=== PATIENT | female | born 1990 | race Caucasian/White ===

== ENCOUNTER → 2017-12-23 10:43 | Outpatient (CLI) | payer MEDICAID, SELFPAY ==
--- NOTE | 2017-12-23 10:46 | ECHOD_ITS ---
Reason For Study: ARRHYTHMIA Procedure This was a 2D Doppler, Color Flow transthoracic echocardiogram. Exam performed in department. Left Ventricle Normal size and thickness. The estimated ejection fraction is 65 %. Normal diastology for age. No regional wall motion abnormalities noted. Right Ventricle Normal size and thickness. Normal systolic function. Atria Normal left atrium. Normal right atrium. Normal atrial septum. Mitral Valve The mitral valve is structurally normal. No prolapse or stenosis seen. Tricuspid Valve Normal tricuspid valve. Trivial tricuspid valve insufficiency. Right ventricular systolic pressure estimated to be 21 mmHg. Aortic Valve Trisinus/trileaflet aortic valve. Pulmonic Valve Normal pulmonic valve. Great Vessels Normal aortic root. Normal arch. Normal inferior vena cava. Inferior vena cava collapse with sniff. Pericardium/Pleural No pericardial effusion. MMode/2D Measurements & Calculations LVIDd: 4.4 cm IVSd: 1.1 cm LA dimension: 3.3 cm LVIDs: 3.0 cm LVPWd: 1.1 cm RVDd: 2.7 cm FS: 32.7 % LAV(MOD-bp): 35.9 ml LA A4 area: 13.0 cm2 RA A4 area: 12.1 cm2 LAV(MOD-bp) Indexed: 17.4 ml/m2 LAV(MOD-sp2): 32.2 ml LAV(MOD-sp4): 33.8 ml Doppler Measurements & Calculations MV E max dominick: 74.0 cm/sec Lat Peak E' Dominick: 8.3 cm/sec Med Peak E' Dominick: 8.5 cm/sec MV A max dominick: 61.2 cm/sec E/E' lat: 8.9 E/E' med: 8.7 MV E/A: 1.2 Ao V2 max: 107.8 cm/sec LV V1 max: 89.9 cm/sec PA V2 max: 95.9 cm/sec Ao max P.6 mmHg LV V1 max P.2 mmHg TR max dominick: 202.5 cm/sec TR max P.4 mmHg Interpretation Summary The estimated ejection fraction is 65 %. Trivial tricuspid valve insufficiency. Right ventricular systolic pressure estimated to be 21 mmHg. There is no comparison study available. Ordering Physician: Humberto Barnes Referring Physician: Rohith Harman Performed By: Christnie Pineda, AMY, RVT
== END ==
PROVIDERS: PCP Internal Medicine; Referring Provider Internal Medicine Cardiovascular Disease; Visit Provider Internal Medicine Cardiovascular Disease
DX: R00.0 Tachycardia, unspecified (principal); Z98.890 Other specified postprocedural states
CPT/HCPCS: 93306

== ENCOUNTER → 2019-07-15 | Outpatient (CLI) | payer MEDICAID, SELFPAY ==
[2019-07-15 14:37] VITALS: BMI 37.9
[2019-07-17 18:11] LABS: HPV Reflexed? NOT INDICATED
== END | disposition home or self-care (01) ==
LOC: LABSPEC 16:22
PROVIDERS: PCP Internal Medicine; Referring Provider Nurse Practitioner Women's Health; Visit Provider Nurse Practitioner Women's Health
DX: Z12.4 Encounter for screening for malignant neoplasm of cervix (principal)
CPT/HCPCS: 88175; G0145

== ENCOUNTER → 2022-11-12 | Outpatient (CLI) | payer MEDICAID, SELFPAY ==
[2022-11-16 16:09] LABS: HPV APTIMA, High Risk Negative (Negative)
== END | disposition home or self-care (01) ==
PROVIDERS: PCP Internal Medicine; Referring Provider Obstetrics & Gynecology; Visit Provider Obstetrics & Gynecology
DX: Z12.4 Encounter for screening for malignant neoplasm of cervix (principal)
CPT/HCPCS: 87624; 88175; G0145

== ENCOUNTER → 2022-12-17 | Outpatient (CLI) | payer MEDICAID, SELFPAY ==
[2022-12-17 15:15] LABS: Absolute Lymphocyte Count 2.19 X10^3/uL (0.83-4.51); Absolute Neutrophil Count 8.9 X10^3/uL (2.0-7.7); Basophil# 0.05 X10^3/uL; Basophil% 0.4 % (0-1); Eosinophil# 0.12 X10^3/uL; Hematocrit 41.8 % (37-47); Hemoglobin 13.7 g/dL (12.0-15.0); Lymphocyte # 2.19 X10^3/ul (0.83-4.51); Lymphocyte % 18.3 % (19-41); Mean Corp Hgb Conc 32.8 g/dL (32-36); Mean Corpuscular Hgb 28.7 pg (27.0-32.0); Mean Corpuscular Volume 87.4 fL (81-99); Mean Platelet Vol. 10.3 fl (6.2-12.0); Monocyte# 0.62 X10^3/uL; Monocyte% 5.2 % (0-10); NRBC Flagged by Analyzer 0 % (0-5); Neutrophil # 8.94 X10^3/uL (2.7-7.7); Neutrophil % 74.8 % (47-70); Platelet Count 432 K/mm3 (150-450); RBC Distribution Width CV 12.6 % (11.6-14.6); RBC Distribution Width SD 40.3 fl (35.1-43.9); Red Blood Count 4.78 M/mm3 (4.2-5.4)
[2022-12-17 15:35] LABS: Hemoglobin A1c 5.4 % (3.8-5.6)
[2022-12-17 15:40] LABS: ALB/GLOB Ratio 1.1 RATIO (0.9-2.4); AST(SGOT) 31 U/L (15-37); Alanine Aminotransfer ALT/SGPT 70 U/L (13-56); Alkaline Phosphatase 76 U/L (45-117); Anion Gap 6 (5-15); BUN 6 mg/dL (7-18); BUN/Creat Ratio 8.3 RATIO (10-20); Chloride 106 mmol/L (98-107); Cholesterol 188 mg/dL (200); Creatinine, Serum 0.72 mg/dL (0.55-1.02); EST Glomerular Filtration Rate 101 mL/min (>60); Est Glom Filt Rate - Afr Amer 122 mL/min (>60); Estradiol 52.6 pg/mL; Follicle Stimulating Hormone 3.5 mIU/mL; Globulin 3.8 g/dL (2.2-4.2); Glucose 93 mg/dL (74-106); High Density Lipoprotein 33 mg/dL; Potassium 3.3 mmol/L (3.5-5.1); Prolactin 11.3 ng/mL; Protein, Total 7.8 g/dL (6.4-8.2); Sodium Level 139 mmol/L (136-145); Thyroid Stim Hormone (TSH) 1.07 uIU/mL (0.358-3.74); Triglycerides 296 mg/dL; Very Low Density Lipoprotein 59 mg/dL (5-40)
[2022-12-21 10:08] LABS: 17-Hydroxyprogesterone 29 ng/dL (.); Vitamin D 1,25-Dihydroxy 51.4 pg/mL (24.8-81.5)
[2022-12-23 19:07] LABS: Testosterone Free 1.4 pg/mL (0.0-4.2)
== END | disposition home or self-care (01) ==
PROVIDERS: PCP Internal Medicine; Referring Provider Obstetrics & Gynecology; Visit Provider Obstetrics & Gynecology
DX: N93.9 Abnormal uterine and vaginal bleeding, unspecified (principal)
CPT/HCPCS: 36415; 80053; 80061; 82627; 82652; 82670; 83001; 83036; 83498; 84146; 84402; 84443; 85025; 82626

== ENCOUNTER → 2023-03-26 | Outpatient (CLI) | payer MEDICAID, SELFPAY ==
[2023-03-26 12:25] LABS: ALB/GLOB Ratio 1.1 RATIO (0.9-2.4); AST(SGOT) 22 U/L (15-37); Alanine Aminotransfer ALT/SGPT 42 U/L (13-56); Albumin, Serum 3.8 g/dL (3.2-5.0); Alkaline Phosphatase 66 U/L (45-117); Anion Gap 6 (5-15); BUN 6 mg/dL (7-18); BUN/Creat Ratio 7.9 RATIO (10-20); Calcium,Total 9.1 mg/dL (8.5-10.1); Chloride 106 mmol/L (98-107); Cholesterol 210 mg/dL (200); Creatinine, Serum 0.76 mg/dL (0.55-1.02); EST Glomerular Filtration Rate 95 mL/min (>60); Est Glom Filt Rate - Afr Amer 115 mL/min (>60); Globulin 3.5 g/dL (2.2-4.2); Glucose 95 mg/dL (74-106); High Density Lipoprotein 34 mg/dL; Potassium 3.9 mmol/L (3.5-5.1); Protein, Total 7.3 g/dL (6.4-8.2); Sodium Level 138 mmol/L (136-145); Triglycerides 321 mg/dL; Very Low Density Lipoprotein 64 mg/dL (5-40)
== END | disposition home or self-care (01) ==
LOC: BIMLAB 09:34
PROVIDERS: PCP Internal Medicine; Visit Provider Internal Medicine
DX: E78.5 Hyperlipidemia, unspecified (principal)
CPT/HCPCS: 36415; 80053; 80061

== ENCOUNTER → 2023-12-30 | Outpatient (CLI) | payer MEDICAID, SELFPAY ==
--- OUTSIDE RECORDS SUMMARY | 2023-12-30 12:06 | XMS RPT_ITS | CCD ---
Author Organization [facility] Care Team Providers Care Supervisor Frame Assembly Name Role Phone GIAN MEDEIROS, LAITH Thacker Primary Care Physician [phone] Allergies Allergy Classification Reported Allergen(s) Allergy Type Date of Onset Reaction(s) Facility (2 sources) Codeine; Translations: [codeine] Drug Allergy [facility] (2 sources) Mold Extract Drug Allergy Weal (disorder) [facility] (1 source) MILDEW; Translations: [MILDEW] Propensity to adverse reactions (disorder) 6 [facility] Repository (1 source) OTHER; Translations: [OTHER] Propensity to adverse reactions (disorder) 6 [facility] Repository Medications Current Medications Medication Drug Class(es) Dates Sig (Normalized) Sig (Original) acetaminophen 500 mg oral tablet (1 source) Start: 01-23-2021 take 1 dose by mouth every six hours as needed for pain acetaminophen Dose : 500 mg =, Oral, q6hr, PRN as needed for pain, 0 Refill(s) Start Date: 01/23/21 Status: Ordered acetaminophen 325 mg / oxyCODONE hydrochloride 5 mg oral tablet (2 sources) Opioid Agonist Start: 01-09-2021 take 1 tablet by mouth every six hours as needed for pain acetaminophen-oxyCO DONE 325 mg-5 mg oral tablet Dose = 1 tab(s), Oral, q6h, PRN for pain, # 12 tab(s), 0 Refill(s), 102.3 Start Date: 01/09/21 Status: Ordered Nexplanon 68 mg subcutaneous implant (2 sources) Start: 01-09-2021 inject 1 mg by subcutaneous injection once Nexplanon 68 mg subcutaneous implant mg = EA, Subcutaneous, Once, 0 Refill(s) Start Date: 01/09/21 Status: Ordered Results Test Name Value Interpretation Reference Range Facility Final Surgical Pathology Rep thomas 01-27-2021 Final Surgical Pathology Report . Pathology Reports Accession: Collected Date/Time: Received Date/Time: Pathologist: [id number] 01/23/2021 16:20 EST 01/24/2021 07:58 EST DO RASHAWN RUVALCABA Final Surgical Pathology Report DIAGNOSIS: GALLBLADDER - CHOLELITHIASIS AND CHRONIC CHOLECYSTITIS CLINICAL INFORMATION: Procedure: ROBOTIC CHOLECYSTECTOMY Preoperative diagnosis: CHOLELITHIASIS Postoperative diagnosis: SAME SPECIMEN: A GALLBLADDER GROSS DESCRIPTION: A. Received in formalin, labeled with the patients name, Case #[id number], and gallbladder Dimensions-9.5 x 3.2 x 1.8 cm Cystic duct/pericystic duct lymph node-patent, no lymph node Serosal surface-yellow -purple with pinpoint areas of hemorrhage Luminal contents-clear liquid bile and 1 oval-shaped yellow hard calculi measuring 1.7 x 1.4 cm. Mucosal surface-maharaj -pink with small white specks Wall thickness-0.2 cm RS- 1 Dictated by ROBERTO LEWIS Electronically Signed by Pathology Report verified by [facility] Electronically signed by RASHAWN RUVALCABA DO Sign out Date: 01/27/2021 12:58 Performing Lab: [address] [facility] ([place] LABORATORYOrdered By: Rebecca Loo on 01-23-2021 Beta HCG ( test) Ql (U) Negative (01/23/21 12:50 PM) [facility] Glucose [Mass/Vol] 85 mg/dL Invalid Interpretation Code 70 - 110 mg/dL [facility] .Auto Diffon 01-09-2021 Basophil, Absolute 0.10 10 3/mcL Normal 0.00-0.27 [facility] ([place]) Comment on above: Performed By: #### C BC, ADIFF, ANEU, CMP #### [address] [address] #### GFR #### [address] [address] Basophils/100 WBC (Bld) 0.9 % Normal 0.0-2.5 [facility] ([place] Comment on above: Performed By: #### C BC, ADIFF, ANEU, CMP #### [address] [address] #### GFR #### [address] [address] Eosinophil, Absolute 0.10 10 3/mcL Normal 0.00-0.65 A [facility] ([place]) Comment on above: Performed By: #### C BC, ADIFF, ANEU, CMP #### [place] [address] #### GFR #### [address] [address] Eosinophils/100 WBC (Bld) 1.2 % Normal 0.0-6.0 [facility] ([place] Comment on above: Performed By: #### C BC, ADIFF, ANEU, CMP #### [place] [address] #### GFR #### [address] [address] Lymphocyte, Absolute 2.30 10 3/mcL Normal 0.90-4.32 A [facility] ([place]) Comment on above: Performed By: #### C BC, ADIFF, ANEU, CMP #### [place] [address] #### GFR #### [address] [address] Lymphocytes/100 WBC (Bld) 23.8 % Normal 20.0-40.0 [facility] [place] Comment on above: Performed By: #### C BC, ADIFF, ANEU, CMP #### [place] [address] #### GFR #### [address] [address] Monocyte, Absolute 0.40 10 3/mcL Normal 0.09-1.40 [facility] ([place] Comment on above: Performed By: #### C BC, ADIFF, ANEU, CMP #### [address] [address] #### GFR #### [address] [address] Monocytes/100 WBC (Bld) 4.4 % Normal 2.0-13.0 [facility] [place] Comment on above: Performed By: #### C BC, ADIFF, ANEU, CMP #### [address] [address] #### GFR #### [address] [address] Neutrophils/100 WBC (Bld) 69.7 % Normal 50.0-75.0 [facility] [place] Comment on above: Performed By: #### C BC, ADIFF, ANEU, CMP #### [address] [address] #### GFR #### [address] [address] .GFRon 01-09-2021 GFR Non- >60 Normal [facility] ([place] Comment on above: Result Comment: GFR Population mean for , Non- Americans Ages 20-29 = 116 mL/min/1.73 sq.m. Ages 30-39 = 107 mL/min/1.73 sq.m. Ages 40-49 = 99 mL/min/1.73 sq.m. Ages 50-59 = 93 mL/min/1.73 sq.m. Ages 60-69 = 85 mL/min/1.73 sq.m. Ages 70+ = 75 mL/min/1.73 sq.m. Chronic Kidney Disease: Less than 60 mL/min/1.73 square meters End Stage Renal Disease: Less than 15 mL/min/1.73 square meters Performed By: #### C BC, ADIFF, ANEU, CMP #### [address] [address] #### GFR #### [address] [address] GFR >60 Normal [facility] ([place]) Comment on above: Result Comment: GFR Population mean for , Non- Americans Ages 20-29 = 116 mL/min/1.73 sq.m. Ages 30-39 = 107 mL/min/1.73 sq.m. Ages 40-49 = 99 mL/min/1.73 sq.m. Ages 50-59 = 93 mL/min/1.73 sq.m. Ages 60-69 = 85 mL/min/1.73 sq.m. Ages 70+ = 75 mL/min/1.73 sq.m. Chronic Kidney Disease: Less than 60 mL/min/1.73 square meters End Stage Renal Disease: Less than 15 mL/min/1.73 square meters Performed By: #### C AMAYA CORONEL ANEU, CMP #### [place] [address] #### GFR #### [address] [address] .NEUABSon 01-09-2021 Neutrophil, Absolute 6.90 10 3/mcL Normal 2.25-8.10 A [facility] ([place]) Comment on above: Performed By: #### C AMAYA CORONEL ANEU, CMP #### [place] [address] #### GFR #### [address] [address] CBCon 01-09-2021 Erythrocyte distribution width (RBC) [Ratio] 14.4 % Normal 11.5-15.5 [facility] [place] Comment on above: Performed By: #### C BCAMAYA ANEU, CMP #### [address] [address] #### GFR #### [address] [address] Hematocrit (Bld) [Volume fraction] 40.0 % Normal 34.0-46.0 [facility] ([place] Comment on above: Performed By: #### C BCAMAYA ANEU, CMP #### [place] [address] #### GFR #### [place] [address] Hgb 12.7 G/dL Normal 12.0-16.0 [facility] ([place] Comment on above: Performed By: #### C AMAYA CORONEL ANEU, CMP #### [place] [address] #### GFR #### [place] [address] MCH (RBC) [Entitic mass] 26.9 pg Low 27.0-33.0 [facility] ([place] Comment on above: Performed By: #### C AMAYA CORONEL ANEU, CMP #### [place] [address] #### GFR #### [place] [address] MCHC 31.9 G/dL Low 32.0-36.0 [facility] [place] Comment on above: Performed By: #### C AMAYA CORONEL ANEU, CMP #### [place] [address] #### GFR #### [place] [address] MCV (RBC) [Entitic vol] 84.4 fL Normal 80.0-99.0 [facility] ([place] Comment on above: Performed By: #### C AMAYA CORONEL ANEU, CMP #### [place] [address] #### GFR #### [place] [address] Platelet 371 10 3/mcL Normal 150-450 [facility] ([place]) Comment on above: Performed By: #### C BCAMAYA ANEU, CMP #### [place] [address] #### GFR #### [place] [address] Platelet mean volume (Bld) [Entitic vol] 9.2 fL Normal 6.6-10.5 [facility] ([place]) Comment on above: Performed By: #### C BC, ADIFF, ANEU, CMP #### [place] [address] #### GFR #### [place] [address] RBC 4.74 10 6/mcL Normal 4.10-5.30 [facility] ([place]) Comment on above: Performed By: #### C BC, ADIFF, ANEU, CMP #### [place] [address] #### GFR #### [place] [address] WBC 9.90 10 3/mcL Normal 4.50-10.80 [facility] ([place] Comment on above: Performed By: #### C BC, ADIFF, ANEU, CMP #### [place] [address] #### GFR #### [place] [address] CMPon 01-09-2021 Albumin Level 4.0 G/dL Normal 3.2-4.8 [facility] ([place] Comment on above: Performed By: #### C BC, ADRIOS, ANEU, CMP #### [place] [address] #### GFR #### [place] [address] Albumin/Globulin [Mass ratio] 1.4 {ratio} Normal 0.9-1.6 [facility] ([place] Comment on above: Performed By: #### C BC, ADIFF, ANEU, CMP #### [place] [address] #### GFR #### [place] [address] ALP [Catalytic activity/Vol] 70 U/L Normal 38-126 [facility] ([place] Comment on above: Performed By: #### C BC, ADIFF, ANEU, CMP #### [place] [address] #### GFR #### [address] [address] ALT [Catalytic activity/Vol] 44 U/L Normal 10-49 [facility] ([place] Comment on above: Performed By: #### C BC, ADIFF, ANEU, CMP #### [address] [address] #### GFR #### [address] [address] AST [Catalytic activity/Vol] 22 U/L Normal 8-34 [facility] ([place] Comment on above: Performed By: #### C BC, ADIFF, ANEU, CMP #### [place] [address] #### GFR #### [address] [address] Bili Total 0.30 mg/dL Normal 0.20-1.20 [facility] ([place] Comment on above: Result Comment: Use of this assay is not recommended for patients undergoing treatment with eltrombopag due to the potential for falsely elevated results. Performed By: #### C BC, ADIFF, ANEU, CMP #### [place] [address] #### GFR #### [address] [address] BUN/Creatinine Ratio 10.4 ratio Normal 10.0-22.0 [facility] ([place] Comment on above: Performed By: #### C BC, ADIFF, ANEU, CMP #### [place] [address] #### GFR #### [address] [address] Calcium [Mass/Vol] 9.7 mg/dL Normal 8.7-10.4 [facility] ([place]) Comment on above: Result Comment: No te - New Reference Range in effect 19 Performed By: #### C BC, ADIFF, ANEU, CMP #### [place] [address] #### GFR #### [address] [address] Chloride [Moles/Vol] 107 mmol/L Normal 98-110 [facility] ([place] Comment on above: Performed By: #### C BC, ADIFF, ANEU, CMP #### [address] [address] #### GFR #### [address] [address] CO2 [Moles/Vol] 29 mmol/L Normal 22-32 [facility] [place] Comment on above: Performed By: #### C BC, ADIFF, ANEU, CMP #### [address] [address] #### GFR #### [address] [address] Creatinine [Mass/Vol] 0.67 mg/dL Normal 0.50-1.20 [facility] ([place]) Comment on above: Performed By: #### C BC, ADIFF, ANEU, CMP #### [address] [address] #### GFR #### [address] [address] Electrolyte Balance 6.0 mEq/L Normal 4.0-15.0 [facility] ([place]) Comment on above: Performed By: #### C BC, ADIFF, ANEU, CMP #### [address] [address] #### GFR #### [address] [address] Globulin 2.9 G/dL Normal 1.5-3.8 [facility] ([place] Comment on above: Performed By: #### C BC, ADIFF, ANEU, CMP #### [address] [address] #### GFR #### [address] [address] Glucose [Mass/Vol] 94 mg/dL Normal 70-110 [facility] ([place] Comment on above: Performed By: #### C BC, AMAYA ANEU, CMP #### [address] [address] #### GFR #### [address] [address] Potassium [Moles/Vol] 4.5 mmol/L Normal 3.5-5.0 [facility] ([place]) Comment on above: Performed By: #### C BC, AMAYA ANEU, CMP #### [place] [address] #### GFR #### [address] [address] Sodium [Moles/Vol] 142 mmol/L Normal 136-145 [facility] ([place]) Comment on above: Performed By: #### C BCAMAYA ANEU, CMP #### [place] [address] #### GFR #### [place] [address] Total Protein 6.9 G/dL Normal 5.7-8.2 [facility] ([place]) Comment on above: Result Comment: No te - New Reference Range in effect 19 Performed By: #### C BC, AMAYA ANEU, CMP #### [place] [address] #### GFR #### [address] [address] Urea nitrogen [Mass/Vol] 7.0 mg/dL Low 8.0-22.0 [facility] ([place] Comment on above: Performed By: #### C BC, AMAYA, ANEU, CMP #### [place] [address] #### GFR #### [address] [address] LABORATORYOrdered By: SYSTEM SYSTEM on 01-09-2021 Albumin BCP dye [Mass/Vol] 4.0 G/dL Invalid Interpretation Code 3.2 - 4.8 G/dL AH ADM SS Albumin/Globulin [Mass ratio] 1.4 {ratio} Invalid Interpretation Code 0.9 - 1.6 ratio AH ADM SS ALP [Catalytic activity/Vol] 70 U/L Invalid Interpretation Code 38 - 126 U/L AH ADM SS ALT No additional P-5'-P [Catalytic activity/Vol] 44 U/L Invalid Interpretation Code 10 - 49 U/L AH ADM SS AST [Catalytic activity/Vol] 22 U/L Invalid Interpretation Code 8 - 34 U/L AH ADM SS Basophils (Bld) [#/Vol] 0.10 103/mcL Invalid Interpretation Code 0.00 - 0.27 10^3/mcL AH Remisol SS Basophils/100 WBC (Bld) 0.9 % Invalid Interpretation Code 0.0 - 2.5 % AH Remisol SS Bilirubin [Mass/Vol] 0.30 mg/dL Invalid Interpretation Code 0.20 - 1.20 mg/dL AH ADM SS Calcium [Mass/Vol] 9.7 mg/dL Invalid Interpretation Code 8.7 - 10.4 mg/dL AH ADM SS Chloride [Moles/Vol] 107 mmol/L Invalid Interpretation Code 98 - 110 mEq/L ADM SS CO2 [Moles/Vol] 29 mmol/L Invalid Interpretation Code 22 - 32 mEq/L AH ADM SS Creatinine [Mass/Vol] 0.67 mg/dL Invalid Interpretation Code 0.50 - 1.20 mg/dL AH ADM SS Electrolyte Balance 6.0 mEq/L Invalid Interpretation Code 4.0 - 15.0 mEq/L AH ADM SS Eosinophils (Bld) [#/Vol] 0.10 103/mcL Invalid Interpretation Code 0.00 - 0.65 10^3/mcL AH Remisol SS Eosinophils/100 WBC (Bld) 1.2 % Invalid Interpretation Code 0.0 - 6.0 % AH Remisol SS Erythrocyte distribution width (RBC) [Ratio] 14.4 % Invalid Interpretation Code 11.5 - 15.5 % AH Remisol SS GFR/1.73 sq M.predicted among blacks MDRD (S/P/Bld) [Vol rate/Area] ml/min/1.73sqm Invalid Interpretation Code AH Chemistry S GFR/1.73 sq M.predicted among non-blacks MDRD (S/P/Bld) [Vol rate/Area] ml/min/1.73sqm Invalid Interpretation Code Chemistry S Globulin 2.9 G/dL Invalid Interpretation Code 1.5 - 3.8 G/dL AH ADM SS Glucose [Mass/Vol] 94 mg/dL Invalid Interpretation Code 70 - 110 mg/dL AH ADM SS Hematocrit (Bld) [Volume fraction] 40.0 % Invalid Interpretation Code 34.0 - 46.0 % AH Remisol SS Hemoglobin (Bld) [Mass/Vol] 12.7 G/dL Invalid Interpretation Code 12.0 - 16.0 G/dL AH Remisol SS Lymphocytes (Bld) [#/Vol] 2.30 103/mcL Invalid Interpretation Code 0.90 - 4.32 10^3/mcL AH Remisol SS Lymphocytes/100 WBC (Bld) 23.8 % Invalid Interpretation Code 20.0 - 40.0 % AH Remisol SS MCH (RBC) [Entitic mass] 26.9 pg Invalid Interpretation Code 27.0 - 33.0 pg AH Remisol SS MCHC (RBC) [Mass/Vol] 31.9 G/dL Invalid Interpretation Code 32.0 - 36.0 G/dL AH Remisol SS MCV (RBC) [Entitic vol] 84.4 fL Invalid Interpretation Code 80.0 - 99.0 fL AH Remisol SS Monocytes (Bld) [#/Vol] 0.40 103/mcL Invalid Interpretation Code 0.09 - 1.40 10^3/mcL AH Remisol SS Monocytes/100 WBC (Bld) 4.4 % Invalid Interpretation Code 2.0 - 13.0 % AH Remisol SS Neutrophils (Bld) [#/Vol] 6.90 103/mcL Invalid Interpretation Code 2.25 - 8.10 10^3/mcL AH Remisol SS Neutrophils/100 WBC (Bld) 69.7 % Invalid Interpretation Code 50.0 - 75.0 % AH Remisol SS Platelet mean volume (Bld) [Entitic vol] 9.2 fL Invalid Interpretation Code 6.6 - 10.5 fL AH Remisol SS Platelets (Bld) [#/Vol] 371 103/mcL Invalid Interpretation Code 150 - 450 10^3/mcL AH Remisol SS Potassium [Moles/Vol] 4.5 mmol/L Invalid Interpretation Code 3.5 - 5.0 mEq/L AH ADM SS Protein [Mass/Vol] 6.9 G/dL Invalid Interpretation Code 5.7 - 8.2 G/dL AH ADM SS RBC (Bld) [#/Vol] 4.74 106/mcL Invalid Interpretation Code 4.10 - 5.30 10^6/mcL AH Remisol SS Sodium [Moles/Vol] 142 mmol/L Invalid Interpretation Code 136 - 145 mEq/L AH ADM SS Urea nitrogen [Mass/Vol] 7.0 mg/dL Invalid Interpretation Code 8.0 - 22.0 mg/dL AH ADM SS Urea nitrogen/Creatinine [Mass ratio] 10.4 ratio Invalid Interpretation Code 10.0 - 22.0 ratio AH ADM SS WBC (Bld) [#/Vol] 9.90 103/mcL Invalid Interpretation Code 4.50 - 10.80 10^3/mcL AH Remisol SS .Auto Diffon 12-04-2020 Basophil, Absolute 0.00 10 3/mcL Normal 0.00-0.19 [facility] ([place]) Comment on above: Performed By: #### C BC, ADIFF ANEU, CMP #### [place] [address] #### GFR #### [address] [address] Basophils/100 WBC (Bld) 0.3 % Normal 0.0-2.5 [facility] ([place] Comment on above: Performed By: #### C BC, ADIFF, ANEU, CMP #### [address] [address] #### GFR #### [address] [address] Eosinophil, Absolute 0.10 10 3/mcL Normal 0.00-0.40 A [facility] ([place]) Comment on above: Performed By: #### C BC, ADIFF, ANEU, CMP #### [place] [address] #### GFR #### [address] [address] Eosinophils/100 WBC (Bld) 0.9 % Normal 0.0-7.0 [facility] ([place] Comment on above: Performed By: #### C BC, ADIFF, ANEU, CMP #### [address] [address] #### GFR #### [address] [address] Lymphocyte, Absolute 1.70 10 3/mcL Normal 0.77-3.85 A [facility] ([place]) Comment on above: Performed By: #### C BC, ADIFF, ANEU, CMP #### [address] [address] #### GFR #### [address] [address] Lymphocytes/100 WBC (Bld) 10.5 % Normal 10.0-50.0 [facility] ([place]) Comment on above: Performed By: #### C BC, ADIFF, ANEU, CMP #### [address] [address] #### GFR #### [address] [address] Monocyte, Absolute 0.70 10 3/mcL Normal 0.15-1.00 [facility] ([place]) Comment on above: Performed By: #### C BC, ADIFF, ANEU, CMP #### [address] [address] #### GFR #### [address] [address] Monocytes/100 WBC (Bld) 4.3 % Normal 1.7-13.0 [facility] ([place]) Comment on above: Performed By: #### C BC, ADIFF, ANEU, CMP #### [address] [address] #### GFR #### [address] [address] Neutrophils/100 WBC (Bld) 84.0 % High 37.0-80.0 [facility] ([place]) Comment on above: Performed By: #### C BC, ADIFF, ANEU, CMP #### [address] [address] #### GFR #### [address] [address] .GFRon 12-04-2020 GFR Non- 84 ml/min/1.73sqm Normal [facility] ([place]) Comment on above: Result Comment: GFR Population mean for , Non- Americans Ages 20-29 = 116 mL/min/1.73 sq.m. Ages 30-39 = 107 mL/min/1.73 sq.m. Ages 40-49 = 99 mL/min/1.73 sq.m. Ages 50-59 = 93 mL/min/1.73 sq.m. Ages 60-69 = 85 mL/min/1.73 sq.m. Ages 70+ = 75 mL/min/1.73 sq.m. Chronic Kidney Disease: Less than 60 mL/min/1.73 square meters End Stage Renal Disease: Less than 15 mL/min/1.73 square meters Performed By: #### C BCAMAYA, ANEU, CMP #### [address] [address] #### GFR #### [address] [address] GFR 102 ml/min/1.73sqm Normal [facility] ([place] Comment on above: Result Comment: GFR Population mean for , Non- Americans Ages 20-29 = 116 mL/min/1.73 sq.m. Ages 30-39 = 107 mL/min/1.73 sq.m. Ages 40-49 = 99 mL/min/1.73 sq.m. Ages 50-59 = 93 mL/min/1.73 sq.m. Ages 60-69 = 85 mL/min/1.73 sq.m. Ages 70+ = 75 mL/min/1.73 sq.m. Chronic Kidney Disease: Less than 60 mL/min/1.73 square meters End Stage Renal Disease: Less than 15 mL/min/1.73 square meters Performed By: #### C BC, ADIFF, ANEU, CMP #### [address] [address] #### GFR #### [address] [address] .NEUABSon 12-04-2020 Neutrophil, Absolute 13.20 10 3/mcL High 2.85-6.16 [facility] ([place] Comment on above: Performed By: #### C BC, ADIFF, ANEU, CMP #### [place] [address] #### GFR #### [place] [address] .Urinalysis Microscopic (AO) on 12-04-2020 UA Amorphus 2+ /hpf Normal [facility] ([place]) Comment on above: Performed By: #### P REGU, UA, UAMICAO #### [place] [address] UA Bacteria 1+ /hpf Abnormal [facility] ([place]) Comment on above: Performed By: #### P REGU, UA, UAMICAO #### [place] [address] UA Mucous 2+ /hpf Normal [facility] ([place] Comment on above: Performed By: #### P REGU, UA, UAMICAO #### [address] [address] UA RBC None Seen Normal None Seen [facility] [place] Comment on above: Performed By: #### P REGU, UA, UAMICAO #### [address] [address] UA Squam Epithelial 10-15 Abnormal None Seen [facility] ([place]) Comment on above: Performed By: #### P REGU, UA, UAMICAO #### [place] [address] UA WBC 0-5 Abnormal None Seen [facility] [place] Comment on above: Performed By: #### P REGU, UA, UAMICAO #### [place] [address] AMYon 12-04-2020 Amylase [Catalytic activity/Vol] 52 U/L Normal 25-115 [facility] ([place] Comment on above: Performed By: #### A MY #### [address] [address] CBCon 12-04-2020 Erythrocyte distribution width (RBC) [Ratio] 13.7 % Normal 11.5-14.5 [facility] ([place] Comment on above: Performed By: #### C AMAYA CORONEL ANEU, CMP #### [address] [address] #### GFR #### [place] [address] Hematocrit (Bld) [Volume fraction] 37.7 % Normal 37.0-47.0 [facility] ([place] Comment on above: Performed By: #### C AMAYA CORONEL ANEU, CMP #### [place] [address] #### GFR #### [place] [address] Hgb 12.3 G/dL Normal 12.0-16.0 [facility] ([place] Comment on above: Performed By: #### C AMAYA CORONEL ANEU, CMP #### [place] [address] #### GFR #### [place] [address] MCH (RBC) [Entitic mass] 27.8 pg Normal 27.0-31.2 [facility] ([place] Comment on above: Performed By: #### C AMAYA CORONEL ANEU, CMP #### [place] [address] #### GFR #### [place] [address] MCHC 32.6 G/dL Low 33.0-37.0 [facility] ([place] Comment on above: Performed By: #### C AMAYA CORONEL ANEU, CMP #### [place] [address] #### GFR #### [place] [address] MCV (RBC) [Entitic vol] 85.2 fL Normal 80.0-94.0 [facility] ([place] Comment on above: Performed By: #### C BC, ADIFF, ANEU, CMP #### [address] [address] #### GFR #### [address] [address] Platelet 332 10 3/mcL Normal 130-400 [facility] ([place]) Comment on above: Performed By: #### C BC, ADIFF, ANEU, CMP #### [place] [address] #### GFR #### [place] [address] Platelet mean volume (Bld) [Entitic vol] 8.6 fL Normal 7.4-10.4 [facility] ([place] Comment on above: Performed By: #### C BC, ADIFF, ANEU, CMP #### [place] [address] #### GFR #### [place] [address] RBC 4.43 10 6/mcL Normal 4.20-5.40 [facility] ([place]) Comment on above: Performed By: #### C BC, ADIFF, ANEU, CMP #### [place] [address] #### GFR #### [place] [address] WBC 15.80 10 3/mcL High 4.60-10.80 [facility] ([place]) Comment on above: Performed By: #### C BC, ADIFF, ANEU, CMP #### [place] [address] #### GFR #### [place] [address] CMPon 12-04-2020 Albumin Level 3.9 G/dL Normal 3.5-5.0 [facility] ([place] Comment on above: Performed By: #### C BC, ADIFF, ANEU, CMP #### [place] [address] #### GFR #### [address] [address] Albumin/Globulin [Mass ratio] 1.2 {ratio} Normal 1.1-2.5 [facility] ([place] Comment on above: Performed By: #### C BC, ADIFF, ANEU, CMP #### [place] [address] #### GFR #### [address] [address] ALP [Catalytic activity/Vol] 83 U/L Normal 40-135 [facility] ([place] Comment on above: Performed By: #### C BC, ADIFF, ANEU, CMP #### [place] [address] #### GFR #### [place] [address] ALT [Catalytic activity/Vol] 73 U/L High 14-59 [facility] ([place] Comment on above: Performed By: #### C BC, ADIFF, ANEU, CMP #### [place] [address] #### GFR #### [place] [address] AST [Catalytic activity/Vol] 57 U/L High 10-40 [facility] ([place] Comment on above: Performed By: #### C BC, ADIFF, ANEU, CMP #### [place] [address] #### GFR #### [address] [address] Bili Total 0.3 mg/dL Normal 0.2-1.0 [facility] ([place] Comment on above: Result Comment: Use of this assay is not recommended for patients undergoing treatment with eltrombopag due to the potential for falsely elevated results. Performed By: #### C BC, ADIFF, ANEU, CMP #### [place] [address] #### GFR #### [address] [address] BUN/Creatinine Ratio 10 ratio Normal 7-27 [facility] ([place]) Comment on above: Performed By: #### C BCAMAYA ANEU, CMP #### [address] [address] #### GFR #### [address] [address] Calcium [Mass/Vol] 8.7 mg/dL Normal 8.4-10.2 [facility] ([place] Comment on above: Performed By: #### C BCAMAYA ANEU, CMP #### [address] [address] #### GFR #### [address] [address] Chloride [Moles/Vol] 104 mmol/L Normal 98-107 [facility] ([place]) Comment on above: Performed By: #### C BCAMAYA ANEU, CMP #### [address] [address] #### GFR #### [address] [address] CO2 [Moles/Vol] 28 mmol/L Normal 22-29 [facility] [place] Comment on above: Performed By: #### C BCAMAYA ANEU, CMP #### [address] [address] #### GFR #### [address] [address] Creatinine [Mass/Vol] 0.81 mg/dL Normal 0.55-1.02 [facility] ([place]) Comment on above: Performed By: #### C BC, ADRIOS, ANEU, CMP #### [address] [address] #### GFR #### [address] [address] Electrolyte Balance 11.0 mEq/L Normal [facility] ([place]) Comment on above: Performed By: #### C BC, ADRIOS, ANEU, CMP #### [address] [address] #### GFR #### [address] [address] Globulin 3.2 G/dL Normal [facility] ([place]) Comment on above: Performed By: #### C BC, ADIFF, ANEU, CMP #### [address] [address] #### GFR #### [address] [address] Glucose [Mass/Vol] 106 mg/dL High 70-105 [facility] ([place]) Comment on above: Performed By: #### C AMAYA CORONEL, ANEU, CMP #### [address] [address] #### GFR #### [address] [address] Potassium [Moles/Vol] 3.6 mmol/L Normal 3.5-5.1 [facility] ([place]) Comment on above: Performed By: #### C HOMER, AMAYA, ANEU, CMP #### [address] [address] #### GFR #### [address] [address] Sodium [Moles/Vol] 143 mmol/L Normal 136-145 [facility] ([place]) Comment on above: Performed By: #### C HOMER, AMAYA, ANEU, CMP #### [address] [address] #### GFR #### [address] [address] Total Protein 7.1 G/dL Normal 6.4-8.2 [facility] ([place]) Comment on above: Performed By: #### C BC, ADIFF, ANEU, CMP #### [address] [address] #### GFR #### [address] [address] Urea nitrogen [Mass/Vol] 8 mg/dL Normal 7-18 [facility] ([place] Comment on above: Performed By: #### C BC, ADIFF, ANEU, CMP #### [address] [address] #### GFR #### [address] [address] [address] ABD/PELVIS W/ IV CONTRAST ONLYon 12-04-2020 CT ABD/PELVIS W/ IV CONTRAST ONLY ORIGINAL EXAMINATION: CT OF THE ABDOMEN AND PELVIS WITH CONTRAST 12/04/2020 6:30 pm TECHNIQUE: CT of the abdomen and pelvis was performed with the administration of intravenous contrast. Multiplanar reformatted images are provided for review. Dose modulation, iterative reconstruction, and/or weight based adjustment of the mA/kV was utilized to reduce the radiation dose to as low as reasonably achievable. COMPARISON: None. HISTORY: ORDERING SYSTEM PROVIDED HISTORY: Reason for Exam: Upper abdominal pain FINDINGS: Normal liver, spleen, pancreas and adrenal glands. Cholelithiasis with very mild gallbladder wall thickening. Normal kidneys, bladder, uterus and adnexa. Nonobstructive bowel. Normal appendix. No free fluid or air. Normal aorta. No adenopathy. Heart is normal in size. Lung bases are clear. Osseous structures are intact. IMPRESSION: Cholelithiasis with very mild gallbladder wall thickening. If there is concern for acute cholecystitis, consider right upper quadrant ultrasound. I have personally reviewed the images of this examination and agree with the resident's findings and interpretation. Interpreted by: Dalton Horton DO Preliminary Report By: Alexander Haji Electronically signed By Dalton Horton DO Dictated Date: 12/04/2020 6:36:23 PM Prelim Date: 12/04/2020 6:39:49 PM Sign Date: 12/04/2020 6:49:26 PM Ordering Provider: EZEQUIEL THRASHER [facility] [place] PREGUon 12-04-2020 HCG ( test) Ql (U) Negative Normal [facility] ([place] Comment on above: Performed By: #### P REGU, UA, UAMICAO #### [place] [address] [place], [place] [address] test (u) int Not detected Invalid Interpretation Code [facility] [place] Comment on above: Performed By: #### P REGU, UA, UAMICAO #### [place] [address] UAon 12-04-2020 Color (U) Yellow Normal [facility] [place] Comment on above: Performed By: #### P REGU, UA, UAMICAO #### [place] [address] Glucose (U) [Mass/Vol] Negative Normal Negative [facility] ([place] Comment on above: Performed By: #### P REGU, UA, UAMICAO #### [place] [address] Ketones Ql (U) Negative Normal Negative [facility] ([place]) Comment on above: Performed By: #### P REGU, UA, UAMICAO #### [place] [address] UA Appear Slightly Cloudy Abnormal Clear [facility] [place] Comment on above: Performed By: #### P REGU, UA, UAMICAO #### [place] [address] UA Blood Negative Normal Negative [facility] [place] Comment on above: Performed By: #### P REGU, UA, UAMICAO #### [place] [address] UA Leuk Est Negative Normal Negative [facility] ([place]) Comment on above: Performed By: #### P REGU, UA, UAMICAO #### [place] [address] UA Nitrite Negative Normal Negative [facility] [place] Comment on above: Performed By: #### P REGU, UA, UAMICAO #### [place] [address] UA pH 6.0 Normal 5.0 - 8.0 [facility] ([place] Comment on above: Performed By: #### P REGU, UA, UAMICAO #### [address] [address] UA Protein Negative Normal Negative [facility]) Comment on above: Performed By: #### P REGU, UA, UAMICAO #### [address] [address] UA Spec Grav >=1.030 Abnormal 1.015-1.025 [facility]) Comment on above: Performed By: #### P REGU, UA, UAMICAO #### [address] [address] UA Specimen Type Clean Catch Normal [facility] [place] Comment on above: Performed By: #### P REGU, UA, UAMICAO #### [address] [address] UA Urobilinogen 0.2 E.U./dL Normal 0.2-1.0 [facility]) Comment on above: Performed By: #### P REGU, UA, UAMICAO #### [address] [address] Urobilinogen (U) [Mass/Vol] Negative Normal Negative [facility] ([place] Comment on above: Performed By: #### P REGU, UA, UAMICAO #### [address] [address] Vital Signs Date Time Vital Sign Value Performing Clinician Sage shirley 01-23-2021 19:48-0500 Body temperature 97.88 [degF] DR TYSHAWN GONZALEZ MD [facility] 01-23-2021 19:48-0500 Diastolic blood pressure 65 mm[Hg] DR TYSHAWN GONZALEZ MD [facility] 01-23-2021 19:48-0500 Heart rate 90 /min DR TYSHAWN GONZALEZ MD [facility] 01-23-2021 19:48-0500 Respiratory rate 16 /min DR TYSHAWN GONZALEZ MD [facility] 01-23-2021 19:48-0500 Systolic blood pressure 110 mm[Hg] DR TYSHAWN GONZALEZ MD [facility] 01-23-2021 17:30-0500 Body temperature 97.16 [degF] DR TYSHAWN GONZALEZ MD [facility] 01-23-2021 17:30-0500 Diastolic blood pressure 74 mm[Hg] DR TYSHAWN GONZALEZ MD [facility] 01-23-2021 17:30-0500 Heart rate 94 /min DR TYSHAWN GONZALEZ MD [facility] 01-23-2021 17:30-0500 Respiratory rate 16 /min DR TYSHAWN GONZALEZ MD [facility] 01-23-2021 17:30-0500 Systolic blood pressure 113 mm[Hg] DR TYSHAWN GONZALEZ MD [facility] 01-23-2021 17:19-0500 Body temperature 96.8 [degF] DR TYSHAWN GONZALEZ MD [facility] 01-23-2021 17:19-0500 Diastolic Blood Pressure NBP [address] TYSHAWN GONZALEZ MD [facility] 01-23-2021 17:19-0500 Heart rate 97 /min DR TYSHAWN GONZALEZ MD [facility] 01-23-2021 17:19-0500 Mean blood pressure 89 mm[Hg] DR TYSHAWN GONZALEZ MD [facility] 01-23-2021 17:19-0500 Respiratory rate 16 /min DR TYSHAWN GONZALEZ MD [facility] 01-23-2021 17:19-0500 Systolic Blood Pressure NBP [address] TYSHAWN GONZALEZ MD [facility] 01-23-2021 17:11-0500 Diastolic Blood Pressure NBP [address] TYSHAWN GONZALEZ MD [facility] 01-23-2021 17:11-0500 Heart rate 93 /min DR TYSHAWN GONZALEZ MD [facility] 01-23-2021 17:11-0500 Mean blood pressure 93 mm[Hg] DR TYSHAWN GONZALEZ MD [facility] 01-23-2021 17:11-0500 Systolic Blood Pressure NBP [address] TYSHAWN GONZALEZ MD [facility] 01-23-2021 16:56-0500 Diastolic Blood Pressure NBP [address] TYSHAWN GONZALEZ MD [facility] 01-23-2021 16:56-0500 Heart rate 92 /min DR TYSHAWN GONZALEZ MD [facility] 01-23-2021 16:56-0500 Mean blood pressure 86 mm[Hg] DR TYSHAWN GONZALEZ MD [facility] 01-23-2021 16:56-0500 Systolic Blood Pressure NBP [address] TYSHAWN GONZALEZ MD [facility] 01-23-2021 16:26-0500 Body temperature 97.34 [degF] DR TYSHAWN GONZALEZ MD [facility] 01-23-2021 12:50-0500 Body height [address] TYSHAWN GONZALEZ MD [facility] 01-23-2021 12:50-0500 Body weight 99.[address] TYSHAWN GONZALEZ MD [facility] 01-23-2021 12:50-0500 Diastolic blood pressure 85 mm[Hg] DR TYSHAWN GONZALEZ MD [facility] 01-23-2021 12:50-0500 Heart rate 73 /min DR TYSHAWN GONZALEZ MD [facility] 01-23-2021 12:50-0500 Mean blood pressure 104 mm[Hg] DR TYSHAWN GONZALEZ MD [facility] 01-23-2021 12:50-0500 Systolic blood pressure 142 mm[Hg] DR TYSHAWN GONZALEZ MD [facility] 01-09-2021 15:27-0500 Body height [address] TYSHAWN GONZALEZ MD [facility] 01-09-2021 15:27-0500 Body temperature 98.24 [degF] DR TYSHAWN GONZALEZ MD [facility] 01-09-2021 15:27-0500 Body weight 101.[address] TYSHAWN GONZALEZ MD [facility] 01-09-2021 15:27-0500 Body weight 37.43 kg/m2 DR TYSHAWN GONZALEZ MD [facility] 01-09-2021 15:27-0500 diastolic 83 mm[Hg] DR TYSHAWN GONZALEZ MD [facility] 01-09-2021 15:27-0500 Heart rate 103 /min DR TYSHAWN GONZALEZ MD [facility] 01-09-2021 15:27-0500 systolic 138 mm[Hg] DR TYSHAWN GONZALEZ MD [facility] Encounters Encounter Date Encounter Type Care Provider Facility Start: 01-23-2021 End: 01-23-[address] TYSHAWN GONZALEZ MD [facility] Start: 01-09-2021 End: 01-09-[address] TYSHAWN GONZALEZ MD [facility] Start: 05-26-2017 End: 05-26-2017 ambulatory [facility] Procedures Date Procedure Procedure Detail Performing Clinician Start: 03-04-2013 Entire heart (body structure) DR TYSHAWN GONZALEZ MD Comment on above: ablations x2 Start: 03-04-[address] TYSHAWN GONZALEZ MD Extraction of single tooth D Jim GONZALEZ MD Extraction of wisdom tooth D Jim GONZALEZ MD Tympanotomy DR TYSHAWN GONZALEZ MD Immunizations Immunization Date Immunization Notes Care Provider Fa [facility] 02-29-2016 influenza virus vacc ine, unspecified formulation DR TYSHAWN GONZALEZ MD [facility] 02-29-2016 tetanus toxoid, redu dali diphtheria toxoid, and acellular pertussis vaccine, adsorbed DR TYSHAWN GONZALEZ MD [facility] 09-24-[address] TYSHAWN GONZALEZ MD [facility] 09-24-[address] TYSHAWN GONZALEZ MD [facility] 09-24-2006 measles/mumps/rubell a virus vaccine DR TYSHAWN GONZALEZ MD [facility] 09-24-[address], [address] TYSHAWN GONZALEZ MD [facility] Social History Date Type Detail Facility Tobacco Nicotine Use: Va ping Product in Last 90 Days. Type: Electronic Cigarettes (Vaping). Smoking Cessation Information Refused smoking cessation information. [facility] Occasional tobac co smoker (finding) [facility] Sex Assigned At [facility] Hospital Discharge instructions 01-23-2021 Note Date & Type Note Facility 01-23-2021 Hospital Discharg e instructions Patient Education 01/23/2021 14:38:15 Laparoscopic Cholecystectomy, Care After Laparoscopic Cholecystectomy, Care After This sheet gives you information about how to care for yourself after your procedure. Your health care provider may also give you more specific instructions. If you have problems or questions, contact your health care provider. What can I expect after the procedure? After the procedure, it is common to have: Pain at your incision sites. You will be given medicines to control this pain. Mild nausea or vomiting. Bloating and possible shoulder pain from the air-like gas that was used during the procedure. Follow these instructions at home: Incision care Follow instructions from your health care provider about how to take care of your incisions. Make sure you: ?Wash your hands with soap and water before you change your bandage (dressing). If soap and water are not available, use hand senior sql server database developer. ?Change your dressing as told by your health care provider. ?Leave stitches (sutures), skin glue, or adhesive strips in place. These skin closures may need to be in place for 2 weeks or longer. If adhesive strip edges start to loosen and curl up, you may trim the loose edges. Do not remove adhesive strips completely unless your health care provider tells you to do that. Do not take baths, swim, or use a hot tub until your health care provider approves. Ask your health care provider if you can take showers. You may only be allowed to take sponge baths for bathing. Check your incision area every day for signs of infection. Check for: ?More redness, swelling, or pain. ?More fluid or blood. ?Warmth. ?Pus or a bad smell. Activity Do not drive or use heavy machinery while taking prescription pain medicine. Do not lift anything that is heavier than 10 lb (4.5 kg) until your health care provider approves. Do not play contact sports until your health care provider approves. Do not drive for 24 hours if you were given a medicine to help you relax (sedative). Rest as needed. Do not return to work or school until your health care provider approves. General instructions Take hxhj-fah-dzbissy and prescription medicines only as told by your health care provider. To prevent or treat constipation while you are taking prescription pain medicine, your health care provider may recommend that you: ?Drink enough fluid to keep your urine clear or pale yellow. ?Take spkd-ydv-dpvsfzi or prescription medicines. ?Eat foods that are high in fiber, such as fresh fruits and vegetables, whole grains, and beans. ?Limit foods that are high in fat and processed sugars, such as fried and sweet foods. Contact a health care provider if: You develop a rash. You have more redness, swelling, or pain around your incisions. You have more fluid or blood coming from your incisions. Your incisions feel warm to the touch. You have pus or a bad smell coming from your incisions. You have a fever. One or more of your incisions breaks open. Get help right away if: You have trouble breathing. You have chest pain. You have increasing pain in your shoulders. You faint or feel dizzy when you stand. You have severe pain in your abdomen. You have nausea or vomiting that lasts for more than one day. You have leg pain. This information is not intended to replace advice given to you by your health care provider. Make sure you discuss any questions you have with your health care provider. Document Released: 02/18/2006 Document Revised: 01/31/2018 Document Reviewed: 08/06/2016 [employer] Patient Education 2020 [employer]. Follow Up Care 12/05/2020 14:39:33 With:TYSHAWN GONZALEZ Address: [address] [address]- Business (1) When: Unknown Comments:Follow-up with Dr. Gonzalez in 10-14 daysPlease call the office with any questions or concernsIbuprofen/Advil/Motrin 400 mg by mouth 4 times a day with meals; may alternate with 650 mg of Tylenol 4 times a day With:LAITH SPRINGER Address: [address] [place] [phone] Business (1) When: Unknown [facility] Evaluation + Plan note Note Date & Type Note Facility Evaluation + Plan note Future Appointments [facility] Hospital course Narrative Note Date & Type Note Facility Hospital course Narrative No data available for this section [facility] Hospital Discharge instructions Note Date & Type Note Facility Hospital Discharge instructions No data available for this section [facility] Summary Purpose Family History No Family History Records FoundNo Family History Records Found Advance Directives No Advanced Directives Records FoundNo Advanced Directives Records Found Additional Source Comments INFORMATION SOURCE (unrecogn ized section and content) DATE CREATED AUTHOR 01/31/2021 [facility] Elma hernandezation ([place]) DATE CREATED AUTHOR AUTHOR'S DANI NASSAR 08/04/2023 [facility] FOR RECORDS PERTAINING TO PATIENTS WHO ARE OR HAVE BEEN ENROLLED IN A CHEMICAL DEPENDENCY/SUBSTANCEABUSE PROGRAM, SOME INFORMATION MAY BE OMITTED. This clinical summary was aggregated from multiple sources. Caution should be exercised in using it in the provision of clinical care. This summary normalizes information from multiple sources, and as a consequence, information in this document may materially change the coding, format and clinical context of patient data. In addition, data may be omitted in some cases. CLINICAL DECISIONS SHOULD BE BASED ON THE PRIMARY CLINICAL RECORDS. [facility] [employer] [facility]. provides no warranty or guarantee of the accuracy or completeness of information in this document.
[2023-12-30 12:22] LABS: Absolute Lymphocyte Count 1.76 X10^3/uL (0.83-4.51); Basophil# 0.05 X10^3/uL; Basophil% 0.5 % (0-1); Eosinophil# 0.12 X10^3/uL; Eosinophils% 1.3 % (0-5); Hematocrit 40.5 % (37-47); Hemoglobin 12.7 g/dL (12.0-15.0); Lymphocyte # 1.76 X10^3/ul (0.83-4.51); Lymphocyte % 18.5 % (19-41); Mean Corp Hgb Conc 31.4 g/dL (32-36); Mean Corpuscular Hgb 27.4 pg (27.0-32.0); Mean Corpuscular Volume 87.3 fL (81-99); Mean Platelet Vol. 10.8 fl (6.2-12.0); Monocyte# 0.52 X10^3/uL; Monocyte% 5.5 % (0-10); NRBC Flagged by Analyzer 0 % (0-5); Neutrophil # 7.01 X10^3/uL (2.7-7.7); Neutrophil % 73.8 % (47-70); Platelet Count 398 K/mm3 (150-450); RBC Distribution Width CV 13.1 % (11.6-14.6); RBC Distribution Width SD 41.6 fl (35.1-43.9); Red Blood Count 4.64 M/mm3 (4.2-5.4); White Blood Count 9.5 K/mm3 (4.4-11.0)
[2023-12-30 12:51] LABS: ALB/GLOB Ratio 1.2 RATIO (0.9-2.4); AST(SGOT) 16 U/L (15-37); Alanine Aminotransfer ALT/SGPT 34 U/L (13-56); Alkaline Phosphatase 64 U/L (45-117); Anion Gap 8 (5-15); BUN 11 mg/dL (7-18); BUN/Creat Ratio 14.9 RATIO (10-20); Calcium,Total 9.2 mg/dL (8.5-10.1); Chloride 106 mmol/L (98-107); Cholesterol 190 mg/dL (200); Creatinine, Serum 0.74 mg/dL (0.55-1.02); EST Glomerular Filtration Rate 97 mL/min (>60); Est Glom Filt Rate - Afr Amer 117 mL/min (>60); Globulin 3.3 g/dL (2.2-4.2); Glucose 99 mg/dL (74-106); High Density Lipoprotein 32 mg/dL; Potassium 4.2 mmol/L (3.5-5.1); Protein, Total 7.3 g/dL (6.4-8.2); Sodium Level 139 mmol/L (136-145); Triglycerides 288 mg/dL; Very Low Density Lipoprotein 58 mg/dL (5-40)
[2023-12-31 05:07] LABS: HEPATITIS B SURFACE AG Negative (Negative); Hep C Antibodies Non Reactive (Non Reactive); Hepatitis A IgM Antibody Negative (Negative); Hepatitis B Core AB IgM Negative (Negative)
== END | disposition home or self-care (01) ==
LOC: BIMLAB 10:42
PROVIDERS: Obstetrics & Gynecology; PCP Internal Medicine; Referring Provider Internal Medicine; Visit Provider Internal Medicine
DX: E78.5 Hyperlipidemia, unspecified (principal); R74.8 Abnormal levels of other serum enzymes
CPT/HCPCS: 36415; 80053; 80061; 80074; 85025

== ENCOUNTER → 2024-06-12 | Outpatient (CLI) | payer MEDICAID, SELFPAY ==
[2024-06-12 12:12] LABS: Absolute Lymphocyte Count 1.36 X10^3/uL (0.83-4.51); Absolute Neutrophil Count 7.2 X10^3/uL (2.0-7.7); Basophil# 0.04 X10^3/uL; Basophil% 0.4 % (0-1); Eosinophil# 0.07 X10^3/uL; Eosinophils% 0.8 % (0-5); Hematocrit 36.6 % (37-47); Hemoglobin 11.7 g/dL (12.0-15.0); Lymphocyte # 1.36 X10^3/ul (0.83-4.51); Lymphocyte % 14.8 % (19-41); Mean Corpuscular Hgb 27.9 pg (27.0-32.0); Mean Corpuscular Volume 87.4 fL (81-99); Mean Platelet Vol. 11.3 fl (6.2-12.0); Monocyte% 5.4 % (0-10); NRBC Flagged by Analyzer 0 % (0-5); Neutrophil # 7.21 X10^3/uL (2.7-7.7); Neutrophil % 78.4 % (47-70); Platelet Count 380 K/mm3 (150-450); RBC Distribution Width CV 13.4 % (11.6-14.6); RBC Distribution Width SD 42.6 fl (35.1-43.9); Red Blood Count 4.19 M/mm3 (4.2-5.4); White Blood Count 9.2 K/mm3 (4.4-11.0)
[2024-06-12 12:39] LABS: Protein, Urine (Random) 17.5 mg/dL (0.0-12.0); Protein:Creat Ratio 105 mg/g CRE (0-200)
[2024-06-12 12:40] LABS: Amphetamine Urine NEGATIVE (<1000 ng/mL); Barbiturate Urine NEGATIVE (< 200 ng/mL); Benzodiazepine Urine NEGATIVE (< 200 ng/mL); Buprenorphine Urine NEGATIVE (< 200 ng/mL); Cocaine Urine NEGATIVE (< 300 ng/mL); Fentanyl, Urine NEGATIVE; Methadone Urine NEGATIVE (< 300 ng/mL); Opiates Urine NEGATIVE (< 300 ng/mL); Oxycodone, Urine NEGATIVE (< 100 ng/mL); PCP Urine NEGATIVE (< 25 ng/mL); THC Urine NEGATIVE (< 50 ng/mL)
[2024-06-12 12:41] LABS: Hemoglobin A1c 5.4 % (<=5.6)
[2024-06-12 13:13] LABS: ALB/GLOB Ratio 1.5 RATIO (0.9-2.4); AST(SGOT) 21 U/L (<=31); Alanine Aminotransfer ALT/SGPT 24 U/L (<=34); Albumin, Serum 4.2 g/dL (3.5-5.0); Alkaline Phosphatase 65 U/L (35-104); Anion Gap 14 (5-15); BUN 4 mg/dL (4-19); BUN/Creat Ratio 7.2 RATIO (10-20); Calcium,Total 9.4 mg/dL (7.6-11.0); Carbon Dioxide 20.2 mmol/L (21.0-32.0); Chloride 103 mmol/L (98-108); Creatinine, Serum 0.57 mg/dL (0.70-1.20); EST Glomerular Filtration Rate 124 (>60); Globulin 2.8 g/dL (2.2-4.2); Glucose 85 mg/dL (70-99); HIV Nonreactive (Nonreactive); Hepatitis B Surface Antigen Nonreactive (Nonreactive); Hepatitis C Antibody Nonreactive (Nonreactive); Potassium 3.9 mmol/L (3.3-5.1); Rubella IgG REAC (Nonreactive); Sodium Level 137 mmol/L (133-145); Syphilis Antibodies Nonreactive (Nonreactive); Total Bilirubin 0.29 mg/dL (0.00-1.30)
[2024-06-15 22:07] LABS: Chlamydia By Nucleic Acid AMP Negative (Negative); Gonococcus By Nucleic Acid AMP Negative (Negative)
== END | disposition home or self-care (01) ==
PROVIDERS: PCP Internal Medicine; Referring Provider Registered Nurse; Visit Provider Registered Nurse
DX: O09.90 Supervision of high risk pregnancy, unspecified, unspecified trimester (principal); Z3A.00 Weeks of gestation of pregnancy not specified
CPT/HCPCS: 36415; 80053; 80307; 82570; 83036; 84156; 85025; 86703; 86762; 86780; 86803; 86850; 86900; 86901; 87086; 87088; 87340; 87491; 87591

== ENCOUNTER → 2024-10-26 | Outpatient (CLI) | payer MEDICAID, SELFPAY ==
[2024-10-26 16:46] LABS: Hematocrit 34.7 % (37-47); Hemoglobin 11.4 g/dL (12.0-15.0); Immature Granulocytes Count 0.050 X10^3/uL (0.0-0.0); Mean Corp Hgb Conc 32.9 g/dL (32-36); Mean Corpuscular Volume 86.1 fL (81-99); Mean Platelet Vol. 11.5 fl (6.2-12.0); NRBC Flagged by Analyzer 0 % (0-5); Platelet Count 315 K/mm3 (150-450); RBC Distribution Width CV 14.3 % (11.6-14.6); RBC Distribution Width SD 44.3 fl (35.1-43.9); Red Blood Count 4.03 M/mm3 (4.2-5.4); White Blood Count 11.3 K/mm3 (4.4-11.0)
[2024-10-26 17:51] LABS: Glucose Challenge Gest 1H 50g 105 mg/dL (70-140); HIV Nonreactive (Nonreactive); Syphilis Antibodies Nonreactive (Nonreactive)
== END | disposition home or self-care (01) ==
LOC: BWCLAB 12:58
PROVIDERS: PCP Internal Medicine; Referring Provider Nurse Practitioner Women's Health; Visit Provider Nurse Practitioner Women's Health
DX: O09.92 Supervision of high risk pregnancy, unspecified, second trimester (principal); Z13.1 Encounter for screening for diabetes mellitus; Z3A.00 Weeks of gestation of pregnancy not specified
CPT/HCPCS: 36415; 82950; 85025; 86703; 86780

== ENCOUNTER → 2024-12-15 | Outpatient (CLI) | payer MEDICAID, SELFPAY ==
--- NOTE | 2024-12-15 08:55 | US_ITS ---
PROCEDURE: OB LIMITED WITH BIOMETRICS N/A REASON FOR EXAM: MEASURING LARGE FOR DATES TECHNIQUE: Procedure Code: USOBGROWTH Modality: US Procedure: OB LIMITED WITH BIOMETRICS COMPARISON: None FINDINGS Number: 1 Position: Vertex Placental Position: Fundal. Placental Abnormalities: No evidence of previa. DIMENSIONS: Biparietal Diameter: 9.3 cm: 38 weeks and 0 days: 96 percentile/ Head Circumference: 32.6 cm: 36 weeks and 6 days: 45th percentile/ Abdominal Circumference: 34.7 cm: 30 weeks and 4 days: 99 percentile / Femur Length: 6.8 cm: 34 weeks and 5 days: 19.1 percentile/ ESTIMATED WEIGHT: 3275 g plus/-491 g ESTIMATED WEIGHT PERCENTILE (24+ weeks): 91 ESTIMATED GESTATIONAL AGE: Baseline: 35 weeks and 6 days By Ultrasound: 36 weeks and 6 days ESTIMATED DATE OF DELIVERY: Baseline: January 13, 2025 By Ultrasound: January 06, 2025 BIOPHYSICAL ASSESSMENT: Amniotic Fluid Volume: 5 cm Amniotic Fluid Index: 13.9 (8-24 cm normal range) Cardiac Motion: 150 beats per minute (average) Trunk and Limb Motion: Present. MATERNAL ANATOMY: Adnexa: Neither maternal ovary is successfully identified. US/OB Limited With Biometrics IMPRESSION: Single live intrauterine gestation with a mean gestational age of 36 weeks and 6 days. Reading Location: [place] [address]
--- NOTE | 2024-12-15 08:55 | US_ITS ---
PROCEDURE: OB LIMITED WITH BIOMETRICS N/A REASON FOR EXAM: MEASURING LARGE FOR DATES TECHNIQUE: Procedure Code: USOBGROWTH Modality: US Procedure: OB LIMITED WITH BIOMETRICS COMPARISON: None FINDINGS Number: 1 Position: Vertex Placental Position: Fundal. Placental Abnormalities: No evidence of previa. DIMENSIONS: Biparietal Diameter: 9.3 cm: 38 weeks and 0 days: 96 percentile/ Head Circumference: 32.6 cm: 36 weeks and 6 days: 45th percentile/ Abdominal Circumference: 34.7 cm: 30 weeks and 4 days: 99 percentile / Femur Length: 6.8 cm: 34 weeks and 5 days: 19.1 percentile/ ESTIMATED WEIGHT: 3275 g plus/-491 g ESTIMATED WEIGHT PERCENTILE (24+ weeks): 91 ESTIMATED GESTATIONAL AGE: Baseline: 35 weeks and 6 days By Ultrasound: 36 weeks and 6 days ESTIMATED DATE OF DELIVERY: Baseline: January 13, 2025 By Ultrasound: January 06, 2025 BIOPHYSICAL ASSESSMENT: Amniotic Fluid Volume: 5 cm Amniotic Fluid Index: 13.9 (8-24 cm normal range) Cardiac Motion: 150 beats per minute (average) Trunk and Limb Motion: Present. MATERNAL ANATOMY: Adnexa: Neither maternal ovary is successfully identified. US/OB Limited With Biometrics IMPRESSION: Single live intrauterine gestation with a mean gestational age of 36 weeks and 6 days. Reading Location: [place] [address]
== END | disposition home or self-care (01) ==
LOC: OPUS 08:54
PROVIDERS: PCP Internal Medicine; Referring Provider Obstetrics & Gynecology; Visit Provider Obstetrics & Gynecology
DX: O36.60X0 Maternal care for excessive fetal growth, unspecified trimester, not applicable or unspecified (principal); Z3A.00 Weeks of gestation of pregnancy not specified
CPT/HCPCS: 76816

== ENCOUNTER → 2024-12-21 | Outpatient (CLI) | payer MEDICAID, SELFPAY ==
[2024-12-21 12:33] LABS: Glucose Challenge Gest 1H 50g 144 mg/dL (70-140)
== END | disposition home or self-care (01) ==
PROVIDERS: Obstetrics & Gynecology; PCP Internal Medicine; Referring Provider Advanced Practice Midwife; Visit Provider Advanced Practice Midwife
DX: O09.93 Supervision of high risk pregnancy, unspecified, third trimester (principal); Z3A.36 36 weeks gestation of pregnancy
CPT/HCPCS: 36415; 82950; 87077; 87081; 87186

== ENCOUNTER → 2024-12-28 | Outpatient (CLI) | payer MEDICAID, SELFPAY ==
--- OUTSIDE RECORDS SUMMARY | 2024-12-28 06:54 | XMS RPT_ITS | CCD ---
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 Laith Harman Primary Care Provider [phone] Dr. Laith Harman Referring Provider [phone] Dr. Promise Castañeda Attending Provider [phone] Dr. Laith Harman Primary Care Provider [phone] Dr. Laith Harman Referring Provider [phone] Dr. Promise Castañeda Attending Provider [phone] Dr. Laith Harman Attending Provider [phone] LAIHT HARMAN MD Primary Care Unavailab GENA Narayanan MD Attending Unavail Dr. Laith De MD Primary Care Provider Dr. Laith Harman MD Referring Provider [phone] Anna Kim CNM Attending Provider Anna Kim CNM Referring Provider Dr. Christel Sheets DO Attending Provider Rebecca Johnson Attending Provider Dr. Laith Harman MD Attending Provider [phone]) Erlinda Suggs CNM Attending Provider [phone] CAROL PRYOR Attending Unavailable CHRISTEL DAVIS Referring Unavailab le OLEGHE, EFEWONGBE B Primary Care Unavailable OLEGHE, EFEWONGBE B Primary Care Unavailable LIV BENAVIDEZ Attending Unavailable CHRISTEL DAVIS Referring Unavailab le Kimani MEDEIROS, Dr. Newberry Primary Care Provider Kimani MEDEIROS, Dr. Newberry Referring Provider [phone] Garry MEDEIROS, Dr. Virgen Attending Provider [phone] [place] PROFESSOR OF ENGINEERING-C, Rebecca Referring Provider [phone] Kimani MEDEIROS, Dr. Newberry Primary Care Provider Kimani MEDEIROS, Dr. Newberry Referring Provider [phone] Kimani MEDEIROS, Dr. Newberry Primary Care Physician Beckie PROFESSOR OF ENGINEERING-C, Rebecca Attending Physician [phone] Kimani MEDEIROS, Dr. Newberry Attending Physician [phone] Erlinda Suggs CNM Attending Physician [phone] Garry MEDEIROS, Dr. Virgen Attending Physician Dr. Christel Sheets DO Attending Physician Oleghe, Efewongbe Primary Care Unavailable [place] PROFESSOR OF ENGINEERING, Rebecca Referring Unavailable Beckie PROFESSOR OF ENGINEERING, Rebecca Attending Unavailable Oleghe, Efewongbe Referring Unavailable Co[place] PROFESSOR OF ENGINEERINGBrendany Attending Unavailable Oleghe, Efewongbe Primary Care Unavailable Oleghe, Efewongbe Attending Unavailable Oleghe, Efewongbe Primary Care Unavailable Oleghe, Efewongbe Referring Unavailable Oleghe, Efewongbe Referring Unavailable Christel Sheets Attending Unavailabl e Oleghe, Efewongbe Primary Care Unavailable Anna Kim Attending Unavailable Oleghe, Efewongbe Primary Care Unavailable Oleghe, Efewongbe Referring Unavailable Oleghe, Efewongbe Primary Care Unavailable Oleghe, Efewongbe Referring Unavailable Erlinda Suggs Attending Unavailable Christel Sheets Attending Unavailabl e Oleghe, Efewongbe Primary Care Unavailable Oleghe, Efewongbe Referring Unavailable Oleghe, Efewongbe Primary Care Unavailable Oleghe, Efewongbe Referring Unavailable Beckie PROFESSOR OF ENGINEERINGRebecca Attending Unavailable Oleghe, Efewongbe Primary Care Unavailable Oleghe, Efewongbe Referring Unavailable Oleghe, Efewongbe Attending Unavailable Oleghe, Efewongbe Primary Care Unavailable Oleghe, Efewongbe Referring Unavailable Promise Castañeda Attending Unavailable Oleghe, Efewongbe Primary Care Unavailable Beckie PROFESSOR OF ENGINEERING, Rebecca Referring Unavailable [place] PROFESSOR OF ENGINEERING, Rebecca Attending Unavailable Oleghe, Efewongbe Attending Unavailable Oleghe, Efewongbe Primary Care Unavailable Oleghe, Efewongbe Referring Unavailable Vande Velde Christel Referring Unavailabl e Vande Velde, Christel Attending Unavailabl e Oleghe, Efewongbe Primary Care Unavailable Anna Kim Referring Unavailable Anna Kim Attending Unavailable Oleghe, Efewongbe Primary Care Unavailable Oleghe, Efewongbe Primary Care Unavailable Erlinda Suggs Referring Unavailable Erlinda Suggs Attending Unavailable Oleghe, Efewongbe Primary Care Unavailable Oleghe, Efewongbe Referring Unavailable Promise Castañeda Attending Unavailable Oleghe, Efewongbe Primary Care Unavailable Oleghe, Efewongbe Referring Unavailable Co[place] PROFESSOR OF ENGINEERINGRebecca Attending Unavailable Oleghe, Efewongbe Primary Care Unavailable Oleghe, Efewongbe Referring Unavailable Erlinda Suggs Attending Unavailable Oleghe, Efewongbe Referring Unavailable Oleghe, Efewongbe Attending Unavailable Oleghe, Efewongbe Primary Care Unavailable Oleghe, Efewongbe Primary Care Unavailable Oleghe, Efewongbe Referring Unavailable Erlinda Suggs Attending Unavailable Allergies Allergy Classification Reported Allergen(s) Allergy Type Date of Onset Reaction(s) Facility (14 sources) Codeine; Translations: [codeine] Drug Allergy 5 [facility] Comment on above: prefers to avoid, Mo m has allergy (18 sources) Mold Extract; Translations: [mold] Drug Allergy 3 [facility] ([facility] Comment on above: congestion, itching (15 sources) Environmental Allergies: Uncoded; Translations: [Environmental Allergies: Uncoded] Allergy to substance 3 PT UNABLE TO RESPOND-NEEDS F/U Comment on above: Mildew (1 source) MILDEW; Translations: [MILDEW] Propensity to adverse reactions (disorder) 6 [facility] Repository (1 source) OTHER; Translations: [OTHER] Propensity to adverse reactions (disorder) 6 [facility] Repository (1 source) Codeine Drug Allergy 5 Repository Medications Current Medications Medication Drug Class(es) Dates Sig (Normalized) Sig (Original) acetaminophen 500 mg oral tablet (2 sources) Start: 01-23-2021 take 1 dose by mouth every six hours as needed for pain acetaminophen Dose : 500 mg =, Oral, q6hr, PRN as needed for pain, 0 Refill(s) Start Date: 01/23/21 Status: Ordered acetaminophen 325 mg / oxyCODONE hydrochloride 5 mg oral tablet (3 sources) Opioid Agonist Start: 01-09-2021 take 1 tablet by mouth every six hours as needed for pain acetaminophen-oxyC ODONE 325 mg-5 mg oral tablet Dose = 1 tab(s), Oral, q6h, PRN for pain, # 12 tab(s), 0 Refill(s), 102.3 Start Date: 01/09/21 Status: Ordered amoxicillin 500 mg oral capsule (1 source) Penicillin-class Antibacterial Start: 01-17-2024 End: 01-27-2024 amoxicillin 500 mg oral capsule Dose : 500 mg = 1 cap(s), Oral, BID, X 10 day(s), # 20 cap(s), 0 Refill(s), 01/27/24 9:56:00 AM EST Start Date: 01/17/24 Stop Date: 01/27/24 Status: Ordered Nexplanon 68 mg subcutaneous implant (2 sources) Start: 01-09-2021 inject 1 mg by subcutaneous injection once Nexplanon 68 mg subcutaneous implant mg = EA, Subcutaneous, Once, 0 Refill(s) Start Date: 01/09/21 Status: Ordered [place] (Nk) (3 sources) Start: 08-10-2024 [place] (Nk) Active August 10, 2024 12:00am Start: 05-14-2022 [place] (Nk) A ctive May 14, 2022 12:00am nystatin 100 unt/mg topical powder (5 sources) Polyene Antifungal Start: 09-07-2024 End: 11-16-2024 Nystatin 100,000 unit/gram powder Active 1 NMA TOPICAL daily as needed November 16, 2024 10:36am Yeast dermatitis Candidiasis of skin and nail Complies with drug therapy sertraline 50 mg oral tablet (10 sources) Serotonin Reuptake Inhibitor Start: 11-16-2024 take 1 tablet by mouth once daily Sertraline 50 mg tablet Active 50 mg PO daily 90 November 16, 2024 10:54am Complies with drug therapy Start: 09-28-2024 End: 11-16-2024 take 1 tablet by mouth once daily Sertraline 25 mg tablet Discontinued 25 mg PO daily 30 September 28, 2024 12:00am November 16, 2024 10:55am Completed/Discontinued Medications Medication Drug Class(es) Dates Sig (Normalized) Sig (Original) amitriptyline hydrochloride 25 mg oral tablet (20 sources) Tricyclic Antidepressant Start: 09-16-2017 End: 03-26-2022 take 1 tablet by mouth once daily at bedtime Amitriptyline 25 mg tablet Discontinued 0 .ROUTE .COMPLEX 30 5 July 15, 2019 9:02am March 26, 2022 2:39pm TAKE 1 TABLET BY MOUTH EVERY DAY AT BEDTIME Start: 08-15-2017 End: 09-16-2017 take 1 tablet by mouth at bedtime Amitriptyline 10 mg tablet Discontinued 10 mg PO AT BEDTIME 60 2 August 15, 2017 12:00am September 16, 2017 2:49pm 24 hr buPROPion hydrochloride 150 mg extended release oral tablet (20 sources) Aminoketone Start: 03-25-2023 End: 08-10-2024 take 1 tablet by mouth once daily in the morning Bupropion Hcl 150 mg tablet extended release 24 hr Discontinued 150 mg PO EVERY MORNING 30 0 December 10, 2023 9:46am December 30, 2023 10:28am busPIRone hydrochloride 7.5 mg oral tablet (20 sources) Start: 03-25-2023 End: 06-09-2025 take 1 tablet by mouth twice daily Buspirone 7.5 mg tablet Discontinued 7.5 mg PO TWICE A DAY 40 0 November 26, 2023 11:01am December 30, 2023 10:28am etonogestrel 68 mg drug implant (15 sources) Progestin Start: 09-16-2017 End: 05-14-2022 Etonogestrel (Nexplanon) 68 mg implant Discontinued 1 NMA Subdermal ONCE September 16, 2017 12:00am May 14, 2022 12:58pm fenofibrate 48 mg oral tablet (20 sources) Peroxisome Proliferator Receptor alpha Agonist Start: 12-30-2023 End: 08-10-2024 take 1 tablet by mouth once daily Fenofibrate Nanocrystallized 48 mg tablet Discontinued 48 mg PO daily 90 2 December 30, 2023 12:00am August 10, 2024 1:24pm Start: 03-26-2023 End: 12-30-2023 take 1 tablet by mouth once daily Fenofibrate 54 mg tablet Discontinued 54 mg PO DAILY 90 3 December 30, 2023 2:10pm December 30, 2023 2:34pm ibuprofen 600 mg oral tablet (20 sources) Nonsteroidal Anti-inflammatory Drug Start: 06-05-2016 End: 08-14-2021 take 1 tablet by mouth every six hours as needed for pain Ibuprofen 600 mg tablet Discontinued 600 mg PO EVERY 6 HOURS as needed for Pain 60 6 March 16, 2019 5:40pm August 14, 2021 2:44pm norethindrone 0.35 mg oral tablet (20 sources) Start: 01-04-2023 End: 06-04-2024 take 1 tablet by mouth once daily Norethindrone (Contraceptive) 0.35 mg tablet Discontinued 0.35 mg PO daily 84 4 February 17, 2024 6:18pm June 04, 2024 8:25am Nystatin 100,000 unit/gram powder (6 sources) Start: 09-07-2024 End: 11-16-2024 Nystatin 100,000 unit/gram powder Discontinued 1 NMA TOPICAL daily 15 0 September 07, 2024 12:00am November 16, 2024 10:36am Yeast dermatitis Candidiasis of skin and nail Start: 09-07-2024 Nystatin 100,0 00 unit/gram powder Active 1 NMA TOPICAL daily 15 0 September 07, 2024 12:00am Yeast dermatitis Candidiasis of skin and nail Wbs15-Kd-Kp1-Ytn-Vhk-Daue Oi l 400 mcg-35 mg -25 mg-5 mg tablet,chewable (11 sources) Start: 06-04-2024 End: 08-10-2024 Jpx82-Rp-Qy6-Acb-Ryd-Znbq Oi l 400 mcg-35 mg -25 mg-5 mg tablet,chewable Discontinued {tbl} PO June 04, 2024 12:00am August 10, 2024 1:25pm Start: 06-04-2024 Hza09-Mk-Zs1-O logan-Epa-Fish Oil 400 mcg-35 mg -25 mg-5 mg tablet,chewable Active {tbl} PO June 04, 2024 12:00am Vit No.002-Roqm-Zgo ic (3 sources) Start: 06-05-2016 End: 07-31-2017 Vit No.018-Tmsi-Aqc ic Discontinued 1 EACH PO DAILY June 04, 2016 11:00pm July 31, 2017 7:30am Start: 06-05-2016 End: 07-31-2017 Vit No.331-Snnn-Tpl ic Discontinued 1 EACH PO DAILY June 05, 2016 12:00am July 31, 2017 8:30am Vit No.330-Rnoy-Nqrml 1 EACH tablet (11 sources) Start: 06-05-2016 End: 07-31-2017 take 1 tablet by mouth once daily Vit No.621-Naus-Ihwua 1 EACH tablet Discontinued 1 NMA PO DAILY June 05, 2016 12:00am July 31, 2017 8:30am Start: 06-05-2016 End: 07-31-2017 take 1 tablet by mouth once daily Vit No.391-Rsit-Wsokt 1 EACH tablet Discontinued 1 NMA PO DAILY June 05, 2016 12:00am July 31, 2017 8:30am SUMAtriptan 25 mg oral tablet (20 sources) Serotonin-1b and Serotonin-1d Receptor Agonist Start: 08-15-2017 End: 03-26-2022 take 1 tablet by mouth every two hours as needed Sumatriptan Succinate 25 mg tablet Discontinued 0 .ROUTE .COMPLEX 10 3 July 15, 2019 9:02am March 26, 2022 2:40pm TAKE 1 TABLET BY MOUTH NEEDED MAY REPEAT ONCE IN 2 HOURS Problems Active Problems Problem Classification Problem Date Documented Date Episodic/Chronic Anxiety disorders (20 sources) Mixed anxiety and depressive disorder; Translations: [Anxiety disorder, unspecified] Onset: 12-21-2024 09-16-2017 Chronic Comment on above: took self off wellbu love prior to . feeling ok sertraline Cancer of cervix (20 sources) Atypical squamous cells of undetermined significance on cervical Papanicolaou smear; Translations: [Atypical squamous cells of undetermined significance on cytologic smear of cervix (ASC-US)] Onset: 12-21-2024 11-19-2022 Episodic Comment on above: Rpt pap in 3 yrs Cardiac dysrhythmias (20 sources) Ectopic atrial tachycardia; Translations: [Supraventricular tachycardia] Onset: 12-21-2024 03-23-2022 Chronic Cardiac dysrhythmias (14 sources) Tachycardia; Translations: [Tachycardia, unspecified] 08-15-2017 Episodic Contraceptive and procreative management (14 sources) Patient encounter status; Translations: [Encounter for surveillance of implantable subdermal contraceptive] 11-12-2022 Episodic Disorders of lipid metabolism (20 sources) Hyperlipidemia; Translations: [Hyperlipidemia, unspecified] Onset: 12-21-2024 03-25-2023 Chronic Comment on above: pcp follow up, recom mend weight loss and heart healthy diet Headache; including migraine (14 sources) Migraine; Translations: [Migraine, unspecified, not intractable, without status migrainosus] 09-16-2017 Chronic Headache; including migraine (14 sources) Chronic headache disorder; Translations: [Chronic headache] 08-15-2017 Episodic Comment on above: with aura intermitte nt Immunizations and screening for infectious disease (1 source) Encounter for immunization; Translations: [Encounter for immunization] Onset: 11-23-2024 Episodic Mood disorders (12 sources) Depressive disorder; Translations: [Depression] Onset: 12-21-2024 06-04-2024 Chronic Mood disorders (7 sources) Mood disorders Mycoses (20 sources) Candidiasis of skin; Translations: [Candidiasis of skin and nail] Onset: 12-21-2024 09-07-2024 Episodic Other complications of (20 sources) Maternal obesity complicating , childbirth and the puerperium, antepartum; Translations: [Obesity complicating , unspecified trimester] 06-04-2024 Chronic Other complications of (1 source) Obesity complicating , second trimester; Translations: [Obesity complicating , second trimester] Onset: 12-21-2024 Chronic Other complications of (20 sources) High risk ; Translations: [Supervision of high risk , unspecified, unspecified trimester] 06-04-2024 Episodic Comment on above: , MYLES 01/13 PC: Gulshan, : Ham PRR , MYLES 01/13 PC: Gulshan, : Ham PRR , MYLES 01/13 boy Rajeev PC: Gulshan, : Ham Other complications of (1 source) Excessive growth affecting management of mother; Translations: [Maternal care for excessive growth, unspecified trimester, not applicable or unspecified] 12-08-2024 Episodic Other complications of (2 sources) Maternal care for excessive growth, unspecified trimester, not applicable or unspecified; Translations: [Maternal care for excessive growth, unspecified trimester, not applicable or unspecified] Onset: 12-22-2024 Episodic Other complications of (2 sources) Supervision of high risk , unspecified, second trimester; Translations: [Supervision of high risk , unspecified, second trimester] Onset: 12-21-2024 Episodic Other female genital disorders (20 sources) Abnormal uterine bleeding; Translations: [Abnormal uterine and vaginal bleeding, unspecified] 11-16-2022 Chronic Comment on above: ordered labs- all WN L Other female genital disorders (3 sources) Abnormal uterine and vaginal bleeding, unspecified; Translations: [Unspecified disorders of menstruation and other abnormal bleeding from female genital tract] 11-12-2022 Chronic Other liver diseases (20 sources) Elevated liver enzymes level; Translations: [Abnormal levels of other serum enzymes] 03-25-2023 Episodic Other liver diseases (3 sources) Abnormal levels of other serum enzymes; Translations: [Other nonspecific abnormal serum enzyme levels] Onset: 12-21-2024 01-04-2023 Episodic Other nutritional; endocrine; and metabolic disorders (14 sources) Obesity; Translations: [Other obesity] 11-12-2022 Chronic Other nutritional; endocrine; and metabolic disorders (3 sources) Other obesity; Translations: [Obesity, unspecified] 11-12-2022 Chronic Other nutritional; endocrine; and metabolic disorders (20 sources) Body mass index 30+ - obesity; Translations: [Body mass index (BMI) 39.0-39.9, adult] 01-04-2023 Chronic Comment on above: reviewed weight zachary corbett, considering weight watchers. discussed possible use of contrave in future if desired. Other nutritional; endocrine; and metabolic disorders (2 sources) Body mass index (BMI) 39.0-39.9, adult; Translations: [Body Mass Index 39.0-39.9, adult] Onset: 12-21-2024 01-04-2023 Chronic Other screening for suspected conditions (not mental disorders or infectious disease) (1 source) Encounter for screening for diabetes mellitus; Translations: [Encounter for screening for diabetes mellitus] Onset: 12-22-2024 Episodic Other skin disorders (20 sources) Hirsutism; Translations: [Hirsutism] 11-16-2022 Episodic Comment on above: plan OCP, labs WNL Other skin disorders (3 sources) Hirsutism; Translations: [Hirsutism] 11-12-2022 Episodic Other skin disorders (8 sources) Multiple skin tags; Translations: [Other hypertrophic disorders of the skin] 11-16-2024 Episodic Other skin disorders (1 source) Other hypertrophic disorders of the skin; Translations: [Other hypertrophic disorders of the skin] Onset: 12-21-2024 Episodic Other upper respiratory disease (14 sources) Seasonal allergy; Translations: [Other seasonal allergic rhinitis] 08-15-2017 Chronic Other upper respiratory infections (14 sources) Upper respiratory infection; Translations: [Acute upper respiratory infection, unspecified] 04-09-2019 Episodic Otitis media and related conditions (1 source) Otitis media; Translations: [Otitis media, unspecified, right ear] Onset: 01-17-2024 Episodic Residual codes; unclassified (20 sources) Electronic cigarette user; Translations: [Other problems related to lifestyle] 06-04-2024 Episodic Comment on above: quit 2 weeks ago Residual codes; unclassified (2 sources) 36 weeks gestation of ; Translations: [36 weeks gestation of ] Onset: 12-21-2024 Episodic Residual codes; unclassified (1 source) Other problems related to lifestyle; Translations: [Other problems related to lifestyle] Onset: 12-21-2024 Episodic Residual codes; unclassified (1 source) Personal history of other specified conditions; Translations: [Personal history of other specified conditions] Onset: 12-21-2024 Episodic Residual codes; unclassified (1 source) Other specified postprocedural states; Translations: [Other specified postprocedural states] Onset: 12-21-2024 Episodic Residual codes; unclassified (1 source) 34 weeks gestation of ; Translations: [34 weeks gestation of ] Onset: 12-08-2024 Episodic Residual codes; unclassified (1 source) 28 weeks gestation of ; Translations: [28 weeks gestation of ] Onset: 10-26-2024 Episodic Substance-related disorders (20 sources) History of drug abuse; Translations: [Other psychoactive substance abuse, in remission] 12-05-2017 Chronic Unclassified (7 sources) F41.9 - Anxiety disorder, unspecified,F32.9 - Major depressive disorder, single episode, unspecified Unclassified (1 source) Multiple skin tags Unclassified (4 sources) L91.8 - Other hypertrophic disorders of the skin Past or Other Problems Problem Classification Problem Date Documented Date Episodic/Chronic Genitourinary symptoms and ill-defined conditions (1 source) Dysuria; Translations: [Dysuria] Onset: 09-07-2024 Episodic Other complications of (1 source) Supervision of high risk , unspecified, unspecified trimester; Translations: [Supervision of high risk , unspecified, unspecified trimester] Onset: 06-16-2024 Episodic Other and delivery including normal (20 sources) ; Translations: [Encounter for supervision of normal , unspecified, unspecified trimester] Onset: 06-12-2024 06-12-2024 Episodic Comment on above: NIPT w gender & mo ier - undecided NIPT w gender & mo ier - undecided, anatomy incomplete rpt in 2 wks, rpt growth Residual codes; unclassified (20 sources) History of radiofrequency ablation operation for arrhythmia; Translations: [Other specified postprocedural states] Onset: 11-13-2013 12-05-2017 Episodic Comment on above: Atrial tachycardia a blation per Dr. Shaji Garza, [facility]: unsuccessful, second procedure 11/13/[address] Shaji Garza, CCElma: sucessful. Residual codes; unclassified (1 source) 17 weeks gestation of ; Translations: [17 weeks gestation of ] Onset: 08-10-2024 Episodic Results Test Name Value Interpretation Reference Range Facility Rule out Beta Strep (Grp. B) on 12-25-2024 SHAQUILLE Streptococcus agalactiae (B) Amount Growth Growth Streptococcus agalactiae (B): REACTION Ampicillin Islt DEBORAH <=0.25 cefTRIAXone Islt DEBORAH <=0.12 S Clindamycin Islt DEBORAH >=1 R Clindamycin.induced Susc Islt NEG Linezolid Islt DEBORAH <=2 S Vancomycin Islt DEBORAH 0.5 S Normal Comment on above: Performed By: #### M [id number] #### [id number] Min [facility] [id number] Glucose Challenge Gest 1H 50 saurabh 12-21-2024 GLU GEST 50g 1H 144 mg/dL High 70-140 Comment on above: Performed By: #### L [id number] #### [id number] iMn [facility] [id number] [facility] Office Visit Reporton 12-21-2024 Head [facility] Office Visit Report [facility]'[address], [address] [place] [address] OFFICE VISIT Date of Service: 12/21/24 MR#: [id number] Acct: [id number] Name: PIETER GUILLERMO Rep #: [id number] 38 : 1990 Provider: JERONIMO Black ams Age/Sex: 34/F [place] [facility] [place]: Signed Intake Vital Signs 11/09/24 10:14 12/08/24 14:45 12/21/24 10:04 Height 5 ft 4 in 5 ft 4 in 5 ft 4 in Weight: 247 lb 7 oz BMI 42.5 BP 125/72 H Intake Visit Reasons: 36wk 5d ob Chief Complaint: 36wk 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 Is patient in pain?: No Allergies Environmental Allergies: Uncoded Allergy (Verified 12/21/24 10:03) PT UNABLE TO RESPOND-NEEDS F/U mold Allergy (Verified 12/21/24 10:03) Hives codeine Adverse Reaction (Verified 12/21/24 10:03) Other Medications ???Medication ???Instructions ???Recorded ???Confirmed ???Type nystatin 100,000 unit/gram topical 1 applic topical QDAY PRN 12/21/24 History powder sertraline 50 mg tablet 50 mg PO QDAY #90 tabs 11/16/24 Rx Last Menstrual Period: 04/08/24 : No Have you fallen in the past year?: No PFSH PFSH Medical History Multiple skin tags Hirsutism Abnormal uterine bleeding Depression Anxiety Other obesity Hyperlipidemia Ectopic atrial tachycardia History of drug abuse in remission Chronic headaches Seasonal allergies Tachycardia Surgical History Hx of cholecystectomy History of tonsillectomy and adenoidectomy Hx of tympanostomy tubes H/O cardiac radiofrequency ablation (11/13/13) Family History Grandfather Myocardial infarction Mother Anxiety Depression Grandmother COPD (chronic obstructive pulmonary disease) Myocardial infarction Social History adopted: No household members: spouse, children and other details: Patient's cousin housing: house number of children: 1 current occupational status: employed current occupation: [employer] pets and animals: Yes pets and animals: dog(s) history of recent travel: No sexually active: Yes Smoking Status: Former smoker quit date: 05/14/24 Smokeless tobacco user: other Electronic Cigarette Use: with nicotine second hand exposure: Yes alcohol intake: former details: not while substance use type: former substance user Date of last use: 07/22/2015 caffeine: Yes Type: coffee what type of physical activity do you participate in: walking frequency: 3-4 times per week nabil/episcopal: [employer] seatbelt use: always do you feel safe at home: Yes 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 Date Name GA/Weeks Outcome Route Bth Weight Infant Gen Labor Lgth Anesthesia Del Locatn Provider FOB 06/05/16 Gulshan 40 live - full term Male [facility] Dr. Jim neves HPI 36wk 5d ob Details: PIETER GUILLERMO is a 34 year old who presents for routine OB visit. OB Visit MYLES Calculator Estimated Delivery Date Method Current WG Current Estimate 01/13/25 LMP (Certain) 36w 5d Other Estimates 01/08/25 Ultrasound #1 37w 3d 01/07/25 Ultrasound #2 37w 4d Expected Delivery Route/Plan Labor Preferences- CB/BF classes: no labor support person: Ham labor intervention preferences: [] pain management options preferred: [] cut cord/dad catch: yes : yes PP control planned: discussed discussed possible routes of delivery and associated risks: [] special requests: [] Specific Issue/Plans Covid status: [] Flu vaccine: [] Tdap vaccine: [] Rhogam: na LARC form signed: yes movement and labor precautions reviewed. Problem list reviewed and updated with the most current plan of care details and appropriate orders placed. Relevant counseling for the gestational age provided. Continue routine care and follow up unless otherwise noted in visit notes/problem list details Initial Weight: 230 lb Date -???-???-???-???-?? ?-???-???-???-???-? ??-???-???- EGA Weight BP Urine Prot -???-???-???-???-?? ?-???-???-???-???-? ??-???-???- Glucose FHR FuHt Pres Dilation -???-???-???-???-?? ?-???-???-???-???-? ??-???-???- Effaced St Visit Note 06/12/24 -???-???-???-???-?? ?-???-???-???-???-? ??-???-???- 9w 2d 230 lb 4 oz (+4 oz) 135/82 -???-???-???-???-?? ?-???-???-???-???-? ??-???-???- 180 -???-???-???-???-?? ?-???-???-???-???-? ??-???-???- (more content not included)... Normal OB Limited With Biometricson 12-15-2024 OB Limited With Biometrics [facility] Services [address] [place], [place] [id number] OB Limited With Biometrics MR#: [id number] Acct: [id number] Name: PIETER GUILLERMO Rep #: [id number] : 1990 F 34 From: Jacob melendez MD PCP: Dr. Laith Harman MD Status: REG CLI Study: OB Limited With Biometrics Date of Exam: 12/15 Exam# [id number] Ordering Dr: Christel Sheets DO PROCEDURE: OB LIMITED WITH BIOMETRICS N/A REASON FOR EXAM: MEASURING LARGE FOR DATES TECHNIQUE: Procedure Code: [id number] Modality: US Procedure: OB LIMITED WITH BIOMETRICS COMPARISON: None FINDINGS Number: 1 Position: Vertex Placental Position: Fundal. Placental Abnormalities: No evidence of previa. DIMENSIONS: Biparietal Diameter: 9.3 cm: 38 weeks and 0 days: 96 percentile/ Head Circumference: 32.6 cm: 36 weeks and 6 days: 45th percentile/ Abdominal Circumference: 34.7 cm: 30 weeks and 4 days: 99 percentile / Femur Length: 6.8 cm: 34 weeks and 5 days: 19.1 percentile/ ESTIMATED WEIGHT: 3275 g plus/-491 g ESTIMATED WEIGHT PERCENTILE (24+ weeks): 91 ESTIMATED GESTATIONAL AGE: Baseline: 35 weeks and 6 days By Ultrasound: 36 weeks and 6 days ESTIMATED DATE OF DELIVERY: Baseline: January 13, 2025 By Ultrasound: January 06, 2025 BIOPHYSICAL ASSESSMENT: Amniotic Fluid Volume: 5 cm Amniotic Fluid Index: 13.9 (8-24 cm normal range) Cardiac Motion: 150 beats per minute (average) Trunk and Limb Motion: Present. MATERNAL ANATOMY: Adnexa: Neither maternal ovary is successfully identified. US/OB Limited With Biometrics IMPRESSION: Single live intrauterine gestation with a mean gestational age of 36 weeks and 6 days. Reading Location: [place] [address] CC: Dr. Laith Harman MD; Dr. Christel Sheets DO Food Service Manager: Signed Normal [facility] Office Visit Reporton 12-08-2024 [facility] Office Visit Report [facility] [address], [address] [place] [address] OFFICE VISIT Date of Service: 12/08/24 MR#: [id number] Acct: [id number] Name: PIETER GUILLERMO Rep #: [id number] : 1990 Provider: Dr. Christel Reno DO Age/Sex: 34/F [place] [facility] Status: Signed Intake Vital Signs 10/26/24 13:10 11/23/24 12:57 12/08/24 14:44 12/08/24 14:45 Height 5 ft 4 in 5 ft 4 in 5 ft 4 in 5 ft 4 in Weight: 240 lb 8 oz 245 lb 5 oz BMI 41.3 42.0 BP 123/81 H 127/82 H Intake Visit Reasons: 34w 6d 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 Is patient in pain?: No Allergies Environmental Allergies: Uncoded Allergy (Verified 12/08/24 14:44) PT UNABLE TO RESPOND-NEEDS F/U mold Allergy (Verified 12/08/24 14:44) Hives codeine Adverse Reaction (Verified 12/08/24 14:44) Other Medications ???Medication ???Instructions ???Recorded ???Confirmed ???Type nystatin 100,000 unit/gram topical 1 applic topical QDAY PRN 12/08/24 History powder sertraline 50 mg tablet 50 mg PO QDAY #90 tabs 11/16/24 Rx Last Menstrual Period: 04/08/24 Zika: Zika virus screening: Negative : No PFSH PFSH Medical History Multiple skin tags Hirsutism Abnormal uterine bleeding Depression Anxiety Other obesity Hyperlipidemia Ectopic atrial tachycardia History of drug abuse in remission Chronic headaches Seasonal allergies Tachycardia Surgical History Hx of cholecystectomy History of tonsillectomy and adenoidectomy Hx of tympanostomy tubes H/O cardiac radiofrequency ablation (11/13/13) Family History Grandfather Myocardial infarction Mother Anxiety Depression Grandmother COPD (chronic obstructive pulmonary disease) Myocardial infarction Social History adopted: No household members: spouse, children and other details: Patient's cousin housing: house number of children: 1 current occupational status: employed current occupation: [employer] pets and animals: Yes pets and animals: dog(s) history of recent travel: No sexually active: Yes Smoking Status: Former smoker quit date: 05/14/24 Smokeless tobacco user: other Electronic Cigarette Use: with nicotine second hand exposure: Yes alcohol intake: former details: not while substance use type: former substance user Date of last use: 07/22/2015 caffeine: Yes Type: coffee what type of physical activity do you participate in: walking frequency: 3-4 times per week nabil/episcopal: Congregation seatbelt use: always do you feel safe at home: Yes 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 Date Name GA/Weeks Outcome Route Bth Weight Infant Gen Labor Lgth Anesthesia Del Locatn Provider FOB 06/05/16 Gulshan 40 live - full term Male [facility] Dr. Jim neves HPI 34w 6d OB Details: PIETER GUILLERMO is a 34 year old who presents for routine OB visit. OB Visit MYLES Calculator Estimated Delivery Date Method Current WG Current Estimate 01/13/25 LMP (Certain) 34w 6d Other Estimates 01/08/25 Ultrasound #1 35w 4d 01/07/25 Ultrasound #2 35w 5d Expected Delivery Route/Plan Labor Preferences- CB/BF classes: no labor support person: Ham labor intervention preferences: [] pain management options preferred: [] cut cord/dad catch: yes : yes PP control planned: discussed discussed possible routes of delivery and associated risks: [] special requests: [] Specific Issue/Plans Covid status: [] Flu vaccine: [] Tdap vaccine: [] Rhogam: na LARC form signed: yes movement and labor precautions reviewed. Problem list reviewed and updated with the most current plan of care details and appropriate orders placed. Relevant counseling for the gestational age provided. Continue routine care and follow up unless otherwise noted in visit notes/problem list details Initial Weight: 230 lb Date -???-???-???-???-?? ?-???-???-???-???-? ??-???-???- EGA Weight BP Urine Prot -???-???-???-???-?? ?-???-???-???-???-? ??-???-???- Glucose FHR FuHt Pres Dilation -???-???-???-???-?? ?-???-???-???-???-? ??-???-???- Effaced St Visit Note 06/12/24 -???-???-???-???-?? ?-???-???-???-???-? ??-???-???- 9w 2d 230 lb 4 oz (+4 oz) 135/82 -???-???-???-???-?? ?-???-???-???-???-? ??-???-???- 180 (more content not included)... Normal Laboratory - Chemistry and C hemistry - challengeOrdered By: Rebecca Butts on 11-23-2024 Glucose Ql (U) Negative Laboratory - UrinalysisOrder ed By: Rebecca Butts on 11-23-2024 Protein Ql (U) Negative [facility] Office Visit Reporton 11-23-2024 [facility] Office Visit Report [facility], [address] [place] [address] OFFICE VISIT Date of Service: 11/23/24 MR#: [id number] Acct: [id number] Name: PIETER GUILLERMO Rep #: [id number] : 1990 Provider: KORINA smith Age/Sex: 34/F [place] [facility] Status: Signed Intake Vital Signs 10/26/24 13:10 11/16/24 10:38 11/23/24 12:57 Height 5 ft 4 in 5 ft 4 in 5 ft 4 in Weight: 240 lb 8 oz BMI 41.3 BP 123/81 H Intake Visit Reasons: 32 WK 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 Is patient in pain?: No Allergies Environmental Allergies: Uncoded Allergy (Verified 11/23/24 12:59) PT UNABLE TO RESPOND-NEEDS F/U mold Allergy (Verified 11/23/24 12:59) Hives codeine Adverse Reaction (Verified 11/23/24 12:59) Other Medications ???Medication ???Instructions ???Recorded ???Confirmed ???Type nystatin 100,000 unit/gram topical 1 applic topical QDAY PRN 11/23/24 History powder sertraline 50 mg tablet 50 mg PO QDAY #90 tabs 11/16/24 Rx Last Menstrual Period: 04/08/24 Zika: Zika virus screening: Negative : No Have you fallen in the past year?: No PFSH PFSH Medical History Multiple skin tags Hirsutism Abnormal uterine bleeding Depression Anxiety Other obesity Hyperlipidemia Ectopic atrial tachycardia History of drug abuse in remission Chronic headaches Seasonal allergies Tachycardia Surgical History Hx of cholecystectomy History of tonsillectomy and adenoidectomy Hx of tympanostomy tubes H/O cardiac radiofrequency ablation (11/13/13) Family History Grandfather Myocardial infarction Mother Anxiety Depression Grandmother COPD (chronic obstructive pulmonary disease) Myocardial infarction Social History adopted: No household members: spouse, children and other details: Patient's cousin housing: house number of children: 1 current occupational status: employed current occupation: [employer] pets and animals: Yes pets and animals: dog(s) history of recent travel: No sexually active: Yes Smoking Status: Former smoker quit date: 05/14/24 Smokeless tobacco user: other Electronic Cigarette Use: with nicotine second hand exposure: Yes alcohol intake: former details: not while substance use type: former substance user Date of last use: 07/22/2015 caffeine: Yes Type: coffee what type of physical activity do you participate in: walking frequency: 3-4 times per week nabil/episcopal: Congregation seatbelt use: always do you feel safe at home: Yes 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 Date Name GA/Weeks Outcome Route Bth Weight Gen Labor Lgth Anesthesia Del Locatn Provider FOB 06/05/16 Gulshan 40 live - full term Male [facility] Dr. Jim neves HPI 32 WK OB Details: PIETER GUILLERMO is a 34 year old who presents for routine OB visit. OB Visit MYLES Calculator Estimated Delivery Date Method Current WG Current Estimate 01/13/25 LMP (Certain) 32w 5d Other Estimates 01/08/25 Ultrasound #1 33w 3d 01/07/25 Ultrasound #2 33w 4d Expected Delivery Route/Plan Labor Preferences- CB/BF classes: no labor support person: Ham labor intervention preferences: [] pain management options preferred: [] cut cord/dad catch: yes : yes PP control planned: discussed discussed possible routes of delivery and associated risks: [] special requests: [] Specific Issue/Plans Covid status: [] Flu vaccine: [] Tdap vaccine: [] Rhogam: na LARC form signed: yes movement and labor precautions reviewed. Problem list reviewed and updated with the most current plan of care details and appropriate orders placed. Relevant counseling for the gestational age provided. Continue routine care and follow up unless otherwise noted in visit notes/problem list details Initial Weight: 230 lb Date -???-???-???-???-?? ?-???-???-???-???-? ??-???-???- EGA Weight BP Urine Prot -???-???-???-???-?? ?-???-???-???-???-? ??-???-???- Glucose FHR FuHt Pres Dilation -???-???-???-???-?? ?-???-???-???-???-? ??-???-???- Effaced St Visit Note 06/12/24 -???-???-???-???-?? ?-???-???-???-???-? ??-???-???- 9w 2d 230 lb 4 oz (+4 oz) 135/82 -???-???-???-???-?? ?-???-???-???-???-? ??-???-???- 180 -???-???-???-???-?? ?-???-???-???-???-? (more content not included)... Normal Internal Medicine Office Vis ito 11-16-2024 Internal Medicine Office Visit [facility] [address] [place], [place] [address] OFFICE VISIT Date of Service: 11/16/24 MR#: [id number] Acct: [id number] Name: PIETER GUILLERMO Rep #: [id number] : 1990 Provider: Dr. Laith reynaga MD Age/Sex: 34/F Location: [facility] Status: Signed Intake Vital Signs 08/10/24 13:26 11/09/24 10:14 11/16/24 10:38 Height 5 ft 4 in 5 ft 4 in 5 ft 4 in Weight: 240 lb BMI 41.1 BP 120/72 Blood Pressure Location Lt brachial Position Sitting Respiration 16 Pulse 96 Pulse Source Monitor Temp 97.9 F Temp Source Temporal Pulse Oximetry (%) 98 Oxygen Delivery Method room air Intake Visit Reasons: 3 M FU Chief Complaint: 3 M FU Is patient in pain?: No Allergies Environmental Allergies: Uncoded Allergy (Verified 11/16/24 10:35) PT UNABLE TO RESPOND-NEEDS F/U mold Allergy (Verified 11/16/24 10:35) Hives codeine Adverse Reaction (Verified 11/16/24 10:35) Other Medications ???Medication ???Instructions ???Recorded ???Confirmed ???Type nystatin 100,000 unit/gram topical 1 applic topical QDAY PRN History powder sertraline 50 mg tablet 50 mg PO QDAY #90 tabs 11/16/24 Rx PFSH Medical History (Updated 11/16/24 @ 11:[address] Laith Harman MD) Multiple skin tags Hirsutism Abnormal uterine bleeding Depression Anxiety Other obesity Hyperlipidemia Ectopic atrial tachycardia History of drug abuse in remission Chronic headaches Seasonal allergies Tachycardia Surgical History Hx of cholecystectomy History of tonsillectomy and adenoidectomy Hx of tympanostomy tubes H/O cardiac radiofrequency ablation (11/13/13) Family History (Updated 11/16/24 @ 10:37 by Neeta Jeffers) Grandfather Myocardial infarction Mother Anxiety Depression Grandmother COPD (chronic obstructive pulmonary disease) Myocardial infarction Social History adopted: No household members: spouse, children and other details: Patient's cousin housing: house number of children: 1 current occupational status: employed current occupation: [employer] pets and animals: Yes pets and animals: dog(s) history of recent travel: No sexually active: Yes Smoking Status: Former smoker quit date: 05/14/24 Smokeless tobacco user: other Electronic Cigarette Use: with nicotine second hand exposure: Yes alcohol intake: former details: not while substance use type: former substance user Date of last use: 07/22/2015 caffeine: Yes Type: coffee what type of physical activity do you participate in: walking frequency: 3-4 times per week nabil/episcopal: Congregation seatbelt use: always do you feel safe at home: Yes 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 The patient reports being on a 25 mg dose of Zoloft, noting improved mood and decreased anxiety symptoms, albeit with occasional episodes of increased anxiety. These episodes are sometimes attributed to her current . She mentions that although there is improvement, she is not completely symptom-free. Tolerating medication well otherwise. She is managing care for her 8-year-old son, which adds stress to her daily life. Additionally, the patient mentions multiple skin tags, which are not painful but cause discomfort, particularly a prominent one on the back of her neck. She notes that it has become bothersome due to discomfort from catching on clothing. The patient also reports feeling hot and clammy, attributing this to environmental factors. The patient is 32 weeks and notes occasional discomfort which she describes as a tugging sensation when she moves or turns, especially during the night. She has not had imaging since 20 weeks of . Plans to speak with her OB about this as well. Otherwise, has been uneventful. Attestation: Documentation on this patient encounter was supported using ambient scribe technology/ voice AI technology. The patient consented to recording for the purpose of documenting the encounter. Provider reviewed content of the generated note prior to signature. ROS Const Constitutional: No body ache, chills, excessive sweating, fatigue, fever(s), frequent falls, headache(s), snoring, weakness, sleep problems or change in appetite Eyes Eyes: No blurry vision, change in vision, vision loss, dry eyes or Light sensitivity ENT ENT: No abnormal hearing, ear or mastoid pain, tinnitus, nasal congestion, nasal discharge, headache(s), neck pain or sore throat Resp Respiratory: No cough, e (more content not included)... Normal Laboratory - Chemistry and C hemistry - challengeOrdered By: Promise Castañeda on 11-09-2024 Glucose Ql (U) Negative Laboratory - UrinalysisOrder ed By: Promise Castañeda on 11-09-2024 Protein Ql (U) Negative [facility] Visit Reporton 11-09-2024 [facility] Office Visit Report [facility] [address], [address] [place] [address] OFFICE VISIT Date of Service: 11/09/24 MR#: [id number] Acct: [id number] Name: PIETER GUILLERMO Rep #: [id number] : 1990 Provider: Dr. Promise sullivan MD Age/Sex: 34/F [place] [facility] Status: Signed Intake Vital Signs 08/10/24 09:49 10/26/24 13:10 11/09/24 10:14 Height 5 ft 4 in 5 ft 4 in 5 ft 4 in Weight: 238 lb 7 oz BMI 40.9 BP 121/77 H Intake Visit Reasons: 30 wk ob 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: No Is patient in pain?: No Feel stressed/tense/nerv ous/anxious/difficu lty sleeping: not at all Allergies Environmental Allergies: Uncoded Allergy (Verified 11/09/24 10:15) PT UNABLE TO RESPOND-NEEDS F/U mold Allergy (Verified 11/09/24 10:15) Hives codeine Adverse Reaction (Verified 11/09/24 10:15) Other Medications ???Medication ???Instructions ???Recorded ???Confirmed ???Type nystatin 100,000 unit/gram topical 1 applic topical QDAY #15 grams 09/07/24 11/09/24 Rx powder sertraline 25 mg tablet 25 mg PO QDAY #30 tabs 09/28/24 Rx Last Menstrual Period: 04/08/24 Zika: Zika virus screening: Negative : No PFSH PFSH Medical History Hirsutism Abnormal uterine bleeding Depression Anxiety Other obesity Hyperlipidemia Ectopic atrial tachycardia History of drug abuse in remission Chronic headaches Seasonal allergies Tachycardia Surgical History Hx of cholecystectomy History of tonsillectomy and adenoidectomy Hx of tympanostomy tubes H/O cardiac radiofrequency ablation (11/13/13) Family History Grandfather Myocardial infarction Mother Anxiety Depression Grandmother COPD (chronic obstructive pulmonary disease) Social History adopted: No household members: spouse, children and other details: Patient's cousin housing: house number of children: 1 current occupational status: employed current occupation: [employer] pets and animals: Yes pets and animals: dog(s) history of recent travel: No sexually active: Yes Smoking Status: Former smoker quit date: 05/14/24 Smokeless tobacco user: other Electronic Cigarette Use: with nicotine second hand exposure: Yes alcohol intake: former details: not while substance use type: former substance user Date of last use: 07/22/2015 caffeine: Yes Type: coffee what type of physical activity do you participate in: walking frequency: 3-4 times per week nabil/episcopal: Congregation seatbelt use: always do you feel safe at home: Yes 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 Date Name GA/Weeks Outcome Route Bth Weight Gen Labor Lgth Anesthesia Del Locatn Provider FOB 06/05/16 Gulshan 40 live - full term Male [facility] Dr. Jim neves HPI 30 wk ob Details: PIETER GUILLERMO is a 34 year old who presents for routine OB visit. OB Visit MYLES Calculator Estimated Delivery Date Method Current WG Current Estimate 01/13/25 LMP (Certain) 30w 5d Other Estimates 01/08/25 Ultrasound #1 31w 3d 01/07/25 Ultrasound #2 31w 4d Expected Delivery Route/Plan Labor Preferences- CB/BF classes: no labor support person: Ham labor intervention preferences: [] pain management options preferred: [] cut cord/dad catch: yes : yes PP control planned: discussed discussed possible routes of delivery and associated risks: [] special requests: [] Specific Issue/Plans Covid status: [] Flu vaccine: [] Tdap vaccine: [] Rhogam: na LARC form signed: yes movement and labor precautions reviewed. Problem list reviewed and updated with the most current plan of care details and appropriate orders placed. Relevant counseling for the gestational age provided. Continue routine care and follow up unless otherwise noted in visit notes/problem list details Initial Weight: 230 lb Date -???-???-???-???-?? ?-???-???-???-???-? ??-???-???- EGA Weight BP Urine Prot -???-???-???-???-?? ?-???-???-???-???-? ??-???-???- Glucose FHR FuHt Pres Dilation -???-???-???-???-?? ?-???-???-???-???-? ??-???-???- Effaced St Visit Note 06/12/24 -???-???-???-???-?? ?-???-???-???-???-? ??-???-???- 9w 2d 230 lb 4 oz (+4 oz) 135/82 -???-???-???-???-?? ?-???-???-???-???-? ??-???-???- 180 -???-???-???-???-?? ?-???-???-???-???-? (more content not included)... Normal Absolute lymphocyte countOrd ered By: Rebecca Butts on 10-26-2024 Lymphocytes Auto (Unsp spec) [#/Vol] 1.68 10*3/uL 0.83-4.51 Absolute neutrophil countOrd ered By: Rebecca Butts on 10-26-2024 Neutrophils (Bld) [#/Vol] 8.7 10*3/uL High 2.0-7.7 Automated lymphocyte count a s percentage of total leukocytesOrdered By: Rebecca Butts on 10-26-2024 Lymphocytes/100 WBC Auto (Unsp spec) 14.8 % Low 19-41 Basophil percentageOrdered B y: Rebecca Butts on 10-26-2024 Basophils/100 WBC (Bld) 0.3 % 0-1 [facility] CBC W/Diff, Automatedon 10-03 Absolute Lymph 1.68 X10 3/uL Normal 0.83-4.51 Comment on above: Performed By: #### L 509.8002, L3890.6006, L501.0250, L100.0100 #### [id number] [place], [address] Absolute Neut 8.7 X10 3/uL High 2.0-7.7 Comment on above: Performed By: #### L 509.8002, L3890.6006, L501.0250, L100.0100 #### [id number] [place], [address] Basophils/100 WBC (Bld) 0.3 % Normal 0-1 [facility] Comment on above: Performed By: #### L 509.8002, L3890.6006, L501.0250, L100.0100 #### [id number] [place], [address] Eosinophils/100 WBC (Bld) 1.0 % Normal 0-5 Comment on above: Performed By: #### L 509.8002, L3890.6006, L501.0250, L100.0100 #### [id number] [place], [address] Erythrocyte distribution width (RBC) [Ratio] 14.3 % Normal 11.6-14.6 Comment on above: Performed By: #### L 509.8002, L3890.6006, L501.0250, L100.0100 #### [id number] [place], [address] Hematocrit (Bld) [Volume fraction] 34.7 % Low 37-47 Comment on above: Performed By: #### L 509.8002, L3890.6006, L501.0250, L100.0100 #### [id number] [place], [address] Hemoglobin (Bld) [Mass/Vol] 11.4 g/dL Low 12.0-15.0 Comment on above: Performed By: #### L 509.8002, L3890.6006, L501.0250, L100.0100 #### [id number] [place], [address] IG% 0.400 Normal 0.0-0.9 Comment on above: Result Comment: IG% - Immature Granulocytes (promyelocytes, myelocytes and metamyelocytes) > 1% indicates that a LEFT SHIFT is Present. Performed By: #### L 509.8002, L3890.6006, L501.0250, L100.0100 #### [id number] [place], [address] Lymphocytes/100 WBC (Bld) 14.8 % Low 19-41 Comment on above: Performed By: #### L 509.8002, L3890.6006, L501.0250, L100.0100 #### [id number] [place], [address] MCH (RBC) [Entitic mass] 28.3 pg Normal 27.0-32.0 Comment on above: Performed By: #### L 509.8002, L3890.6006, L501.0250, L100.0100 #### [id number] [place], [address] MCHC (RBC) [Mass/Vol] 32.9 g/dL Normal 32-36 [facility] Comment on above: Performed By: #### L 509.8002, L3890.6006, L501.0250, L100.0100 #### [id number] [place], [address] MCV (RBC) [Entitic vol] 86.1 fL Normal 81-99 [facility] Comment on above: Performed By: #### L 509.8002, L3890.6006, L501.0250, L100.0100 #### [id number] [place], [address] Monocytes/100 WBC (Bld) 6.8 % Normal 0-10 [facility] Comment on above: Performed By: #### L 509.8002, L3890.6006, L501.0250, L100.0100 #### [id number] [place], [address] Neutrophils/100 WBC (Bld) 76.7 % High 47-70 Comment on above: Performed By: #### L 509.8002, L3890.6006, L501.0250, L100.0100 #### [id number] [place], [address] Nucleated RBC (Bld) [#/Vol] 0 10*3/uL Normal 0-5 Comment on above: Performed By: #### L 509.8002, L3890.6006, L501.0250, L100.0100 #### [id number] [place], [address] Platelet mean volume (Bld) [Entitic vol] 11.5 fL Normal 6.2-12.0 Comment on above: Performed By: #### L 509.8002, L3890.6006, L501.0250, L100.0100 #### [id number] [place], [address] Platelets (Bld) [#/Vol] 315 10*3/uL Normal 150-450 Comment on above: Performed By: #### L 509.8002, L3890.6006, L501.0250, L100.0100 #### [id number] [place], [address] RBC (Bld) [#/Vol] 4.03 10*6/uL Low 4.2-5.4 [facility] Comment on above: Performed By: #### L 509.8002, L3890.6006, L501.0250, L100.0100 #### [id number] [place], [address] RDW SD 44.3 fl High 35.1-43.9 Comment on above: Performed By: #### L 509.8002, L3890.6006, L501.0250, L100.0100 #### [id number] [place], [address] WBC (Bld) [#/Vol] 11.3 10*3/uL High 4.4-11.0 [facility] Comment on above: Performed By: #### L 509.8002, L3890.6006, L501.0250, L100.0100 #### [id number] [place], [address] Eosinophil percentageOrdered By: Rebecca Butts on 10-26-2024 Eosinophils/100 WBC (Bld) 1.0 % 0-5 Erythrocyte distribution wid th ratioOrdered By: Rebecca Butts on 10-26-2024 Erythrocyte distribution width (RBC) [Ratio] 14.3 % 11.6-14.6 Erythrocyte distribution wid th standard deviationOrdered By: Rebecca Butts on 10-26-2024 Erythrocyte distribution width (RBC) [Ratio] 44.3 fl High 35.1-43.9 Glucose Challenge Gest 1H 50 saurabh 10-26-2024 GLU GEST 50g 1H 105 mg/dL Normal 70-140 Comment on above: Performed By: #### L 509.8002, L3890.6006, L501.0250, L100.0100 #### [id number] [place], [place], [id number] Glucose measurement at 2 genet rs post-dose gestational glucose tolerance testOrdered By: Rebecca Butts on 10-26-2024 Glucose [Mass/Vol] 105 mg/dL 70-140 [facility] HIVon 10-26-2024 HIV Non-Reactive Normal Nonreactive Comment on above: Result Comment: Non- Reactive Reactive Repeatedly reactive samples must be confirmed according to CDC recommended confirmatory algorithms. The subresults for either HIVAG or AHIV can be used as an aid in the selection of the confirmation algorithm for reactive samples. Send out specimens with Reactive results to [facility] for confirmation. Order the HIV antibody detection and differentiation: #[id number] Performed By: #### L 509.8002, L3890.6006, L501.0250, L100.0100 #### [id number] [place], [place], [id number] Hematocrit Auto (Bld) [Volum e fraction]Ordered By: Rebecca Butts on 10-26-2024 Hematocrit (Bld) [Volume fraction] 34.7 % Low 37-47 Hemoglobin measurementOrdere d By: Rebecca Butts on 10-26-2024 Hemoglobin (Bld) [Mass/Vol] 11.4 g/dL Low 12.0-15.0 Immature granulocytes/100 WB C Auto (Bld)Ordered By: Rebecca Butts on 10-26-2024 Immature granulocytes/100 WBC (Bld) 0.400 % 0.0-0.9 Comment on above: IG% - Immature Granu locytes (promyelocytes, myelocytes and metamyelocytes) > 1% indicates that a LEFT SHIFT is Present. Laboratory - Chemistry and C hemistry - challengeOrdered By: Promise Castañeda on 10-26-2024 Glucose Ql (U) Negative Laboratory - UrinalysisOrder ed By: Promise Castañeda on 10-26-2024 Protein Ql (U) Negative MCV (mean corpuscular volume ) determinationOrdered By: Rebecca Butts on 10-26-2024 MCV (RBC) [Entitic vol] 86.1 fL 81-99 [facility] Mean corpuscular hemoglobin (MCH) determinationOrdered By: Rebecca Butts on 10-26-2024 MCH (RBC) [Entitic mass] 28.3 pg 27.0-32.0 Mean corpuscular hemoglobin concentration (MCHC) determinationOrdered By: Rebecca Butts on 10-26-2024 MCHC (RBC) [Mass/Vol] 32.9 g/dL 32-36 [facility] Mean platelet volume determi nationOrdered By: Rebecca Butts on 10-26-2024 Platelet mean volume (Bld) [Entitic vol] 11.5 fL 6.2-12.0 Monocyte percentageOrdered B y: Rebecca Butts on 10-26-2024 Monocytes/100 WBC (Bld) 6.8 % 0-10 [facility] Neutrophil percentageOrdered By: Rebecca Butts on 10-26-2024 Neutrophils/100 WBC (Bld) 76.7 % High 47-70 No Panel InformationOrdered By: Rebecca Butts on 10-26-2024 HIV (1&2) Antibody Non-Reactive Nonreactive [facility] Comment on above: Non-ReactiveReactive Repeatedly reactive samples must be confirmed according to CDC recommended confirmatory algorithms. The subresults for either HIVAG or AHIV can be used as an aid in the selection of the confirmation algorithm for reactive samples.Send out specimens with Reactive results to [facility] for confirmation.Order the HIV antibody detection and differentiation: #[id number] Nucleated red blood cell per centageOrdered By: Rebecca Butts on 10-26-2024 Nucleated RBC/100 WBC (Bld) [Ratio] 0 % 0-5 [facility] Reporton 10-26-2024 [facility] Visit Report [facility] [address], [address] [place] [address] OFFICE VISIT Date of Service: 10/26/24 MR#: [id number] Acct: [id number] Name: PIETER GUILLERMO Rep #: [id number] : 1990 Provider: Dr. Promise sullivan MD Age/Sex: 34/F [place] [facility] Status: Signed Intake Vital Signs 08/10/24 09:49 10/05/24 10:11 10/26/24 13:01 10/26/24 13:10 Height 5 ft 4 in 5 ft 4 in 5 ft 4 in 5 ft 4 in Weight: 235 lb 2 oz 237 lb 1 oz BMI 40.4 40.6 BP 126/82 H 130/85 H Intake Visit Reasons: 28 wk ob/glucose 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: No Is patient in pain?: No Feel stressed/tense/nerv ous/anxious/difficu lty sleeping: not at all Allergies Environmental Allergies: Uncoded Allergy (Verified 10/26/24 13:01) PT UNABLE TO RESPOND-NEEDS F/U mold Allergy (Verified 10/26/24 13:01) Hives codeine Adverse Reaction (Verified 10/26/24 13:01) Other Medications ???Medication ???Instructions ???Recorded ???Confirmed ???Type nystatin 100,000 unit/gram topical 1 applic topical QDAY #15 grams 09/07/24 10/26/24 Rx powder sertraline 25 mg tablet 25 mg PO QDAY #30 tabs 09/28/24 Rx Last Menstrual Period: 04/08/24 Zika: Zika virus screening: Negative : No Have you fallen in the past year?: No PFSH PFSH Medical History Hirsutism Abnormal uterine bleeding Depression Anxiety Other obesity Hyperlipidemia Ectopic atrial tachycardia History of drug abuse in remission Chronic headaches Seasonal allergies Tachycardia Surgical History Hx of cholecystectomy History of tonsillectomy and adenoidectomy Hx of tympanostomy tubes H/O cardiac radiofrequency ablation (11/13/13) Family History Grandfather Myocardial infarction Mother Anxiety Depression Grandmother COPD (chronic obstructive pulmonary disease) Social History adopted: No household members: spouse, children and other details: Patient's cousin housing: house number of children: 1 current occupational status: employed current occupation: [employer] pets and animals: Yes pets and animals: dog(s) history of recent travel: No sexually active: Yes Smoking Status: Former smoker quit date: 05/14/24 Smokeless tobacco user: other Electronic Cigarette Use: with nicotine second hand exposure: Yes alcohol intake: former details: not while substance use type: former substance user Date of last use: 07/22/2015 caffeine: Yes Type: coffee what type of physical activity do you participate in: walking frequency: 3-4 times per week nabil/episcopal: [employer] seatbelt use: always do you feel safe at home: Yes 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 Date Name GA/Weeks Outcome Route Bth Weight Infant Gen Labor Lgth Anesthesia Del Locatn Provider FOB 06/05/16 Gulshan 40 live - full term Male [facility] Dr. Jim neves HPI 28 wk ob/glucose Details: PIETER GUILLERMO is a 34 year old who presents for routine OB visit. OB Visit MYLES Calculator Estimated Delivery Date Method Current WG Current Estimate 01/13/25 LMP (Certain) 28w 5d Other Estimates 01/08/25 Ultrasound #1 29w 3d 01/07/25 Ultrasound #2 29w 4d Expected Delivery Route/Plan Labor Preferences- CB/BF classes: no labor support person: Ham labor intervention preferences: [] pain management options preferred: [] cut cord/dad catch: yes : yes PP control planned: discussed discussed possible routes of delivery and associated risks: [] special requests: [] Specific Issue/Plans Covid status: [] Flu vaccine: [] Tdap vaccine: [] Rhogam: na LARC form signed: yes Problem list reviewed and updated with the most current plan of care details and appropriate orders placed. Relevant counseling for the gestational age provided. Continue routine care and follow up unless otherwise noted in visit notes/problem list details Initial Weight: 230 lb Date -???-???-???-???-?? ?-???-???-???-???-? ??-???-???- EGA Weight BP Urine Prot -???-???-???-???-?? ?-???-???-???-???-? ??-???-???- Glucose FHR FuHt Pres Dilation -???-???-???-???-?? ?-???-???-???-???-? ??-???-???- Effaced St Visit Note 06/12/24 -???-???-???-???-?? ?-???-???-???-???-? ??-???-???- 9w 2d 230 lb 4 oz (+4 oz) 135/82 -???-???-???-???-?? ?-???-???-???-??? (more content not included)... Normal Platelet countOrdered By: Pierre Butts on 10-26-2024 Platelets (Bld) [#/Vol] 315 10*3/uL 150-450 RBC Auto (Bld) [#/Vol]Ordere d By: Rebecca Butts on 10-26-2024 RBC (Bld) [#/Vol] 4.03 10*6/uL Low 4.2-5.4 [facility] Syphilis Antibodieson 2024 Syphilis Abs Non-Reactive Normal Nonreactive Comment on above: Performed By: #### L 509.8002, L3890.6006, L501.0250, L100.0100 #### [id number] [place], [address] White blood cell (WBC) count Ordered By: Rebecca Beckie on 10-26-2024 WBC (Bld) [#/Vol] 11.3 10*3/uL High 4.4-11.0 [facility] Laboratory - Chemistry and C hemistry - challengeOrdered By: Rebecca Butts on 10-05-2024 Glucose Ql (U) Negative Laboratory - UrinalysisOrder ed By: Rebecca Butts on 10-05-2024 Protein Ql (U) Negative [facility] Visit Reporton 10-05-2024 [facility] Visit Report [facility] [address], [address] [place] [address] OFFICE VISIT Date of Service: 10/05/24 MR#: [id number] Acct: [id number] Name: PIETER GUILLERMO Rep #: [id number] : 1990 Provider: KORINA smith Age/Sex: 34/F [place] [facility] Status: Signed Intake Vital Signs 08/10/24 09:49 09/07/24 09:20 10/05/24 10:11 Height 5 ft 4 in 5 ft 4 in 5 ft 4 in Weight: 235 lb 2 oz BMI 40.4 BP 126/82 H Intake Visit Reasons: 25 wk ob Chief Complaint: 25 Week 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 Is patient in pain?: No Allergies Environmental Allergies: Uncoded Allergy (Verified 10/05/24 10:11) PT UNABLE TO RESPOND-NEEDS F/U mold Allergy (Verified 10/05/24 10:11) Hives codeine Adverse Reaction (Verified 10/05/24 10:11) Other Medications ???Medication ???Instructions ???Recorded ???Confirmed ???Type nystatin 100,000 unit/gram topical 1 applic topical QDAY #15 grams 09/07/24 10/05/24 Rx powder sertraline 25 mg tablet 25 mg PO QDAY #30 tabs 09/28/24 Rx Last Menstrual Period: 04/08/24 Zika: Zika virus screening: Negative : Yes PFSH PFSH Medical History Hirsutism Abnormal uterine bleeding Depression Anxiety Other obesity Hyperlipidemia Ectopic atrial tachycardia History of drug abuse in remission Chronic headaches Seasonal allergies Tachycardia Surgical History Hx of cholecystectomy History of tonsillectomy and adenoidectomy Hx of tympanostomy tubes H/O cardiac radiofrequency ablation (11/13/13) Family History Grandfather Myocardial infarction Mother Anxiety Depression Grandmother COPD (chronic obstructive pulmonary disease) Social History adopted: No household members: spouse, children and other details: Patient's cousin housing: house number of children: 1 current occupational status: employed current occupation: [employer] pets and animals: Yes pets and animals: dog(s) history of recent travel: No sexually active: Yes Smoking Status: Former smoker quit date: 05/14/24 Smokeless tobacco user: other Electronic Cigarette Use: with nicotine second hand exposure: Yes alcohol intake: former details: not while substance use type: former substance user Date of last use: 07/22/2015 caffeine: Yes Type: coffee what type of physical activity do you participate in: walking frequency: 3-4 times per week nabil/episcopal: [employer] seatbelt use: always do you feel safe at home: Yes 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 Date Name GA/Weeks Outcome Route Bth Weight Gen Labor Lgth Anesthesia Del Locatn Provider FOB 06/05/16 Gulshan 40 live - full term Male [facility] Dr. Jim neves HPI 25 wk ob Details: PIETER GUILLERMO is a 34 year old who presents for routine OB visit. OB Visit MYLES Calculator Estimated Delivery Date Method Current WG Current Estimate 01/13/25 LMP (Certain) 25w 5d Other Estimates 01/08/25 Ultrasound #1 26w 3d 01/07/25 Ultrasound #2 26w 4d Expected Delivery Route/Plan Labor Preferences- CB/BF classes: no labor support person: Ham labor intervention preferences: [] pain management options preferred: [] cut cord/dad catch: yes : yes PP control planned: discussed discussed possible routes of delivery and associated risks: [] special requests: [] Specific Issue/Plans Covid status: [] Flu vaccine: [] Tdap vaccine: [] Rhogam: na LARC form signed: yes Problem list reviewed and updated with the most current plan of care details and appropriate orders placed. Relevant counseling for the gestational age provided. Continue routine care and follow up unless otherwise noted in visit notes/problem list details Initial Weight: 230 lb Date -???-???-???-???-?? ?-???-???-???-???-? ??-???-???- EGA Weight BP Urine Prot -???-???-???-???-?? ?-???-???-???-???-? ??-???-???- Glucose FHR FuHt Pres Dilation -???-???-???-???-?? ?-???-???-???-???-? ??-???-???- Effaced St Visit Note 06/12/24 -???-???-???-???-?? ?-???-???-???-???-? ??-???-???- 9w 2d 230 lb 4 oz (+4 oz) 135/82 -???-???-???-???-?? ?-???-???-???-???-? ??-???-???- 180 -???-???-???-???-?? ?-???-???-???-???-? ??-???-???- LC- CRL con with lmp (36mm).declines nipt. 07/13/24 -???-???- (more content not included)... Normal Laboratory - Chemistry and C hemistry - challengeOrdered By: Erlinda Suggs on 09-07-2024 Bilirubin Ql (U) Negative Glucose Ql (U) Negative Ketones Ql (U) Negative pH (U) 6 [pH] Specific gravity (U) [Rel density] 1.010 Urobilinogen (U) [Mass/Vol] Negative Laboratory - Hematology and Cell countsOrdered By: Erlinda Suggs on 09-07-2024 Hemoglobin Ql (U) Negative Laboratory - Specimen inform ationOrdered By: Erlinda Suggs on 09-07-2024 Clarity (U) Clear Color (U) YELLOW Laboratory - UrinalysisOrder ed By: Erlinda Suggs on 09-07-2024 Nitrite Ql (U) Negative Protein Ql (U) Negative No Panel InformationOrdered By: Erlinda Suggs on 09-07-2024 Urine Leukocytes Negatve Urine Non-Hemolyzed Blood [facility] Visit Reporton 09-07-2024 [facility] Office Visit Report [facility], [facility] [address] [place] [address] OFFICE VISIT Date of Service: 09/07/24 MR#: [id number] Acct: [id number] Name: PIETER GUILLERMO Rep #: [id number] : 1990 Provider: JERONIMO Black ams Age/Sex: 34/F [place] [facility] Status: Signed Intake Vital Signs 06/12/24 09:37 08/10/24 13:26 09/07/24 09:20 Height 5 ft 4 in 5 ft 4 in 5 ft 4 in Weight: 233 lb 8 oz BMI 40.1 BP 122/81 H Intake Visit Reasons: 21 WK OB Chief Complaint: 21wk 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 Is patient in pain?: No Allergies Environmental Allergies: Uncoded Allergy (Verified 09/07/24 09:20) PT UNABLE TO RESPOND-NEEDS F/U mold Allergy (Verified 09/07/24 09:20) Hives codeine Adverse Reaction (Verified 09/07/24 09:20) Other Medications ???Medication ???Instructions ???Recorded ???Confirmed ???Type nystatin 100,000 unit/gram topical 1 applic topical QDAY #15 grams 09/07/24 09/07/24 Rx powder Last Menstrual Period: 04/08/24 : No Have you fallen in the past year?: No PFSH PFSH Medical History Depression Anxiety Other obesity Hyperlipidemia Ectopic atrial tachycardia History of drug abuse in remission Chronic headaches Seasonal allergies Tachycardia Surgical History Hx of cholecystectomy History of tonsillectomy and adenoidectomy Hx of tympanostomy tubes H/O cardiac radiofrequency ablation (11/13/13) Family History Grandfather Myocardial infarction Mother Anxiety Depression Grandmother COPD (chronic obstructive pulmonary disease) Social History adopted: No household members: spouse, children and other details: Patient's cousin housing: house number of children: 1 current occupational status: employed current occupation: [employer] pets and animals: Yes pets and animals: dog(s) history of recent travel: No sexually active: Yes Smoking Status: Former smoker quit date: 05/14/24 Smokeless tobacco user: other Electronic Cigarette Use: with nicotine second hand exposure: Yes alcohol intake: former details: not while substance use type: former substance user Date of last use: 07/22/2015 caffeine: Yes Type: coffee what type of physical activity do you participate in: walking frequency: 3-4 times per week nabil/episcopal: [employer]regation seatbelt use: always do you feel safe at home: Yes 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 Date Name GA/Weeks Outcome Route Bth Weight Infant Gen Labor Lgth Anesthesia Del Locatn Provider FOB 06/05/16 Gulshan 40 live - full term Male [facility] Dr. Jim neves HPI 21 WK OB Details: PIETER GUILLERMO is a 34 year old who presents for routine OB visit. OB Visit MYLES Calculator Estimated Delivery Date Method Current WG Current Estimate 01/13/25 LMP (Certain) 21w 5d Other Estimates 01/08/25 Ultrasound #1 22w 3d 01/07/25 Ultrasound #2 22w 4d Expected Delivery Route/Plan Labor Preferences- CB/BF classes: [] labor support person: [] labor intervention preferences: [] pain management options preferred: [] cut cord/dad catch: [] : [] PP control planned: [] discussed possible routes of delivery and associated risks: [] special requests: [] Specific Issue/Plans Covid status: [] Flu vaccine: [] Tdap vaccine: [] Rhogam: [] LARC form signed: [] Problem list reviewed and updated with the most current plan of care details and appropriate orders placed. Relevant counseling for the gestational age provided. Continue routine care and follow up unless otherwise noted in visit notes/problem list details Initial Weight: 230 lb Date -???-???-???-???-?? ?-???-???-???-???-? ??-???-???- EGA Weight BP Urine Prot -???-???-???-???-?? ?-???-???-???-???-? ??-???-???- Glucose FHR FuHt Pres Dilation -???-???-???-???-?? ?-???-???-???-???-? ??-???-???- Effaced St Visit Note 06/12/24 -???-???-???-???-?? ?-???-???-???-???-? ??-???-???- 9w 2d 230 lb 4 oz (+4 oz) 135/82 -???-???-???-???-?? ?-???-???-???-???-? ??-???-???- 180 -???-???-???-???-?? ?-???-???-???-???-? ??-???-???- LC- CRL con with lmp (36mm).declines nipt. 07/13/24 -???-???-???-???-?? ?-???-???-???-???-? ??-???-???- 13w 5d 231 lb 4 oz (+1 lb 4 oz) 120/63 Negative -???-???-???-???-?? ?-???-???-???-???-? ??-???-???- Negative (more content not included)... Normal Internal Medicine Office Vis iton 08-10-2024 Internal Medicine Office Visit [facility] [place] [address] [place] [address] OFFICE VISIT Date of Service: 08/10/24 MR#: [id number] Acct: [id number] Name: PIETER GUILLERMO Rep #: [id number] : 1990 Provider: Dr. Laith reynaga MD Age/Sex: 34/F Location: [facility] Status: Signed Intake Vital Signs 12/30/23 10:13 06/12/24 09:37 08/10/24 09:49 08/10/24 13:26 Height 5 ft 4 in 5 ft 4 in 5 ft 4 in 5 ft 4 in Weight: 232 lb BMI 39.8 BP 132/88 H Blood Pressure Location Lt brachial Position Sitting Respiration 18 Pulse 84 Pulse Source Monitor Temp 98.0 F Temp Source Temporal Pulse Oximetry (%) 98 Oxygen Delivery Method room air Intake Visit Reasons: 6 M FU Chief Complaint: 6 M FU Is patient in pain?: No Allergies Environmental Allergies: Uncoded Allergy (Verified 08/10/24 13:24) PT UNABLE TO RESPOND-NEEDS F/U mold Allergy (Verified 08/10/24 13:24) Hives codeine Adverse Reaction (Verified 08/10/24 13:24) Other Medications ???Medication ???Instructions ???Recorded ???Confirmed ???Type NK 08/10/24 08/10/24 History PFSH Medical History Depression Anxiety Other obesity Hyperlipidemia Ectopic atrial tachycardia History of drug abuse in remission Chronic headaches Seasonal allergies Tachycardia Surgical History Hx of cholecystectomy History of tonsillectomy and adenoidectomy Hx of tympanostomy tubes H/O cardiac radiofrequency ablation (11/13/13) Family History Grandfather Myocardial infarction Mother Anxiety Depression Grandmother COPD (chronic obstructive pulmonary disease) Social History adopted: No household members: spouse, children and other details: Patient's cousin housing: house number of children: 1 current occupational status: employed current occupation: [employer] pets and animals: Yes pets and animals: dog(s) history of recent travel: No sexually active: Yes Smoking Status: Former smoker quit date: 05/14/24 Smokeless tobacco user: other Electronic Cigarette Use: with nicotine second hand exposure: Yes alcohol intake: former details: not while substance use type: former substance user Date of last use: 07/22/2015 caffeine: Yes Type: coffee what type of physical activity do you participate in: walking frequency: 3-4 times per week nabil/episcopal: Congregation seatbelt use: always do you feel safe at home: Yes 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 1. Little interest or pleasure in doing things: several days 2. Feeling down, depressed, or hopeless: several days 3. Trouble falling or staying asleep, or sleeping too much: several days 4. Feeling tired or having little energy: nearly every day 5. Poor appetite or overeating: not at all 6. Feeling bad about yourself - or that you are a failure or have let yourself and your family down: more than half the days 7. Trouble concentrating on things, such as reading the newspaper or watching television: not at all 8. Moving or speaking so slowly that other people could have noticed? - Or the opposite - being so fidgety or restless that you have been moving around a lot more than usual: not at all 9. Thoughts that you would be better off or of hurting yourself in some way: not at all Total score: 8 Source: Developed by Drs. Roberto Almendarez, Dario Palm and colleagues, with an educational una from [employer]. TANGELA-7 BMS TANGELA-7 Feeling nervous, anxious, or on edge: 1 = Several days Not being able to stop or control worryin = Several days Worrying too much about different things: 2 = More than half the days Trouble relaxin = More than half the days Being so restless that it is hard to sit still: 1 = Several days Becoming easily annoyed or irritable: 2 = More than half the days Feeling afraid as if something awful might happen: 1 = Several days Total TANGELA-7 score (0-4 normal; 5-9 mild; 10-14 moderate; 15-21 severe): 10 Source: Developed by Drs. Roberto Almendarez, Kalyani Suggs, Dario Santos and colleagues, with an educational una from [employer]. HPI HPI Chief Complaint: 6 M FU Details: PIETER GUILLERMO, is a 34 F who presents to the office today for follow-up. Since her last visit, discovered that she was and she is currently about 17/18 weeks . so far has been uneventful, following up closely with OB. Chronic history of anxiety and depression. Has had some anxiety with thi (more content not included)... Normal Laboratory - Chemistry and C hemistry - challengeOrdered By: Rebecca Butts on 08-10-2024 Glucose Ql (U) Negative Laboratory - UrinalysisOrder ed By: Rebecca Butts on 08-10-2024 Protein Ql (U) Negative [facility] Office Visit Reporton 08-10-2024 [facility] Office Visit Report [facility] [address], [address] [place] [address] OFFICE VISIT Date of Service: 08/10/24 MR#: [id number] Acct: [id number] Name: PIETER GUILLERMO Rep #: [id number] : 1990 Provider: KORINA smith Age/Sex: 34/F [place] [facility]: Signed Intake Vital Signs 06/12/24 09:37 07/13/24 09:09 08/10/24 09:49 Height 5 ft 4 in 5 ft 4 in 5 ft 4 in Weight: 230 lb 4 oz BMI 39.5 BP 124/80 H Intake Visit Reasons: 17 WK OB Chief Complaint: 17 Week 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 Is patient in pain?: No Allergies Environmental Allergies: Uncoded Allergy (Verified 08/10/24 09:48) PT UNABLE TO RESPOND-NEEDS F/U mold Allergy (Verified 08/10/24 09:48) Hives codeine Adverse Reaction (Verified 08/10/24 09:48) Other Medications ???Medication ???Instructions ???Recorded ???Confirmed ???Type bupropion HCl 150 mg 24 hr tablet, 150 mg PO QAM #90 tabs 12/30/23 08/10/24 Rx extended release buspirone 7.5 mg tablet 7.5 mg PO BID #180 tabs 12/30/23 0 08/10/24 Rx fenofibrate nanocrystallized 48 mg 48 mg PO QDAY #90 tabs 12/30/23 08/10/24 Rx tablet [id number] 400 mcg-om3 35 mg-dha 25 tab PO 06/04/24 08/10/24 History mg-epa 5 mg-fish oil chewable tablet Last Menstrual Period: 04/08/24 Zika: Zika virus screening: Negative : No PFSH PFSH Medical History Depression Anxiety Other obesity Hyperlipidemia Ectopic atrial tachycardia History of drug abuse in remission Chronic headaches Seasonal allergies Tachycardia Surgical History Hx of cholecystectomy History of tonsillectomy and adenoidectomy Hx of tympanostomy tubes H/O cardiac radiofrequency ablation (11/13/13) Family History Grandfather Myocardial infarction Mother Anxiety Depression Grandmother COPD (chronic obstructive pulmonary disease) Social History adopted: No household members: spouse, children and other details: Patient's cousin housing: house number of children: 1 current occupational status: employed current occupation: [employer] pets and animals: Yes pets and animals: dog(s) history of recent travel: No sexually active: Yes Smoking Status: Former smoker quit date: 05/14/24 Smokeless tobacco user: other Electronic Cigarette Use: with nicotine second hand exposure: Yes alcohol intake: former details: not while substance use type: former substance user Date of last use: 07/22/2015 caffeine: Yes Type: coffee what type of physical activity do you participate in: walking frequency: 3-4 times per week nabil/episcopal: Congregation seatbelt use: always do you feel safe at home: Yes 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 Date Name GA/Weeks Outcome Route Bth Weight Infant Gen Labor Lgth Anesthesia Del Locatn Provider FOB 06/05/16 Gulshan 40 live - full term Male [facility] Dr. Jim neves HPI 17 WK OB Details: PIETER GUILLERMO is a 34 year old who presents for routine OB visit. OB Visit MYLES Calculator Estimated Delivery Date Method Current WG Current Estimate 01/13/25 LMP (Certain) 17w 5d Other Estimates 01/08/25 Ultrasound #1 18w 3d 01/07/25 Ultrasound #2 18w 4d Expected Delivery Route/Plan Labor Preferences- CB/BF classes: [] labor support person: [] labor intervention preferences: [] pain management options preferred: [] cut cord/dad catch: [] : [] PP control planned: [] discussed possible routes of delivery and associated risks: [] special requests: [] Specific Issue/Plans Covid status: [] Flu vaccine: [] Tdap vaccine: [] Rhogam: [] LARC form signed: [] Problem list reviewed and updated with the most current plan of care details and appropriate orders placed. Relevant counseling for the gestational age provided. Continue routine care and follow up unless otherwise noted in visit notes/problem list details Initial Weight: 230 lb Date -???-???-???-???-?? ?-???-???-???-???-? ??-???-???- EGA Weight BP Urine Prot -???-???-???-???-?? ?-???-???-???-???-? ??-???-???- Glucose FHR FuHt Pres Dilation -???-???-???-???-?? ?-???-???-???-???-? ??-???-???- Effaced St Visit Note 06/12/24 -???-???-???-???-?? ?-???-???-???-???-? ??-???-???- 9w 2d 230 lb 4 oz (+4 oz) 135/82 -???-???-???-???-? (more content not included)... Normal Laboratory - Chemistry and C hemistry - challengeOrdered By: Christel Montague on 07-13-2024 Glucose Ql (U) Negative Laboratory - UrinalysisOrder ed By: Christel Montague on 07-13-2024 Protein Ql (U) Negative [facility] Office Visit Reporton 07-13-2024 Head [facility] Office Visit Report [facility] [address], [address] [place] [address] OFFICE VISIT Date of Service: 07/13/24 MR#: [id number] Acct: [id number] Name: PIETER GUILLERMO Rep #: [id number] : 1990 Provider: Dr. 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 Is patient in pain?: No Allergies Environmental Allergies: Uncoded Allergy (Verified 07/13/24 09:08) PT UNABLE TO RESPOND-NEEDS F/U mold Allergy (Verified 07/13/24 09:08) Hives codeine Adverse Reaction (Verified 07/13/24 09:08) Other Medications ???Medication ???Instructions ???Recorded ???Confirmed ???Type bupropion HCl 150 mg 24 hr tablet, 150 mg PO QAM #90 tabs 12/30/23 07/13/24 Rx extended release buspirone 7.5 mg tablet 7.5 mg PO BID #180 tabs 12/30/23 0 07/13/24 Rx fenofibrate nanocrystallized 48 mg 48 mg PO QDAY #90 tabs 12/30/23 07/13/24 Rx tablet [id number] 400 mcg-om3 35 mg-dha 25 tab PO 06/04/24 07/13/24 History mg-epa 5 mg-fish oil chewable tablet Last Menstrual Period: 04/08/24 Zika: Zika virus screening: Negative : No PFSH PFSH Medical History Depression Anxiety Other obesity Hyperlipidemia Ectopic atrial tachycardia History of drug abuse in remission Chronic headaches Seasonal allergies Tachycardia Surgical History Hx of cholecystectomy History of tonsillectomy and adenoidectomy Hx of tympanostomy tubes H/O cardiac radiofrequency ablation (11/13/13) Family History Grandfather Myocardial infarction Mother Anxiety Depression Grandmother COPD (chronic obstructive pulmonary disease) Social History adopted: No household members: spouse, children and other details: Patient's cousin housing: house number of children: 1 current occupational status: employed current occupation: [employer] pets and animals: Yes pets and animals: dog(s) history of recent travel: No sexually active: Yes Smoking Status: Former smoker quit date: 05/14/24 Smokeless tobacco user: other Electronic Cigarette Use: with nicotine second hand exposure: Yes alcohol intake: former details: not while substance use type: former substance user Date of last use: 07/22/2015 caffeine: Yes Type: coffee what type of physical activity do you participate in: walking frequency: 3-4 times per week nabil/episcopal: Congregation seatbelt use: always do you feel safe at home: Yes 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 Date Name GA/Weeks Outcome Route Bth Weight Infant Gen Labor Lgth Anesthesia Del Locatn Provider FOB 06/05/16 Gulshan 40 live - full term Male [facility] Dr. Jim neves HPI 13WK OB Details: PIETER GUILLERMO is a 34 year old who presents for routine OB visit. OB Visit MYLES Calculator Estimated Delivery Date Method Current WG Current Estimate 01/13/25 LMP (Certain) 13w 5d Other Estimates 01/08/25 Ultrasound #1 14w 3d 01/07/25 Ultrasound #2 14w 4d Expected Delivery Route/Plan Labor Preferences- CB/BF classes: [] labor support person: [] labor intervention preferences: [] pain management options preferred: [] cut cord/dad catch: [] : [] PP control planned: [] discussed possible routes of delivery and associated risks: [] special requests: [] Specific Issue/Plans Covid status: [] Flu vaccine: [] Tdap vaccine: [] Rhogam: [] LARC form signed: [] Problem list reviewed and updated with the most current plan of care details and appropriate orders placed. Relevant counseling for the gestational age provided. Continue routine care and follow up unless otherwise noted in visit notes/problem list details Initial Weight: 230 lb Date -???-???-???-???-?? ?-???-???-???-???-? ??-???-???- EGA Weight BP Urine Prot -???-???-???-???-?? ?-???-???-???-???-? ??-???-???- Glucose FHR FuHt Pres Dilation -???-???-???-???-?? ?-???-???-???-???-? ??-???-???- Effaced St Visit Note 06/12/24 -???-???-???-???-?? ?-???-???-???-???-? ??-???-???- 9w 2d 230 lb 4 oz (+4 oz) 135/82 -???-???-???-???-?? ? (more content not included)... Normal Chlamydia/GC CARTER aptimaon CHLAMY,NUC ACID Negative Normal Negative Comment on above: Performed By: #### L 7000.1800, L505.5000, M100.2200, L501.0900 #### [id number] [place], [place], [id number] GC BY NUC ACID Negative Normal Negative Comment on above: Result Comment: Perf ormed at: =G - [facility] [address], [place] [id number] Software Maintenance Engineer: Pebbles Ferrer MD, Phone: [phone] Performed By: #### L 7000.1800, L505.5000, M100.2200, L501.0900 #### [id number] [place], [address] Urine Cultureon 06-14-2024 URC Below infection level. Mixed Gram Positive Organisms Heath Count <1000 MIXC Mixed contaminants. Submit a new specimen if indicated. Normal Comment on above: Performed By: #### L 7000.1800, L505.5000, M100.2200, L501.0900 #### [id number] [place], [address] Absolute lymphocyte countOrd ered By: Anna Kim on 06-12-2024 Lymphocytes Auto (Unsp spec) [#/Vol] 1.36 10*3/uL 0.83-4.51 Absolute neutrophil countOrd ered By: Anna Kim on 06-12-2024 Neutrophils (Bld) [#/Vol] 7.2 10*3/uL 2.0-7.7 Amphetamine detection with 1 000 ng/mL as cutoffOrdered By: Anna Kim on 06-12-2024 Amphetamines Screen method >1000 ng/mL Ql (U) Negative < 200 ng/mL [facility] Amphetamines Screen method > 1000 ng/mL Ql (U)Ordered By: Anna Kim on 06-12-2024 Amphetamines Ql (U) Negative <1000 ng/mL [facility] Urine Barbiturates Screen Negative < 200 ng/m L Anion gap in Serum or Plasma Ordered By: Anna Kim on 06-12-2024 Anion gap [Moles/Vol] 14 mmol/L 5-15 [facility] Automated lymphocyte count a s percentage of total leukocytesOrdered By: Anna Kim on 06-12-2024 Lymphocytes/100 WBC Auto (Unsp spec) 14.8 % Low 19-41 BUN/creatinine ratioOrdered By: Anna Kim on 06-12-2024 Urea nitrogen/Creatinine [Mass ratio] 7.2 mg/mg Low 10-20 Basophil percentageOrdered B y: Anna Kim on 06-12-2024 Basophils/100 WBC (Bld) 0.4 % 0-1 [facility] Bilirubin, totalOrdered By: Anna Kim on 06-12-2024 Bilirubin [Mass/Vol] 0.29 mg/dL 0.00-1.30 [facility] C. trachomatis rRNA CARTER+prob e Ql (Unsp spec)Ordered By: Anna Kim on 06-12-2024 Chlamydia DNA (CARTER) Negative Negative [facility] CBC W/Diff, Automatedon 06-02 Absolute Lymph 1.36 X10 3/uL Normal 0.83-4.51 Comment on above: Performed By: #### B TS, L3890.6301, L3890.6006, L509.4006, L509.8002, L501.9985, L100.0100, L500.4050, L3890.6102 #### [facility] [address] [place], [address] Absolute Neut 7.2 X10 3/uL Normal 2.0-7.7 Comment on above: Performed By: #### B TS, L3890.6301, L3890.6006, L509.4006, L509.8002, L501.9985, L100.0100, L500.4050, L3890.6102 #### Laboratory [address] [place], [address] Basophils/100 WBC (Bld) 0.4 % Normal 0-1 [facility] Comment on above: Performed By: #### B TS, L3890.6301, L3890.6006, L509.4006, L509.8002, L501.9985, L100.0100, L500.4050, L3890.6102 #### Laboratory [address] [place], [address] Eosinophils/100 WBC (Bld) 0.8 % Normal 0-5 Comment on above: Performed By: #### B TS, L3890.6301, L3890.6006, L509.4006, L509.8002, L501.9985, L100.0100, L500.4050, L3890.6102 #### Laboratory [address] [place], [address] Erythrocyte distribution width (RBC) [Ratio] 13.4 % Normal 11.6-14.6 Comment on above: Performed By: #### B TS, L3890.6301, L3890.6006, L509.4006, L509.8002, L501.9985, L100.0100, L500.4050, L3890.6102 #### Laboratory [address] [facility] [place], [address] Hematocrit (Bld) [Volume fraction] 36.6 % Low 37-47 Comment on above: Performed By: #### B TS, L3890.6301, L3890.6006, L509.4006, L509.8002, L501.9985, L100.0100, L500.4050, L3890.6102 #### Laboratory [address] [facility] [place], [address] Hemoglobin (Bld) [Mass/Vol] 11.7 g/dL Low 12.0-15.0 Comment on above: Performed By: #### B TS, L3890.6301, L3890.6006, L509.4006, L509.8002, L501.9985, L100.0100, L500.4050, L3890.6102 #### Laboratory [address] [facility] [place], [address] IG% 0.200 Normal 0.0-0.9 Comment on above: Result Comment: IG% - Immature Granulocytes (promyelocytes, myelocytes and metamyelocytes) > 1% indicates that a LEFT SHIFT is Present. Performed By: #### B TS, L3890.6301, L3890.6006, L509.4006, L509.8002, L501.9985, L100.0100, L500.4050, L3890.6102 #### Laboratory [address] [facility] [place], [address] Lymphocytes/100 WBC (Bld) 14.8 % Low 19-41 Comment on above: Performed By: #### B TS, L3890.6301, L3890.6006, L509.4006, L509.8002, L501.9985, L100.0100, L500.4050, L3890.6102 #### [facility] [address] [facility] [place], [address] MCH (RBC) [Entitic mass] 27.9 pg Normal 27.0-32.0 Comment on above: Performed By: #### B TS, L3890.6301, L3890.6006, L509.4006, L509.8002, L501.9985, L100.0100, L500.4050, L3890.6102 #### Laboratory [address] [facility] [place], [address] MCHC (RBC) [Mass/Vol] 32.0 g/dL Normal 32-36 [facility] Comment on above: Performed By: #### B TS, L3890.6301, L3890.6006, L509.4006, L509.8002, L501.9985, L100.0100, L500.4050, L3890.6102 #### Laboratory [address] [facility] [place], [address] MCV (RBC) [Entitic vol] 87.4 fL Normal 81-99 [facility] Comment on above: Performed By: #### B TS, L3890.6301, L3890.6006, L509.4006, L509.8002, L501.9985, L100.0100, L500.4050, L3890.6102 #### Laboratory [address] [facility] [place], [address] Monocytes/100 WBC (Bld) 5.4 % Normal 0-10 [facility] Comment on above: Performed By: #### B TS, L3890.6301, L3890.6006, L509.4006, L509.8002, L501.9985, L100.0100, L500.4050, L3890.6102 #### Laboratory [address] [place], [address] Neutrophils/100 WBC (Bld) 78.4 % High 47-70 Comment on above: Performed By: #### B TS, L3890.6301, L3890.6006, L509.4006, L509.8002, L501.9985, L100.0100, L500.4050, L3890.6102 #### Laboratory [address] [place], [address] Nucleated RBC (Bld) [#/Vol] 0 10*3/uL Normal 0-5 Comment on above: Performed By: #### B TS, L3890.6301, L3890.6006, L509.4006, L509.8002, L501.9985, L100.0100, L500.4050, L3890.6102 #### Laboratory [address] [place], [address] Platelet mean volume (Bld) [Entitic vol] 11.3 fL Normal 6.2-12.0 Comment on above: Performed By: #### B TS, L3890.6301, L3890.6006, L509.4006, L509.8002, L501.9985, L100.0100, L500.4050, L3890.6102 #### Laboratory [address] [place], [address] Platelets (Bld) [#/Vol] 380 10*3/uL Normal 150-450 Comment on above: Performed By: #### B TS, L3890.6301, L3890.6006, L509.4006, L509.8002, L501.9985, L100.0100, L500.4050, L3890.6102 #### Laboratory [address] [place], [address] RBC (Bld) [#/Vol] 4.19 10*6/uL Low 4.2-5.4 [facility] Comment on above: Performed By: #### B TS, L3890.6301, L3890.6006, L509.4006, L509.8002, L501.9985, L100.0100, L500.4050, L3890.6102 #### Laboratory [address] [place], [place], [phone] (297) RDW SD 42.6 fl Normal 35.1-43.9 Comment on above: Performed By: #### B TS, L3890.6301, L3890.6006, L509.4006, L509.8002, L501.9985, L100.0100, L500.4050, L3890.6102 #### Laboratory [address] [place], [address] WBC (Bld) [#/Vol] 9.2 10*3/uL Normal 4.4-11.0 [facility] Comment on above: Performed By: #### B TS, L3890.6301, L3890.6006, L509.4006, L509.8002, L501.9985, L100.0100, L500.4050, L3890.6102 #### Laboratory [address] [place], [address] Carbon dioxide, total [Moles /volume] in Central venous bloodOrdered By: Anna Kim on 06-12-2024 CO2 [Moles/Vol] 20.2 mmol/L Low 21.0-32.0 Chlamydia trachomatis rRNA d etection by probe and target amplification methodOrdered By: Anna Kim on 06-12-2024 C. trachomatis rRNA CARTER+probe Ql (Unsp spec) Negative Negative Chloride assayOrdered By: Yuki Kim on 06-12-2024 Chloride [Moles/Vol] 103 mmol/L 98-108 [facility] Comprehensive Metabolic Prof ilon 06-12-2024 Albumin [Mass/Vol] 4.2 g/dL Normal 3.5-5.0 [facility] Comment on above: Performed By: #### B TS, L3890.6301, L3890.6006, L509.4006, L509.8002, L501.9985, L100.0100, L500.4050, L3890.6102 #### Laboratory [address] [place], [address] Albumin/Globulin [Mass ratio] 1.5 {ratio} Normal 0.9-2.4 Comment on above: Performed By: #### B TS, L3890.6301, L3890.6006, L509.4006, L509.8002, L501.9985, L100.0100, L500.4050, L3890.6102 #### Laboratory [address] [place], [address] ALK PHOS 65 U/L Normal 35-104 Comment on above: Performed By: #### B TS, L3890.6301, L3890.6006, L509.4006, L509.8002, L501.9985, L100.0100, L500.4050, L3890.6102 #### Laboratory [address] [place], [address] ALT [Catalytic activity/Vol] 24 U/L Normal <=34 Comment on above: Performed By: #### B TS, L3890.6301, L3890.6006, L509.4006, L509.8002, L501.9985, L100.0100, L500.4050, L3890.6102 #### Laboratory [address] [place], [address] AST [Catalytic activity/Vol] 21 U/L Normal <=31 Comment on above: Performed By: #### B TS, L3890.6301, L3890.6006, L509.4006, L509.8002, L501.9985, L100.0100, L500.4050, L3890.6102 #### Laboratory [address] [place], [address] Bilirubin [Mass/Vol] 0.29 mg/dL Normal 0.00-1.30 [facility] Comment on above: Performed By: #### B TS, L3890.6301, L3890.6006, L509.4006, L509.8002, L501.9985, L100.0100, L500.4050, L3890.6102 #### Laboratory [address] [place], [address] BUN/CRE 7.2 RATIO Low 10-20 Comment on above: Performed By: #### B TS, L3890.6301, L3890.6006, L509.4006, L509.8002, L501.9985, L100.0100, L500.4050, L3890.6102 #### Laboratory [address] [place], [address] Calcium [Mass/Vol] 9.4 mg/dL Normal 7.6-11.0 [facility] Comment on above: Performed By: #### B TS, L3890.6301, L3890.6006, L509.4006, L509.8002, L501.9985, L100.0100, L500.4050, L3890.6102 #### Laboratory [address] [place], [address] Chloride [Moles/Vol] 103 mmol/L Normal 98-108 [facility] Comment on above: Performed By: #### B TS, L3890.6301, L3890.6006, L509.4006, L509.8002, L501.9985, L100.0100, L500.4050, L3890.6102 #### Laboratory [address] [place], [place], [phone] (737) CO2 [Moles/Vol] 20.2 mmol/L Low 21.0-32.0 Comment on above: Performed By: #### B TS, L3890.6301, L3890.6006, L509.4006, L509.8002, L501.9985, L100.0100, L500.4050, L3890.6102 #### Laboratory [address] [place], [place], [phone] (586) Creatinine [Mass/Vol] 0.57 mg/dL Low 0.70-1.20 [facility] Comment on above: Performed By: #### B TS, L3890.6301, L3890.6006, L509.4006, L509.8002, L501.9985, L100.0100, L500.4050, L3890.6102 #### Laboratory [address] [place], [place], [phone] (662) GAP 14 Normal 5-15 Comment on above: Performed By: #### B TS, L3890.6301, L3890.6006, L509.4006, L509.8002, L501.9985, L100.0100, L500.4050, L3890.6102 #### Laboratory [address] [place], [place], [phone] (703) GFR/1.73 sq M.predicted among non-blacks MDRD (S/P/Bld) [Vol rate/Area] 124 mL/min/{1.73_m2} Normal >60 Comment on above: Result Comment: mL/m in/1.73m2 CKD-EPI Creatinine Equation (2020) Performed By: #### B TS, L3890.6301, L3890.6006, L509.4006, L509.8002, L501.9985, L100.0100, L500.4050, L3890.6102 #### Laboratory [address] [place], [address] Globulin (S) [Mass/Vol] 2.8 g/dL Normal 2.2-4.2 [facility] Comment on above: Performed By: #### B TS, L3890.6301, L3890.6006, L509.4006, L509.8002, L501.9985, L100.0100, L500.4050, L3890.6102 #### Laboratory [address] [place], [address] Glucose [Mass/Vol] 85 mg/dL Normal 70-99 [facility] Comment on above: Performed By: #### B TS, L3890.6301, L3890.6006, L509.4006, L509.8002, L501.9985, L100.0100, L500.4050, L3890.6102 #### Laboratory [address] [place], [address] Potassium [Moles/Vol] 3.9 mmol/L Normal 3.3-5.1 [facility] Comment on above: Performed By: #### B TS, L3890.6301, L3890.6006, L509.4006, L509.8002, L501.9985, L100.0100, L500.4050, L3890.6102 #### Laboratory [address] [place], [address] Sodium [Moles/Vol] 137 mmol/L Normal 133-145 [facility] Comment on above: Performed By: #### B TS, L3890.6301, L3890.6006, L509.4006, L509.8002, L501.9985, L100.0100, L500.4050, L3890.6102 #### Laboratory [address] [place], [address] T PROT 7.0 g/dL Normal 5.9-8.4 Comment on above: Performed By: #### B TS, L3890.6301, L3890.6006, L509.4006, L509.8002, L501.9985, L100.0100, L500.4050, L3890.6102 #### Laboratory [address] [place], [place], [id number] Urea nitrogen [Mass/Vol] 4 mg/dL Normal 4-19 Comment on above: Performed By: #### B TS, L3890.6301, L3890.6006, L509.4006, L509.8002, L501.9985, L100.0100, L500.4050, L3890.6102 #### Laboratory [address] [place], [place], [id number] Creatinine Unsp time (U) [Ma ss/Vol]Ordered By: Anna Kim on 06-12-2024 Creatinine (U) [Mass/Vol] 166.00 mg/dL 28.00-21 7.00 Eosinophil percentageOrdered By: Anna Kim on 06-12-2024 Eosinophils/100 WBC (Bld) 0.8 % 0-5 Erythrocyte distribution wid th (RBC) [Ratio]Ordered By: Anna Kim on 06-12-2024 Erythrocyte distribution width (RBC) [Entitic vol] 42.6 fL 35.1-43.9 [facility] Erythrocyte distribution wid th ratioOrdered By: Anna Kim on 06-12-2024 Erythrocyte distribution width (RBC) [Ratio] 13.4 % 11.6-14.6 Erythrocyte distribution wid th standard deviationOrdered By: Anna Kim on 06-12-2024 Erythrocyte distribution width (RBC) [Ratio] 42.6 fl 35.1-43.9 GFR/1.73 sq M.predicted riya g non-blacks MDRD (S/P/Bld) [Vol rate/Area]Ordered By: Anna Kim on 06-12-2024 Estimated GFR (MDRD) Non-Af Amer 124 >60 Comment on above: mL/min/1.73m2 CKD-EP I Creatinine Equation (2020) Glomerular filtration rate ( GFR) estimation/1.73 sq m using serum, plasma, or whole bOrdered By: Anna Kim on 06-12-2024 GFR/1.73 sq M.predicted among non-blacks MDRD (S/P/Bld) [Vol rate/Area] 124 mL/min/{1.73_m2} >60 Comment on above: mL/min/1.73m2 CKD-EP I Creatinine Equation (2020) HBV surface Ag Ql (S)Ordered By: Anna Kim on 06-12-2024 Hepatitis B Surface Antigen Non-Reactive Nonreactive Comment on above: Reactive: Presumptiv e evidence of HBV. Repeatedly reactive samples must be confirmed using a neutralization test (Ele[employer]ys HBsAg Confirmatory Test)Non-Reactive: HBsAg not detected; does not exclude the possibility of exposure to HBV HIVon 06-12-2024 HIV Non-Reactive Normal Nonreactive Comment on above: Result Comment: Non- Reactive Reactive Repeatedly reactive samples must be confirmed according to CDC recommended confirmatory algorithms. The subresults for either HIVAG or AHIV can be used as an aid in the selection of the confirmation algorithm for reactive samples. Send out specimens with Reactive results to [facility] for confirmation. Order the HIV antibody detection and differentiation: lc#[id number] Performed By: #### B TS, L3890.6301, L3890.6006, L509.4006, L509.8002, L501.9985, L100.0100, L500.4050, L3890.6102 #### [id number] [place], [address] Hematocrit Auto (Bld) [Volum e fraction]Ordered By: Anna Kim on 06-12-2024 Hematocrit (Bld) [Volume fraction] 36.6 % Low 37-47 Hemoglobin A1con 06-12-2024 HbA1c (Bld) [Mass fraction] 5.4 % Normal <=5.6 Comment on above: Result Comment: Norm al < 5.7 % Prediabetic 5.7 - 6.4 % Diabetic >or= 6.5 % Please note range changes. Performed By: #### B TS, L3890.6301, L3890.6006, L509.4006, L509.8002, L501.9985, L100.0100, L500.4050, L3890.6102 #### Laboratory [address] [place], [address] Hemoglobin A1c percentageOrd ered By: Anna Kim on 06-12-2024 HbA1c (Bld) [Mass fraction] 5.4 % <5.7 Comment on above: Normal < 5.7 % Predi abetic 5.7 - 6.4 % Diabetic >or= 6.5 % Please note range changes. Hemoglobin measurementOrdere d By: Anna Kim on 06-12-2024 Hemoglobin (Bld) [Mass/Vol] 11.7 g/dL Low 12.0-15.0 Hepatitis C Antibodyon 06-12 Hepatitis C Ab Non-Reactive Normal Nonreactive Comment on above: Result Comment: Reac tive: Presumptive evidence of antibodies to HCV. Follow CDC recommendations for supplemental testing. Non-Reactive: Antibodies to HCV were not detected; does not exclude the possibility of exposure to HCV Reactive Results are presumptive evidence of antibodies to HCV. Follow CDC recommendations for supplemental testing. Order confirmation testing: HCV Quant by PCR testing - HCVPCR #[id number] Non Reactive: < 0.8 Equivocal: >/= 0.8 to < 1.0 Reactive: >/= 1.0 The CDC requires that a reactive/equivocal HCV antibody result be sent out for confirmation. HCV Quant by PCR testing. Performed By: #### B TS, L3890.6301, L3890.6006, L509.4006, L509.8002, L501.9985, L100.0100, L500.4050, L3890.6102 #### [id number] [place], [address] Hepatitis C antibodyOrdered By: Anna Kim on 06-12-2024 Hepatitis C Antibody Non-Reactive Nonreactive [facility] Comment on above: Reactive: Presumptiv e evidence of antibodies to HCV. Follow CDC recommendations for supplemental testing.Non-Reactive: Antibodies to HCV were not detected; does not exclude the possibility of exposure to HCVReactive Results are presumptive evidence of antibodies to HCV. Follow CDC recommendations for supplemental testing.Order confirmation testing: HCV Quant by PCR testing - HCVPCR #[id number] Non Reactive: < 0.8 Equivocal: >/= 0.8 to < 1.0 Reactive: >/= 1.0The [facility] requires that a reactive/equivocal HCV antibody result be sent out for confirmation. HCV Quant by PCR testing. Immature granulocytes/100 WB C Auto (Bld)Ordered By: Anna Kim on 06-12-2024 Immature granulocytes/100 WBC (Bld) 0.200 % 0.0-0.9 Comment on above: IG% - Immature Granu locytes (promyelocytes, myelocytes and metamyelocytes) > 1% indicates that a LEFT SHIFT is Present. L3890.6102on 06-12-2024 HEP B Surf Ag Non-Reactive Normal Nonreactive Comment on above: Result Comment: Reac tive: Presumptive evidence of HBV. Repeatedly reactive samples must be confirmed using a neutralization test ([employer] HBsAg Confirmatory Test) Non-Reactive: HBsAg not detected; does not exclude the possibility of exposure to HBV Performed By: #### B TS, L3890.6301, L3890.6006, L509.4006, L509.8002, L501.9985, L100.0100, L500.4050, L3890.6102 #### [id number] [place], [address] L509.4006on 06-12-2024 Rubella IgG REAC Normal Nonreactive Comment on above: Result Comment: Anti body Result: Interpretation Non-Reactive: Non-Immune Reactive: Immune The following results were obtained with the [employer]ys Rubella IgG assay. Results from assays of other manufacturers cannot be used interchangeably. Performed By: #### B TS, L3890.6301, L3890.6006, L509.4006, L509.8002, L501.9985, L100.0100, L500.4050, L3890.6102 #### Laboratory [address] [place], [address] Laboratory - Chemistry and C hemistry - challengeOrdered By: Anna Kim on 06-12-2024 AST [Catalytic activity/Vol] 21 U/L <32 Laboratory - Microbiology an d Antimicrobial susceptibilityOrdered By: Anna Kim on 06-12-2024 HBV surface Ag Ql (S) Non-Reactive Nonreactive Comment on above: Reactive: Presumptiv e evidence of HBV. Repeatedly reactive samples must be confirmed using a neutralization test ([employer] HBsAg Confirmatory Test)Non-Reactive: HBsAg not detected; does not exclude the possibility of exposure to HBV Lymphocytes Auto (Unsp spec) [#/Vol]Ordered By: Anna Kim on 06-12-2024 Lymphocytes (Bld) [#/Vol] 1.36 10*3/uL 0.83-4.5 1 Lymphocytes/100 WBC Auto (Un sp spec)Ordered By: Anna Kim on 06-12-2024 Lymphocytes/100 WBC (Bld) 14.8 % Low 19-41 MCV (mean corpuscular volume ) determinationOrdered By: Anna Kim on 06-12-2024 MCV (RBC) [Entitic vol] 87.4 fL 81-99 [facility] Mean corpuscular hemoglobin (MCH) determinationOrdered By: Anna Kim on 06-12-2024 MCH (RBC) [Entitic mass] 27.9 pg 27.0-32.0 Mean corpuscular hemoglobin concentration (MCHC) determinationOrdered By: Anna Kim on 06-12-2024 MCHC (RBC) [Mass/Vol] 32.0 g/dL 32-36 [facility] Mean platelet volume determi nationOrdered By: Anna Kim on 06-12-2024 Platelet mean volume (Bld) [Entitic vol] 11.3 fL 6.2-12.0 Methadone, urineOrdered By: Anna Kim on 06-12-2024 Urine Methadone Screen Negative < 300 ng/mL [facility] Monocyte percentageOrdered B y: Anna Kim on 06-12-2024 Monocytes/100 WBC (Bld) 5.4 % 0-10 [facility] Neisseria gonorrhoeae nuclei c acid detection by amplified probe techniqueOrdered By: Anna Kim on 06-12-2024 N. gonorrhoeae DNA CARTER+probe Ql (Unsp spec) Negative Negative Comment on above: Performed at: =[address] [id number] Director: Pebbles Ferrer MD, Phone: [phone] Neutrophil percentageOrdered By: Anna Kim on 06-12-2024 Neutrophils/100 WBC (Bld) 78.4 % High 47-70 No Panel InformationOrdered By: Anna Kim on 06-12-2024 Urine Buprenorphine Qualitative Negative < 200 ng/mL Urine Oxycodone Screen Negative < 100 ng/mL [facility] HIV (1&2) Antibody Non-Reactive Nonreactive [facility] Comment on above: Non-ReactiveReactive Repeatedly reactive samples must be confirmed according to CDC recommended confirmatory algorithms. The subresults for either HIVAG or AHIV can be used as an aid in the selection of the confirmation algorithm for reactive samples.Send out specimens with Reactive results to [facility] for confirmation.Order the HIV antibody detection and differentiation: #[id number] Nucleated red blood cell per centageOrdered By: Anna Kim on 06-12-2024 Nucleated RBC/100 WBC (Bld) [Ratio] 0 % 0-5 [facility] Visit Reporton 06-12-2024 [facility] Office Visit Report 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 Is patient in pain?: No Allergies Environmental Allergies: Uncoded Allergy (Verified 06/12/24 09:36) PT UNABLE TO RESPOND-NEEDS F/U mold Allergy (Verified 06/12/24 09:36) Hives codeine Adverse Reaction (Verified 06/12/24 09:36) Other Medications ???Medication ???Instructions ???Recorded ???Confirmed ???Type bupropion HCl 150 mg 24 hr tablet, 150 mg PO QAM #90 tabs 12/30/23 06/12/24 Rx extended release buspirone 7.5 mg tablet 7.5 mg PO BID #180 tabs 12/30/23 0 06/12/24 Rx fenofibrate nanocrystallized 48 mg 48 mg PO QDAY #90 tabs 12/30/23 06/12/24 Rx tablet [id number] 400 mcg-om3 35 mg-dha 25 tab PO 06/04/24 06/04/24 History mg-epa 5 mg-fish oil chewable tablet Last Menstrual Period: 04/08/24 Zika: Zika virus screening: Negative : No Have you fallen in the past year?: No PFSH PFSH Medical History Depression Anxiety Other obesity Hyperlipidemia Ectopic atrial tachycardia History of drug abuse in remission Chronic headaches Seasonal allergies Tachycardia Surgical History Hx of cholecystectomy History of tonsillectomy and adenoidectomy Hx of tympanostomy tubes H/O cardiac radiofrequency ablation (11/13/13) Family History Grandfather Myocardial infarction Mother Anxiety Depression Grandmother COPD (chronic obstructive pulmonary disease) Social History adopted: No household members: spouse, children and other details: Patient's cousin housing: house number of children: 1 current occupational status: employed current occupation: [employer] pets and animals: Yes pets and animals: dog(s) history of recent travel: No sexually active: Yes Smoking Status: Former smoker quit date: 05/14/24 Smokeless tobacco user: other Electronic Cigarette Use: with nicotine second hand exposure: Yes alcohol intake: former details: not while substance use type: former substance user Date of last use: 07/22/2015 caffeine: Yes Type: coffee what type of physical activity do you participate in: walking frequency: 3-4 times per week nabil/episcopal: [employer] seatbelt use: always do you feel safe at home: Yes 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 Date Name GA/Weeks Outcome Route Bth Weight Gen Labor Lgth Anesthesia Del Locatn Provider FOB 06/05/16 Gulshan 40 live - full term Male [facility] Dr[facility] Jim neves HPI NOB: LMP 2/5, MYLES 01/13 Details: PIETER GUILLERMO is a 34 year old who presents for New OB visit. OB Visit MYLES Calculator Estimated Delivery Date Method Current WG Current Estimate 01/13/25 LMP (Certain) 9w 2d Comments: HIV: Urine Culture: Sequential Screen: NIPT Screen: Estimated Due Date: 01/13/25 Expected Delivery Route/Plan Labor Preferences- CB/BF classes: [] labor support person: [] labor intervention preferences: [] pain management options preferred: [] cut cord/dad catch: [] : [] PP control planned: [] discussed possible routes of delivery and associated risks: [] special requests: [] Specific Issue/Plans Covid status: [] Flu vaccine: [] Tdap vaccine: [] Rhogam: [] LARC form signed: [] Problem list reviewed and updated with the most current plan of care details and appropriate orders placed. Relevant counseling for the gestational age provided. Continue routine care and follow up unless otherwise noted in visit notes/problem list details Initial Weight: 230 lb Date -???-???-???-???-?? ?-???-???-???-???-? ??-???-???- EGA Weight BP Urine Prot -???-???-???-???-?? ?-???-???-???-???-? ??-???-???- Glucose FHR FuHt Pres Dilation -???-???-???-???-?? ?-???-???-???-???-? ??-???-???- Effaced St Visit Note 06/12/24 -???-???-???-???-?? ?-???-???-???-???-? ??-???-???- 9w 2d 230 lb 4 oz (more content not included)... Normal Platelet countOrdered By: Yuki Kim on 06-12-2024 Platelets (Bld) [#/Vol] 380 10*3/uL 150-450 Potassium (Unsp spec) [Mass/ Vol]Ordered By: Anna Kim on 06-12-2024 Potassium [Moles/Vol] 3.9 mmol/L 3.3-5.1 [facility] Potassium measurement (mass/ volume)Ordered By: Anna Kim on 06-12-2024 Potassium (Unsp spec) [Mass/Vol] 3.9 mmol/L 3.3-5.1 Protein+Creatinine Ratio,Uri neon 06-12-2024 PROT:CRE RATIO 105 mg/g CRE Normal 0-200 Comment on above: Performed By: #### L 7000.1800, L505.5000, M100.2200, L501.0900 #### [id number] [place], [address] Protein (U) [Mass/Vol] 17.5 mg/dL High 0.0-12.0 [facility] Comment on above: Performed By: #### L 7000.1800, L505.5000, M100.2200, L501.0900 #### [id number] [place], [address] UR CREAT 166.00 mg/dL Normal 28.00-217.00 Comment on above: Performed By: #### L 7000.1800, L505.5000, M100.2200, L501.0900 #### [id number] [place], [address] Protein/Creatinine (U) [Mass ratio]Ordered By: Anna Kim on 06-12-2024 Urine Protein/Creatinine Ratio 105 mg/g CRE 0-200 Quantitative urine opiates m easurementOrdered By: Anna Kim on 06-12-2024 Opiates Ql (U) Negative < 300 ng/mL RBC Auto (Bld) [#/Vol]Ordere d By: Anna Kim on 06-12-2024 RBC (Bld) [#/Vol] 4.19 10*6/uL Low 4.2-5.4 [facility] Random urine creatinine patti urement (mass/volume)Ordered By: Anna Kim on 06-12-2024 Creatinine Unsp time (U) [Mass/Vol] 166.00 mg/dL 28.00-217.00 Rubella immune status determ ination by IgG antibody assayOrdered By: Anna Kim on 06-12-2024 Rubella IgG Antibody REAC Nonreactive [facility] Comment on above: Antibody Result: Int erpretationNon-Reactive: Non-ImmuneReactive: ImmuneThe following results were obtained with the [employer] Rubella IgG assay. Results from assays of other manufacturers cannot be used interchangeably. Screening urine fentanyl ezra surementOrdered By: Anna Kim on 06-12-2024 fentaNYL Screen Ql (U) Negative [facility] Serum creatinine measurement (mass/volume)Ordered By: Anna Kim on 06-12-2024 Creatinine [Mass/Vol] 0.57 mg/dL Low 0.70-1.20 [facility] Serum globulin measurementOr dered By: Anna Kim on 06-12-2024 Globulin (S) [Mass/Vol] 2.8 g/dL 2.2-4.2 [facility] Serum glucose measurement (m ass/volume)Ordered By: Anna Kim on 06-12-2024 Glucose [Mass/Vol] 85 mg/dL 70-99 [facility] Serum or plasma alanine zapata otransferase (ALT) measurementOrdered By: Anna Kim on 06-12-2024 ALT [Catalytic activity/Vol] 24 U/L <35 Serum or plasma albumin patti urement (mass/volume)Ordered By: Anna Kim on 06-12-2024 Albumin [Mass/Vol] 4.2 g/dL 3.5-5.0 [facility] Serum or plasma albumin/glob ulin mass ratioOrdered By: Anna Kim on 06-12-2024 Albumin/Globulin [Mass ratio] 1.5 {ratio} 0.9-2.4 Serum or plasma alkaline dion sphatase measurementOrdered By: Anna Kim on 06-12-2024 ALP [Catalytic activity/Vol] 65 U/L 35-104 Serum or plasma calcium patti urement (mass/volume)Ordered By: Anna Kim on 06-12-2024 Calcium [Mass/Vol] 9.4 mg/dL 7.6-11.0 [facility] Serum or plasma urea nitroge n measurement (mass/volume)Ordered By: Anna Kim on 06-12-2024 Urea nitrogen [Mass/Vol] 4 mg/dL 4-19 Sodium levelOrdered By: Ann-Marie Kim on 06-12-2024 Sodium [Moles/Vol] 137 mmol/L 133-145 [facility] Syphilis Antibodieson 2024 Syphilis Abs Non-Reactive Normal Nonreactive Comment on above: Performed By: #### B , L3890.6301, L3890.6006, L509.4006, L509.8002, L501.9985, L100.0100, L500.4050, L3890.6102 #### Laboratory [address] [place], [address] T. pallidum abOrdered By: Yuki Kim on 06-12-2024 Syphilis Total Antibody Non-Reactive Nonreactiv e Total proteinOrdered By: Summer Kim on 06-12-2024 Protein [Mass/Vol] 7.0 g/dL 5.9-8.4 [facility] Type AND Screenon 06-12-2024 Ab SCREEN GEL Negative Normal Comment on above: Order Comment: PN Performed By: #### B TS, L3890.6301, L3890.6006, L509.4006, L509.8002, L501.9985, L100.0100, L500.4050, L3890.6102 #### [id number] [place], [address] ABO and Rh group Nom (Bld) Blood group O Rh(D) positive Normal Comment on above: Order Comment: PN Performed By: #### B TS, L3890.6301, L3890.6006, L509.4006, L509.8002, L501.9985, L100.0100, L500.4050, L3890.6102 #### [id number] [place], [address] Urine Drug Screen (VISTA)on 06-12-2024 AMPHETAMINES Negative Normal <1000 ng/mL Comment on above: Order Comment: UNK Performed By: #### L 7000.1800, L505.5000, M100.2200, L501.0900 #### [id number] [place], [address] BARBITIURATES Negative Normal < 200 ng/mL Comment on above: Order Comment: UNK Performed By: #### L 7000.1800, L505.5000, M100.2200, L501.0900 #### [id number] [place], [address] BENZODIAZIPINE Negative Normal < 200 ng/mL Comment on above: Order Comment: UNK Performed By: #### L 7000.1800, L505.5000, M100.2200, L501.0900 #### [id number] [place], [address] BUP Ur Drug Scr Negative Normal < 200 ng/mL Comment on above: Order Comment: UNK Performed By: #### L 7000.1800, L505.5000, M100.2200, L501.0900 #### [id number] [place], [address] COCAINE Negative Normal < 300 ng/mL Comment on above: Order Comment: UNK Performed By: #### L 7000.1800, L505.5000, M100.2200, L501.0900 #### [id number] [place], [address] Fentanyl Negative Normal Comment on above: Order Comment: UNK Performed By: #### L 7000.1800, L505.5000, M100.2200, L501.0900 #### [id number] [place], [address] METHADONE Negative Normal < 300 ng/mL Comment on above: Order Comment: UNK Performed By: #### L 7000.1800, L505.5000, M100.2200, L501.0900 #### [address] [place], [address] OPIATES Negative Normal < 300 ng/mL Comment on above: Order Comment: UNK Performed By: #### L 7000.1800, L505.5000, M100.2200, L501.0900 #### [address] [place], [address] OXYCODONE Negative Normal < 100 ng/mL Comment on above: Order Comment: UNK Performed By: #### L 7000.1800, L505.5000, M100.2200, L501.0900 #### [id number] [place], [address] PCP Negative Normal < 25 ng/mL Comment on above: Order Comment: UNK Performed By: #### L 7000.1800, L505.5000, M100.2200, L501.0900 #### [id number] [place], [address] THC Negative Normal < 50 ng/mL Comment on above: Order Comment: UNK Performed By: #### L 7000.1800, L505.5000, M100.2200, L501.0900 #### [id number] [place], [address] Urine benzodiazepine levelOr dered By: Anna Kim on 06-12-2024 Benzodiazepines Ql (U) Negative < 200 ng/mL [facility] Urine cocaine levelOrdered B y: Anna Kim on 06-12-2024 Cocaine Ql (U) Negative < 300 ng/mL Urine cultureOrdered By: Summer Kim on 06-12-2024 Bacteria identified Cx Nom (U) Positive Abnormal Urine zjciq-8-pffnqijdxdcmov abinol (THC) measurementOrdered By: Anna Kim on 06-12-2024 Cannabinoids Screen Ql (U) Negative < 50 ng/mL Urine phencyclidine (PCP) de tectionOrdered By: Anna Kim on 06-12-2024 Phencyclidine Ql (U) Negative < 25 ng/mL [facility] Urine protein measurement (m ass/volume)Ordered By: Anna Kim on 06-12-2024 Protein (U) [Mass/Vol] 17.5 mg/dL High 0.0-12.0 [facility] Urine protein/creatinine mas s ratioOrdered By: Anna Kim on 06-12-2024 Protein/Creatinine (U) [Mass ratio] 105 mg/g CRE 0-200 White blood cell (WBC) count Ordered By: Anna Kim on 06-12-2024 WBC (Bld) [#/Vol] 9.2 10*3/uL 4.4-11.0 [facility] fentaNYL Screen Ql (U)Ordere d By: Anna Kim on 06-12-2024 Urine Fentanyl Screen Negative [facility] Hepatitis Panel Acuteon 10-2 COMMENT Comment Normal . Comment on above: Result Comment: Not infected with HCV unless early or acute infection is suspected (which may be delayed in an immunocompromised individual), or other evidence exists to indicate HCV infection. Performed at: [facility] [id number] Software Maintenance Engineer: Tomy Sal PhD, Phone: [phone] Performed By: #### L 3000.0375 #### [id number] [place], [address] HEP B CORE,IgM Negative Normal Negative Comment on above: Performed By: #### L 3000.0375 #### [id number] [place], [address] HEP B SURF AG Negative Normal Negative Comment on above: Performed By: #### L 3000.0375 #### [id number] [place], [address] HEP C VIRUS AB Non-Reactive Normal Non Reactive [facility] Comment on above: Performed By: #### L 3000.0375 #### [id number] [place], [place], [address] HEPATITIS A-IgM Negative Normal Negative Comment on above: Result Comment: A ne gative anti-HAV IgM result suggests no recent or current HAV infection. Performed By: #### L 3000.0375 #### [id number] [place], [address] CBC W/Diff, Automatedon 10-2 Absolute Lymph 1.76 X10 3/uL Normal 0.83-4.51 Comment on above: Performed By: #### L 500.4100, L100.0100, L500.4050 #### [address] [place], [address] Absolute Neut 7.0 X10 3/uL Normal 2.0-7.7 Comment on above: Performed By: #### L 500.4100, L100.0100, L500.4050 #### [address] [place], [address] Basophils/100 WBC (Bld) 0.5 % Normal 0-1 [facility] Comment on above: Performed By: #### L 500.4100, L100.0100, L500.4050 #### [id number] [place], [address] Eosinophils/100 WBC (Bld) 1.3 % Normal 0-5 Comment on above: Performed By: #### L 500.4100, L100.0100, L500.4050 #### [id number] [place], [address] Erythrocyte distribution width (RBC) [Ratio] 13.1 % Normal 11.6-14.6 Comment on above: Performed By: #### L 500.4100, L100.0100, L500.4050 #### [id number] [place], [address] Hematocrit (Bld) [Volume fraction] 40.5 % Normal 37-47 Comment on above: Performed By: #### L 500.4100, L100.0100, L500.4050 #### [id number] [place], [address] Hemoglobin (Bld) [Mass/Vol] 12.7 g/dL Normal 12.0-15.0 Comment on above: Performed By: #### L 500.4100, L100.0100, L500.4050 #### [address] [place], [address] IG% 0.400 Normal 0.0-0.9 Comment on above: Result Comment: IG% - Immature Granulocytes (promyelocytes, myelocytes and metamyelocytes) > 1% indicates that a LEFT SHIFT is Present. Performed By: #### L 500.4100, L100.0100, L500.4050 #### [address] [place], [address] Lymphocytes/100 WBC (Bld) 18.5 % Low 19-41 Comment on above: Performed By: #### L 500.4100, L100.0100, L500.4050 #### [address] [place], [address] MCH (RBC) [Entitic mass] 27.4 pg Normal 27.0-32.0 Comment on above: Performed By: #### L 500.4100, L100.0100, L500.4050 #### [id number] [place], [address] MCHC (RBC) [Mass/Vol] 31.4 g/dL Low 32-36 [facility] Comment on above: Performed By: #### L 500.4100, L100.0100, L500.4050 #### [id number] [place], [address] MCV (RBC) [Entitic vol] 87.3 fL Normal 81-99 [facility] Comment on above: Performed By: #### L 500.4100, L100.0100, L500.4050 #### [id number] [place], [address] Monocytes/100 WBC (Bld) 5.5 % Normal 0-10 [facility] Comment on above: Performed By: #### L 500.4100, L100.0100, L500.4050 #### [address] [place], [address] Neutrophils/100 WBC (Bld) 73.8 % High 47-70 Comment on above: Performed By: #### L 500.4100, L100.0100, L500.4050 #### [id number] [place], [address] Nucleated RBC (Bld) [#/Vol] 0 10*3/uL Normal 0-5 Comment on above: Performed By: #### L 500.4100, L100.0100, L500.4050 #### [id number] [place], [address] Platelet mean volume (Bld) [Entitic vol] 10.8 fL Normal 6.2-12.0 Comment on above: Performed By: #### L 500.4100, L100.0100, L500.4050 #### [id number] [place], [address] Platelets (Bld) [#/Vol] 398 10*3/uL Normal 150-450 Comment on above: Performed By: #### L 500.4100, L100.0100, L500.4050 #### [id number] [place], [address] RBC (Bld) [#/Vol] 4.64 10*6/uL Normal 4.2-5.4 [facility] Comment on above: Performed By: #### L 500.4100, L100.0100, L500.4050 #### [id number] [place], [address] RDW SD 41.6 fl Normal 35.1-43.9 Comment on above: Performed By: #### L 500.4100, L100.0100, L500.4050 #### [id number] [place], [address] WBC (Bld) [#/Vol] 9.5 10*3/uL Normal 4.4-11.0 [facility] Comment on above: Performed By: #### L 500.4100, L100.0100, L500.4050 #### [id number] [place], [address] Comprehensive Metabolic [facility] 12-30-2023 Albumin [Mass/Vol] 4.0 g/dL Normal 3.2-5.0 [facility] Comment on above: Performed By: #### L 500.4100, L100.0100, L500.4050 #### [id number] [place], [address] Albumin/Globulin [Mass ratio] 1.2 {ratio} Normal 0.9-2.4 Comment on above: Performed By: #### L 500.4100, L100.0100, L500.4050 #### [id number] [place], [address] ALK P 64 U/L Normal 45-117 Comment on above: Performed By: #### L 500.4100, L100.0100, L500.4050 #### [id number] [place], [address] ALT [Catalytic activity/Vol] 34 U/L Normal 13-56 Comment on above: Performed By: #### L 500.4100, L100.0100, L500.4050 #### [id number] [place], [address] AST [Catalytic activity/Vol] 16 U/L Normal 15-37 Comment on above: Performed By: #### L 500.4100, L100.0100, L500.4050 #### [id number] [place], [address] Bilirubin [Mass/Vol] 0.30 mg/dL Normal 0.20-1.00 [facility] Comment on above: Result Comment: For patients on eltrombopag therapy, use of Dimension [place] TBIL is not recommended. Performed By: #### L 500.4100, L100.0100, L500.4050 #### [id number] [place], [address] BUN/CRE 14.9 RATIO Normal 10-20 Comment on above: Performed By: #### L 500.4100, L100.0100, L500.4050 #### [id number] [place], [address] CA,Total 9.2 mg/dL Normal 8.5-10.1 Comment on above: Performed By: #### L 500.4100, L100.0100, L500.4050 #### [id number] [place], [address] Chloride [Moles/Vol] 106 mmol/L Normal 98-107 [facility] Comment on above: Performed By: #### L 500.4100, L100.0100, L500.4050 #### [id number] [place], [address] CO2 [Moles/Vol] 25.0 mmol/L Normal 21.0-32.0 Comment on above: Performed By: #### L 500.4100, L100.0100, L500.4050 #### [id number] [place], [address] Creatinine [Mass/Vol] 0.74 mg/dL Normal 0.55-1.02 [facility] Comment on above: Result Comment: The validity of the calculated GFR GFRAA in patients over 70 years has not been determined. Clinical correlation is essential. Performed By: #### L 500.4100, L100.0100, L500.4050 #### [id number] [place], [address] EST GFR - AA 117 mL/min Normal >60 Comment on above: Result Comment: Afri can [place] GFR Calc Performed By: #### L 500.4100, L100.0100, L500.4050 #### [id number] [place], [address] GAP 8 Normal 5-15 Comment on above: Performed By: #### L 500.4100, L100.0100, L500.4050 #### [id number] [place], [address] GFR/1.73 sq M.predicted among non-blacks MDRD (S/P/Bld) [Vol rate/Area] 97 mL/min/{1.73_m2} Normal >60 [facility] Comment on above: Result Comment: Non- GFR Calc Performed By: #### L 500.4100, L100.0100, L500.4050 #### [id number] [place], [address] Globulin (S) [Mass/Vol] 3.3 g/dL Normal 2.2-4.2 [facility] Comment on above: Performed By: #### L 500.4100, L100.0100, L500.4050 #### [id number] [place], [address] Glucose [Mass/Vol] 99 mg/dL Normal 74-106 [facility] Comment on above: Performed By: #### L 500.4100, L100.0100, L500.4050 #### [id number] [place], [address] Potassium [Moles/Vol] 4.2 mmol/L Normal 3.5-5.1 [facility] Comment on above: Performed By: #### L 500.4100, L100.0100, L500.4050 #### [id number] [place], [address] Sodium [Moles/Vol] 139 mmol/L Normal 136-145 [facility] Comment on above: Performed By: #### L 500.4100, L100.0100, L500.4050 #### [id number] [place], [address] T PROT 7.3 g/dL Normal 6.4-8.2 Comment on above: Performed By: #### L 500.4100, L100.0100, L500.4050 #### [id number] [place], [address] Urea nitrogen [Mass/Vol] 11 mg/dL Normal 7-18 Comment on above: Performed By: #### L 500.4100, L100.0100, L500.4050 #### [id number] [place], [address] Internal Medicine Office Vis foreign 12-30-2023 Internal Medicine Office Visit [facility] [place] [address] OFFICE VISIT Date of Service: 12/30/23 MR#: [id number] Acct: [id number] Name: PIETER GUILLERMO Rep #: [id number] : 1990 Provider: Dr. Laith reynaga MD Age/Sex: 33/F Location: [facility] Status: Signed Intake Vital Signs 05/06/23 14:45 12/30/23 10:13 Height 5 ft 4 in 5 ft 4 in Weight: 230 lb 2 oz 230 lb BMI 39.4 39.4 BP 118/72 124/80 H Blood Pressure Location Lt brachial Lt brachial Position Sitting Sitting Respiration 16 17 Pulse 106 H 77 Pulse Source Monitor Monitor Temp 97.9 F 97.6 F L Temp Source Temporal Temporal Pulse Oximetry (%) 97 99 Oxygen Delivery Method room air room air Intake Visit Reasons: 6 M FU Chief Complaint: 6 M FU Is patient in pain?: No Allergies Environmental Allergies: Uncoded Allergy (Verified 12/30/23 10:11) PT UNABLE TO RESPOND-NEEDS F/U mold Allergy (Verified 12/30/23 10:11) Hives Medications ???Medication ???Instructions ???Recorded ???Confirmed ???Type norethindrone (contraceptive) 0.35 0.35 mg PO DAILY #28 tabs 01/04/23 12/30/23 Rx mg tablet fenofibrate 54 mg tablet 54 mg PO DAILY #60 tabs 11/25/23 Rx bupropion HCl 150 mg 24 hr tablet, 150 mg PO QAM #90 tabs 12/30/23 12/30/23 Rx extended release buspirone 7.5 mg tablet 7.5 mg PO BID #180 tabs 12/30/23 12/30/23 Rx Have you fallen in the past year?: No Nurse's Note: pt states that she will be coming off of Medicaid and will need to find a new insurance. asking for extended scripts until she finds new insurance plan. pt reports that her pharmacy did not have a script for her fenofibrate. pt declined influenza immunization [facility] Medical History Hyperlipidemia Ectopic atrial tachycardia History of drug abuse in remission Chronic headaches Seasonal allergies Tachycardia Surgical History Hx of cholecystectomy History of tonsillectomy and adenoidectomy Hx of tympanostomy tubes H/O cardiac radiofrequency ablation (11/13/13) Family History Grandfather Myocardial infarction Mother Anxiety Depression Social History Smoking Status: Former smoker Electronic Cigarette Use: with nicotine alcohol intake: current alcohol intake frequency: a few times a week substance use type: does not use caffeine: Yes what type of physical activity do you participate in: none seatbelt use: always do you feel safe at home: Yes additional social history: 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 No concerns at this time. History of anxiety and depression currently on Wellbutrin and buspirone which she states that she is taking as prescribed. No concerning side effects or new concerns reported. Also history of hyperlipidemia/trig lyceridemia. Should be on fenofibrate however, she states that she was not aware and has not been taking it. Currently at a BMI of 39.4. Blood pressure today is at 124/80 mmHg. No chest pain, palpitation or shortness of breath. ROS Const Constitutional: No body ache, chills, excessive sweating, fatigue, fever(s), frequent falls, headache(s), snoring, weight change, sleep problems, abnormal sleep pattern or change in appetite Eyes Eyes: No blurry vision, change in vision, bulging eyes, visual disturbances, eye pain or Light sensitivity ENT ENT: No abnormal hearing, ear or mastoid pain, tinnitus, balance problems, nosebleed/epistaxis , nasal congestion, headache(s), neck pain or sore throat Resp Respiratory: No cough, excessive phlegm production, pain on inspiration, shortness of breath, snoring or wheezing Cardio Cardiology: No chest pain at rest, chest pain with exertion, excessive sweating, shortness of breath, dyspnea on exertion, lightheadedness, orthopnea or palpitations Gastro GI: No abdominal pain, change in bowel habits, constipation, cramping, diarrhea, nausea/dyspepsia or vomiting Genitourinary-Femal e: No burning urination, painful urination, urinary incontinence, urinary frequency, suprapubic fullness, side pain, abnormal vaginal bleeding or pelvic pain Musc Musculoskeletal: No abnormal gait, joint pain, back pain, limited range of motion, neck pain, numbness or tingling Skin Skin: No dry skin, redness, excessive hair growth, yellowing of the eye, lesions, itchy eyes, rash or wounds Neuro Neurology: No abnormal gait, abnormal hearing, behavioral changes, unsteady gait/balance, frequent falls, headache(s), memory loss, nu (more content not included)... Normal Lipid Profileon 12-30-2023 Cholesterol [Mass/Vol] 190 mg/dL Normal 200 [facility] Comment on above: Result Comment: <200 mg/dL Desirable 200-240 mg/dL Borderline >240 mg/dL High Risk Performed By: #### L 500.4100, L100.0100, L500.4050 #### [id number] [place], [address] Cholesterol in HDL [Mass/Vol] 32 mg/dL Low Comment on above: Result Comment: The drugs N-Acetylcysteine and Metamizole may falsely depress this assay. Reference Range HDL <40 mg/dL Low HDL Cholesterol HDL >or= 60 mg/dL High HDL Cholesterol Performed By: #### L 500.4100, L100.0100, L500.4050 #### [id number] [place], [address] Cholesterol in LDL [Mass/Vol] 100 mg/dL Normal 0-130 Comment on above: Performed By: #### L 500.4100, L100.0100, L500.4050 #### [id number] [place], [address] Cholesterol in VLDL [Mass/Vol] 58 mg/dL High 5-40 Comment on above: Performed By: #### L 500.4100, L100.0100, L500.4050 #### [id number] [place], [address] Triglyceride [Mass/Vol] 288 mg/dL High [facility] Comment on above: Result Comment: The drugs N-Acetylcysteine and Metamizole may falsely depress this assay. Serum Triglycerides Reference Interval Normal <150 mg/dL Borderline high 150 - 199 mg/dL High 200 - 499 mg/dL Very High > or = 500 mg/dL Performed By: #### L 500.4100, L100.0100, L500.4050 #### [id number] [facility] [place], [address] Basophil percentageOrdered B y: Laith Harman on 03-26-2023 Bilirubin [Mass/Vol] 0.40 mg/dL 0.20-1.00 [facility] Comment on above: For patients on eltr ombopag therapy, use of Dimension [place] TBIL is not recommended. Chloride [Moles/Vol] 106 mmol/L 98-107 [facility] Cholesterol [Mass/Vol] 210 mg/dL <200 [facility] Comment on above: <200 mg/dL Desirable 200-240 mg/dL Borderline >240 mg/dL High Risk Glucose [Mass/Vol] 95 mg/dL 74-106 [facility] Potassium [Moles/Vol] 3.9 mmol/L 3.5-5.1 [facility] Protein [Mass/Vol] 7.3 g/dL 6.4-8.2 [facility] Sodium [Moles/Vol] 138 mmol/L 136-145 [facility] Triglyceride [Mass/Vol] 321 mg/dL <199 [facility] Comment on above: The drugs N-Acetylcy steine and Metamizole may falsely depress this assay.Serum Triglycerides Reference Interval Normal <150 mg/dL Borderline high 150 - 199 mg/dL High 200 - 499 mg/dL Very High > or = 500 mg/dL High density lipoprotein (HD L) measurementOrdered By: Laith Harman on 03-26-2023 Cholesterol in HDL (Body fld) [Mass/Vol] 34 mg/dL >40 Comment on above: The drugs N-Acetylcy steine and Metamizole may falsely depress this assay. Reference Range HDL <40 mg/dL Low HDL Cholesterol HDL >or= 60 mg/dL High HDL Cholesterol Laboratory - Chemistry and C hemistry - challengeOrdered By: Laith Harman on 03-26-2023 Albumin/Globulin [Mass ratio] 1.1 {ratio} 0.9-2.4 ALP [Catalytic activity/Vol] 66 U/L 45-117 ALT [Catalytic activity/Vol] 42 U/L 13-56 CO2 [Moles/Vol] 26.0 mmol/L 21.0-32.0 Globulin (S) [Mass/Vol] 3.5 g/dL 2.2-4.2 [facility] Urea nitrogen/Creatinine [Mass ratio] 7.9 mg/mg 10-20 Low density lipoprotein (LDL ) cholesterol measurementOrdered By: Laith Harman on 03-26-2023 Cholesterol in LDL (Body fld) [Moles/Vol] 112 mg/dL 0-130 No Panel InformationOrdered By: Laith Harman on 03-26-2023 Estimated GFR (MDRD) Amer 115 mL/min >60 Comment on above: GFR Calc Estimated GFR (MDRD) Non-Af Amer 95 mL/min >60 Comment on above: Non- GFR Calc Serum or plasma calcium patti urement (mass/volume)Ordered By: Laith Harman on 03-26-2023 Calcium [Mass/Vol] 9.1 mg/dL 8.5-10.1 [facility] Serum or plasma creatinine m easurement (mass/volume)Ordered By: Laith Harman on 03-26-2023 Creatinine [Mass/Vol] 0.76 mg/dL 0.55-1.02 [facility] Comment on above: The validity of the calculated GFR & GFRAA in patients over 70 years has not been determined. Clinical correlation is essential. Serum or plasma urea nitroge n measurement (mass/volume)Ordered By: Laith Harman on 03-26-2023 Urea nitrogen [Mass/Vol] 6 mg/dL 7-18 Thin prep Papanicolaou smear with manual screeningOrdered By: Laith Harman on 03-26-2023 Thin prep Papanicolaou smear with manual screening 3.8 g/dL 3.2-5.0 Thin prep Papanicolaou smear with manual screening 22 U/L 15-37 Thin prep Papanicolaou smear with manual screening 6 5-15 Very low density lipoprotein (VLDL) cholesterol measurementOrdered By: Laith Harman on 03-26-2023 Cholesterol in VLDL Calc [Moles/Vol] 64 mg/dL 5-40 Absolute lymphocyte countOrd ered By: Promise Castañeda on 12-17-2022 Lymphocytes Auto (Unsp spec) [#/Vol] 2.19 10*3/uL 0.83-4.51 Basophil percentageOrdered B y: Promise Castañeda on 12-17-2022 Basophils/100 WBC (Bld) 0.4 % 0-1 [facility] Bilirubin [Mass/Vol] 0.30 mg/dL 0.20-1.00 [facility] Comment on above: For patients on eltr ombopag therapy, use of Dimension [place] TBIL is not recommended. Chloride [Moles/Vol] 106 mmol/L 98-107 [facility] Cholesterol [Mass/Vol] 188 mg/dL <200 [facility] Comment on above: <200 mg/dL Desirable 200-240 mg/dL Borderline >240 mg/dL High Risk Eosinophils/100 WBC (Bld) 1.0 % 0-5 Glucose [Mass/Vol] 93 mg/dL 74-106 [facility] Neutrophils (Bld) [#/Vol] 8.9 10*3/uL 2.0-7.7 Neutrophils/100 WBC (Bld) 74.8 % 47-70 Potassium [Moles/Vol] 3.3 mmol/L 3.5-5.1 [facility] Protein [Mass/Vol] 7.8 g/dL 6.4-8.2 [facility] Sodium [Moles/Vol] 139 mmol/L 136-145 [facility] Triglyceride [Mass/Vol] 296 mg/dL <199 [facility] Comment on above: The drugs N-Acetylcy steine and Metamizole may falsely depress this assay.Serum Triglycerides Reference Interval Normal <150 mg/dL Borderline high 150 - 199 mg/dL High 200 - 499 mg/dL Very High > or = 500 mg/dL WBC (Bld) [#/Vol] 12.0 10*3/uL 4.4-11.0 [facility] Blood erythrocytes count (nu mber/volume)Ordered By: Promise Castañeda on 12-17-2022 RBC (Bld) [#/Vol] 4.78 10*6/uL 4.2-5.4 [facility] Blood hemoglobin measurement (mass/volume)Ordered By: Promise Castañeda on 12-17-2022 Hemoglobin (Bld) [Mass/Vol] 13.7 g/dL 12.0-15.0 Blood lymphocytes/100 leukoc ytesOrdered By: Promise Castañeda on 12-17-2022 Lymphocytes/100 WBC (Bld) 18.3 % 19-41 Blood monocytes/100 leukocyt esOrdered By: Promise Castañeda on 12-17-2022 Monocytes/100 WBC (Bld) 5.2 % 0-10 [facility] Blood platelet mean volumeOr dered By: Promise Castañeda on 12-17-2022 Platelet mean volume (Bld) [Entitic vol] 10.3 fL 6.2-12.0 Determination of erythrocyte mean corpuscular volume (MCV)Ordered By: Promise Castañeda on 12-17-2022 MCV (RBC) [Entitic vol] 87.4 fL 81-99 [facility] Hematocrit Auto (Bld) [Volum e fraction]Ordered By: Promise Castañeda on 12-17-2022 Hematocrit (Bld) [Volume fraction] 41.8 % 37-47 Laboratory - Chemistry and C hemistry - challengeOrdered By: Promise Castañeda on 12-17-2022 ALP [Catalytic activity/Vol] 76 U/L 45-117 ALT [Catalytic activity/Vol] 70 U/L 13-56 CO2 [Moles/Vol] 27.0 mmol/L 21.0-32.0 Globulin (S) [Mass/Vol] 3.8 g/dL 2.2-4.2 [facility] Urea nitrogen/Creatinine [Mass ratio] 8.3 mg/mg 10-20 Laboratory - Hematology and Cell countsOrdered By: Promise Castañeda on 12-17-2022 Erythrocyte distribution width (RBC) [Entitic vol] 40.3 fL 35.1-43.9 [facility] Erythrocyte distribution width (RBC) [Ratio] 12.6 % 11.6-14.6 Immature granulocytes/100 WBC (Bld) 0.300 % 0.0-0.9 Comment on above: IG% - Immature Granu locytes (promyelocytes, myelocytes and metamyelocytes) > 1% indicates that a LEFT SHIFT is Present. MCH (RBC) [Entitic mass] 28.7 pg 27.0-32.0 Nucleated RBC/100 WBC (Bld) [Ratio] 0 % 0-5 MCHC Auto (RBC) [Mass/Vol]Or dered By: Promise Castañeda on 12-17-2022 MCHC (RBC) [Mass/Vol] 32.8 g/dL 32-36 [facility] No Panel InformationOrdered By: Promise Castañeda on 12-17-2022 Dehydroepiandrosterone Sulfate 294.0 ug/dL 84.8-378.0 Estimated GFR (MDRD) Amer 122 mL/min >60 Comment on above: GFR Calc Estimated GFR (MDRD) Non-Af Amer 101 mL/min >60 Comment on above: Non- GFR Calc Follicle Stimulating Hormone 3.5 mIU/mL Comment on above: NORMAL REFERENCE RAN GES FEMALE FOLLICULAR 2.3 - 12.6 mIU/mL MID-CYCLE PEAK 5.2 - 17.5 mIU/mL LUTEAL 1.7 - 12.9 mIU/mL POST-MENOPAUSAL ON MHT 5.9 - 72.8 mIU/mL NOT ON MHT 12.7 - 132.2 mlU/mL MALE 0.7 - 10.8 mIU/mL Thyroid Stimulating Hormone (TSH) 1.07 uIU/mL 0.358-3.74 Platelets bldOrdered By: Quinton Castañeda on 12-17-2022 Platelets (Bld) [#/Vol] 432 10*3/uL 150-450 Serum or plasma 17-hydroxypr ogesterone measurement (mass/volume)Ordered By: Promise Castañeda on 12-17-2022 17-Hydroxyprogesterone [Mass/Vol] 29 ng/dL . Comment on above: Adult Female Follicu lar 15 - 70 Luteal 35 - 290 Serum or plasma albumin patti urement (mass/volume)Ordered By: Promise Castañeda on 12-17-2022 Albumin [Mass/Vol] 4.0 g/dL 3.2-5.0 [facility] Serum or plasma albumin/glob ulin mass ratioOrdered By: Promise Castañeda on 12-17-2022 Albumin/Globulin [Mass ratio] 1.1 {ratio} 0.9-2.4 Serum or plasma calcitriol m easurement (mass/volume)Ordered By: Promise Castañeda on 12-17-2022 1,25-dihydroxyvitamin D3 [Mass/Vol] 51.4 pg/mL 24.8-81.5 Comment on above: Performed at: - [address] [id number] Director: Brandon Hernandez MD, Phone: [phone] Serum or plasma calcium patti urement (mass/volume)Ordered By: Promise Castañeda on 12-17-2022 Calcium [Mass/Vol] 9.0 mg/dL 8.5-10.1 [facility] Serum or plasma cholesterol in HDL measurement (mass/volume)Ordered By: Promise Castañeda on 12-17-2022 Cholesterol in HDL [Mass/Vol] 33 mg/dL >40 Comment on above: The drugs N-Acetylcy steine and Metamizole may falsely depress this assay. Reference Range HDL <40 mg/dL Low HDL Cholesterol HDL >or= 60 mg/dL High HDL Cholesterol Serum or plasma cholesterol in VLDL measurement (mass/volume)Ordered By: Promise Castañeda on 12-17-2022 Cholesterol in VLDL [Mass/Vol] 59 mg/dL 5-40 Serum or plasma creatinine m easurement (mass/volume)Ordered By: Promise Castañeda on 12-17-2022 Creatinine [Mass/Vol] 0.72 mg/dL 0.55-1.02 [facility] Comment on above: The validity of the calculated GFR & GFRAA in patients over 70 years has not been determined. Clinical correlation is essential. Serum or plasma estradiol (E 2) measurement (mass/volume)Ordered By: Promise Castañeda on 12-17-2022 E2 [Mass/Vol] 52.6 pg/mL Comment on above: NORMAL REFERENCE RAN GES FEMALE FOLLICULAR 21.4 - 164.8 pg/mL MID-CYCLE PEAK 49.9 - 367.2 pg/mL LUTEAL 40.2 - 259.0 pg/mL POST-MENOPAUSAL ON MHT <11.0 - 462.1 pg/mL NOT ON MHT <11.0 - 58.3 pg/mL MALE <11.0 - 52.5 pg/mL NOTE:[employer] HAS CONFIRMED THE DRUG FULVETRANT (FASLODEX) MAY CAUSE FALSELY ELEVATED ESTRADIOL RESULTS WHEN USING THIS TEST METHOD. IF PATIENT IS TAKING FULVESTRANT AN ALTERNATIVE METHOD SHOULD BE USED TO DETERMINE ESTRADIOL CONCENTRATION. Serum or plasma low density lipoprotein (LDL) cholesterol measurement (mass/volume)Ordered By: Promise Castañeda on 12-17-2022 Cholesterol in LDL [Mass/Vol] 96 mg/dL 0-130 Serum or plasma prolactin me asurement (mass/volume)Ordered By: Promise Castañeda on 12-17-2022 Prolactin [Mass/Vol] 11.3 ng/mL [facility] Comment on above: NORMAL REFERENCE RAN GES FEMALE NON- 2.2 - 30.3 ng/mL 8.1 - 347.6 ng/mL POST-MENOPAUSAL 0.7 - 31.5 ng/mL MALE 2.5 - 17.4 ng/mL Serum or plasma testosterone free measurement (mass/volume)Ordered By: Promise Castañeda on 12-17-2022 Testosterone Free [Mass/Vol] 1.4 pg/mL 0.0-4.2 Comment on above: Performed at: - [facility] [id number] [place], [place] [id number] Director: Tomy Sal PhD, Phone: [phone] at: [facility] [address] [id number] Director: Brandon Hernandez MD, Phone: [phone] Serum or plasma urea nitroge n measurement (mass/volume)Ordered By: Promise Castañeda on 12-17-2022 Urea nitrogen [Mass/Vol] 6 mg/dL - Thin prep Papanicolaou smear with manual screeningOrdered By: Promise Castañeda on 12-17-2022 Thin prep Papanicolaou smear with manual screening 31 U/L Thin prep Papanicolaou smear with manual screening 6 5- Whole blood hemoglobin A1c/t otal hemoglobin ratio (mass fraction)Ordered By: Promise Castañeda on 12-17-2022 HbA1c (Bld) [Mass fraction] 5.4 % 3.8-5.6 Comment on above: Normal < 5.7 % Predi abetic 5.7 - 6.4 % Diabetic >or= 6.5 % Please note range changes. Cervical or vagninal specime n microscopic examination by cytology stain (reported asOrdered By: Promise Castañeda on 11-12-2022 Cytology report Cyto stain Doc (Cvx/Vag) Comment . Comment on above: The Pap smear is a s creening test designed to aid in thedetection of premalignant and malignant conditions of theuterine cervix. It is not a diagnostic procedure andshould not be used as the sole means of detecting cervicalcancer. Both false-positive and false-negative reports dooccur. Detection in cervical specim en of any of human papilloma virus (HPV) 16, 18, 31, 33,Ordered By: Promise Castañeda on 11-12-2022 HPV 16+18+31+33+35+39+45+51+5 2+56+58+59+66+68 DNA Probe+sig amp Ql (Cvx) Negative Negative Comment on above: This nucleic acid am plification test detects fourteen high-risk HPV types (16,18,31,33,35,39,45,51,52,56,58,59,66,68)without differentiation. Laboratory - CytologyOrdered By: Promise Castañeda on 11-12-2022 Java Core Developer Cyto stain Nom (Cvx/Vag) [ID] Comment . Comment on above: Bety Pantoja, Cytote chnologist (ASCP) Pathologist Cyto stain Nom (Cvx/Vag) [ID] Comment . Comment on above: Clay Paul MD, Pa thologist Recommended follow-up Cyto stain Nom (Cvx/Vag) Comment . Comment on above: Suggest follow up as clinically appropriate. Laboratory - Miscellaneous t estsOrdered By: Promise Castañeda on 11-12-2022 Service comment (Unsp spec) [Interp] Comment . Comment on above: This liquid based Th inPrep(R) pap test was screened withthe use of an image guided system. Service comment (Unsp spec) [Interp] . . Liquid-based cerv Pap + CT/G C by CARTER w reflex to high-risk HPV for ASCUSOrdered By: Promise Castañeda on 11-12-2022 Cytology report Cyto stain.thin prep Doc (Cvx/Vag) Comment . Comment on above: Criteria not met, HP V Genotype not performed.Performed at: - [address] [id number] Director: Pebbles Ferrer MD, Phone: [phone] at: = - [facility] [id number] Director: Pebbles Ferrer MD, Phone: [phone] No Panel InformationOrdered By: Promise Castañeda on 11-12-2022 Pathology report final diagnosis Narrative Comment . Comment on above: EPITHELIAL CELL ABNO RMALITY.ATYPICAL SQUAMOUS CELLS OF UNDETERMINED SIGNIFICANCE (ASC-US). R87.610 Final Surgical Pathology Rep [facility] 01-27-2021 Final Surgical Pathology Report . Pathology Reports Accession: Collected Date/Time: Received Date/Time: Pathologist: [id number] 01/23/2021 16:20 EST 01/24/2021 07:58 EST DO [...] Electronically Signed by Pathology Report verified by [facility] Electronically signed by RASHAWN RUVALCABA DO Sign out Date: 01/27/2021 12:58 Performing Lab: [id number] [place] [address] Normal Counts Include [address] [facility] ([place]) LABORATORYOrdered By: Rebecca Loo on 01-23-2021 Beta HCG ( test) Ql (U) Negative (01/23/21 12:50 PM) [facility] Work Phone: Glucose [Mass/Vol] 85 mg/dL Invalid Interpretation Code 70 - 110 mg/dL [facility] Work Phone: .Auto Diffon 01-09-2021 Basophil, Absolute 0.10 10 3/mcL Normal 0.00-0.27 [facility] ([place]) Comment on above: Performed By: #### C AMAYA CORONEL ANEU, CMP #### [address] [address] #### GFR #### [address] [address] Basophils/100 WBC (Bld) 0.9 % Normal 0.0-2.5 [facility] ([place]) Comment on above: Performed By: #### C BCAMAYA ANEU, CMP #### [address] [address] #### GFR #### [address] [address] Eosinophil, Absolute 0.10 10 3/mcL Normal 0.00-0.65 [facility] ([place]) Comment on above: Performed By: #### C BC, ADIFF, ANEU, CMP #### [place] [address] #### GFR #### [address] [address] Eosinophils/100 WBC (Bld) 1.2 % Normal 0.0-6.0 Counts Include [address] [facility] ([place]) Comment on above: Performed By: #### C BC, ADIFF, ANEU, CMP #### [place] [address] #### GFR #### [address] [address] Lymphocyte, Absolute 2.30 10 3/mcL Normal 0.90-4.32 [facility] ([place]) Comment on above: Performed By: #### C BC, ADIFF, ANEU, CMP #### [place] [address] #### GFR #### [address] [address] Lymphocytes/100 WBC (Bld) 23.8 % Normal 20.0-40.0 Counts Include [address] [facility] ([place]) Comment on above: Performed By: #### C BC, ADIFF, ANEU, CMP #### [place] [address] #### GFR #### [address] [address] Monocyte, Absolute 0.40 10 3/mcL Normal 0.09-1.40 [facility] ([place]) Comment on above: Performed By: #### C BC, ADIFF, ANEU, CMP #### [place] [address] #### GFR #### [address] [address] Monocytes/100 WBC (Bld) 4.4 % Normal 2.0-13.0 [facility] ([place]) Comment on above: Performed By: #### C BC, AMAYA ANEU, CMP #### [address] [address] #### GFR #### [address] [address] Neutrophils/100 WBC (Bld) 69.7 % Normal 50.0-75.0 Counts Include [address] [facility] ([place]) Comment on above: Performed By: #### C BC, AMAYA ANEU, CMP #### [address] [address] #### GFR #### [address] [address] .GFRon 01-09-2021 GFR Non- >60 Normal Counts Include [address] [facility] ([place]) Comment on above: Result Comment: GFR Population [...] mL/min/1.73 square meters Performed By: #### C BCAMAYA ANEU, CMP #### [address] [address] #### GFR #### [address] [address] GFR >60 Normal [facility] ([place]) Comment on above: Result Comment: GFR Population [...] #### C BC, ADIFF, ANEU, CMP #### [place] [address] #### GFR #### [place] [address] .NEUABSon 01-09-2021 Neutrophil, Absolute 6.90 10 3/mcL Normal 2.25-8.10 [facility] ([place]) Comment on above: Performed By: #### C BC, ADIFF, ANEU, CMP #### [place] [address] #### GFR #### [place] [address] CBCon 01-09-2021 Erythrocyte distribution width (RBC) [Ratio] 14.4 % Normal 11.5-15.5 Counts Include [address] [facility] ([place]) Comment on above: Performed By: #### C BCAMAYA ANEU, CMP #### [place] [address] #### GFR #### [place] [address] Hematocrit (Bld) [Volume fraction] 40.0 % Normal 34.0-46.0 Counts Include [address] [facility] ([place]) Comment on above: Performed By: #### C BC, ADIFF, ANEU, CMP #### [place] [address] #### GFR #### [place] [address] Hgb 12.7 G/dL Normal 12.0-16.0 Counts Include [address] [facility] ([place]) Comment on above: Performed By: #### C BC, ADIFF, ANEU, CMP #### [place] [address] #### GFR #### [address] [address] MCH (RBC) [Entitic mass] 26.9 pg Low 27.0-33.0 Counts Include [address] [facility] ([place]) Comment on above: Performed By: #### C BC, AMAYA ANEU, CMP #### [address] [address] #### GFR #### [place] [address] MCHC 31.9 G/dL Low 32.0-36.0 Counts Include [address] [facility] ([place]) Comment on above: Performed By: #### C AMAYA CORONEL ANEU, CMP #### [place] [address] #### GFR #### [address] [address] MCV (RBC) [Entitic vol] 84.4 fL Normal 80.0-99.0 [facility] ([place]) Comment on above: Performed By: #### C AMAYA CORONEL ANEU, CMP #### [place] [address] #### GFR #### [place] [address] Platelet 371 10 3/mcL Normal 150-450 Counts Include [address] [facility] ([place]) Comment on above: Performed By: #### C AMAYA CORONEL ANEU, CMP #### [place] [address] #### GFR #### [place] [address] Platelet mean volume (Bld) [Entitic vol] 9.2 fL Normal 6.6-10.5 Counts Include [address] [facility] ([place] Comment on above: Performed By: #### C BCAMAYA ANEU, CMP #### [place] [address] #### GFR #### [place] [address] RBC 4.74 10 6/mcL Normal 4.10-5.30 Counts Include [address] [facility] ([place]) Comment on above: Performed By: #### C BC, ADIFF, ANEU, CMP #### [address] [address] #### GFR #### [address] [address] WBC 9.90 10 3/mcL Normal 4.50-10.80 Counts Include [address] [facility] ([place]) Comment on above: Performed By: #### C BC, ADIFF, ANEU, CMP #### [address] [address] #### GFR #### [place] [address] CMPon 01-09-2021 Albumin Level 4.0 G/dL Normal 3.2-4.8 Counts Include [address] [facility] ([place]) Comment on above: Performed By: #### C BC, ADIFF, ANEU, CMP #### [place] [address] #### GFR #### [place] [address] Albumin/Globulin [Mass ratio] 1.4 {ratio} Normal 0.9-1.6 Counts Include [address] [facility] ([place]) Comment on above: Performed By: #### C BC, ADIFF, ANEU, CMP #### [address] [address] #### GFR #### [address] [address] ALP [Catalytic activity/Vol] 70 U/L Normal 38-126 Counts Include [address] [facility] ([place]) Comment on above: Performed By: #### C BC, ADIFF, ANEU, CMP #### [address] [address] #### GFR #### [address] [address] ALT [Catalytic activity/Vol] 44 U/L Normal 10-49 Counts Include [address] [facility] ([place]) Comment on above: Performed By: #### C BC, ADIFF, ANEU, CMP #### [address] [address] #### GFR #### [address] [address] AST [Catalytic activity/Vol] 22 U/L Normal 8-34 Counts Include [address] [facility] ([place]) Comment on above: Performed By: #### C BC, ADIFF ANEU, CMP #### [place] [address] #### GFR #### [place] [address] Bili Total 0.30 mg/dL Normal 0.20-1.20 Counts Include [address] [facility] ([place]) Comment on above: Result Comment: Use of this assay is not recommended for patients undergoing treatment with eltrombopag due to the potential for falsely elevated results. Performed By: #### C BC, ADIFF ANEU, CMP #### [place] [address] #### GFR #### [place] [address] BUN/Creatinine Ratio 10.4 ratio Normal 10.0-22.0 [facility] ([place]) Comment on above: Performed By: #### C BCAMAYA ANEU, CMP #### [place] [address] #### GFR #### [place] [address] Calcium [Mass/Vol] 9.7 mg/dL Normal 8.7-10.4 [facility] ([place]) Comment on above: Result Comment: No te - New Reference Range in effect 19 Performed By: #### C BC, ADIFF, ANEU, CMP #### [place] [address] #### GFR #### [place] [address] Chloride [Moles/Vol] 107 mmol/L Normal 98-110 [facility] ([place]) Comment on above: Performed By: #### C BC, ADIFF, ANEU, CMP #### [place] [address] #### GFR #### [address] [address] CO2 [Moles/Vol] 29 mmol/L Normal 22-32 Counts Include [address] [facility] ([place]) Comment on above: Performed By: #### C BC, ADIFF, ANEU, CMP #### [address] [address] #### GFR #### [address] [address] Creatinine [Mass/Vol] 0.67 mg/dL Normal 0.50-1.20 [facility] ([place]) Comment on above: Performed By: #### C BC, AMAYA ANEU, CMP #### [address] [address] #### GFR #### [address] [address] Electrolyte Balance 6.0 mEq/L Normal 4.0-15.0 [facility] ([place]) Comment on above: Performed By: #### C BC, ADIFF, ANEU, CMP #### [address] [address] #### GFR #### [address] [address] Globulin 2.9 G/dL Normal 1.5-3.8 Counts Include [address] [facility] ([place]) Comment on above: Performed By: #### C BC, ADRIOS ANEU, CMP #### [address] [address] #### GFR #### [address] [address] Glucose [Mass/Vol] 94 mg/dL Normal 70-110 [facility] ([place]) Comment on above: Performed By: #### C BC, ADIFF, ANEU, CMP #### [address] [address] #### GFR #### [address] [address] Potassium [Moles/Vol] 4.5 mmol/L Normal 3.5-5.0 [facility] ([place]) Comment on above: Performed By: #### C BC, AMAYA ANEU, CMP #### [address] [address] #### GFR #### [address] [address] Sodium [Moles/Vol] 142 mmol/L Normal 136-145 [facility] ([place]) Comment on above: Performed By: #### C BC, AMAYA ANEU, CMP #### [place] [address] #### GFR #### [address] [address] Total Protein 6.9 G/dL Normal 5.7-8.2 Counts Include [address] [facility] ([place]) Comment on above: Result Comment: No te - New Reference Range in effect 19 Performed By: #### C BC, AMAYA ANEU, CMP #### [place] [address] #### GFR #### [address] [address] Urea nitrogen [Mass/Vol] 7.0 mg/dL Low 8.0-22.0 Counts Include [address] [facility] ([place]) Comment on above: Performed By: #### C BC, AMAYA ANEU, CMP #### [address] [address] #### GFR #### [address] [address] LABORATORYOrdered By: SYSTEM SYSTEM on 01-09-2021 Albumin [...] Invalid Interpretation Code 98 - 110 mEq/L AH ADM SS CO2 [Moles/Vol] 29 mmol/L Invalid Interpretation Code 22 - 32 mEq/L AH ADM SS Creatinine [Mass/Vol] 0.67 mg/dL Invalid Interpretation Code 0.50 - 1.20 mg/dL AH ADM SS Electrolyte Balance 6.0 mEq/L Invalid Interpretation Code 4.0 - 15.0 mEq/L AH ADM SS Eosinophils (Bld) [#/Vol] 0.10 103/mcL Invali d Interpretation Code 0.00 - 0.65 10^3/mcL AH Remisol SS Eosinophils/100 WBC (Bld) 1.2 % Invali d Interpretation Code 0.0 - 6.0 % AH [...] Invalid Interpretation Code 1.5 - 3.8 G/dL ADM SS Glucose [Mass/Vol] 94 mg/dL Invalid Interpretation Code 70 - 110 mg/dL AH ADM SS Hematocrit (Bld) [Volume fraction] 40.0 % Invalid Interpretation Code 34.0 - 46.0 % AH Remisol SS Hemoglobin (Bld) [Mass/Vol] 12.7 G/dL Invalid Interpretation Code 12.0 - 16.0 G/dL AH Remisol SS Lymphocytes (Bld) [#/Vol] 2.30 103/mcL Invali d Interpretation Code 0.90 - 4.32 10^3/mcL AH Remisol SS Lymphocytes/100 WBC (Bld) 23.8 % Invali d Interpretation Code 20.0 - 40.0 % AH [...] Remisol SS Neutrophils (Bld) [#/Vol] 6.90 103/mcL Invali d Interpretation Code 2.25 - 8.10 10^3/mcL AH Remisol SS Neutrophils/100 WBC (Bld) 69.7 % Invali d Interpretation Code 50.0 - 75.0 % AH [...] Invalid Interpretation Code 8.0 - 22.0 mg/dL ADM SS Urea nitrogen/Creatinine [Mass ratio] 10.4 ratio Invalid Interpretation Code 10.0 - 22.0 ratio ADM SS WBC (Bld) [#/Vol] 9.90 103/mcL Invalid Interpretation Code 4.50 - 10.80 10^3/mcL Remisol SS .Auto Diffon 12-04-2020 Basophil, Absolute 0.00 10 3/mcL Normal 0.00-0.19 [facility] ([place]) Comment on above: Performed By: #### C BC, AMAYA ANEU, CMP #### [address] [address] #### GFR #### [address] [address] Basophils/100 WBC (Bld) 0.3 % Normal 0.0-2.5 [facility] ([place]) Comment on above: Performed By: #### C BCAMAAY ANEU, CMP #### [address] [address] #### GFR #### [address] [address] Eosinophil, Absolute 0.10 10 3/mcL Normal 0.00-0.40 [facility] ([place]) Comment on above: Performed By: #### C BCAMAYA ANEU, CMP #### [address] [address] #### GFR #### [address] [address] Eosinophils/100 WBC (Bld) 0.9 % Normal 0.0-7.0 Counts Include [address] [facility] ([place]) Comment on above: Performed By: #### C BC, ADIFF ANEU, CMP #### [place] [address] #### GFR #### [address] [address] Lymphocyte, Absolute 1.70 10 3/mcL Normal 0.77-3.85 [facility] ([place]) Comment on above: Performed By: #### C BC, ADIFF, ANEU, CMP #### [address] [address] #### GFR #### [address] [address] Lymphocytes/100 WBC (Bld) 10.5 % Normal 10.0-50.0 Counts Include [address] [facility] ([place]) Comment on above: Performed By: #### C BC, ADIFF, ANEU, CMP #### [address] [address] #### GFR #### [address] [address] Monocyte, Absolute 0.70 10 3/mcL Normal 0.15-1.00 [facility] ([place]) Comment on above: Performed By: #### C BC, ADIFF, ANEU, CMP #### [address] [address] #### GFR #### [address] [address] Monocytes/100 WBC (Bld) 4.3 % Normal 1.7-13.0 [facility] ([place]) Comment on above: Performed By: #### C BC, ADIFF, ANEU, CMP #### [address] [address] #### GFR #### [address] [address] Neutrophils/100 WBC (Bld) 84.0 % High 37.0-80.0 Counts Include [address] [facility] ([place]) Comment on above: Performed By: #### C BC, ADIFF, ANEU, CMP #### [address] [address] #### GFR #### [address] [address] .GFRon 12-04-2020 GFR Non- 84 ml/min/1.73sqm Normal Counts Include [address] [facility] ([place]) Comment on above: Result Comment: GFR Population [...] #### C BC, ADIFF, ANEU, CMP #### [address] [address] #### GFR #### [address] [address] GFR 102 ml/min/1.73sqm Normal Counts Include [address] [facility] ([place]) Comment on above: Result Comment: GFR Population [...] square meters Performed By: #### C BC, ADRIOS ANEU, CMP #### [address] [address] #### GFR #### [address] [address] .NEUABSon 12-04-2020 Neutrophil, Absolute 13.20 10 3/mcL High 2.85-6.16 Counts Include [address] [facility] ([place]) Comment on above: Performed By: #### C BC, ADIFF, ANEU, CMP #### [address] [address] #### GFR #### [address] [place], [place] [address] .Urinalysis Microscopic (AO) on 12-04-2020 UA Amorphus 2+ /hpf Normal Counts Include [address] [facility] ([place]) Comment on above: Performed By: #### P REGU, UA, UAMICAO #### [address] [address] UA Bacteria 1+ /hpf Abnormal Counts Include [address] [facility] ([place]) Comment on above: Performed By: #### P REGU, UA, UAMICAO #### [address] [address] UA Mucous 2+ /hpf Normal Counts Include [address] [facility] ([place]) Comment on above: Performed By: #### P REGU, UA, UAMICAO #### [address] [address] UA RBC None Seen Normal None Seen Counts Include [address] [facility] ([place]) Comment on above: Performed By: #### P REGU, UA, UAMICAO #### [address] [address] UA Squam Epithelial 10-15 Abnormal None Seen [facility] ([place]) Comment on above: Performed By: #### P REGU, UA, UAMICAO #### [address] [address] UA WBC 0-5 Abnormal None Seen Counts Include [address] [facility] ([place]) Comment on above: Performed By: #### P REGU, UA, UAMICAO #### [place] [address] AMYon 12-04-2020 Amylase [Catalytic activity/Vol] 52 U/L Normal 25-115 Counts Include [address] [facility] ([place]) Comment on above: Performed By: #### A MY #### [place] [address] CBCon 12-04-2020 Erythrocyte distribution width (RBC) [Ratio] 13.7 % Normal 11.5-14.5 Counts Include [address] [facility] ([place]) Comment on above: Performed By: #### C BC, ADIFF, ANEU, CMP #### [place] [address] #### GFR #### [place] [address] Hematocrit (Bld) [Volume fraction] 37.7 % Normal 37.0-47.0 Counts Include [address] [facility] ([place]) Comment on above: Performed By: #### C BC, ADIFF, ANEU, CMP #### [place] [address] #### GFR #### [place] [address] Hgb 12.3 G/dL Normal 12.0-16.0 Counts Include [address] [facility] ([place]) Comment on above: Performed By: #### C BC, AMAYA ANEU, CMP #### [place] [address] #### GFR #### [place] [address] MCH (RBC) [Entitic mass] 27.8 pg Normal 27.0-31.2 Counts Include [address] [facility] ([place] Comment on above: Performed By: #### C BC, ADIFF, ANEU, CMP #### [place] [address] #### GFR #### [place] [address] MCHC 32.6 G/dL Low 33.0-37.0 Counts Include [address] [facility] ([place]) Comment on above: Performed By: #### C BC, ADRIOS, ANEU, CMP #### [place] [address] #### GFR #### [place] [address] MCV (RBC) [Entitic vol] 85.2 fL Normal 80.0-94.0 [facility] ([place]) Comment on above: Performed By: #### C BC, ADIFF, ANEU, CMP #### [place] [address] #### GFR #### [place] [address] Platelet 332 10 3/mcL Normal 130-400 Counts Include [address] [facility] ([place]) Comment on above: Performed By: #### C BC, ADRIOS, ANEU, CMP #### [address] [address] #### GFR #### [address] [address] Platelet mean volume (Bld) [Entitic vol] 8.6 fL Normal 7.4-10.4 Counts Include [address] [facility] ([place]) Comment on above: Performed By: #### C BC, ADIFF, ANEU, CMP #### [place] [address] #### GFR #### [place] [address] RBC 4.43 10 6/mcL Normal 4.20-5.40 Counts Include [address] [facility] ([place]) Comment on above: Performed By: #### C BCAMAYA ANEU, CMP #### [place] [address] #### GFR #### [place] [address] WBC 15.80 10 3/mcL High 4.60-10.80 Counts Include [address] [facility] ([place]) Comment on above: Performed By: #### C BC ADRIOS ANEU, CMP #### [place] [address] #### GFR #### [place] [address] CMPon 12-04-2020 Albumin Level 3.9 G/dL Normal 3.5-5.0 Counts Include [address] [facility] ([place]) Comment on above: Performed By: #### C BC, ADIFF, ANEU, CMP #### [place] [address] #### GFR #### [place] [address] Albumin/Globulin [Mass ratio] 1.2 {ratio} Normal 1.1-2.5 Counts Include [address] [facility] ([place]) Comment on above: Performed By: #### C BC, ADIFF ANEU, CMP #### [address] [address] #### GFR #### [address] [address] ALP [Catalytic activity/Vol] 83 U/L Normal 40-135 Counts Include [address] [facility] ([place] Comment on above: Performed By: #### C BC, ADIFF, ANEU, CMP #### [address] [address] #### GFR #### [address] [address] ALT [Catalytic activity/Vol] 73 U/L High 14-59 Counts Include [address] [facility] ([place]) Comment on above: Performed By: #### C BC, AMAYA, ANEU, CMP #### [address] [address] #### GFR #### [address] [address] AST [Catalytic activity/Vol] 57 U/L High 10-40 Counts Include [address] [facility] ([place]) Comment on above: Performed By: #### C BC, MICHAELIFF, ANEU, CMP #### [address] [address] #### GFR #### [address] [address] Bili Total 0.3 mg/dL Normal 0.2-1.0 Counts Include [address] [facility] ([place]) Comment on above: Result Comment: Use of this assay is not recommended for patients undergoing treatment with eltrombopag due to the potential for falsely elevated results. Performed By: #### C BC, ADIFF, ANEU, CMP #### [address] [address] #### GFR #### [address] [address] BUN/Creatinine Ratio 10 ratio Normal 7-27 [facility] ([place]) Comment on above: Performed By: #### C BC, ADIFF, ANEU, CMP #### [address] [address] #### GFR #### [address] [address] Calcium [Mass/Vol] 8.7 mg/dL Normal 8.4-10.2 [facility] ([place]) Comment on above: Performed By: #### C BCAMAYA ANEU, CMP #### [address] [address] #### GFR #### [address] [address] Chloride [Moles/Vol] 104 mmol/L Normal 98-107 [facility] ([place]) Comment on above: Performed By: #### C BC, ADRIOS, ANEU, CMP #### [address] [address] #### GFR #### [place] [address] CO2 [Moles/Vol] 28 mmol/L Normal 22-29 Counts Include [address] [facility] ([place] Comment on above: Performed By: #### C BC, AMAYA ANEU, CMP #### [address] [address] #### GFR #### [place] [address] Creatinine [Mass/Vol] 0.81 mg/dL Normal 0.55-1.02 [facility] ([place]) Comment on above: Performed By: #### C BC, AMAYA ANEU, CMP #### [address] [address] #### GFR #### [place] [address] Electrolyte Balance 11.0 mEq/L Normal [facility] ([place]) Comment on above: Performed By: #### C BC, ADRIOS, ANEU, CMP #### [address] [address] #### GFR #### [place] [address] Globulin 3.2 G/dL Normal Counts Include [address] [facility] ([place]) Comment on above: Performed By: #### C BC, ADIFF, ANEU, CMP #### [address] [address] #### GFR #### [address] [address] Glucose [Mass/Vol] 106 mg/dL High 70-105 [facility] ([place]) Comment on above: Performed By: #### C BC, ADIFF, ANEU, CMP #### [address] [address] #### GFR #### [address] [address] Potassium [Moles/Vol] 3.6 mmol/L Normal 3.5-5.1 [facility] ([place]) Comment on above: Performed By: #### C BCAMAYA ANEU, CMP #### [address] [address] #### GFR #### [address] [address] Sodium [Moles/Vol] 143 mmol/L Normal 136-145 [facility] ([place]) Comment on above: Performed By: #### C BC, AMAYA ANEU, CMP #### [address] [address] #### GFR #### [address] [address] Total Protein 7.1 G/dL Normal 6.4-8.2 Counts Include [address] [facility] ([place] Comment on above: Performed By: #### C BC, ADRIOS, ANEU, CMP #### [address] [address] #### GFR #### [address] [address] Urea nitrogen [Mass/Vol] 8 mg/dL Normal 7-18 Counts Include [address] [facility] ([place]) Comment on above: Performed By: #### C BC, ADIFF, ANEU, CMP #### [address] [address] #### GFR #### [address] [address] [address] ABD/PELVIS W/ IV CONTRAST ONLYon 12-04-2020 [...] 6:49:26 PM Ordering Provider: EZEQUIEL THRASHER Normal Counts Include [address] [facility] ([place]) PREGUon 12-04-2020 HCG ( test) Ql (U) Negative Normal Counts Include [address] [facility] ([place]) Comment on above: Performed By: #### P REGU, UA, UAMICAO #### Brijesh [address] [address] test (u) int Not detected Invalid Interpretation Code Counts Include [address] [facility] ([place]) Comment on above: Performed By: #### P REGU, UA, UAMICAO #### Brijesh [address] [address] UAon 12-04-2020 Color (U) Yellow Normal Counts Include [address] [facility] ([place]) Comment on above: Performed By: #### P REGU, UA, UAMICAO #### [place] [address] Glucose (U) [Mass/Vol] Negative Normal Negative [facility] ([place]) Comment on above: Performed By: #### P REGU, UA, UAMICAO #### [place] [address] Ketones Ql (U) Negative Normal Negative Counts Include [address] ([place]) Comment on above: Performed By: #### P REGU, UA, UAMICAO #### [place] [address] UA Appear Slightly Cloudy Abnormal Clear Counts Include [address] [facility] ([place] Comment on above: Performed By: #### P REGU, UA, UAMICAO #### [place] [address] UA Blood Negative Normal Negative Counts Include [facility] ([place]) Comment on above: Performed By: #### P REGU, UA, UAMICAO #### [place] [address] UA Leuk Est Negative Normal Negative Counts Include [facility] ([place]) Comment on above: Performed By: #### P REGU, UA, UAMICAO #### [place] [address] UA Nitrite Negative Normal Negative Counts Include [facility] ([place] Comment on above: Performed By: #### P REGU, UA, UAMICAO #### [place] [address] UA pH 6.0 Normal 5.0 - 8.0 Counts Include [facility] ([place]) Comment on above: Performed By: #### P REGU, UA, UAMICAO #### [place] [address] UA Protein Negative Normal Negative Counts Include [facility] ([place] Comment on above: Performed By: #### P REGU, UA, UAMICAO #### [place] [address] UA Spec Grav >=1.030 Abnormal 1.015-1.025 Counts Include [facility] ([place] Comment on above: Performed By: #### P REGU, UA, UAMICAO #### [place] [id number] [place], [place] [address] UA Specimen Type Clean Catch Normal Counts Include [facility] ([place]) Comment on above: Performed By: #### P REGU, UA, UAMICAO #### [place] [id number] [place], [place] [address] UA Urobilinogen 0.2 E.U./dL Normal 0.2-1.0 Counts Include [address] [facility] ([place] Comment on above: Performed By: #### P REGU, UA, UAMICAO #### [place] [id number] [place], [place] [address] Urobilinogen (U) [Mass/Vol] Negative Normal Negative Counts Include [facility] ([place]) Comment on above: Performed By: #### P REGU, UA, UAMICAO #### [address] [address] Vital Signs Date Time Vital Sign Value Performing Clinician Facility 12-08-2024 14:45-0400 Body height 162.[address] Laith Harman MD Work Phone: 12-08-2024 14:44-0400 Body mass index (BMI) [Ratio] 42 kg/m2 Dr. Laith Harman MD Work Phone: 12-08-2024 14:44-0400 Body weight 111.[address] Laith Harman MD Work Phone: 12-08-2024 14:44-0400 Diastolic blood pressure 82 mm[Hg] Dr. Laith Harman MD Work Phone: 12-08-2024 14:44-0400 Systolic blood pressure 127 mm[Hg] Dr. Laith Harman MD Work Phone: 11-23-2024 12:57-0400 Body height 162.[address] Laith Harman MD Work Phone: 11-23-2024 12:57-0400 Body mass index (BMI) [Ratio] 41.3 kg/m2 Dr. Laith Harman MD Work Phone: 11-23-2024 12:57-0400 Body weight 109.[address] Laith Harman MD Work Phone: 11-23-2024 12:57-0400 Diastolic blood pressure 81 mm[Hg] Dr. Laith Harman MD Work Phone: 11-23-2024 12:57-0400 Systolic blood pressure 123 mm[Hg] Dr. Laith Harman MD Work Phone: 11-16-2024 10:38-0400 Body height 162.[address] Laith Harman MD Work Phone: 11-16-2024 10:38-0400 Body mass index (BMI) [Ratio] 41.1 kg/m2 Dr. Laith Harman MD Work Phone: 11-16-2024 10:38-0400 Body temperature 97.9 [degF] Dr. Laith Harman MD Work Phone: 11-16-2024 10:38-0400 Body weight 108.[address] Laith Harman MD Work Phone: 11-16-2024 10:38-0400 Diastolic blood pressure 72 mm[Hg] Dr. Laith Harman MD Work Phone: 11-16-2024 10:38-0400 Heart rate 96 /min Dr. Laith Harman MD Work Phone: 11-16-2024 10:38-0400 Respiratory rate 16 /min Dr. Laith Harman MD Work Phone: 11-16-2024 10:38-0400 SaO2% (BldA) [Mass fraction] 98 % Dr. Laith Harman MD Work Phone: 11-16-2024 10:38-0400 Systolic blood pressure 120 mm[Hg] Dr. Laith Harman MD Work Phone: 11-09-2024 10:14-0400 Body height 162.[address] Laith Harman MD Work Phone: 11-09-2024 10:14-0400 Body mass index (BMI) [Ratio] 40.9 kg/m2 Dr. Laith Harman MD Work Phone: 11-09-2024 10:14-0400 Body weight 108.[address] Laith Harman MD Work Phone: 11-09-2024 10:14-0400 Diastolic blood pressure 77 mm[Hg] Dr. Laith Harman MD Work Phone: 11-09-2024 10:14-0400 Systolic blood pressure 121 mm[Hg] Dr. Laith Harman MD Work Phone: 10-26-2024 13:10-0400 Body height 162.[address] Laith Harman MD Work Phone: 10-26-2024 13:01-0400 Body mass index (BMI) [Ratio] 40.6 kg/m2 Dr. Laith Harman MD Work Phone: 10-26-2024 13:01-0400 Body weight 107.[address] Laith Harman MD Work Phone: 10-26-2024 13:01-0400 Diastolic blood pressure 85 mm[Hg] Dr. Laith Harman MD Work Phone: 10-26-2024 13:01-0400 Systolic blood pressure 130 mm[Hg] Dr. Laith Harman MD Work Phone: 10-05-2024 10:11-0400 Body height 162.[address] Laith Harman MD Work Phone: 10-05-2024 10:11-0400 Body mass index (BMI) [Ratio] 40.4 kg/m2 Dr. Laith Harman MD Work Phone: 10-05-2024 10:11-0400 Body weight 106.[address] Laith Harman MD Work Phone: 10-05-2024 10:11-0400 Diastolic blood pressure 82 mm[Hg] Dr. Laith Harman MD Work Phone: 10-05-2024 10:11-0400 Systolic blood pressure 126 mm[Hg] Dr. Laith Harman MD Work Phone: 09-07-2024 09:20-0400 Body height 162.[address] Laith Harman MD Work Phone: 09-07-2024 09:20-0400 Body mass index (BMI) [Ratio] 40.1 kg/m2 Dr. Laith Harman MD Work Phone: 09-07-2024 09:20-0400 Body weight 105.[address] Laith Harman MD Work Phone: 09-07-2024 09:20-0400 Diastolic blood pressure 81 mm[Hg] Dr. Laith Harman MD Work Phone: 09-07-2024 09:20-0400 Systolic blood pressure 122 mm[Hg] Dr. Laith Harman MD Work Phone: 08-10-2024 13:26-0400 Body height 162.[address] Laith Harman MD Work Phone: 08-10-2024 13:26-0400 Body mass index (BMI) [Ratio] 39.8 kg/m2 Dr. Laith Harman MD Work Phone: 08-10-2024 13:26-0400 Body temperature 98 [degF] Dr. Laith Harman MD Work Phone: 08-10-2024 13:26-0400 Body weight 105.[address] Laith Harman MD Work Phone: 08-10-2024 13:26-0400 Diastolic blood pressure 88 mm[Hg] Dr. Laith Harman MD Work Phone: 08-10-2024 13:26-0400 Heart rate 84 /min Dr. Laith Harman MD Work Phone: 08-10-2024 13:26-0400 Respiratory rate 18 /min Dr. Laith Hraman MD Work Phone: 08-10-2024 13:26-0400 SaO2% (BldA) [Mass fraction] 98 % Dr. Laith Harman MD Work Phone: 08-10-2024 13:26-0400 Systolic blood pressure 132 mm[Hg] Dr. Laith Harman MD Work Phone: 08-10-2024 09:49-0400 Body height 162.[address] Laith Harman MD Work Phone: 08-10-2024 09:49-0400 Body mass index (BMI) [Ratio] 39.5 kg/m2 Dr. Laith Harman MD Work Phone: 08-10-2024 09:49-0400 Body weight 104.[address] Laith Harman MD Work Phone: 08-10-2024 09:49-0400 Diastolic blood pressure 80 mm[Hg] Dr. Laith Harman MD Work Phone: 08-10-2024 09:49-0400 Systolic blood pressure 124 mm[Hg] Dr. Laith Harman MD Work Phone: 07-13-2024 09:08-0400 Body mass index (BMI) [Ratio] 39.6 kg/m2 Dr. Laith Harman MD Work Phone: 07-13-2024 09:08-0400 Body weight 104.[address] Laith Harman MD Work Phone: 07-13-2024 09:08-0400 Diastolic blood pressure 63 mm[Hg] Dr. Laith Harman MD Work Phone: 07-13-2024 09:08-0400 Systolic blood pressure 120 mm[Hg] Dr. Laith Harman MD Work Phone: 06-12-2024 09:37-0400 Body height 162.[address] Laith Harman MD Work Phone: 06-12-2024 09:37-0400 Body mass index (BMI) [Ratio] 39.5 kg/m2 Dr. Laith Harman MD Work Phone: 06-12-2024 09:37-0400 Body weight 104.[address] Laith Harman MD Work Phone: 06-12-2024 09:37-0400 Diastolic blood pressure 82 mm[Hg] Dr. Laith Harman MD Work Phone: 06-12-2024 09:37-0400 Systolic blood pressure 135 mm[Hg] Dr. Laith Harman MD Work Phone: 01-17-2024 09:50-0500 Body height 162.6 cm GENA PENG MD [facility] 01-17-2024 09:50-0500 Body temperature 98.96 [degF] GENA PENG MD [facility] 01-17-2024 09:50-0500 Body weight 104.5 kg GENA PENG MD [facility] 01-17-2024 09:50-0500 Diastolic Blood Pressure Non-Invasive 85 mm[Hg] GENA PENG MD [facility] 01-17-2024 09:50-0500 Heart rate 104 /min GENA PENG MD [facility] 01-17-2024 09:50-0500 Respiratory rate 18 /min GENA PENG MD [facility] 01-17-2024 09:50-0500 Systolic Blood Pressure Non-Invasive 125 mm[Hg] GENA PENG MD [facility] 03-25-2023 09:36-0500 Body height 162.[address] Laith Harman Work Phone: 03-25-2023 09:36-0500 Body mass index (BMI) [Ratio] 39.1 kg/m2 Dr. Laith Harman Work Phone: 03-25-2023 09:36-0500 Body temperature 97 [degF] Dr. Laith Harman Work Phone: 03-25-2023 09:36-0500 Body weight 103.[address] Laith Harman Work Phone: 03-25-2023 09:36-0500 Diastolic blood pressure 82 mm[Hg] Dr. Laith Harman Work Phone: 03-25-2023 09:36-0500 Heart rate 107 /min Dr. Laith Harman Work Phone: 03-25-2023 09:36-0500 Respiratory rate 16 /min Dr. Laith Harman Work Phone: 03-25-2023 09:36-0500 SaO2% (BldA) [Mass fraction] 107 % Dr. Laith Harman Work Phone: 03-25-2023 09:36-0500 Systolic blood pressure 128 mm[Hg] Dr. Laith Harman Work Phone: 01-04-2023 08:34-0400 Body mass index (BMI) [Ratio] 39.6 kg/m2 Dr. Laith Harman Work Phone: 01-04-2023 08:34-0400 Body weight 104.[address] Laith Harman Work Phone: 01-04-2023 08:34-0400 Diastolic blood pressure 87 mm[Hg] Dr. Laith Harman Work Phone: 01-04-2023 08:34-0400 Systolic blood pressure 131 mm[Hg] Dr. Laith Harman Work Phone: 11-12-2022 15:19-0400 Body height 162.[address] Laith Harman Work Phone: 11-12-2022 15:16-0400 Body mass index (BMI) [Ratio] 41.1 kg/m2 Dr. Laith Harman Work Phone: 11-12-2022 15:16-0400 Body weight 108.[address] Laith Harman Work Phone: 11-12-2022 15:16-0400 Diastolic blood pressure 84 mm[Hg] Dr. Laith Harman Work Phone: 11-12-2022 15:16-0400 Systolic blood pressure 128 mm[Hg] Dr. Laith Harman Work Phone: 01-23-2021 19:48-0500 Body temperature 97.88 [degF] DR TYSHAWN COFFEY MD [facility] 01-23-2021 19:48-0500 Diastolic blood pressure 65 mm[Hg] DR TYSHAWN COFFEY MD [facility] 01-23-2021 19:48-0500 Heart rate 90 /min DR TYSHAWN COFFEY MD [facility] 01-23-2021 19:48-0500 Respiratory rate 16 /min DR TYSHAWN COFFEY MD [facility] 01-23-2021 19:48-0500 Systolic blood pressure 110 mm[Hg] DR TYSHAWN COFFEY MD [facility] 01-23-2021 17:30-0500 Body temperature 97.16 [degF] DR TYSHAWN COFFEY MD [facility] 11-22-2021 17:30-0500 Diastolic blood pressure 74 mm[Hg] DR TYSHAWN COFFEY MD [facility] 01-23-2021 17:30-0500 Heart rate 94 /min DR TYSHAWN COFFEY MD [facility] 01-23-2021 17:30-0500 Respiratory rate 16 /min DR TYSHAWN COFFEY MD [facility] 01-23-2021 17:30-0500 Systolic blood pressure 113 mm[Hg] DR TYSHAWN COFFEY MD [facility] 01-23-2021 17:19-0500 Body temperature 96.8 [degF] DR TYSHAWN COFFEY MD [facility] 01-23-2021 17:19-0500 Diastolic Blood Pressure NBP [address] TYSHAWN COFFEY MD [facility] 01-23-2021 17:19-0500 Heart rate 97 /min DR TYSHAWN COFFEY MD [facility] 01-23-2021 17:19-0500 Mean blood pressure 89 mm[Hg] DR TYSHAWN COFFEY MD [facility] 01-23-2021 17:19-0500 Respiratory rate 16 /min DR TYSHAWN COFFEY MD [facility] 01-23-2021 17:19-0500 Systolic Blood Pressure NBP [address] TYSHAWN COFFEY MD [facility] 01-23-2021 17:11-0500 Diastolic Blood Pressure NBP [address] TYSHAWN COFFEY MD [facility] 01-23-2021 17:11-0500 Heart rate 93 /min DR TYSHAWN COFFEY MD [facility] 01-23-2021 17:11-0500 Mean blood pressure 93 mm[Hg] DR TYSHWAN COFFEY MD [facility] 01-23-2021 17:11-0500 Systolic Blood Pressure NBP [address] TYSHAWN COFFEY MD [facility] 01-23-2021 16:56-0500 Diastolic Blood Pressure NBP [address] TYSHAWN COFFEY MD [facility] 01-23-2021 16:56-0500 Heart rate 92 /min DR TYSHAWN COFFEY MD [facility] 01-23-2021 16:56-0500 Mean blood pressure 86 mm[Hg] DR TYSHAWN COFFEY MD [facility] 01-23-2021 16:56-0500 Systolic Blood Pressure NBP [address] TYSHAWN COFFEY MD [facility] 01-23-2021 16:26-0500 Body temperature 97.34 [degF] DR TYSHAWN COFFEY MD [facility] 01-23-2021 12:50-0500 Body height [address] TYSHAWN COFFEY MD [facility] 01-23-2021 12:50-0500 Body weight 99.[address] TYSHAWN COFFEY MD [facility] 01-23-2021 12:50-0500 Diastolic blood pressure 85 mm[Hg] DR TYSHAWN COFFEY MD [facility] 01-23-2021 12:50-0500 Heart rate 73 /min DR TYSHAWN COFFEY MD [facility] 01-23-2021 12:50-0500 Mean blood pressure 104 mm[Hg] DR TYSHAWN COFFEY MD [facility] 01-23-2021 12:50-0500 Systolic blood pressure 142 mm[Hg] DR TYSHAWN COFFEY MD [facility] 01-09-2021 15:27-0500 Body height [address] TYSHAWN COFFEY MD [facility] 01-09-2021 15:27-0500 Body temperature 98.24 [degF] DR TYSHAWN COFFEY MD [facility] 01-09-2021 15:27-0500 Body weight 101.[address] TYSHAWN COFFEY MD [facility] 01-09-2021 15:27-0500 Body weight 37.43 kg/m2 DR TYSHAWN COFFEY MD [facility] 01-09-2021 15:27-0500 diastolic 83 mm[Hg] DR TYSHAWN COFFEY MD [facility] 01-09-2021 15:27-0500 Heart rate 103 /min DR TYSHAWN COFFEY MD [facility] 01-09-2021 15:27-0500 systolic 138 mm[Hg] DR TYSHAWN COFFEY MD [facility] Encounters Encounter Date Encounter Type Care Provider Facility Start: 12-28-2024 ambulatory Margaretsharathbev Harman Facili ty:[facility] Start: 12-21-2024 End: 12-21-2024 ambulatory Laith Harman Facility:[facility] Start: 12-15-2024 End: 12-15-2024 ambulatory Christel Sheets Facility: Start: 12-08-2024 End: 12-08-[address] Christel Sheets DO -[facility] Work Phone: Start: 12-08-2024 End: 12-08-[address] Laith Harman MD Work Phone: -[facility] Start: 11-23-2024 End: 11-23-2024 Patient encounter procedure Rebecca HUI -[facility] Work Phone: Start: 11-23-2024 End: 11-23-[address] Laith Harman MD Work Phone: [facility] Start: 11-16-2024 End: 11-16-[address] Laith Harman MD -[facility] Work Phone: Start: 11-16-2024 End: 11-16-[address] Laith Harman MD Work Phone: -[facility] Start: 11-09-2024 End: 11-09-[address] Promise Castañeda MD -[facility] Work Phone: Start: 11-09-2024 End: 11-09-[address] Laith Harman MD Work Phone: [facility] Start: 10-26-2024 End: 10-26-[address] Promise Castañeda MD -[facility] Work Phone: Start: 10-26-2024 End: 10-26-[address] Laith Harman MD Work Phone: [facility] Start: 10-26-2024 End: 10-26-2024 ambulatory Laith Harman Facility: Start: 10-05-2024 End: 10-05-2024 Patient encounter procedure Rebecca Butts PROFESSOR OF ENGINEERING-C -[facility] Work Phone: Start: 10-05-2024 End: 10-05-[address] Laith Harman MD Work Phone: [facility] Start: 09-14-2024 End: 09-14-2024 ambulatory LAITH HARMAN [facility] Start: 09-07-2024 End: 09-07-2024 Patient encounter procedure Erlinda Suggs CNM -[facility] Work Phone: Start: 09-07-2024 End: 09-07-[address] Laith Harman MD Work Phone: [facility] Start: 08-24-2024 End: 08-24-2024 ambulatory CAROL PRYOR [facility] Start: 08-10-2024 End: 08-10-[address] Laith Harman MD -[facility] Work Phone: Start: 08-10-2024 End: 08-10-[address] Laith Harman MD Work Phone: [facility] Work Phone: Start: 08-10-2024 End: 08-10-2024 Patient encounter procedure Rebecca Butts PROFESSOR OF ENGINEERING-C -[facility] Work Phone: Start: 08-10-2024 End: 08-10-[address] Laith Harman MD Work Phone: [facility] Work Phone: Start: 07-13-2024 End: 07-13-[address] Christel Sheets DO -[facility] Work Phone: Start: 07-13-2024 End: 07-13-2024 ambulatory [facility] Facility:[facility] Start: 06-12-2024 End: 06-12-2024 Patient encounter procedure Anna Kim [facility] -[facility] Work Phone: Start: 06-12-2024 End: 06-12-[address] Laith Harman MD Work Phone: Work Phone: Start: 06-12-2024 End: 06-12-2024 ambulatory Anna Kim Facility: Start: 01-17-2024 End: 01-17-2024 Emergency department patient visit GENA PENG MD [facility] Start: 12-30-2023 End: 12-30-2023 ambulatory [facility] Facility:[facility] Start: 12-30-2023 End: 12-30-2023 ambulatory [facility] Facility: Start: 03-26-2023 End: 03-26-[address] Laith Harman Work Phone: Work Phone: Start: 03-26-2023 End: 03-26-[address] Laith Harman Work Phone: -Labor[facility], [facility] Start: 03-25-2023 End: 03-25-[address] [facility]ith Har[facility] Work [facility]: Start: 01-04-2023 End: 01-04-[address] Laith Harman Work Phone: [facility] Work Phone: Start: 12-17-2022 End: 12-17-[address] Laith Harman Work Phone: Work Phone: Start: 12-17-2022 End: 12-17-[address] Laith Harman Work Phone: -[facility] Start: 11-12-2022 End: 11-12-[address] Laith Harman Work Phone: Work Phone: Start: 11-12-2022 End: 11-12-[address] Laith Harman Work Phone: -Laboratory, Specimen Work Phone: Start: 11-12-2022 End: 11-12-[address] Laith Harman Work Phone: [facility] Work Phone: Start: 01-23-2021 End: 01-23-[address] TYSHAWN COFFEY MD [facility] Start: 01-09-2021 End: 01-09-[address] TYSHAWN COFFEY MD [facility] Start: 05-26-2017 End: 05-26-2017 ambulatory [facility] Procedures Date Procedure Procedure Detail Performing Clinician Start: 10-26-2024 Serologic test for syphilis Dr. Laith Harman MD Work Phone: Start: 06-12-2024 Methadone measuremen t, urine Dr. Laith Harman MD Work Phone: Start: 06-12-[address] Maria Elena Harman MD Work Phone: Start: 06-12-2024 Hepatitis C antibody measurement Dr. Laith Harman MD Work Phone: Comment on above: Reactive: Presumptiv e evidence of antibodies to HCV. Follow CDC recommendations for supplemental testing.Non-Reactive: Antibodies to HCV were not detected; does not exclude the possibility of exposure to HCVReactive Results are presumptive evidence of antibodies to HCV. Follow CDC recommendations for supplemental testing.Order confirmation testing: HCV Quant by PCR testing - HCVPCR #[id number] Non Reactive: < 0.8 Equivocal: >/= 0.8 to < 1.0 Reactive: >/= 1.0The CDC requires that a reactive/equivocal HCV antibody result be sent out for confirmation. HCV Quant by PCR testing. Start: 06-12-[address] Laith Harman MD Work Phone: Comment on above: Antibody Result: Int erpretationNon-Reactive: Non- ImmuneReactive: ImmuneThe following results were obtained with the [employer] Rubella IgG assay. Results from assays of other manufacturers cannot be used interchangeably. Start: 06-12-2024 Serologic test for syphilis Dr. Laith Harman MD Work Phone: Start: 03-04-2013 Entire heart (body structure) DR TYSHAWN COFFEY MD Comment on above: ablations x2 Start: 03-04-[address] TYSHAWN COFFEY MD Extraction of single tooth DR TYSHAWN COFFEY MD Extraction of wisdom tooth DR TYSHAWN COFFEY MD History of cholecystectomy Hx of cholecystectomy Dr. Laith Harman Work Phone: Comment on above: 01/[address] TYSHAWN COFFEY MD Plan of Treatment Date Care Activity Detail Author Start: 12-08-2024 [facility] Start: 10-26-2024 CBC W Auto Different ial panel - Blood Start: 10-26-2024 Measurement of gluco se 2 hours after glucose challenge for glucose tolerance test Start: 10-26-2024 Serologic test for syphilis Start: 10-26-2024 [facility] Start: 08-10-2024 Patient referral [facility] Work Phone: Start: 12-17-2022 17-Hydroxyprogestero ne [Mass/volume] in Serum or Plasma Start: 12-17-2022 Dehydroepiandrostero ne sulfate (DHEA-S) [Mass/volume] in Serum or Plasma Start: 12-17-2022 Testosterone Free [M ass/volume] in Serum or Plasma Start: 12-17-2022 Vitamin D, 1,25-dihy droxy measurement 17-Hydroxyprogestero ne [Mass/volume] in Serum or Plasma Acute hepatitis 2000 panel - Serum CBC W Auto Different ial panel - Blood Dehydroepiandrostero ne sulfate (DHEA-S) [Mass/volume] in Serum or Plasma Erythrocyte mean cor puscular volume determination Estradiol (E2) [Mass /volume] in Serum or Plasma Follicle stimulating hormone measurement Hematocrit [Volume F raction] of Blood Hemoglobin [Mass/volume] in Blood Hemoglobin A1c/Hemog lobin.total in Blood Leukocytes [#/volume] in Blood Lipid 1996 panel - Serum or Plasma Mean corpuscular hem oglobin concentration determination Mean corpuscular hem oglobin determination Neutrophil count [facility] Neutrophil percent d ifferential count Patient referral [facility] Work Phone: Platelets [#/volume] in Blood Prolactin [Mass/volu me] in Serum or Plasma Red blood cell count Red cell distributio n width determination Testosterone Free [M ass/volume] in Serum or Plasma Thyroid stimulating hormone measurement Ultrasound scan for growth Vitamin D, 1,25-dihy droxy measurement [facility] Immunizations Immunization Date Immunization Notes Care Provider Fa cility 11-23-2024 tetanus toxoid, redu dali diphtheria toxoid, and acellular pertussis vaccine, adsorbed Dr. Laith Harman MD Work Phone: 03-05-[address] Laith Harman Work Phone: 02-29-2016 influenza virus vacc ine, unspecified formulation DR TYSHAWN COFFEY MD [facility] 02-29-2016 tetanus toxoid, redu dali diphtheria toxoid, and acellular pertussis vaccine, adsorbed DR TYSHAWN COFFEY MD [facility] 09-24-[address] TYSHAWN COFFEY MD [facility] 09-24-[address] TYSHAWN COFFEY MD [facility] 09-24-2006 measles/mumps/rubell a virus vaccine DR TYSHAWN COFFEY MD [facility] 09-24-2006 poliovirus vaccine, inactivated DR TYSHAWN COFFEY MD [facility] Payers Date Payer Category Payer Self-pay [id number] 2016 [facility] [id number] 2016 Unknown [id number] 1992 Unknown [id number] 2.16.8 [id number] 1992 Unknown [id number] 2.16. [id number] 1992 Unknown [id number] 2.16. [id number] Unknown [id number] 2.16.8 40.1.957842.3.579.2.462 Unknown [id number] 2.16.8 40.1.091415.3.579.2.462 Unknown [id number] 2.16.8 40.1.049074.3.579.2.462 Unknown [id number] 2.16.8 40.1.170638.3.579.2.462 Unknown [id number] 2.16.8 40.1.825776.3.579.2.462 Unknown [id number] 2.16.8 40.1.865364.3.579.2.462 Unknown [id number] 2.16.8 40.1.155477.3.579.2.462 Unknown [id number] 2.16.8 40.1.342805.3.579.2.462 Unknown [id number] 2.16.8 40.1.312553.3.579.2.462 Unknown [id number] 2.16.8 40.1.916234.3.579.2.462 Unknown [id number] 2.16.8 40.1.582881.3.579.2.462 Unknown [id number] 2.16.8 40.1.797016.3.579.2.462 Unknown [id number] 2.16.8 40.1.072557.3.579.2.462 Unknown [id number] 2.16.8 40.1.548015.3.579.2.462 Unknown [id number] 2.16.8 40.1.623347.3.579.2.462 Unknown [id number] 2.16.8 40.1.636808.3.579.2.462 Unknown [id number] 2.16.8 40.1.802495.3.579.2.462 Unknown [id number] 2.16.8 40.1.915054.3.579.2.462 Unknown [id number] 2.16.8 40.1.111557.3.579.2.462 Unknown [id number] 2.16.8 [id number] Social History Date Type Detail Facility Tobacco Nicotine Use: Va ping Product in Last 90 Days. Type: Electronic Cigarettes (Vaping). Smoking Cessation Information Refused smoking cessation information. [facility] Occasional tobac co smoker (finding) [facility] Sex Assigned At [facility] Start: 11-12-2022 End: 03-25-2023 Tobacco smoking status KYIS Unknown if ever smoked Start: 1990 Sex Assigned At Female [facility] Start: 06-04-2024 Tobacco smoking status NHIS Ex-smoker (finding) Start: 06-16-2024 Sex Female (finding) [facility] Sex Female [facility] Functional Status Date Assessment Result Facility 01-17-2024 Functional Status Independent Brijesh lucas [facility] Mental Status Date Assessment Result Facility 01-17-2024 Mental Status Oriented x 4 [facility] Clinical Notes 01-23-2021 to 12-08-2024 Note Date & Type Note Facility 12-08-2024 Progress note [facility] Services 12-08-2024 Progress note Note Date/Time December 08, 2024 3:07pm [facility]'s [address], [address] [place] [address] OFFICE VISIT Date of Service: 12/08/24 MR#: [id number] Acct: [id number] Name: PIETER GUILLERMO Rep #: [id number] : 1990 Provider: Dr. 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 Is patient in pain?: No Allergies Environmental Allergies: Uncoded Allergy (Verified 12/08/24 14:44) PT UNABLE TO RESPOND-NEEDS F/U mold Allergy (Verified 12/08/24 14:44) Hives codeine Adverse Reaction (Verified 12/08/24 14:44) Other Medications ?Medication ?Instructions ?Recorded ?Confirmed ?Type nystatin 100,000 unit/gram topical 1 applic topical QD AY PRN 11/16/24 12/08/24 History powder sertraline 50 mg tablet 50 mg PO QDAY #90 tabs 11/1612/08/24 Rx Last Menstrual Period: 04/08/24 Zika: Zika virus screening: Negative : No PFSH PFSH Medical History Multiple skin tags Hirsutism Abnormal uterine bleeding Depression Anxiety Other obesity Hyperlipidemia Ectopic atrial tachycardia History of drug abuse in remission Chronic headaches Seasonal allergies Tachycardia Surgical History Hx of cholecystectomy History of tonsillectomy and adenoidectomy Hx of tympanostomy tubes H/O cardiac radiofrequency ablation (11/13/13) Family History Grandfather Myocardial infarction Mother Anxiety Depression Grandmother COPD (chronic obstructive pulmonary disease) Myocardial infarction Social History adopted: No household members: spouse, children and other details: Patient's cousin housing: house number of children: 1 current occupational status: employed current occupation: [employer] pets and animals: Yes pets and animals: dog(s) history of recent travel: No sexually active: Yes Smoking Status: Former smoker quit date: 05/14/24 Smokeless tobacco user: other Electronic Cigarette Use: with nicotine second hand exposure: Yes alcohol intake: former details: not while substance use type: former substance user Date of last use: 07/22/2015 caffeine: Yes Type: coffee what type of physical activity do you participate in: walking frequency: 3-4 times per week nabil/episcopal: Congregation seatbelt use: always do you feel safe at home: Yes 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 Date Name GA/Weeks Outcome Route Bth Weight Gen Labor Lgth Anesthesia Del Locatn Provider FOB 06/05/16 Gulshan 40 live - full term Male [facility] Dr. Suárez HPI 34w 6d OB Details: PIETER GUILLERMO is a 34 year old who presents for routine OB visit. OB Visit MYLES Calculator Estimated Delivery Date Method Current Current Estimate 01/13/25 LMP (Certain) 34w 6d Other Estimates 01/08/25 Ultrasound #1 35w 4d 01/07/25 Ultrasound #2 35w 5d Expected Delivery Route/Plan Labor Preferences- CB/BF classes: no labor support person: Ham labor intervention preferences: [] pain management options preferred: [] cut cord/dad catch: yes : yes PP control planned: discussed discussed possible routes of delivery and associated risks: [] special requests: [] Specific Issue/Plans Covid status: [] Flu vaccine: [] Tdap vaccine: [] Rhogam: na LARC form signed: yes movement and labor precautions reviewed. Problem list reviewed and updated with the most current plan of care details and appropriate orders placed. Relevant counseling for the gestational age provided. Continue routine care and follow up unless otherwise noted in visit notes/problem list details Initial Weight: 230 lb Date -?-?-?-?-?-?-?-?-?-?-?-?- EGA Weight BP Urine Prot -?-?-?-?-?-?-?-?-?-?-?-?- Glucose FHR FuHt Pres Dilation -?-?-?-?-?-?-?-?-?-?-?-?- Effaced St Visit Note 06/12/24 -?-?-?-?-?-?-?-?-?-?-?-?- 9w 2d 230 lb 4 oz (+4 oz) 135/82 -?-?-?-?-?-?-?-?-?-?-?-?- 180 -?-?-?-?-?-?-?-?-?-?-?-?- LC- CRL con with lmp (36mm).declines nipt. 07/13/24 -?-?-?-?-?-?-?-?-?-?-?-?- 13w 5d 231 lb 4 oz (+1 lb 4 oz) 120/63 Negative -?-?-?-?-?-?-?-?-?-?-?-?- Negative 158 -?-?-?-?-?-?-?-?-?-?-?-?- JV- no complaint s today. but does report that on had some bright red blood when she used the restroom. nothing since and did not require a pad. CRL measures 14 weeks 4 days today. 08/10/24 -?-?-?-?-?-?-?-?-?-?-?-?- 17w 5d 230 lb 4 oz (+4 oz) 124/80 Negative -?-?-?-?-?-?-?-?-?-?-?-?- Negative 148 -?-?-?-?-?-?-?-?-?-?-?-?- MH-No VB. Thomas dillard. Some off & on back pain. Varies at sight. Reviewed back exercises. Consider chiro. 09/07/24 -?-?-?-?-?-?-?-?-?-?-?-?- 21w 5d 233 lb 8 oz (+3 lb 8 oz) 122/81 Negative -?-?-?-?-?-?-?-?-?-?-?-?- Negative 145 -?-?-?-?-?-?-?-?-?-?-?-?- KW- no vb/crampi ng. good fm. discussed glucose test. KW- no vb/cramping. good fm. discussed glucose test. rash under breasts-rx sent 10/05/24 -?-?-?-?-?-?-?-?-?-?-?-?- 25w 5d 235 lb 2 oz (+5 lb 2 oz) 126/82 Negative -?-?-?-?-?-?-?-?-?-?-?-?- Negative 159 27 -?-?-?-?-?-?-?-?-?-?-?-?- MH-NO VB, L[facility]. [facility] -?-?-?-?-?-?-?-?-?-?-?-?- 28w 5d 237 lb 1 oz (+7 lb 1 oz) 130/85 Negative -?-?-?-?-?-?-?-?-?-?-?-?- Negative 140 30 -?-?-?-?-?-?-?-?-?-?-?-?- SM- no vb lof go od fm no reuglar ctx some rash itchy on left side reviewed conservative mangameent if pupps 11/09/24 -?-?-?-?-?-?-?-?-?-?-?-?- 30w 5d 238 lb 7 oz (+8 lb 7 oz) 121/77 Negative -?-?-?-?-?-?-?-?-?-?-?-?- Negative 145 31 -?-?-?-?-?-?-?-?-?-?-?-?- SM- itchiness im proved with supportive care 11/23/24 -?-?-?-?-?-?-?-?-?-?-?-?- 32w 5d 240 lb 8 oz (+10 lb 8 oz) 123/81 Negative -?-?-?-?-?-?-?-?-?-?-?-?- Negative 155 34 -?-?-?-?-?-?-?-?-?-?-?-?- MH-No VB, LOF. G ood FM. tdap. 12/08/24 -?-?-?-?-?-?-?-?-?-?-?-?- 34w 6d 245 lb 5 oz (+15 lb 5 oz) 127/82 -?-?-?-?-?-?-?-?-?-?-?-?- 141 37 -?-?-?-?-?-?-?-?-?-?-?-?- JV- no lof, vagi nal bleeding, or dec fm. measuring LGA today, ordering growth scan. ACOG First Trimester First Trimester: Discussed Second Trimester Second Trimester: Signs and Symptoms of Labor, Selecting a care provider, Reproductive Life Planning & Contreception, Care Planning, Depression/Anxiety and Intimate Partner Violence; Discussed Tobacco Cessation Third Trimester Third Trimester: Pain Management Plans, Labor support person(s), Immediate Larc, Circumcision preference, Movement Monitoring, Signs and Symptoms of Preeclampsia, Feeding No , Education, Family Medical Leave or Disability Forms and Depression ROS Const Denies fever(s) GI Reports as per HPI and Denies abdominal pain Reports as per HPI, Denies abnormal vaginal bleeding, Denies dysuria and Denies vaginal discharge Exam Const General: healthy appearing, comfortable and no acute distress GI Inspection: normal to inspection Palpation: soft and nontender Coding Level of Care Code Off vis,est,level 3 Diagnoses Multiple skin tags L91.8 Yeast dermatitis B37.2 Obesity affecting in second trimester, unspecified obesity type O99.212 Obesity type affecting : unspecified obesity Trimester: second trimester Current vaping on some days Z72.89 Supervision of high risk in second trimester O09.92 Trimester: second trimester 34 weeks gestation of Z3A.34 Weeks of gestation: 34 weeks Hyperlipidemia E78.5 BMI 39.0-39.9,adult Z68.39 Elevated liver enzymes R74.8 Elevated cholesterol with high triglycerides E78.2 ASCUS of cervix with negative high risk HPV R87.610 H/O cardiac radiofrequency ablation Z98.890 Ectopic atrial tachycardia I47.1 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 Anxiety and depression F41.9; F32.9 Assessment and Plan Assessment and Plan (1) Multiple skin tags: Status: Acute (2) Yeast dermatitis: Status: Acute (3) Obesity affecting : Status: Acute Qualifiers: Obesity type affecting : unspecified obesity Trimester: second trimester Qualified Code(s): O99.212 - Obesity complicating , second trimester (4) Current vaping on some days: Status: Acute Comment: quit 2 weeks ago (5) Supervision of high-risk : Status: Acute Qualifiers: Trimester: second trimester Qualified Code(s): O09.92 - Supervision of high risk , unspecified, second trimester Comment: PRR , MYLES 01/13 boy Rajeev PC: Gulshan, : Ham (6) : Status: Acute Qualifiers: Weeks of gestation: 34 weeks Qualified Code(s): Z3A.34 - 34 weeks gestation of (7) Hyperlipidemia: Status: Chronic (8) BMI 39.0-39.9,adult: Status: Acute Comment: reviewed weight management, considering weight watchers. discussed possible use of contrave in future if desired. (9) Elevated liver enzymes: Status: Acute (10) Elevated cholesterol with high triglycerides: Status: Acute Comment: pcp follow up, recommend weight loss and heart healthy diet (11) ASCUS of cervix with negative high risk HPV: Status: Acute Comment: Rpt pap in 3 yrs/2025 (12) H/O cardiac radiofrequency ablation: Status: Chronic Comment: Atrial tachycardia ablation per Dr. Shaji Garza, [facility]: unsuccessful, second procedure 11/13/[address] Shaji Garza, [facility]: sucessful. (13) Ectopic atrial tachycardia: Status: Acute (14) History of drug abuse in remission: Status: Chronic (15) Anxiety and depression: Status: Chronic Orders: Orders POC Urinalysis 2 Dip (Clinic) Today OB Limited With Biometrics 12/16/24 O36.60X0 - Maternal care for excessive growth, unspecified trimester, not applicable or unspecified 12/08/24 1507 <Electronically signed by Christel Seals DO> Date _ Christel Sheets DO [facility] Signature: Date (if applicable) CC: ~ [facility] Work Phone: [phone]) 653-988209-22-2025 [facility] [address] [place] [address], [address] [place] [address] OFFICE VISIT Date of Service: 11/23/24 MR#: [id number] Acct: [id number] Name: PIETER GUILLERMO Rep #: [id number] : 1990 Provider: KORINA Butts Age/Sex: 34/F [facility] [facility] Status: Signed Intake Vital Signs 10/26/24 13:10 11/16/24 10:38 11/23/24 12:57 Height 5 ft 4 in 5 ft 4 in 5 ft 4 in Weight: 240 lb 8 oz BMI 41.3 BP 123/81 H Intake Visit Reasons: 32 WK 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 Is patient in pain?: No Allergies Environmental Allergies: Uncoded Allergy (Verified 11/23/24 12:59) PT UNABLE TO RESPOND-NEEDS F/U mold Allergy (Verified 11/23/24 12:59) Hives codeine Adverse Reaction (Verified 11/23/24 12:59) Other Medications ?Medication ?Instructions ?Recorded ?Confirmed ?Type nystatin 100,000 unit/gram topical 1 applic topical QD AY PRN 11/16/24 11/23/24 History powder sertraline 50 mg tablet 50 mg PO QDAY #90 tabs 11/1611/23/24 Rx Last Menstrual Period: 04/08/24 Zika: Zika virus screening: Negative : No Have you fallen in the past year?: No PFSH PFSH Medical History Multiple skin tags Hirsutism Abnormal uterine bleeding Depression Anxiety Other obesity Hyperlipidemia Ectopic atrial tachycardia History of drug abuse in remission Chronic headaches Seasonal allergies Tachycardia Surgical History Hx of cholecystectomy History of tonsillectomy and adenoidectomy Hx of tympanostomy tubes H/O cardiac radiofrequency ablation (11/13/13) Family History Grandfather Myocardial infarction Mother Anxiety Depression Grandmother COPD (chronic obstructive pulmonary disease) Myocardial infarction Social History adopted: No household members: spouse, children and other details: Patient's cousin housing: house number of children: 1 current occupational status: employed current occupation: [employer] pets and animals: Yes pets and animals: dog(s) history of recent travel: No sexually active: Yes Smoking Status: Former smoker quit date: 05/14/24 Smokeless tobacco user: other Electronic Cigarette Use: with nicotine second hand exposure: Yes alcohol intake: former details: not while substance use type: former substance user Date of last use: 07/22/2015 caffeine: Yes Type: coffee what type of physical activity do you participate in: walking frequency: 3-4 times per week nabil/episcopal: Congregation seatbelt use: always do you feel safe at home: Yes 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 Date Name GA/Weeks Outcome Route Bth Weight Infant Gen Labor Lgth Anesthesia Del Locatn Provider FOB 06/05/16 Gulshan 40 live - full term Male [facility] Dr. Suárez HPI 32 WK OB Details: PIETER GUILLERMO is a 34 year old who presents for routine OB visit. OB Visit MYLES Calculator Estimated Delivery Date Method Current WG Current Estimate 01/13/25 LMP (Certain) 32w 5d Other Estimates 01/08/25 Ultrasound #1 33w 3d 01/07/25 Ultrasound #2 33w 4d Expected Delivery Route/Plan Labor Preferences- CB/BF classes: no labor support person: Ham labor intervention preferences: [] pain management options preferred: [] cut cord/dad catch: yes : yes PP control planned: discussed discussed possible routes of delivery and associated risks: [] special requests: [] Specific Issue/Plans Covid status: [] Flu vaccine: [] Tdap vaccine: [] Rhogam: na LARC form signed: yes movement and labor precautions reviewed. Problem list reviewed and updated with the most current plan of care details and appropriate ordersplaced. Relevant counseling for the gestational age provided. Continue routine care and follow up unless otherwise noted in visit notes/problem list details Initial Weight: 230 lb Date -?-?-?-?-?-?-?-?-?-?-?-?- EGA Weight BP Urine Prot -?-?-?-?-?-?-?-?-?-?-?-?- Glucose FHR FuHt Pres Dilation -?-?-?-?-?-?-?-?-?-?-?-?- Effaced St Visit Note 06/12/24 -?-?-?-?-?-?-?-?-?-?-?-?- 9w 2d 230 lb 4 oz (+4 oz) 135/82 -?-?-?-?-?-?-?-?-?-?-?-?- 180 -?-?-?-?-?-?-?-?-?-?-?-?- LC- CRL con with lmp (36mm).declines nipt. 07/13/24 -?-?--?-?-?-?-?-?-?-?-?-?- 13w 5d 231 lb 4 oz (+1 lb 4 oz) 120/63 Negative -?-?-?-?-?-?-?-?-?-?-?-?- Negative 158 -?-?-?-?-?-?-?-?-?-?-?-?- JV- no complaint s today. but does report that on had some bright red blood when she used the restroom. nothing since and did not require a pad. CRL measures 14 weeks 4 days today. 08/10/24 -?-?-?-?-?-?-?-?-?-?-?-?- 17w 5d 230 lb 4 oz (+4 oz) 124/80 Negative -?-?-?-?-?-?-?-?-?-?-?-?- Negative 148 -?-?-?-?-?-?-?-?-?-?-?-?- MH-No VB. Thomas dillard. Some off & on back pain. Varies at sight. Reviewed back exercises. Consider chiro. 09/07/24 -?-?-?-?-?-?-?-?--?-?-?-?- 21w 5d 233 lb 8 oz (+3 lb 8 oz) 122/81 Negative -?-?-?-?-?-?-?-?-?-?-?-?- Negative 145 -?-?-?-?-?-?-?-?-?-?-?-?- KW- no vb/crampi ng. good fm. discussed glucose test. KW- no vb/cramping. good fm. discussed glucose test. rash under breasts-rx sent 10/05/24 -?-?-?-?-?-?-?-?-?-?-?-?- 25w 5d 235 lb 2 oz (+5 lb 2 oz) 126/82 Negative -?-?-?-?-?-?-?-?-?-?-?-?- Negative 159 27 -?-?-?-?-?-?-?-?-?-?-?-?- MH-NO VB, LOF. G ood FM. [facility] [place] 10/26/24 -?-?-?-?-?-?-?-?-?-?-?-?- 28w 5d 237 lb 1 oz (+7 lb 1 oz) 130/85 Negative -?-?-?-?-?-?-?-?-?-?-?-?- Negative 140 30 -?-?-?-?-?-?-?-?-?-?-?-?- SM- no vb lof go od fm no reuglar ctx some rash itchy on left side reviewed conservative mangameent if pupps 11/09/24 -?-?-?-?-?-?-?-?-?-?-?-?- 30w 5d 238 lb 7 oz (+8 lb 7 oz) 121/77 Negative -?-?-?-?-?-?-?-?-?-?-?-?- Negative 145 31 -?-?-?-?-?-?-?-?-?-?-?-?- SM- itchiness im proved with supportive care 11/23/24 -?-?-?-?-?-?-?-?-?-?-?-?- 32w 5d 240 lb 8 oz (+10 lb 8 oz) 123/81 Negative -?-?-?-?-?-?-?-?-?-?-?-?- Negative 155 34 -?-?-?-?-?-?-?-?-?-?-?-?- MH-No VB, LOF. G ood FM. tdap. ACOG First Trimester First Trimester: Discussed Second Trimester Second Trimester: Signs and Symptoms of Labor, Selecting a care provider, Reproductive Life Planning & Contreception, Care Planning, Depression/Anxiety and Intimate Partner Violence; Discussed Tobacco Cessation Third Trimester Third Trimester: Pain Management Plans, Labor support person(s), Immediate Larc, Circumcision preference, Movement Monitoring, Signs and Symptoms of Preeclampsia, Feeding No , [place] [employer] Education, Family Medical Leave or Disability Forms and Depression ROS Const Reports system reviewed and no additional complaints, except as documented GI Denies abdominal pain, Denies nausea and Denies vomiting Exam Const General: cooperative Nutritional Appearance: well nourished GI Palpation: soft, nontender and other (gravid) Results POC Urinalysis 2 Dip (Clinic) Office Urine Glucose Negative Last Edit by Macey Reyes on 11/23/24 13:37 Office Urine Protein Negative Last Edit by Macey Reyes on 11/23/24 13:37 Immunizations Adacel(Tdap Adolesn/Adult)(PF) 2 Lf-(2.5-5-3-5)-5 Lf/0.5 mL IM syringe Performing Provider: Rebecca Butts PROFESSOR OF ENGINEERING, PROFESSOR OF ENGINEERING-C Performing Location: [facility] Administered by: Macey Reyes on 11/23/24 13:09 Dose Route Admin Location Dispensed Lot Number Expiration Date Pack age NDC NDC Roofer Vinyl Coating 0.5 mL IM Left Arm (SQ) 0.5 mL [id number] 10/02/26 [id number] SANOFI- PASTEUR VIS Given Date VIS Provided VIS Publication Date 11/23/24 Single Vaccine 24 Eligibility Eligibility Date Funding Source Not Applicable Coding Level of Care Code Off vis,est,level 3 Diagnoses Supervision of high risk in second trimester O09.92 Trimester: second trimester Obesity affecting in second trimester, unspecified obesity type O99.212 Obesity type affecting : unspecified obesity Trimester: second trimester Current vaping on some days Z72.89 32 weeks gestation of Z3A.32 Weeks of gestation: 32 weeks H/O cardiac radiofrequency ablation Z98.890 Ectopic atrial tachycardia I47.1 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 Anxiety and depression F41.9; F32.9 Assessment and Plan Assessment and Plan (1) Supervision of high-risk : Status: Acute Qualifiers: Trimester: second trimester Qualified Code(s): O09.92 - Supervision of high risk , unspecified, second trimester Comment: PRR , MYLES 01/13 boy Rajeev PC: Gulshan, : Ham (2) Obesity affecting : Status: Acute Qualifiers: Obesity type affecting : unspecified obesity Trimester: second trimester Qualified Code(s): O99.212 - Obesity complicating , second trimester (3) Current vaping on some days: Status: Acute Comment: quit 2 weeks ago (4) : Status: Acute Qualifiers: Weeks of gestation: 32 weeks Qualified Code(s): Z3A.32 - 32 weeks gestation of (5) H/O cardiac radiofrequency ablation: Status: Chronic Comment: Atrial tachycardia ablation per Dr. Shaji Garza, [facility]: unsuccessful, second procedure 11/13/[address] Shaji Garza, [facility]: sucessful. 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 Relevant counseling for the gestational age appropriate provided and ACOG education checklist updated. Continue routine care and follow up. Clinical Quality Measures Falls Risk Screening/Assistive Devices Have you fallen in the past year?: No 11/23/24 1337 s PROFESSOR OF ENGINEERING PROFESSOR OF ENGINEERING-C> Date _ Rebecca Beckie PROFESSOR OF ENGINEERING PROFESSOR OF ENGINEERING-C Cosigner Signature: Date (if applicable) CC: ~ [facility]09-08-2025 [facility] [address], [address] [place] [address] OFFICE VISIT Date of Service: 11/09/24 MR#: [id number] Acct: [id number] Name: PIETER GUILLERMO Rep #: [id number] : 1990 Provider: Dr. 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: No Is patient in pain?: No Feel stressed/tense/nervous/anxious/difficulty sleeping: not at all Allergies Environmental Allergies: Uncoded Allergy (Verified 11/09/24 10:15) PT UNABLE TO RESPOND-NEEDS F/U mold Allergy (Verified 11/09/24 10:15) Hives codeine Adverse Reaction (Verified 11/09/24 10:15) Other Medications ?Medication ?Instructions ?Recorded ?Confirmed ?Type nystatin 100,000 unit/gram topical 1 applic topical QD AY #15 grams 09/07/24 11/09/24 Rx powder sertraline 25 mg tablet 25 mg PO QDAY #30 tabs 09/2811/09/24 Rx Last Menstrual Period: 04/08/24 Zika: Zika virus screening: Negative : No PFSH PFSH Medical History Hirsutism Abnormal uterine bleeding Depression Anxiety Other obesity Hyperlipidemia Ectopic atrial tachycardia History of drug abuse in remission Chronic headaches Seasonal allergies Tachycardia Surgical History Hx of cholecystectomy History of tonsillectomy and adenoidectomy Hx of tympanostomy tubes H/O cardiac radiofrequency ablation (11/13/13) Family History Grandfather Myocardial infarction Mother Anxiety Depression Grandmother COPD (chronic obstructive pulmonary disease) Social History adopted: No household members: spouse, children and other details: Patient's cousin housing: house number of children: 1 current occupational status: employed current occupation: [employer] pets and animals: Yes pets and animals: dog(s) history of recent travel: No sexually active: Yes Smoking Status: Former smoker quit date: 05/14/24 Smokeless tobacco user: other Electronic Cigarette Use: with nicotine second hand exposure: Yes alcohol intake: former details: not while substance use type: former substance user Date of last use: 07/22/2015 caffeine: Yes Type: coffee what type of physical activity do you participate in: walking frequency: 3-4 times per week nabil/episcopal: [employer] seatbelt use: always do you feel safe at home: Yes 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 Date Name GA/Weeks Outcome Route Bth Weight Infant Gen Labor Lgth Anesthesia Del Locatn Provider FOB 06/05/16 Gulshan 40 live - full term Male [facility] Dr. Suárez HPI 30 wk ob Details: PIETER GUILLERMO is a 34 year old who presents for routine OB visit. OB Visit MYLES Calculator Estimated Delivery Date Method Current WG Current Estimate 01/13/25 LMP (Certain) 30w 5d Other Estimates 01/08/25 Ultrasound #1 31w 3d 01/07/25 Ultrasound #2 31w 4d Expected Delivery Route/Plan Labor Preferences- CB/BF classes: no labor support person: Ham labor intervention preferences: [] pain management options preferred: [] cut cord/dad catch: yes : yes PP control planned: discussed discussed possible routes of delivery and associated risks: [] special requests: [] Specific Issue/Plans Covid status: [] Flu vaccine: [] Tdap vaccine: [] Rhogam: na LARC form signed: yes movement and labor precautions reviewed. Problem list reviewed and updated with the most current plan of care details and appropriate ordersplaced. Relevant counseling for the gestational age provided. Continue routine care and follow up unless otherwise noted in visit notes/problem list details Initial Weight: 230 lb Date -?-?-?-?-?-?-?-?-?-?-?-?- EGA Weight BP Urine Prot -?-?-?-?-?-?-?-?-?-?-?-?- Glucose FHR FuHt Pres Dilation -?-?-?-?-?-?-?-?-?-?-?-?- Effaced St Visit Note 06/12/24 -?-?-?-?-?-?-?-?-?-?-?-?- 9w 2d 230 lb 4 oz (+4 oz) 135/82 -?-?-?-?-?-?-?-?-?-?-?-?- 180 -?-?-?-?-?-?-?-?-?-?-?-?- LC- CRL con with lmp (36mm).declines nipt. 07/13/24 -?-?-?-?-?-?-?-?-?-?-?-?- 13w 5d 231 lb 4 oz (+1 lb 4 oz) 120/63 Negative -?-?-?-?-?-?-?-?-?-?-?-?- Negative 158 -?-?-?-?-?-?-?-?-?-?-?--?- JV- no complaint s today. but does report that on had some bright red blood when she used the restroom. nothing since and did not require a pad. CRL measures 14 weeks 4 days today. 08/10/24 -?-?-?-?-?-?-?-?-?-?-?-?- 17w 5d 230 lb 4 oz (+4 oz) 124/80 Negative -?-?-?-?-?-?-?-?-?-?-?-?- Negative 148 -?-?-?-?-?-?-?-?-?-?-?-?- MH-No VB. Thomas dillard. Some off & on back pain. Varies at sight. Reviewed back exercises. Consider chiro. 09/07/24 -?-?-?-?--?-?-?-?-?-?-?-?- 21w 5d 233 lb 8 oz (+3 lb 8 oz) 122/81 Negative -?-?-?-?-?-?-?-?-?-?-?-?- Negative 145 -?-?-?-?-?-?-?-?-?-?-?-?- KW- no vb/crampi ng. good fm. discussed glucose test. KW- no vb/cramping. good fm. discussed glucose test. rash under breasts-rx sent 10/05/24 -?-?-?-?-?-?-?-?-?-?-?-?- 25w 5d 235 lb 2 oz (+5 lb 2 oz) 126/82 Negative -?-?-?-?-?-?-?-?-?-?-?-?- Negative 159 27 -?-?-?-?-?-?-?-?-?-?-?-?- -NO VB, LOF. G ood FM. Larc 10/26/24 -?-?-?-?-?-?-?-?-?-?-?-?- 28w 5d 237 lb 1 oz (+7 lb 1 oz) 130/85 Negative -?-?-?-?-?-?-?-?-?-?-?-?- Negative 140 30 -?-?-?-?-?-?-?-?-?-?-?-?- SM- no vb lof go od fm no reuglar ctx some rash itchy on left side reviewed conservative mangameent if pupps 11/09/24 -?-?-?-?-?-?-?-?-?-?-?-?- 30w 5d 238 lb 7 oz (+8 lb 7 oz) 121/77 Negative -?-?-?-?-?-?-?-?-?-?-?-?- Negative 145 31 -?-?-?-?-?-?-?-?-?-?-?-?- SM- itchiness im proved with supportive care ACOG First Trimester First Trimester: Discussed Second Trimester Second Trimester: Signs and Symptoms of Labor, Selecting a care provider, Reproductive Life Planning & Contreception, Care Planning, Depression/Anxiety and Intimate Partner Violence; Discussed Tobacco Cessation Third Trimester Third Trimester: Pain Management Plans, Labor support person(s), Immediate Larc, Circumcision preference, Movement Monitoring, Signs and Symptoms of Preeclampsia, Feeding No , Education, Family Medical Leave or Disability Forms and Depression ROS Const Denies fever(s) GI Reports as per HPI and Denies abdominal pain Reports as per HPI, Denies abnormal vaginal bleeding, Denies dysuria and Denies vaginal discharge Exam Const General: healthy appearing, comfortable and no acute distress GI Inspection: normal to inspection Palpation: soft and nontender Results POC Urinalysis 2 Dip (Clinic) Office Urine Glucose Negative Last Edit by Rebecca Mcmahon on 11/09/24 10:27 Office Urine Protein Negative Last Edit by Rebecca Mcmahon on 11/09/24 10:27 Coding Level of Care Code Off vis,est,level 3 Diagnoses Yeast dermatitis B37.2 Obesity affecting in second trimester, unspecified obesity type O99.212 Obesity type affecting : unspecified obesity Trimester: second trimester Current vaping on some days Z72.89 Supervision of high risk in second trimester O09.92 Trimester: second trimester 30 weeks gestation of Z3A.30 Weeks of gestation: 30 weeks Hyperlipidemia E78.5 BMI 39.0-39.9,adult Z68.39 Elevated liver enzymes R74.8 Elevated cholesterol with high triglycerides E78.2 ASCUS of cervix with negative high risk HPV R87.610 H/O cardiac radiofrequency ablation Z98.890 Ectopic atrial tachycardia I47.1 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 Anxiety and depression F41.9; F32.9 Assessment and Plan Assessment and Plan (1) Yeast dermatitis: Status: Acute (2) Obesity affecting : Status: Acute Qualifiers: Obesity type affecting : unspecified obesity Trimester: second trimester Qualified Code(s): O99.212 - Obesity complicating , second trimester (3) Current vaping on some days: Status: Acute Comment: quit 2 weeks ago (4) Supervision of high-risk : Status: Acute Qualifiers: Trimester: second trimester Qualified Code(s): O09.92 - Supervision of high risk , unspecified, second trimester Comment: PRR , MYLES 01/13 boy Rajeev PC: Gulshan, : Ham (5) : Status: Acute Qualifiers: Weeks of gestation: 30 weeks Qualified Code(s): Z3A.30 - 30 weeks gestation of Comment: NIPT w gender & carrier - undecided, anatomy incomplete rpt in 2 wks, rpt growth (6) Hyperlipidemia: Status: Chronic (7) BMI 39.0-39.9,adult: Status: Acute Comment: reviewed weight management, considering weight watchers. discussed possible use of contrave in future if desired. (8) Elevated liver enzymes: Status: Acute (9) Elevated cholesterol with high triglycerides: Status: Acute Comment: pcp follow up, recommend weight loss and heart healthy diet (10) ASCUS of cervix with negative high risk HPV: Status: Acute Comment: Rpt pap in 3 yrs/2025 (11) H/O cardiac radiofrequency ablation: Status: Chronic Comment: Atrial tachycardia ablation per Dr. Shaji Garza, [facility]: unsuccessful, second procedure 11/13/[address] Shaji Garza, [facility]: sucessful. 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 Is patient in pain?: No Feel stressed/tense/nervous/anxious/difficulty sleeping: not at all Allergies Environmental Allergies: Uncoded Allergy (Verified 10/26/24 13:01) PT UNABLE TO RESPOND-NEEDS F/U mold Allergy (Verified 10/26/24 13:01) Hives codeine Adverse Reaction (Verified 10/26/24 13:01) Other Medications ?Medication ?Instructions ?Recorded ?Confirmed ?Type nystatin 100,000 unit/gram topical 1 applic topical QD AY #15 grams 09/07/24 10/26/24 Rx powder sertraline 25 mg tablet 25 mg PO QDAY #30 tabs 09/2810/26/24 Rx Last Menstrual Period: 04/08/24 Zika: Zika virus screening: Negative : No Have you fallen in the past year?: No PFSH PFSH Medical History Hirsutism Abnormal uterine bleeding Depression Anxiety Other obesity Hyperlipidemia Ectopic atrial tachycardia History of drug abuse in remission Chronic headaches Seasonal allergies Tachycardia Surgical History Hx of cholecystectomy History of tonsillectomy and adenoidectomy Hx of tympanostomy tubes H/O cardiac radiofrequency ablation (11/13/13) Family History Grandfather Myocardial infarction Mother Anxiety Depression Grandmother COPD (chronic obstructive pulmonary disease) Social History adopted: No household members: spouse, children and other details: Patient's cousin housing: house number of children: 1 current occupational status: employed current occupation: [employer] pets and animals: Yes pets and animals: dog(s) history of recent travel: No sexually active: Yes Smoking Status: Former smoker quit date: 05/14/24 Smokeless tobacco user: other Electronic Cigarette Use: with nicotine second hand exposure: Yes alcohol intake: former details: not while substance use type: former substance user Date of last use: 07/22/2015 caffeine: Yes Type: coffee what type of physical activity do you participate in: walking frequency: 3-4 times per week nabil/episcopal: [employer] seatbelt use: always do you feel safe at home: Yes 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 Date Name GA/Weeks Outcome Route Bth Weight Infant Gen Labor Lgth Anesthesia Del Locatn Provider FOB 06/05/16 Gulshan 40 live - full term Male [facility] Dr. Suárez HPI 28 wk ob/glucose Details: PIETER GUILLERMO is a 34 year old who presents for routine OB visit. OB Visit MYLES Calculator Estimated Delivery Date Method Current WG Current Estimate 01/13/25 LMP (Certain) 28w 5d Other Estimates 01/08/25 Ultrasound #1 29w 3d 01/07/25 Ultrasound #2 29w 4d Expected Delivery Route/Plan Labor Preferences- CB/BF classes: no labor support person: aHm labor intervention preferences: [] pain management options preferred: [] cut cord/dad catch: yes : yes PP control planned: discussed discussed possible routes of delivery and associated risks: [] special requests: [] Specific Issue/Plans Covid status: [] Flu vaccine: [] Tdap vaccine: [] Rhogam: na LARC form signed: yes Problem list reviewed and updated with the most current plan of care details and appropriate ordersplaced. Relevant counseling for the gestational age provided. Continue routine care and follow up unless otherwise noted in visit notes/problem list details Initial Weight: 230 lb Date -?-?-?-?-?-?-?-?-?-?-?-?- EGA Weight BP Urine Prot -?-?-?-?-?-?-?-?-?-?-?-?- Glucose FHR FuHt Pres Dilation -?-?-?-?-?-?-?-?-?-?-?-?- Effaced St Visit Note 06/12/24 -?-?-?-?-?-?-?-?-?-?-?-?- 9w 2d 230 lb 4 oz (+4 oz) 135/82 -?-?-?-?-?-?-?-?-?-?-?-?- 180 -?-?-?--?-?-?-?-?-?-?-?-?- LC- CRL con with lmp (36mm).declines nipt. 07/13/24 -?-?-?-?-?-?-?-?-?-?-?-?- 13w 5d 231 lb 4 oz (+1 lb 4 oz) 120/63 Negative -?-?-?-?-?-?-?-?-?-?-?-?- Negative 158 -?-?-?-?-?-?-?-?-?-?-?-?- JV- no complaint s today. but does report that on had some bright red blood when she used the restroom. nothing since and did not require a pad. CRL measures 14 weeks 4 days today. 08/10/24 -?-?-?-?-?-?-?-?-?-?-?-?- 17w 5d 230 lb 4 oz (+4 oz) 124/80 Negative -?-?-?-?-?-?-?-?-?-?-?-?- Negative 148 -?-?-?-?-?-?-?-?-?-?-?-?- MH-No VB. Thomas dillard. Some off & on back pain. Varies at sight. Reviewed back exercises. Consider chiro. 09/07/24 -?-?-?-?-?-?-?-?-?-?-?-?- 21w 5d 233 lb 8 oz (+3 lb 8 oz) 122/81 Negative -?-?-?-?-?-?-?-?-?-?-?-?- Negative 145 -?-?-?-?-?-?-?-?-?-?-?-?- KW- no vb/crampi ng. good fm. discussed glucose test. KW- no vb/cramping. good fm. discussed glucose test. rash under breasts-rx sent 10/05/24 -?-?-?-?-?-?-?-?-?-?-?-?- 25w 5d 235 lb 2 oz (+5 lb 2 oz) 126/82 Negative -?-?-?-?-?-?-?-?-?-?-?-?- Negative 159 27 -?-?-?-?-?-?-?-?-?-?-?-?- MH-NO VB, LOF. G ood FM. Larc 10/26/24 -?-?-?-?-?-?-?-?-?-?-?-?- 28w 5d 237 lb 1 oz (+7 lb 1 oz) 130/85 Negative -?-?-?-?-?-?-?-?-?-?-?-?- Negative 140 30 -?-?-?-?-?-?-?-?-?-?-?-?- SM- no vb lof go od fm no reuglar ctx some rash itchy on left side reviewed conservative mangameent if pupps ACOG First Trimester First Trimester: Discussed Second Trimester Second Trimester: Signs and Symptoms of Labor, Selecting a care provider, Reproductive Life Planning & Contreception, Care Planning, Depression/Anxiety and Intimate Partner Violence; Discussed Tobacco Cessation Third Trimester Third Trimester: Pain Management Plans, Labor support person(s), Immediate Larc, Circumcision preference, Movement Monitoring, Signs and Symptoms of Preeclampsia, Infant Feeding No , Education, Family Medical Leave or Disability Forms and Depression ROS Const Denies fever(s) GI Reports as per HPI and Denies abdominal pain Reports as per HPI, Denies abnormal vaginal bleeding, Denies dysuria and Denies vaginal discharge Exam Const General: healthy appearing, comfortable and no acute distress GI Inspection: normal to inspection Palpation: soft and nontender Results POC Urinalysis 2 Dip (Clinic) Office Urine Glucose Negative Last Edit by Rebecca Mcmahon on 10/26/24 13:16 Office Urine Protein Negative Last Edit by Rebecca Mcmahon on 10/26/24 13:16 Coding Level of Care Code Off vis,est,level 3 Diagnoses Yeast dermatitis B37.2 Obesity affecting in second trimester, unspecified obesity type O99.212 Obesity type affecting : unspecified obesity Trimester: second trimester Current vaping on some days Z72.89 Supervision of high risk in second trimester O09.92 Trimester: second trimester 28 weeks gestation of Z3A.28 Weeks of gestation: 28 weeks Hyperlipidemia E78.5 BMI 39.0-39.9,adult Z68.39 Elevated liver enzymes R74.8 Elevated cholesterol with high triglycerides E78.2 ASCUS of cervix with negative high risk HPV R87.610 H/O cardiac radiofrequency ablation Z98.890 Ectopic atrial tachycardia I47.1 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 Anxiety and depression F41.9; F32.9 Assessment and Plan Assessment and Plan (1) Yeast dermatitis: Status: Acute (2) Obesity affecting : Status: Acute Qualifiers: Obesity type affecting : unspecified obesity Trimester: second trimester Qualified Code(s): O99.212 - Obesity complicating , second trimester (3) Current vaping on some days: Status: Acute Comment: quit 2 weeks ago (4) Supervision of high-risk : Status: Acute Qualifiers: Trimester: second trimester Qualified Code(s): O09.92 - Supervision of high risk , unspecified, second trimester Comment: PRR , MYLES 01/13 boy Rajeev PC: Gulshan, : Ham (5) : Status: Acute Qualifiers: Weeks of gestation: 28 weeks Qualified Code(s): Z3A.28 - 28 weeks gestation of Comment: NIPT w gender & carrier - undecided, anatomy incomplete rpt in 2 wks, rpt growth (6) Hyperlipidemia: Status: Chronic (7) BMI 39.0-39.9,adult: Status: Acute Comment: reviewed weight management, considering weight watchers. discussed possible use of contrave in future if desired. (8) Elevated liver enzymes: Status: Acute (9) Elevated cholesterol with high triglycerides: Status: Acute Comment: pcp follow up, recommend weight loss and heart healthy diet (10) ASCUS of cervix with negative high risk HPV: Status: Acute Comment: Rpt pap in 3 yrs/2025 (11) H/O cardiac radiofrequency ablation: Status: Chronic Comment: Atrial tachycardia ablation per Dr. Shaji Garza, [facility]: unsuccessful, second procedure 11/13/[address] Shaji Garza, [facility]: sucessful. 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 Signature: Date (if applicable) CC: ~ [id number] [facility] [address] [place] [address], [address] [place] [address] OFFICE VISIT Date of Service: 09/07/24 MR#: [id number] Acct: [id number] Name: PIETER GUILLERMO Rep #: [id number] : 1990 Provider: JERONIMO Suggs Age/Sex: 34/F [place] [facility] Status: Signed Intake Vital Signs 06/12/24 09:37 08/10/24 13:26 09/07/24 09:20 Height 5 ft 4 in 5 ft 4 in 5 ft 4 in Weight: 233 lb 8 oz BMI 40.1 BP 122/81 H Intake Visit Reasons: 21 WK OB Chief Complaint: 21wk 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 Is patient in pain?: No Allergies Environmental Allergies: Uncoded Allergy (Verified 09/07/24 09:20) PT UNABLE TO RESPOND-NEEDS F/U mold Allergy (Verified 09/07/24 09:20) Hives codeine Adverse Reaction (Verified 09/07/24 09:20) Other Medications ?Medication ?Instructions ?Recorded ?Confirmed ?Type nystatin 100,000 unit/gram topical 1 applic topical QD AY #15 grams 09/07/24 09/07/24 Rx powder Last Menstrual Period: 04/08/24 : No Have you fallen in the past year?: No PFSH PFSH Medical History Depression Anxiety Other obesity Hyperlipidemia Ectopic atrial tachycardia History of drug abuse in remission Chronic headaches Seasonal allergies Tachycardia Surgical History Hx of cholecystectomy History of tonsillectomy and adenoidectomy Hx of tympanostomy tubes H/O cardiac radiofrequency ablation (11/13/13) Family History Grandfather Myocardial infarction Mother Anxiety Depression Grandmother COPD (chronic obstructive pulmonary disease) Social History adopted: No household members: spouse, children and other details: Patient's cousin housing: house number of children: 1 current occupational status: employed current occupation: [employer] pets and animals: Yes pets and animals: dog(s) history of recent travel: No sexually active: Yes Smoking Status: Former smoker quit date: 05/14/24 Smokeless tobacco user: other Electronic Cigarette Use: with nicotine second hand exposure: Yes alcohol intake: former details: not while substance use type: former substance user Date of last use: 07/22/2015 caffeine: Yes Type: coffee what type of physical activity do you participate in: walking frequency: 3-4 times per week nabil/episcopal: Congregation seatbelt use: always do you feel safe at home: Yes 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 Date Name GA/Weeks Outcome Route Bth Weight Infant Gen Labor Lgth Anesthesia Del Locatn Provider FOB 06/05/16 Gulshan 40 live - full term Male [facility] Dr. Suárez HPI 21 WK OB Details: PIETER GUILLERMO is a 34 year old who presents for routine OB visit. OB Visit MYLES Calculator Estimated Delivery Date Method Current WG Current Estimate 01/13/25 LMP (Certain) 21w 5d Other Estimates 01/08/25 Ultrasound #1 22w 3d 01/07/25 Ultrasound #2 22w 4d Expected Delivery Route/Plan Labor Preferences- CB/BF classes: [] labor support person: [] labor intervention preferences: [] pain management options preferred: [] cut cord/dad catch: [] : [] PP control planned: [] discussed possible routes of delivery and associated risks: [] special requests: [] Specific Issue/Plans Covid status: [] Flu vaccine: [] Tdap vaccine: [] Rhogam: [] LARC form signed: [] Problem list reviewed and updated with the most current plan of care details and appropriate ordersplaced. Relevant counseling for the gestational age provided. Continue routine care and follow up unless otherwise noted in visit notes/problem list details Initial Weight: 230 lb Date -?-?-?-?--?-?-?-?-?-?-?-?- EGA Weight BP Urine Prot -?-?-?-?-?-?-?-?-?-?-?-?- Glucose FHR FuHt Pres Dilation -?-?-?-?-?-?-?-?-?-?-?-?- Effaced St Visit Note 06/12/24 -?-?-?-?-?-?-?-?-?-?-?-?- 9w 2d 230 lb 4 oz (+4 oz) 135/82 -?-?-?-?-?-?-?-?-?-?-?-?- 180 -?-?-?-?-?-?-?-?-?-?-?-?- LC- CRL con with lmp (36mm).declines nipt. 07/13/24 -?-?-?-?-?-?-?-?-?-?-?-?- 13w 5d 231 lb 4 oz (+1 lb 4 oz) 120/63 Negative -?-?-?-?-?-?-?-?-?-?-?-?- Negative 158 -?-?-?-?-?-?-?-?-?-?-?-?- JV- no complaint s today. but does report that on had some bright red blood when she used the restroom. nothing since and did not require a pad. CRL measures 14 weeks 4 days today. 08/10/24 -?-?-?-?-?-?-?-?-?-?-?-?- 17w 5d 230 lb 4 oz (+4 oz) 124/80 Negative -?-?-?-?-?-?-?-?-?-?-?-?- Negative 148 -?-?-?-?-?--?-?-?-?-?-?-?- MH-No VB. Feelin g flutters. Some off & on back pain. Varies at sight. Reviewed back exercises. Consider chiro. 09/07/24 -?-?-?-?-?-?-?-?-?-?-?-?- 21w 5d 233 lb 8 oz (+3 lb 8 oz) 122/81 Negative -?-?-?-?-?-?-?-?-?-?-?-?- Negative 145 -?-?-?-?-?-?-?-?-?-?-?-?- KW- no vb/crampi ng. good fm. discussed glucose test. KW- no vb/cramping. good fm. discussed glucose test. rash under breasts-rx sent ACOG First Trimester First Trimester: Discussed Second Trimester Second Trimester: Signs and Symptoms of Labor, Selecting a care provider, Reproductive Life Planning & Contreception, Care Planning, Depression/Anxiety and Intimate Partner Violence; Discussed Tobacco Cessation Third Trimester Third Trimester: Pain Management Plans, Labor support person(s), Immediate Larc, Movement Monitoring, Signs and Symptoms of Preeclampsia and Education ROS Const Reports system reviewed and no additional complaints, except as documented Eyes Reports system reviewed and no additional complaints, except as documented ENT Reports system reviewed and no additional complaints, except as documented Card Reports system reviewed and no additional complaints, except as documented Resp Reports system reviewed and no additional complaints, except as documented GI Reports system reviewed and no additional complaints, except as documented, Denies nausea and Denies vomiting Reports system reviewed and no additional complaints, except as documented Musc Reports system reviewed and no additional complaints, except as documented Skin/Breast Reports system reviewed and no additional complaints, except as documented Neuro Yes system reviewed and no additional complaints, except as documented Psych Reports system reviewed and no additional complaints, except as documented Endo Reports system reviewed and no additional complaints, except as documented Miguel Angel/Lymph Reports system reviewed and no additional complaints, except as documented Aller/Immun Reports system reviewed and no additional complaints, except as documented Exam Const General: cooperative, healthy appearing and no acute distress Orientation: alert, awake and oriented x3 Neck Neck: normal visual inspection and full ROM Resp Effort & Inspection: normal respiratory effort, able to speak in complete sentences and symmetric chest movement GI Inspection: normal to inspection Palpation: soft and other Other: gravid Skin General: no rashes or lesions noted Neuro General: patient alert, patient awake and patient oriented x3 Cognition: normal cognition Speech: speech normal Gait: normal gait Motor: muscle tone normal throughout Extrem General: normal to inspection and full ROM Psych Appearance: grossly normal Mental Status: mental status grossly normal Mood: congruent mood Affect: normal affect Speech and Movement: speech and movement normal Attitude: cooperative Thought Process: normal Thought Content: normal Judgment: judgment good Results POC Urinalysis 2 Dip (Clinic) Office Urine Glucose Negative Last Edit by Anabel Avery on 09/07/24 09:31 Office Urine Protein Negative Last Edit by Anabel Avery on 09/07/24 09:31 POC Urinalysis Dip (Clinic) Office Urine Color YELLOW Last Edit by Anabel Avery on 09/07/24 09:31 Office Urine Clarity Clear Last Edit by Anabel Avery on 09/07/24 09:31 Office Urine Glucose Negative Last Edit by Anabel Avery on 09/07/24 09:31 Office Urine Ketones Negative Last Edit by Anabel Avery on 09/07/24 09:31 Off Ur Spec [place]ett 1.010 Last Edit by Anabel Avery on 09/07/24 09:31 Office Urine pH 6 Last Edit by Anabel Avery on 09/07/24 09:31 Office Urine Bilirubin Negative Last Edit by Anabel Avery on 09/07/24 09:31 Office Urine Urobilinogen Negative Last Edit by Anabel Avery on 09/07/24 09: 31 Office Urine Blood Negative Last Edit by Anabel Avery on 09/07/24 09:31 Office Urine Blood Hemolyzed NA Last Edit by Anabel Avery on 09/07/24 09:31 Office Urine Protein Negative Last Edit by Anabel Avery on 09/07/24 09:31 Office Urine Nitrate Negative Last Edit by Anabel Avery on 09/07/24 09:31 Off Ur Leukocytes Negatve Last Edit by Anabel Avery on 09/07/24 09:31 Coding Level of Care Code Off vis,est,level 3 Diagnoses Obesity affecting in second trimester, unspecified obesity type O99.212 Obesity type affecting : unspecified obesity Trimester: second trimester Current vaping on some days Z72.89 21 weeks gestation of Z3A.21 Weeks of gestation: 21 weeks Supervision of high risk in second trimester O09.92 Trimester: second trimester Hyperlipidemia E78.5 BMI 39.0-39.9,adult Z68.39 Elevated liver enzymes R74.8 Elevated cholesterol with high triglycerides E78.2 ASCUS of cervix with negative high risk HPV R87.610 Hirsutism L68.0 Abnormal uterine bleeding N93.9 H/O cardiac radiofrequency ablation Z98.890 Ectopic atrial tachycardia I47.1 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 Anxiety and depression F41.9; F32.9 Assessment and Plan Assessment and Plan (1) Obesity affecting : Status: Acute Qualifiers: Obesity type affecting : unspecified obesity Trimester: second trimester Qualified Code(s): O99.212 - Obesity complicating , second trimester (2) Current vaping on some days: Status: Acute Comment: quit 2 weeks ago (3) : Status: Acute Qualifiers: Weeks of gestation: 21 weeks Qualified Code(s): Z3A.21 - 21 weeks gestation of Comment: NIPT w gender & carrier - undecided, anatomy incomplete rpt in 2 wks, rpt growth (4) Supervision of high-risk : Status: Acute Qualifiers: Trimester: second trimester Qualified Code(s): O09.92 - Supervision of high risk , unspecified, second trimester Comment: PRR , MYLES 01/13 PC: Gulshan, : Ham (5) Hyperlipidemia: Status: Chronic (6) BMI 39.0-39.9,adult: Status: Acute Comment: reviewed weight management, considering weight watchers. discussed possible use of contrave in future if desired. (7) Elevated liver enzymes: Status: Acute (8) Elevated cholesterol with high triglycerides: Status: Acute Comment: pcp follow up, recommend weight loss and heart healthy diet (9) ASCUS of cervix with negative high risk HPV: Status: Acute Comment: Rpt pap in 3 yrs/2025 (10) Hirsutism: Status: Acute Comment: plan OCP, labs WNL (11) Abnormal uterine bleeding: Status: Acute Comment: ordered labs- all WNL (12) H/O cardiac radiofrequency ablation: Status: Chronic Comment: Atrial tachycardia ablation per Dr. Shaji Garza, [facility]: unsuccessful, second procedure 11/13/[address] Shaji Garza, [facility]: sucessful. 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 see problem list details for updated plan management information and see below for orders placed atthis visit. GA appropriate handout given. Clinical Quality Measures Falls Risk Screening/Assistive Devices Have you fallen in the past year?: No 09/07/24 0950 td DECKER> Date _ Erlinda Suggs CNM Cosigner Signature: Date (if applicable) CC: ~ [facility]06-09-2025 Evaluation note* Diagnosis Onset Date Resolution Status Admit Date Current vaping on some days acute August 10, 2024 9:44am Obesity affecting acute August 10, 2024 9:44am acute August 10, 2024 9:44am Supervision of high-risk acute August 10, 2024 9:44am Anxiety and depression chronic Ju ne 2024 9:44am 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 August 10, 2024 9:44am Anxiety and depression chronic Ju ne 2024 1:18pm Hyperlipidemia chronic August 10, 2024 1:18pm ASCUS of cervix with negative high risk HPV acute September 07, 2024 9:14am BMI 39.0-39.9,adult acute September 07, 2024 9:14am Current vaping on some days acute September 07, 2024 9:14am Ectopic atrial tachycardia acute September 07, 2024 9:14am Elevated cholesterol with high triglycerides acute September 07 9:14am Elevated liver enzymes acute 2024 9:14am Obesity affecting acute September 07, 2024 9:14am acute September 07, 2024 9:14am Supervision of high-risk acute September 07, 2024 9:14am Anxiety and depression chronic ly 2024 9:14am H/O cardiac radiofrequency ablation November 13, 2013 chronic Joey y 2024 9:14am 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 September 07, 2024 9:14am Hyperlipidemia chronic September 07, 2024 9:14am Abnormal uterine bleeding inactive September 07, 2024 9:14am Hirsutism inactive September 07, 2024 9:14am Current vaping on some days acute October 05, 2024 10:09am Elevated liver enzymes acute Au rosmery 2024 10:09am Obesity affecting acute October 05, 2024 10:09am acute October 05 10:09am Supervision of high-risk acute October 05, 2024 10:09am Anxiety and depression chronic Au rosmery 2024 10:09am H/O cardiac radiofrequency ablation November 13, 2013 chronic Aug ust 2024 10:09am 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 October 05, 2024 10:09am ASCUS of cervix with negative high risk HPV acute October 262024 12:53pm BMI 39.0-39.9,adult acute Aug2024 12:53pm Current vaping on some days acute October 26 12:53pm Ectopic atrial tachycardia acute October 26 12:53pm Elevated cholesterol with high triglycerides acute October 26, 2024 12:53pm Elevated liver enzymes acute 2024 12:53pm Obesity affecting acute October 26 12:53pm acute October 26 12:53pm Supervision of high-risk acute October 26 12:53pm Yeast dermatitis acute October 032024 12:53pm Anxiety and depression chronic 2024 12:53pm H/O cardiac radiofrequency ablation November 13, 2013 chronic Oct us2024 12:53pm 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 October 26 12:53pm Hyperlipidemia chronic October 12:53pm ASCUS of cervix with negative high risk HPV acute November 09, 2024 9:56am BMI 39.0-39.9,adult acute Septe mber 2024 9:56am Current vaping on some days acute November 09 9:56am Ectopic atrial tachycardia acute November 09 9:56am Elevated cholesterol with high triglycerides acute November 9:56am Elevated liver enzymes acute Se pt2024 9:56am Obesity affecting acute November 09 9:56am acute November 09, 2024 9:56am Supervision of high-risk acute November 09 9:56am Yeast dermatitis acute Septembe r 2024 9:56am Anxiety and depression chronic Se pt2024 9:56am H/O cardiac radiofrequency ablation November 13, 2013 chronic Sep tember 2024 9:56am 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 November 09 9:56am Hyperlipidemia chronic November 09, 2024 9:56am [facility] Work Phone: 1(264) 945-621106-09-2025 Evaluation note* Diagnosis Onset Date Resolution Status Admit Date Current vaping on some days acute August 10, 2024 9:44am Obesity affecting acute August 10, 2024 9:44am acute August 10, 2024 9:44am Supervision of high-risk acute August 10, 2024 9:44am Anxiety and depression chronic Ju ne 2024 9:44am 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 August 10, 2024 9:44am Anxiety and depression chronic Ju ne 2024 1:18pm Hyperlipidemia chronic August 10, 2024 1:18pm ASCUS of cervix with negative high risk HPV acute September 07, 2024 9:14am BMI 39.0-39.9,adult acute September 07, 2024 9:14am Current vaping on some days acute September 07, 2024 9:14am Ectopic atrial tachycardia acute September 07, 2024 9:14am Elevated cholesterol with high triglycerides acute September 07 9:14am Elevated liver enzymes acute Ju 2024 9:14am Obesity affecting acute September 07, 2024 9:14am acute September 07, 2024 9:14am Supervision of high-risk acute September 07, 2024 9:14am Anxiety and depression chronic ly 2024 9:14am H/O cardiac radiofrequency ablation November 13, 2013 chronic Joey y 2024 9:14am 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 September 07, 2024 9:14am Hyperlipidemia chronic September 07, 2024 9:14am Abnormal uterine bleeding inactive September 07, 2024 9:14am Hirsutism inactive September 07, 2024 9:14am Current vaping on some days acute October 05, 2024 10:09am Elevated liver enzymes acute Au rosmery 2024 10:09am Obesity affecting acute October 05, 2024 10:09am acute October 05 10:09am Supervision of high-risk acute October 05, 2024 10:09am Anxiety and depression chronic Au rosmery 2024 10:09am H/O cardiac radiofrequency ablation November 13, 2013 chronic Aug ust 2024 10:09am 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 October 05, 2024 10:09am ASCUS of cervix with negative high risk HPV acute October 262024 12:53pm BMI 39.0-39.9,adult acute Augus t 2024 12:53pm Current vaping on some days acute October 26 12:53pm Ectopic atrial tachycardia acute October 26 12:53pm Elevated cholesterol with high triglycerides acute October 26, 2024 12:53pm Elevated liver enzymes acute 2024 12:53pm Obesity affecting acute October 26 12:53pm acute October 26 12:53pm Supervision of high-risk acute October 26 12:53pm Yeast dermatitis acute October 032024 12:53pm Anxiety and depression chronic 2024 12:53pm H/O cardiac radiofrequency ablation November 13, 2013 chronic Oct 12:53pm 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 October 26 12:53pm Hyperlipidemia chronic October 12:53pm ASCUS of cervix with negative high risk HPV acute November 09, 2024 9:56am BMI 39.0-39.9,adult acute 2024 9:56am Current vaping on some days acute November 09 9:56am Ectopic atrial tachycardia acute November 09 9:56am Elevated cholesterol with high triglycerides acute November 9:56am Elevated liver enzymes acute Se pt2024 9:56am Obesity affecting acute November 09 9:56am acute November 09, 2024 9:56am Supervision of high-risk acute November 09 9:56am Yeast dermatitis acute 2024 9:56am Anxiety and depression chronic Se pt2024 9:56am H/O cardiac radiofrequency ablation November 13, 2013 chronic Sep tem2024 9:56am 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 November 09 9:56am Hyperlipidemia chronic November 09, 2024 9:56am Multiple skin tags acute Novem 2024 10:28am acute November 10:28am Anxiety and depression chronic Se pt2024 10:28am Current vaping on some days acute November 23, 2024 12:48pm Ectopic atrial tachycardia acute November 23, 2024 12:48pm Obesity affecting acute November 23, 2024 12:48pm acute November 12:48pm Supervision of high-risk acute November 23, 2024 12:48pm Anxiety and depression chronic Se ptember 2024 12:48pm H/O cardiac radiofrequency ablation November 13, 2013 chronic Sep tember 2024 12:48pm 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 November 23, 2024 12:48pm [facility] Work Phone: 1(943) 371-203106-09-2025 Evaluation note* Diagnosis Onset Date Resolution Status Admit Date Current vaping on some days acute August 10, 2024 9:44am Obesity affecting acute August 10, 2024 9:44am acute August 10, 2024 9:44am Supervision of high-risk acute August 10, 2024 9:44am Anxiety and depression chronic Ju ne 2024 9:44am 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 August 10, 2024 9:44am Anxiety and depression chronic Ju ne 2024 1:18pm Hyperlipidemia chronic August 10, 2024 1:18pm ASCUS of cervix with negative high risk HPV acute September 07, 2024 9:14am BMI 39.0-39.9,adult acute September 07, 2024 9:14am Current vaping on some days acute September 07, 2024 9:14am Ectopic atrial tachycardia acute September 07, 2024 9:14am Elevated cholesterol with high triglycerides acute September 07 9:14am Elevated liver enzymes acute 2024 9:14am Obesity affecting acute September 07, 2024 9:14am acute September 07, 2024 9:14am Supervision of high-risk acute September 07, 2024 9:14am Anxiety and depression chronic 2024 9:14am H/O cardiac radiofrequency ablation November 13, 2013 chronic Joey y 2024 9:14am 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 September 07, 2024 9:14am Hyperlipidemia chronic September 07, 2024 9:14am Abnormal uterine bleeding inactive September 07, 2024 9:14am Hirsutism inactive September 07, 2024 9:14am Current vaping on some days acute October 05, 2024 10:09am Elevated liver enzymes acute Au 2024 10:09am Obesity affecting acute October 05, 2024 10:09am acute October 05 10:09am Supervision of high-risk acute October 05, 2024 10:09am Anxiety and depression chronic Au rosmery 2024 10:09am H/O cardiac radiofrequency ablation November 13, 2013 chronic Oct us2024 10:09am 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 October 05, 2024 10:09am ASCUS of cervix with negative high risk HPV acute October 262024 12:53pm BMI 39.0-39.9,adult acute Augus t 2024 12:53pm Current vaping on some days acute October 26 12:53pm Ectopic atrial tachycardia acute October 26 12:53pm Elevated cholesterol with high triglycerides acute October 26, 2024 12:53pm Elevated liver enzymes acute Au rosmery 2024 12:53pm Obesity affecting acute October 26 12:53pm acute October 26 12:53pm Supervision of high-risk acute October 26 12:53pm Yeast dermatitis acute October 032024 12:53pm Anxiety and depression chronic Au rosmery 2024 12:53pm H/O cardiac radiofrequency ablation November 13, 2013 chronic Oct us2024 12:53pm 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 October 26 12:53pm Hyperlipidemia chronic October 12:53pm ASCUS of cervix with negative high risk HPV acute November 09, 2024 9:56am BMI 39.0-39.9,adult acute Septe mber 2024 9:56am Current vaping on some days acute November 09 9:56am Ectopic atrial tachycardia acute November 09 9:56am Elevated cholesterol with high triglycerides acute November 9:56am Elevated liver enzymes acute Se ptember 2024 9:56am Obesity affecting acute November 09 9:56am acute November 09, 2024 9:56am Supervision of high-risk acute November 09 9:56am Yeast dermatitis acute Novembe r 2024 9:56am Anxiety and depression chronic Se pt2024 9:56am H/O cardiac radiofrequency ablation November 13, 2013 chronic Sep tember 2024 9:56am 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 November 09 9:56am Hyperlipidemia chronic November 09, 2024 9:56am Multiple skin tags acute Septem yessi 2024 10:28am acute November 10:28am Anxiety and depression chronic Se ptember 2024 10:28am Current vaping on some days acute November 23, 2024 12:48pm Ectopic atrial tachycardia acute November 23, 2024 12:48pm Obesity affecting acute November 23, 2024 12:48pm acute November 12:48pm Supervision of high-risk acute November 23, 2024 12:48pm Anxiety and depression chronic Se ptember 2024 12:48pm H/O cardiac radiofrequency ablation November 13, 2013 chronic Sep tember 2024 12:48pm 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 November 23, 2024 12:48pm ASCUS of cervix with negative high risk HPV acute December 082024 2:27pm BMI 39.0-39.9,adult acute Octob er 2024 2:27pm Current vaping on some days acute December 08 2:27pm Ectopic atrial tachycardia acute December 08 2:27pm Elevated cholesterol with high triglycerides acute December 08, 2024 2:27pm Elevated liver enzymes acute Oc tober 2024 2:27pm Multiple skin tags acute Octobe r 2024 2:27pm Obesity affecting acute December 08 2:27pm acute December 08, 2:27pm Supervision of high-risk acute December 08 2:27pm Yeast dermatitis acute December 08, 2024 2:27pm Anxiety and depression chronic Oc tob2024 2:27pm H/O cardiac radiofrequency ablation November 13, 2013 chronic Oct kristin 2024 2:27pm 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 December 08 2:27pm Hyperlipidemia chronic December 2:27pm [employer] Work Phone: 1(527) 680-662705-12-2025 Evaluation note* Diagnosis Onset Date Resolution Status Admit Date ASCUS of cervix with negative high risk HPV acute July 13, 2024 8:57am BMI 39.0-39.9,adult acute July 022024 8:57am Current vaping on some days acute July 13, 2024 8:57am Ectopic atrial tachycardia acute July 13, 2024 8:57am Elevated cholesterol with high triglycerides acute July 13 8:57am Elevated liver enzymes acute Ma y 2024 8:57am Obesity affecting acute July 13, 2024 8:57am acute July 13, 2024 8:57am Supervision of high-risk acute July 13, 2024 8:57am Anxiety and depression chronic Ma y 2024 8:57am H/O cardiac radiofrequency ablation November 13, 2013 chronic July 13, 2 025 8:57am 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 July 13, 2024 8:57am Hyperlipidemia chronic July 13, 2024 8:57am Abnormal uterine bleeding inactive July 13, 2024 8:57am Hirsutism inactive July 13, 2024 8:57am Current vaping on some days acute August 10, 2024 9:44am Obesity affecting acute August 10, 2024 9:44am acute August 10, 2024 9:44am Supervision of high-risk acute August 10, 2024 9:44am Anxiety and depression chronic [facility] 2024 9:44am 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 August 10, 2024 9:44am Anxiety and depression chronic [facility] 2024 1:18pm Hyperlipidemia chronic August 10, 2024 1:18pm ASCUS of cervix with negative high risk HPV acute September 07, 2024 9:14am BMI 39.0-39.9,adult acute September 07, 2024 9:14am Current vaping on some days acute September 07, 2024 9:14am Ectopic atrial tachycardia acute September 07, 2024 9:14am Elevated cholesterol with high triglycerides acute September 07 9:14am Elevated liver enzymes acute ly 2024 9:14am Obesity affecting acute September 07, 2024 9:14am acute September 07, 2024 9:14am Supervision of high-risk acute September 07, 2024 9:14am Anxiety and depression chronic ly 2024 9:14am H/O cardiac radiofrequency ablation November 13, 2013 chronic September 07, 2 025 9:14am 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 September 07, 2024 9:14am Hyperlipidemia chronic September 07, 2024 9:14am Abnormal uterine bleeding inactive September 07, 2024 9:14am Hirsutism inactive September 07, 2024 9:14am Current vaping on some days acute October 05, 2024 10:09am Elevated liver enzymes acute [facility] 2024 10:09am Obesity affecting acute October 05, 2024 10:09am acute October 05 10:09am Supervision of high-risk acute October 05, 2024 10:09am Anxiety and depression chronic [facility] 2024 10:09am H/O cardiac radiofrequency ablation November 13, 2013October 05, 2024 10:09am 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 October 05, 2024 10:09am ASCUS of cervix with negative high risk HPV acute October 262024 12:53pm BMI 39.0-39.9,adult acute 2024 12:53pm Current vaping on some days acute October 26 12:53pm Ectopic atrial tachycardia acute October 26, 2024 12:53pm Elevated cholesterol with high triglycerides acute October 26, 2024 12:53pm Elevated liver enzymes acute [facility] 2024 12:53pm Obesity affecting acute October 26 12:53pm acute October 26 12:53pm Supervision of high-risk acute October 26 12:53pm Yeast dermatitis acute October 032024 12:53pm Anxiety and depression chronic [facility] 2024 12:53pm H/O cardiac radiofrequency ablation November 13, 2013 chronic October 12:53pm 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 October 26 12:53pm Hyperlipidemia chronic October 12:53pm [employer] Work Phone: 1(869) 584-648405-12-2025 Evaluation note* Diagnosis Onset Date Resolution Status Admit Date ASCUS of cervix with negative high risk HPV acute July 13, 2024 8:57am BMI 39.0-39.9,adult acute July 022024 8:57am Current vaping on some days acute July 13, 2024 8:57am Ectopic atrial tachycardia acute July 13, 2024 8:57am Elevated cholesterol with high triglycerides acute July 13 8:57am Elevated liver enzymes acute 2024 8:57am Obesity affecting acute July 13, 2024 8:57am acute July 13, 2024 8:57am Supervision of high-risk acute July 13, 2024 8:57am Anxiety and depression chronic 2024 8:57am H/O cardiac radiofrequency ablation November 13, 2013 chronic July 13, 2024 8:57am 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 July 13, 2024 8:57am Hyperlipidemia chronic July 13, 2024 8:57am Abnormal uterine bleeding inactive July 13, 2024 8:57am Hirsutism inactive July 13, 2024 8:57am Current vaping on some days acute August 10, 2024 9:44am Obesity affecting acute August 10, 2024 9:44am acute August 10, 2024 9:44am Supervision of high-risk acute August 10, 2024 9:44am Anxiety and depression chronic ne 2024 9:44am 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 August 10, 2024 9:44am Anxiety and depression chronic [facility] 2024 1:18pm Hyperlipidemia chronic August 10, 2024 1:18pm ASCUS of cervix with negative high risk HPV acute September 07, 2024 9:14am BMI 39.0-39.9,adult acute September 07, 2024 9:14am Current vaping on some days acute September 07, 2024 9:14am Ectopic atrial tachycardia acute September 07, 2024 9:14am Elevated cholesterol with high triglycerides acute September 07 9:14am Elevated liver enzymes acute 2024 9:14am Obesity affecting acute September 07, 2024 9:14am acute September 07, 2024 9:14am Supervision of high-risk acute September 07, 2024 9:14am Anxiety and depression chronic 2024 9:14am H/O cardiac radiofrequency ablation November 13, 2013 chronic Sep 9:14am 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 September 07, 2024 9:14am Hyperlipidemia chronic September 07, 2024 9:14am Abnormal uterine bleeding inactive September 07, 2024 9:14am Hirsutism inactive September 07, 2024 9:14am Current vaping on some days acute October 05, 2024 10:09am Elevated liver enzymes acute Au 2024 10:09am Obesity affecting acute October 05, 2024 10:09am acute October 05 10:09am Supervision of high-risk acute October 05, 2024 10:09am Anxiety and depression chronic [facility] 2024 10:09am H/O cardiac radiofrequency ablation November 13, 2013 chronic Oct 10:09am 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 October 05, 2024 10:09am ASCUS of cervix with negative high risk HPV acute October 262024 12:53pm BMI 39.0-39.9,adult acute Aug2024 12:53pm Current vaping on some days acute October 26 12:53pm Ectopic atrial tachycardia acute October 26 12:53pm Elevated cholesterol with high triglycerides acute October 26, 2024 12:53pm Elevated liver enzymes acute Au rosmery 2024 12:53pm Obesity affecting acute October 26 12:53pm acute October 26 12:53pm Supervision of high-risk acute October 26 12:53pm Yeast dermatitis acute October 032024 12:53pm Anxiety and depression chronic [facility] 2024 12:53pm H/O cardiac radiofrequency ablation November 13, 2013 chronic Oct 12:53pm 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 October 26 12:53pm Hyperlipidemia chronic October 12:53pm ASCUS of cervix with negative high risk HPV acute November 09, 2024 9:56am BMI 39.0-39.9,adult acute Septe mber 2024 9:56am Current vaping on some days acute November 09 9:56am Ectopic atrial tachycardia acute November 09 9:56am Elevated cholesterol with high triglycerides acute November 9:56am Elevated liver enzymes acute Se ptember 2024 9:56am Obesity affecting acute November 09 025 9:56am acute November 09, 2024 9:56am Supervision of high-risk acute November 09 9:56am Yeast dermatitis acute Septembe r 2024 9:56am Anxiety and depression chronic Se pt2024 9:56am H/O cardiac radiofrequency ablation November 13, 2013 chronic Sep tember 2024 9:56am 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 November 09 9:56am Hyperlipidemia chronic November 09, 2024 9:56am [facility] Work Phone: 1(274) 468-429304-11-2025 Evaluation note* Diagnosis Onset Date Resolution Status Admit Date Abnormal uterine bleeding acute June 12, 2024 9:28am ASCUS of cervix with negative high risk HPV acute June 9:28am BMI 39.0-39.9,adult acute June 12, 2024 9:28am Current vaping on some days acute June 12, 2024 9:28am Ectopic atrial tachycardia acute June 12, 2024 9:28am Elevated cholesterol with high triglycerides acute June 12, 2 025 9:28am Elevated liver enzymes acute Ap ril 2024 9:28am Hirsutism acute June 12 9:28am Obesity affecting acute June 12, 2024 9:28am acute June 12 9:28am Supervision of high-risk acute June 12, 2024 9:28am Anxiety and depression chronic Ap ril 2024 9:28am H/O cardiac radiofrequency ablation November 13, 2013 chronic June 12, 2024 9:28am 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 June 12, 2024 9:28am Hyperlipidemia chronic June 9:28am Work Phone: 1(154) 604-727604-11-2025 Evaluation note* Diagnosis Onset Date Resolution Status Admit Date Abnormal uterine bleeding acute June 12, 2024 9:28am ASCUS of cervix with negative high risk HPV acute June 9:28am BMI 39.0-39.9,adult acute June 12, 2024 9:28am Current vaping on some days acute June 12, 2024 9:28am Ectopic atrial tachycardia acute June 12, 2024 9:28am Elevated cholesterol with high triglycerides acute June 12, 2 025 9:28am Elevated liver enzymes acute Ap ril 2024 9:28am Hirsutism acute June 12 9:28am Obesity affecting acute June 12, 2024 9:28am acute June 12 9:28am Supervision of high-risk acute June 12, 2024 9:28am Anxiety and depression chronic Ap ril 2024 9:28am H/O cardiac radiofrequency ablation November 13, 2013 chronic June 12, 2024 9:28am 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 June 12, 2024 9:28am Hyperlipidemia chronic June 9:28am Abnormal uterine bleeding acute July 13, 2024 8:57am ASCUS of cervix with negative high risk HPV acute July 13, 2024 8:57am BMI 39.0-39.9,adult acute July 022024 8:57am Current vaping on some days acute July 13, 2024 8:57am Ectopic atrial tachycardia acute July 13, 2024 8:57am Elevated cholesterol with high triglycerides acute July 13 8:57am Elevated liver enzymes acute 2024 8:57am Hirsutism acute July 13, 2024 8:57am Obesity affecting acute July 13, 2024 8:57am acute July 13, 2024 8:57am Supervision of high-risk acute July 13, 2024 8:57am Anxiety and depression chronic 2024 8:57am H/O cardiac radiofrequency ablation November 13, 2013 chronic July 13, 025 8:57am 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 July 13, 2024 8:57am Hyperlipidemia chronic July 13, 2024 8:57am Abnormal uterine bleeding acute August 10, 2024 9:44am ASCUS of cervix with negative high risk HPV acute August 10, 2024 9:44am BMI 39.0-39.9,adult acute August 10, 2024 9:44am Current vaping on some days acute August 10, 2024 9:44am Ectopic atrial tachycardia acute August 10, 2024 9:44am Elevated cholesterol with high triglycerides acute August 10 9:44am Elevated liver enzymes acute 2024 9:44am Hirsutism acute August 10, 2024 9:44am Obesity affecting acute August 10, 2024 9:44am acute August 10, 2024 9:44am Supervision of high-risk acute August 10, 2024 9:44am Anxiety and depression chronic 2024 9:44am H/O cardiac radiofrequency ablation November 13, 2013 chronic August 10, 025 9:44am 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 August 10, 2024 9:44am Hyperlipidemia chronic August 10, 2024 9:44am [facility] Work Phone: 1(776) 764-286404-11-2025 Evaluation note* Diagnosis Onset Date Resolution Status Admit Date Abnormal uterine bleeding acute June 12, 2024 9:28am ASCUS of cervix with negative high risk HPV acute June 9:28am BMI 39.0-39.9,adult acute June 12, 2024 9:28am Current vaping on some days acute June 12, 2024 9:28am Ectopic atrial tachycardia acute June 12, 2024 9:28am Elevated cholesterol with high triglycerides acute June 12, 025 9:28am Elevated liver enzymes acute 2024 9:28am Hirsutism acute June 12 9:28am Obesity affecting acute June 12, 2024 9:28am acute June 12 9:28am Supervision of high-risk acute June 12, 2024 9:28am Anxiety and depression chronic Ap 2024 9:28am H/O cardiac radiofrequency ablation November 13, 2013 chronic June 12, 2024 9:28am 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 June 12, 2024 9:28am Hyperlipidemia chronic June 9:28am Abnormal uterine bleeding acute July 13, 2024 8:57am ASCUS of cervix with negative high risk HPV acute July 13, 2024 8:57am BMI 39.0-39.9,adult acute July 022024 8:57am Current vaping on some days acute July 13, 2024 8:57am Ectopic atrial tachycardia acute July 13, 2024 8:57am Elevated cholesterol with high triglycerides acute July 13 8:57am Elevated liver enzymes acute Ma 2024 8:57am Hirsutism acute July 13, 2024 8:57am Obesity affecting acute July 13, 2024 8:57am acute July 13, 2024 8:57am Supervision of high-risk acute July 13, 2024 8:57am Anxiety and depression chronic Ma 2024 8:57am H/O cardiac radiofrequency ablation November 13, 2013 chronic July 13 025 8:57am 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 July 13, 2024 8:57am Hyperlipidemia chronic July 13, 2024 8:57am Current vaping on some days acute August 10, 2024 9:44am Obesity affecting acute August 10, 2024 9:44am acute August 10, 2024 9:44am Supervision of high-risk acute August 10, 2024 9:44am Anxiety and depression chronic Ju 2024 9:44am 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 August 10, 2024 9:44am [facility] Work Phone: 1(179) 406-865404-11-2025 Evaluation note* Diagnosis Onset Date Resolution Status Admit Date Abnormal uterine bleeding acute June 12, 2024 9:28am ASCUS of cervix with negative high risk HPV acute June 9:28am BMI 39.0-39.9,adult acute June 12, 2024 9:28am Current vaping on some days acute June 12, 2024 9:28am Ectopic atrial tachycardia acute June 12, 2024 9:28am Elevated cholesterol with high triglycerides acute June 12, 2 025 9:28am Elevated liver enzymes acute Ap 2024 9:28am Hirsutism acute June 12 9:28am Obesity affecting acute June 12, 2024 9:28am acute June 12 9:28am Supervision of high-risk acute June 12, 2024 9:28am Anxiety and depression chronic 2024 9:28am H/O cardiac radiofrequency ablation November 13, 2013 chronic June 12, 2024 9:28am 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 June 12, 2024 9:28am Hyperlipidemia chronic June 9:28am Abnormal uterine bleeding acute July 13, 2024 8:57am ASCUS of cervix with negative high risk HPV acute July 13, 2024 8:57am BMI 39.0-39.9,adult acute July 022024 8:57am Current vaping on some days acute July 13, 2024 8:57am Ectopic atrial tachycardia acute July 13, 2024 8:57am Elevated cholesterol with high triglycerides acute July 13 8:57am Elevated liver enzymes acute Ma 2024 8:57am Hirsutism acute July 13, 2024 8:57am Obesity affecting acute July 13, 2024 8:57am acute July 13, 2024 8:57am Supervision of high-risk acute July 13, 2024 8:57am Anxiety and depression chronic Ma y 2024 8:57am H/O cardiac radiofrequency ablation November 13, 2013 chronic July 13, 025 8:57am 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 July 13, 2024 8:57am Hyperlipidemia chronic July 13, 2024 8:57am Current vaping on some days acute August 10, 2024 9:44am Obesity affecting acute August 10, 2024 9:44am acute August 10, 2024 9:44am Supervision of high-risk acute August 10, 2024 9:44am Anxiety and depression chronic Ju ne 2024 9:44am 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 August 10, 2024 9:44am Anxiety and depression chronic Ju ne 2024 1:18pm Hyperlipidemia chronic August 10, 2024 1:18pm Abnormal uterine bleeding acute September 07, 2024 9:14am ASCUS of cervix with negative high risk HPV acute September 07, 2024 9:14am BMI 39.0-39.9,adult acute September 07, 2024 9:14am Current vaping on some days acute September 07, 2024 9:14am Ectopic atrial tachycardia acute September 07, 2024 9:14am Elevated cholesterol with high triglycerides acute September 07 9:14am Elevated liver enzymes acute 2024 9:14am Hirsutism acute September 07, 2024 9:14am Obesity affecting acute September 07, 2024 9:14am acute September 07, 2024 9:14am Supervision of high-risk acute September 07, 2024 9:14am Anxiety and depression chronic 2024 9:14am H/O cardiac radiofrequency ablation November 13, 2013 chronic September 07, 2 025 9:14am 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 September 07, 2024 9:14am Hyperlipidemia chronic September 07, 2024 9:14am [facility] Work Phone: 1(790) 854-542504-11-2025 Evaluation note* Diagnosis Onset Date Resolution Status Admit Date ASCUS of cervix with negative high risk HPV acute June 9:28am BMI 39.0-39.9,adult acute June 12, 2024 9:28am Current vaping on some days acute June 12, 2024 9:28am Ectopic atrial tachycardia acute June 12, 2024 9:28am Elevated cholesterol with high triglycerides acute June 12, 2 025 9:28am Elevated liver enzymes acute Ap 2024 9:28am Obesity affecting acute June 12, 2024 9:28am acute June 12 9:28am Supervision of high-risk acute June 12, 2024 9:28am Anxiety and depression chronic Ap 2024 9:28am H/O cardiac radiofrequency ablation November 13, 2013 chronic June 12, 2024 9:28am 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 June 12, 2024 9:28am Hyperlipidemia chronic June 9:28am Abnormal uterine bleeding inactive June 12, 2024 9:28am Hirsutism inactive June 12 9:28am ASCUS of cervix with negative high risk HPV acute July 13, 2024 8:57am BMI 39.0-39.9,adult acute July 022024 8:57am Current vaping on some days acute July 13, 2024 8:57am Ectopic atrial tachycardia acute July 13, 2024 8:57am Elevated cholesterol with high triglycerides acute July 13 8:57am Elevated liver enzymes acute 2024 8:57am Obesity affecting acute July 13, 2024 8:57am acute July 13, 2024 8:57am Supervision of high-risk acute July 13, 2024 8:57am Anxiety and depression chronic 2024 8:57am H/O cardiac radiofrequency ablation November 13, 2013 chronic July 13, 025 8:57am 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 July 13, 2024 8:57am Hyperlipidemia chronic July 13, 2024 8:57am Abnormal uterine bleeding inactive July 13, 2024 8:57am Hirsutism inactive July 13, 2024 8:57am Current vaping on some days acute August 10, 2024 9:44am Obesity affecting acute August 10, 2024 9:44am acute August 10, 2024 9:44am Supervision of high-risk acute August 10, 2024 9:44am Anxiety and depression chronic Ju ne 2024 9:44am 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 August 10, 2024 9:44am Anxiety and depression chronic Ju ne 2024 1:18pm Hyperlipidemia chronic August 10, 2024 1:18pm ASCUS of cervix with negative high risk HPV acute September 07, 2024 9:14am BMI 39.0-39.9,adult acute September 07, 2024 9:14am Current vaping on some days acute September 07, 2024 9:14am Ectopic atrial tachycardia acute September 07, 2024 9:14am Elevated cholesterol with high triglycerides acute September 07 9:14am Elevated liver enzymes acute Ju ly 2024 9:14am Obesity affecting acute September 07, 2024 9:14am acute September 07, 2024 9:14am Supervision of high-risk acute September 07, 2024 9:14am Anxiety and depression chronic ly 2024 9:14am H/O cardiac radiofrequency ablation November 13, 2013 chronic September 07, 025 9:14am 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 September 07, 2024 9:14am Hyperlipidemia chronic September 07, 2024 9:14am Abnormal uterine bleeding inactive September 07, 2024 9:14am Hirsutism inactive September 07, 2024 9:14am ASCUS of cervix with negative high risk HPV acute October 10:09am BMI 39.0-39.9,adult acute Augus t 2024 10:09am Current vaping on some days acute October 05, 2024 10:09am Ectopic atrial tachycardia acute October 05, 2024 10:09am Elevated cholesterol with high triglycerides acute October 05, 025 10:09am Elevated liver enzymes acute Au 2024 10:09am Obesity affecting acute October 05, 2024 10:09am acute October 05 10:09am Supervision of high-risk acute October 05, 2024 10:09am Anxiety and depression chronic Au 2024 10:09am H/O cardiac radiofrequency ablation November 13, 2013 chronic October 05, 2024 10:09am 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 This is also called acute otitis media (AOM). Sometimes it is caused by the common cold. This is because congestion can block the internal passage (eustachian tube) that drains fluid from the middle ear. When the middle ear fills with fluid, bacteria can grow there and cause an infection. Oral antibiotics are used to treat this illness, not ear drops. Symptoms usually start to improve within 1 to 2 days of treatment. Home care The following are general care guidelines: Finish all of the antibiotic medicine given, even though you may feel better after the first few days. You may use nylv-pet-krthjgy medicine, such as acetaminophen or ibuprofen, to control pain and fever, unless something else was prescribed. If you have chronic liver or kidney disease or have ever had a stomach ulcer or gastrointestinal bleeding, talk with your healthcare provider before using these medicines. Do not give aspirin to anyone under 18 years of age who has a fever. It may cause severe illness or . Follow-up care Follow up with your healthcare provider, or as advised, in 2 weeks if all symptoms have not gotten better, or if hearing doesn't go back to normal within 1 month. When to seek medical advice Call your healthcare provider right away if any of these occur: Ear pain gets worse or does not improve after 3 days of treatment Unusual drowsiness or confusion Neck pain, stiff neck, or headache Fluid or blood draining from the ear canal Fever of 100.4 F (38 C) or as advised Seizure [id number] [employer]. [address] [place] [address], [place] [address]. All rights reserved. This information is not intended as a substitute for professional medical care. Always follow yourhealthcare professional's instructions. Follow Up Care 01/17/2024 09:42:15 With:LAITH HARMAN MD Address: [address] [place] [id number] [phone] When:2-4 days [facility] 11-15-2024 Note Discharge Instructions Thank you for allowing [facility] to assist you with your healthcare needs. The following is importantdischarge information regarding your hospital visit. Diagnosis from Today's Visit Right otitis media What to Do Next Instructions from Your Care Team Drink plenty of fluids. Take all the antibiotics prescribed. You should expect to note improvement after 24-28 hrs of medicine. Discharge Return to Work, School, or Sports (Return to Work, School, or Sports) - Ordered -- May return to: work, was seen on 01/17/24, 01/17/24 9:56:00 EST Post Acute Orders No qualifying data available. You Need to Schedule the Following Appointments Follow Up with LAITH HARMAN MD When:Within 2-4 days Where:[facility] [address] [place] [phone]- [phone] Allergies Mold Hives codeine Medications Please ask your primary doctor or pharmacist before taking any other medication not listed, including over the counter drugs, herbal medications, vitamins and or supplements as they may interact withyour home medications. What How Much When Instructions Last Dose New amoxicillin (amoxicillin 500 mg oral capsule) 1 cap by mouth Two (2) times a day Duration: 10 Days Printed Prescription Unchanged acetaminophen 500 Milligram by mouth Every 6 hours as needed for as needed for pain Unchanged acetaminophen-oxyCODONE (acetaminophen-oxyCODONE 325 mg-5 mg oral tablet) 1 tab(s) by mouth Every 6 hours as needed for for pain Unchanged etonogestrel (Nexplanon 68 mg subcutaneous implant) Subcutaneous Once Please take this list to your next doctor s visit. Bring all medications you take, including over the counter medications, herbals and other supplements with you to your doctor s visit. Patients and families are reminded to discard old lists and to update any records with all medication providers or retail pharmacies. Education Materials Middle Ear Infection (Adult) You have an infection of the middle ear, the space behind the eardrum. This is also called acute otitis media (AOM). Sometimes it is caused by the common cold. This is because congestion can block the internal passage (eustachian tube) that drains fluid from the middle ear. When the middle ear fills with fluid, bacteria can grow there and cause an infection. Oral antibiotics are used to treat this illness, not ear drops. Symptoms usually start to improve within 1 to 2 days of treatment. Home care The following are general care guidelines: Finish all of the antibiotic medicine given, even though you may feel better after the first few days. You may use iurx-rhl-rjoqirg medicine, such as acetaminophen or ibuprofen, to control pain and fever, unless something else was prescribed. If you have chronic liver or kidney disease or have ever had a stomach ulcer or gastrointestinal bleeding, talk with your healthcare provider before using these medicines. Do not give aspirin to anyone under 18 years of age who has a fever. It may cause severe illness or . Follow-up care Follow up with your healthcare provider, or as advised, in 2 weeks if all symptoms have not gotten better, or if hearing doesn't go back to normal within 1 month. When to seek medical advice Call your healthcare provider right away if any of these occur: Ear pain gets worse or does not improve after 3 days of treatment Unusual drowsiness or confusion Neck pain, stiff neck, or headache Fluid or blood draining from the ear canal Fever of 100.4 F (38 C) or as advised Seizure [id number] [employer]. [address] [place] [address]. All rights reserved. This information is not intended as a substitute for professional medical care. Always follow yourhealthcare professional's instructions. Additional Information VACCINATE! IT SAVES LIVES! Members of the community who have not yet received the COVID-19 vaccine and would like to receive it can visit one of [facility] vaccine clinics. There are many vaccine clinic locations within the [facility]. For locations and available times, please visit [email or web address]/. It is important to note that some COVID mobile vaccine clinics are held outdoors and may be canceled in rainy or stormy conditions. To learn more about pediatric vaccinations (ages 5-11), we invite you to visit the [facility] webpage. [email or web address]/[email or web address] learn more about the COVID-19 vaccine, we invite you to visit the CDC website for a list of frequently asked questions. https://www.cdc.gov/coronavirus/2019-ncov/vaccines/faq.html [facility] Patient Portal Access Instructions: Stay connected with your healthcare team and access your personal medical information anytime with the [employer] Patient Portal. If you would like a full copy of your medical records please contact the [facility] Medical Records Department Saturday through Saturday between 8a.m. and 4:30p.m. Please follow the directions below to access the portal: 1.Access the email account you provided upon registration to the [facility].2.Look for an invitation email from [facility].3.Open the email and access the invitation link: Accept Invitation to [employer]4.Fill in the required gamez to create your account. Sign into [email or web address] with your username and password that you created in the above steps to stay up to date. You can then view a summary of results, a summary of your visits, and the ability to download your summaries to your computer or send the information securely to a physician. Remember that your healthcare information is confidential, so carefully consider who you will allow to register on the [employer] Patient Portal for access to your information. You can also access the [employer] Patient Portal on the [employer]. Simply click on Health Records under [employer] and then click on the [employer] logo. HOW TO SAFELY DISPOSE OF PRESCRIPTION MEDICATIONS Please use one of the following methods to safely dispose of your unused medications. 1.Use a drug disposal kit: the drug disposal pouch allows you to safely discard your old and unuseddrugs. Ask your nurse to give you one when you are discharged.2.Visit a local take-back location: Many local pharmacies and police departments have programs that collect old and unwanted prescriptiondrugs. Call your local pharmacy or go to http://bit.Weblo.com/2F3Tr6t to find one close to you.3.Make use of household items: Use cat litter or old coffee grounds to dispose medications if other options arenot available. Mix your drugs with these household products, seal them in an airtight container andthrow it into the garbage. Call [facility]: [phone] to be sure your drugs can be disposed of in this way. Some medicines may require a different approach.4.Never flush your medications down the toilet. IF YOU HAVE BEEN PRESCRIBED AN OPIOIDS FOR PAIN If you have been prescribed an opioid (such as hydrocodone, oxycodone or morphine), it is critical to understand the possible side effects and risks of opioid pain medications. Even when taken as directed, opioids can have several side effects including: Tolerance, meaning you might need to take more of a medication for the same pain relief. Nausea, vomiting and/or constipation. Sleepiness, dizziness, dry mouth, confusion, depression or itching. Physical dependence, meaning you have withdrawal symptoms when a medication is stopped ? this can develop within a few days. KNOW YOUR RESPONSIBILITIES It is important to know exactly how much and how often to take the opioid pain medications you are prescribed. Never take opioids in higher amounts or more often than prescribed. Do not combine opioids with alcohol or other drugs that cause drowsiness, such as benzodiazepines, also known as benzos,including diazepam and alprazolam, muscle relaxants or sleep aids. Never sell or share prescriptionopioids. This is illegal. Store opioids in a secure place and out of reach of others (including children, family, friends and visitors). The last page(s) of this document has been signed and retained as a CHART COPY Signatures Patient Education Materials Otitis Media, Antibiotic Treatment (Adult) Medication Leaflets My discharge plan and instructions have been reviewed and explained to me and I,PIETER GUILLERMO understand my current condition and have read and understand these discharge instructions. I have received a written copy of the plan/instructions. If I have questions, I am aware that I should contact my doctor. 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 No endocervical component is identified.[facility] A#[id number] Comment on above:Satisfactory for evaluation. No endocervical component is identified.11-12-2022 NotePap Smear Specimen AdequacySeptember 2022 5:33pm Comment.Satisfactory for evaluation. No endocervical component is identified. [facility] INTER[employer]ACED A#[id number] on above: Satisfactory for evaluation. No endocervical component is identified.01-23-2021 Hospital Discharge instructions Patient Education 01/23/2021 14:38:15 Laparoscopic Cholecystectomy, [...] and water are not available, use hand professional healthcare representative. ?Change your dressing as told by your health care provider. ?Leave stitches (sutures), skin glue, or adhesive strips in place. These skin closures may need to be in place for 2 weeks or longer. If adhesive strip edges start to loosen and curl up, you may trimthe loose edges. Do not remove adhesive strips completely unless your health care provider tells you to do that. Do not take baths, swim, or use a hot tub until your health care provider approves. Ask your healthcare provider if you can take showers. You [...] health care provider approves. General instructions Take jnom-hwq-vxfaagm and prescription medicines only as told by your health care provider. To prevent or treat constipation while you are taking prescription pain medicine, your health care provider may recommend that you: ?Drink enough fluid to keep your urine clear or pale yellow. ?Take oldq-alr-qssjcur or prescription medicines. ?Eat foods that are [...] 02/18/2006 Document Revised: 01/31/2018 Document Reviewed: 08/06/2016 [employer] Patient Education 2020 [employer]. Follow Up Care 12/05/2020 14:39:33 With:TYSHAWN COFFEY Address: [address] [address]- [facility] (1) When: Unknown Comments:Follow-up with Dr. Coffey in 10-14 daysPlease call the office with any questions or concernsIbuprofen/Advil/Motrin 400 mg by mouth 4 times a day with meals; may alternate with 650 mg of Tylenol 4 times a day With:LAITH HARMAN Address: [address] [phone] Business (1) When: Unknown [facility] Evaluation + Plan note Future Appointments [facility] Evaluation note* Diagnosis Onset Date Resolution Status Abnormal uterine bleeding ac [place] Hirsutism acute Other obesity acute Encounter for routine gynecological examination noneactive Work Phone: Evaluation note* Diagnosis Onset Date Resolution Status Abnormal uterine bleeding ac [place] BMI 39.0-39.9,adult acute Elevated cholesterol with high triglycerides acute Elevated liver enzymes acute Hirsutism acute Other obesity acute Elevated liver enzymes acute Anxiety and depression chron ic Hyperlipidemia chronic Work Phone: Hospital course Narrative No data available for this section [facility] Hospital Discharge instructions No data available for this section [facility] Hospital Discharge instructionsAmbulatory Orders* Psychiatry Location: None Selected [facility] Work Phone: Hospital Discharge instructionsAmbulatory Orders* Dermatology Location: None Selected [facility] Work Phone: Progress note Author Erlinda Suggs [facility] Note Date/Time September 07, 2024 9:50a m [facility] [address], [address] [place] [address] OFFICE VISIT Date of Service: 09/07/24 MR#: [id number] Acct: [id number] Name: PIETER GUILLERMO Rep #: [id number] : 1990 Provider: JERONIMO Suggs Age/Sex: 34/F [place] [facility] Status: Signed Intake Vital Signs 06/12/24 09:37 08/10/24 13:26 09/07/24 09:20 Height 5 ft 4 in 5 ft 4 in 5 ft 4 in Weight: 233 lb 8 oz BMI 40.1 BP 122/81 H Intake Visit Reasons: 21 WK OB Chief Complaint: 21wk 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 Is patient in pain?: No Allergies Environmental Allergies: Uncoded Allergy (Verified 09/07/24 09:20) PT UNABLE TO RESPOND-NEEDS F/U mold Allergy (Verified 09/07/24 09:20) Hives codeine Adverse Reaction (Verified 09/07/24 09:20) Other Medications ?Medication ?Instructions ?Recorded ?Confirmed ?Type nystatin 100,000 unit/gram topical 1 applic topical QD AY #15 grams 09/07/24 09/07/24 Rx powder Last Menstrual Period: 04/08/24 : No Have you fallen in the past year?: No PFSH PFSH Medical History Depression Anxiety Other obesity Hyperlipidemia Ectopic atrial tachycardia History of drug abuse in remission Chronic headaches Seasonal allergies Tachycardia Surgical History Hx of cholecystectomy History of tonsillectomy and adenoidectomy Hx of tympanostomy tubes H/O cardiac radiofrequency ablation (11/13/13) Family History Grandfather Myocardial infarction Mother Anxiety Depression Grandmother COPD (chronic obstructive pulmonary disease) Social History adopted: No household members: spouse, children and other details: Patient's cousin housing: house number of children: 1 current occupational status: employed current occupation: [employer] pets and animals: Yes pets and animals: dog(s) history of recent travel: No sexually active: Yes Smoking Status: Former smoker quit date: 05/14/24 Smokeless tobacco user: other Electronic Cigarette Use: with nicotine second hand exposure: Yes alcohol intake: former details: not while substance use type: former substance user Date of last use: 07/22/2015 caffeine: Yes Type: coffee what type of physical activity do you participate in: walking frequency: 3-4 times per week nabil/episcopal: [employer] seatbelt use: always do you feel safe at home: Yes 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 Date Name GA/Weeks Outcome Route Bth Weight Infant Gen Labor Lgth Anesthesia Del Locatn Provider FOB 06/05/16 Gulshan 40 live - full term Male [facility] Dr. Suárez HPI 21 WK OB Details: PIETER GUILLERMO is a 34 year old who presents for routine OB visit. OB Visit MYLES Calculator Estimated Delivery Date Method Current WG Current Estimate 01/13/25 LMP (Certain) 21w 5d Other Estimates 01/08/25 Ultrasound #1 22w 3d 01/07/25 Ultrasound #2 22w 4d Expected Delivery Route/Plan Labor Preferences- CB/BF classes: [] labor support person: [] labor intervention preferences: [] pain management options preferred: [] cut cord/dad catch: [] : [] PP control planned: [] discussed possible routes of delivery and associated risks: [] special requests: [] Specific Issue/Plans Covid status: [] Flu vaccine: [] Tdap vaccine: [] Rhogam: [] LARC form signed: [] Problem list reviewed and updated with the most current plan of care details and appropriate orders placed. Relevant counseling for the gestational age provided. Continue routine care and follow up unless otherwise noted in visit notes/problem list details Initial Weight: 230 lb Date -?-?-?-?--?-?-?-?-?-?-?-?- EGA Weight BP Urine Prot -?-?-?-?-?-?-?-?-?-?-?-?- Glucose FHR FuHt Pres Dilation -?-?-?-?-?-?-?-?-?-?-?-?- Effaced St Visit Note 06/12/24 -?-?-?-?-?-?-?-?-?-?-?-?- 9w 2d 230 lb 4 oz (+4 oz) 135/82 -?-?-?-?-?-?-?-?-?-?-?-?- 180 -?-?-?-?-?-?-?-?-?-?-?-?- LC- CRL con with lmp (36mm).declines nipt. 07/13/24 -?-?-?-?-?-?-?-?-?-?-?-?- 13w 5d 231 lb 4 oz (+1 lb 4 oz) 120/63 Negative -?-?-?-?-?-?-?-?-?-?-?-?- Negative 158 -?-?-?-?-?-?-?-?-?-?-?-?- JV- no complaint s today. but does report that on had some bright red blood when she used the restroom. nothing since and did not require a pad. CRL measures 14 weeks 4 days today. 08/10/24 -?-?-?-?-?-?-?-?-?-?-?-?- 17w 5d 230 lb 4 oz (+4 oz) 124/80 Negative -?-?-?-?-?-?-?-?-?-?-?-?- Negative 148 -?-?-?-?-?--?-?-?-?-?-?-?- MH-No VB. Feelin g flutters. Some off & on back pain. Varies at sight. Reviewed back exercises. Consider chiro. 09/07/24 -?-?-?-?-?-?-?-?-?-?-?-?- 21w 5d 233 lb 8 oz (+3 lb 8 oz) 122/81 Negative -?-?-?-?-?-?-?-?-?-?-?-?- Negative 145 -?-?-?-?-?-?-?-?-?-?-?-?- KW- no vb/crampi ng. good fm. discussed glucose test. KW- no vb/cramping. good fm. discussed glucose test. rash under breasts-rx sent ACOG First Trimester First Trimester: Discussed Second Trimester Second Trimester: Signs and Symptoms of Labor, Selecting a care provider, Reproductive Life Planning & Contreception, Care Planning, Depression/Anxiety and Intimate Partner Violence; Discussed Tobacco Cessation Third Trimester Third Trimester: Pain Management Plans, Labor support person(s), Immediate Larc, Movement Monitoring, Signs and Symptoms of Preeclampsia and [place] [employer] Education ROS Const Reports system reviewed and no additional complaints, except as documented Eyes Reports system reviewed and no additional complaints, except as documented ENT Reports system reviewed and no additional complaints, except as documented Card Reports system reviewed and no additional complaints, except as documented Resp Reports system reviewed and no additional complaints, except as documented GI Reports system reviewed and no additional complaints, except as documented, Denies nausea and Denies vomiting Reports system reviewed and no additional complaints, except as documented Musc Reports system reviewed and no additional complaints, except as documented Skin/Breast Reports system reviewed and no additional complaints, except as documented Neuro Yes system reviewed and no additional complaints, except as documented Psych Reports system reviewed and no additional complaints, except as documented Endo Reports system reviewed and no additional complaints, except as documented Miguel Angel/Lymph Reports system reviewed and no additional complaints, except as documented Aller/Immun Reports system reviewed and no additional complaints, except as documented Exam Const General: cooperative, healthy appearing and no acute distress Orientation: alert, awake and oriented x3 Neck Neck: normal visual inspection and full ROM Resp Effort & Inspection: normal respiratory effort, able to speak in complete sentences and symmetric chest movement GI Inspection: normal to inspection Palpation: soft and other Other: gravid Skin General: no rashes or lesions noted Neuro General: patient alert, patient awake and patient oriented x3 Cognition: normal cognition Speech: speech normal Gait: normal gait Motor: muscle tone normal throughout Extrem General: normal to inspection and full ROM Psych Appearance: grossly normal Mental Status: mental status grossly normal Mood: congruent mood Affect: normal affect Speech and Movement: speech and movement normal Attitude: cooperative Thought Process: normal Thought Content: normal Judgment: judgment good Results POC Urinalysis 2 Dip (Clinic) Office Urine Glucose Negative Last Edit by Anabel Avery on 09/07/24 09:31 Office Urine Protein Negative Last Edit by Anabel Avery on 09/07/24 09:31 POC Urinalysis Dip (Clinic) Office Urine Color YELLOW Last Edit by Anabel Avery on 09/07/24 09:31 Office Urine Clarity Clear Last Edit by Anabel Avery on 09/07/24 09:31 Office Urine Glucose Negative Last Edit by Anabel Avery on 09/07/24 09:31 Office Urine Ketones Negative Last Edit by Anabel Avery on 09/07/24 09:31 Off Ur Spec [place] 1.010 Last Edit by Anabel Avery on 09/07/24 09:31 Office Urine pH 6 Last Edit by Anabel Avery on 09/07/24 09:31 Office Urine Bilirubin Negative Last Edit by Anabel Avery on 09/07/24 09:31 Office Urine Urobilinogen Negative Last Edit by Anabel Avery on 09/07/24 09: 31 Office Urine Blood Negative Last Edit by Anabel Avery on 09/07/24 09:31 Office Urine Blood Hemolyzed NA Last Edit by Anabel Avery on 09/07/24 09:31 Office Urine Protein Negative Last Edit by Anabel Avery on 09/07/24 09:31 Office Urine Nitrate Negative Last Edit by Anabel Avery on 09/07/24 09:31 Off Ur Leukocytes Negatve Last Edit by Anabel Avery on 09/07/24 09:31 Coding Level of Care Code Off vis,est,level 3 Diagnoses Obesity affecting in second trimester, unspecified obesity type O99.212 Obesity type affecting : unspecified obesity Trimester: second trimester Current vaping on some days Z72.89 21 weeks gestation of Z3A.21 Weeks of gestation: 21 weeks Supervision of high risk in second trimester O09.92 Trimester: second trimester Hyperlipidemia E78.5 BMI 39.0-39.9,adult Z68.39 Elevated liver enzymes R74.8 Elevated cholesterol with high triglycerides E78.2 ASCUS of cervix with negative high risk HPV R87.610 Hirsutism L68.0 Abnormal uterine bleeding N93.9 H/O cardiac radiofrequency ablation Z98.890 Ectopic atrial tachycardia I47.1 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 Anxiety and depression F41.9; F32.9 Assessment and Plan Assessment and Plan (1) Obesity affecting : Status: Acute Qualifiers: Obesity type affecting : unspecified obesity Trimester: second trimester Qualified Code(s): O99.212 - Obesity complicating , second trimester (2) Current vaping on some days: Status: Acute Comment: quit 2 weeks ago (3) : Status: Acute Qualifiers: Weeks of gestation: 21 weeks Qualified Code(s): Z3A.21 - 21 weeks gestation of Comment: NIPT w gender & carrier - undecided, anatomy incomplete rpt in 2 wks, rpt growth (4) Supervision of high-risk : Status: Acute Qualifiers: Trimester: second trimester Qualified Code(s): O09.92 - Supervision of high risk , unspecified, second trimester Comment: PRR , MYLES 01/13 PC: Gulshan, : Ham (5) Hyperlipidemia: Status: Chronic (6) BMI 39.0-39.9,adult: Status: Acute Comment: reviewed weight management, considering weight watchers. discussed possible use of contrave in future if desired. (7) Elevated liver enzymes: Status: Acute (8) Elevated cholesterol with high triglycerides: Status: Acute Comment: pcp follow up, recommend weight loss and heart healthy diet (9) ASCUS of cervix with negative high risk HPV: Status: Acute Comment: Rpt pap in 3 yrs/2025 (10) Hirsutism: Status: Acute Comment: plan OCP, labs WNL (11) Abnormal uterine bleeding: Status: Acute Comment: ordered labs- all WNL (12) H/O cardiac radiofrequency ablation: Status: Chronic Comment: Atrial tachycardia ablation per Dr. Shaji Garza, [facility]: unsuccessful, second procedure 11/13/[address] Shaji Garza, [facility]: sucessful. 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 see problem list details for updated plan management information and see below for orders placed at this visit. GA appropriate handout given. Clinical Quality Measures Falls Risk Screening/Assistive Devices Have you fallen in the past year?: No 09/07/24 0950 <Electronically signed by Erlinda appiah CNM> Date _ Erlinda Suggs CNM Cosigner Signature: Date (if applicable) CC: ~ [facility] Work Phone: Progress note Author Promise Castañeda [facility] Services Note Date/Time October 26, 2024 1: 28pm [facility] [address] [place] [address], [address] [place] [address] OFFICE VISIT Date of Service: 10/26/24 MR#: [id number] Acct: [id number] Name: PIETER GUILLERMO Rep #: [id number] : 1990 Provider: Dr. 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 Is patient in pain?: No Feel stressed/tense/nervous/anxious/difficulty sleeping: not at all Allergies Environmental Allergies: Uncoded Allergy (Verified 10/26/24 13:01) PT UNABLE TO RESPOND-NEEDS F/U mold Allergy (Verified 10/26/24 13:01) Hives codeine Adverse Reaction (Verified 10/26/24 13:01) Other Medications ?Medication ?Instructions ?Recorded ?Confirmed ?Type nystatin 100,000 unit/gram topical 1 applic topical QD AY #15 grams 09/07/24 10/26/24 Rx powder sertraline 25 mg tablet 25 mg PO QDAY #30 tabs 09/2810/26/24 Rx Last Menstrual Period: 04/08/24 Zika: Zika virus screening: Negative : No Have you fallen in the past year?: No PFSH PFSH Medical History Hirsutism Abnormal uterine bleeding Depression Anxiety Other obesity Hyperlipidemia Ectopic atrial tachycardia History of drug abuse in remission Chronic headaches Seasonal allergies Tachycardia Surgical History Hx of cholecystectomy History of tonsillectomy and adenoidectomy Hx of tympanostomy tubes H/O cardiac radiofrequency ablation (11/13/13) Family History Grandfather Myocardial infarction Mother Anxiety Depression Grandmother COPD (chronic obstructive pulmonary disease) Social History adopted: No household members: spouse, children and other details: Patient's cousin housing: house number of children: 1 current occupational status: employed current occupation: [employer] pets and animals: Yes pets and animals: dog(s) history of recent travel: No sexually active: Yes Smoking Status: Former smoker quit date: 05/14/24 Smokeless tobacco user: other Electronic Cigarette Use: with nicotine second hand exposure: Yes alcohol intake: former details: not while substance use type: former substance user Date of last use: 07/22/2015 caffeine: Yes Type: coffee what type of physical activity do you participate in: walking frequency: 3-4 times per week nabil/episcopal: Congregation seatbelt use: always do you feel safe at home: Yes 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 Date Name GA/Weeks Outcome Route Bth Weight Infant Gen Labor Lgth Anesthesia Del Locatn Provider FOB 06/05/16 Gulshan 40 live - full term Male [facility] Dr. Suárez HPI 28 wk ob/glucose Details: PIETER GUILLERMO is a 34 year old who presents for routine OB visit. OB Visit MYLES Calculator Estimated Delivery Date Method Current WG Current Estimate 01/13/25 LMP (Certain) 28w 5d Other Estimates 01/08/25 Ultrasound #1 29w 3d 01/07/25 Ultrasound #2 29w 4d Expected Delivery Route/Plan Labor Preferences- CB/BF classes: no labor support person: Ham labor intervention preferences: [] pain management options preferred: [] cut cord/dad catch: yes : yes PP control planned: discussed discussed possible routes of delivery and associated risks: [] special requests: [] Specific Issue/Plans Covid status: [] Flu vaccine: [] Tdap vaccine: [] Rhogam: na LARC form signed: yes Problem list reviewed and updated with the most current plan of care details and appropriate orders placed. Relevant counseling for the gestational age provided. Continue routine care and follow up unless otherwise noted in visit notes/problem list details Initial Weight: 230 lb Date -?-?-?-?-?-?-?-?-?-?-?-?- EGA Weight BP Urine Prot -?-?-?-?-?-?-?-?-?-?-?-?- Glucose FHR FuHt Pres Dilation -?-?-?-?-?-?-?-?-?-?-?-?- Effaced St Visit Note 06/12/24 -?-?-?-?-?-?-?-?-?-?-?-?- 9w 2d 230 lb 4 oz (+4 oz) 135/82 -?-?-?-?-?-?-?-?-?-?-?-?- 180 -?-?-?--?-?-?-?-?-?-?-?-?- LC- CRL con with lmp (36mm).declines nipt. 07/13/24 -?-?-?-?-?-?-?-?-?-?-?-?- 13w 5d 231 lb 4 oz (+1 lb 4 oz) 120/63 Negative -?-?-?-?-?-?-?-?-?-?-?-?- Negative 158 -?-?-?-?-?-?-?-?-?-?-?-?- JV- no complaint s today. but does report that on had some bright red blood when she used the restroom. nothing since and did not require a pad. CRL measures 14 weeks 4 days today. 08/10/24 -?-?-?-?-?-?-?-?-?-?-?-?- 17w 5d 230 lb 4 oz (+4 oz) 124/80 Negative -?-?-?-?-?-?-?-?-?-?-?-?- Negative 148 -?-?-?-?-?-?-?-?-?-?-?-?- MH-No VB. Thomas verdugo flutters. Some off & on back pain. Varies at sight. Reviewed back exercises. Consider chiro. 09/07/24 -?-?-?-?-?-?-?-?-?-?-?-?- 21w 5d 233 lb 8 oz (+3 lb 8 oz) 122/81 Negative -?-?-?-?-?-?-?-?-?-?-?-?- Negative 145 -?-?-?-?-?-?-?-?-?-?-?-?- KW- no vb/crampi ng. good fm. discussed glucose test. KW- no vb/cramping. good fm. discussed glucose test. rash under breasts-rx sent 10/05/24 -?-?-?-?-?-?-?-?-?-?-?-?- 25w 5d 235 lb 2 oz (+5 lb 2 oz) 126/82 Negative -?-?-?-?-?-?-?-?-?-?-?-?- Negative 159 27 -?-?-?-?-?-?-?-?-?-?-?-?- MH-NO VB, LOF. G ood FM. Larc 10/26/24 -?-?-?-?-?-?-?-?-?-?-?-?- 28w 5d 237 lb 1 oz (+7 lb 1 oz) 130/85 Negative -?-?-?-?-?-?-?-?-?-?-?-?- Negative 140 30 -?-?-?-?-?-?-?-?-?-?-?-?- SM- no vb lof go od fm no reuglar ctx some rash itchy on left side reviewed conservative mangameent if pupps ACOG First Trimester First Trimester: Discussed Second Trimester Second Trimester: Signs and Symptoms of Labor, Selecting a care provider, Reproductive Life Planning & Contreception, Care Planning, Depression/Anxiety and Intimate Partner Violence; Discussed Tobacco Cessation Third Trimester Third Trimester: Pain Management Plans, Labor support person(s), Immediate Larc, Circumcision preference, Movement Monitoring, Signs and Symptoms of Preeclampsia, Infant Feeding No , [place] [employer] Education, Family Medical Leave or Disability Forms and Depression ROS Const Denies fever(s) GI Reports as per HPI and Denies abdominal pain Reports as per HPI, Denies abnormal vaginal bleeding, Denies dysuria and Denies vaginal discharge Exam Const General: healthy appearing, comfortable and no acute distress GI Inspection: normal to inspection Palpation: soft and nontender Results POC Urinalysis 2 Dip (Clinic) Office Urine Glucose Negative Last Edit by Rebecca Mcmahon on 10/26/24 13:16 Office Urine Protein Negative Last Edit by Rebecca Mcmahon on 10/26/24 13:16 Coding Level of Care Code Off vis,est,level 3 Diagnoses Yeast dermatitis B37.2 Obesity affecting in second trimester, unspecified obesity type O99.212 Obesity type affecting : unspecified obesity Trimester: second trimester Current vaping on some days Z72.89 Supervision of high risk in second trimester O09.92 Trimester: second trimester 28 weeks gestation of Z3A.28 Weeks of gestation: 28 weeks Hyperlipidemia E78.5 BMI 39.0-39.9,adult Z68.39 Elevated liver enzymes R74.8 Elevated cholesterol with high triglycerides E78.2 ASCUS of cervix with negative high risk HPV R87.610 H/O cardiac radiofrequency ablation Z98.890 Ectopic atrial tachycardia I47.1 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 Anxiety and depression F41.9; F32.9 Assessment and Plan Assessment and Plan (1) Yeast dermatitis: Status: Acute (2) Obesity affecting : Status: Acute Qualifiers: Obesity type affecting : unspecified obesity Trimester: second trimester Qualified Code(s): O99.212 - Obesity complicating , second trimester (3) Current vaping on some days: Status: Acute Comment: quit 2 weeks ago (4) Supervision of high-risk : Status: Acute Qualifiers: Trimester: second trimester Qualified Code(s): O09.92 - Supervision of high risk , unspecified, second trimester Comment: PRR , MYLES 01/13 boy Rajeev PC: Gulshan, : Ham (5) : Status: Acute Qualifiers: Weeks of gestation: 28 weeks Qualified Code(s): Z3A.28 - 28 weeks gestation of Comment: NIPT w gender & carrier - undecided, anatomy incomplete rpt in 2 wks, rpt growth (6) Hyperlipidemia: Status: Chronic (7) BMI 39.0-39.9,adult: Status: Acute Comment: reviewed weight management, considering weight watchers. discussed possible use of contrave in future if desired. (8) Elevated liver enzymes: Status: Acute (9) Elevated cholesterol with high triglycerides: Status: Acute Comment: pcp follow up, recommend weight loss and heart healthy diet (10) ASCUS of cervix with negative high risk HPV: Status: Acute Comment: Rpt pap in 3 yrs/2025 (11) H/O cardiac radiofrequency ablation: Status: Chronic Comment: Atrial tachycardia ablation per Dr. Shaji Garza, [facility]: unsuccessful, second procedure 11/13/[address] Shaji Garza, [facility]: sucessful. (12) Ectopic atrial tachycardia: Status: Acute (13) History of drug abuse in remission: Status: Chronic (14) Anxiety and depression: Status: Chronic Comment: sertraline Orders: Orders POC Urinalysis 2 Dip (Clinic) Today Clinical Quality Measures Falls Risk Screening/Assistive Devices Have you fallen in the past year?: No 10/26/24 1328 <Electronically signed by Promise aiken MD> Date _ Promise Castañeda MD Cosign Signature: Date (if applicable) CC: ~ [facility] Work Phone: Progress note Author Promise Castañeda [facility] Services Note Date/Time November 09, 2024 10:57am [facility] [address] [place] [address], [address] [place] [address] OFFICE VISIT Date of Service: 11/09/24 MR#: [id number] Acct: [id number] Name: PIETER GUILLERMO Rep #: [id number] : 1990 Provider: Dr. 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: No Is patient in pain?: No Feel stressed/tense/nervous/anxious/difficulty sleeping: not at all Allergies Environmental Allergies: Uncoded Allergy (Verified 11/09/24 10:15) PT UNABLE TO RESPOND-NEEDS F/U mold Allergy (Verified 11/09/24 10:15) Hives codeine Adverse Reaction (Verified 11/09/24 10:15) Other Medications ?Medication ?Instructions ?Recorded ?Confirmed ?Type nystatin 100,000 unit/gram topical 1 applic topical QD AY #15 grams 09/07/24 11/09/24 Rx powder sertraline 25 mg tablet 25 mg PO QDAY #30 tabs 09/2811/09/24 Rx Last Menstrual Period: 04/08/24 Zika: Zika virus screening: Negative : No PFSH PFSH Medical History Hirsutism Abnormal uterine bleeding Depression Anxiety Other obesity Hyperlipidemia Ectopic atrial tachycardia History of drug abuse in remission Chronic headaches Seasonal allergies Tachycardia Surgical History Hx of cholecystectomy History of tonsillectomy and adenoidectomy Hx of tympanostomy tubes H/O cardiac radiofrequency ablation (11/13/13) Family History Grandfather Myocardial infarction Mother Anxiety Depression Grandmother COPD (chronic obstructive pulmonary disease) Social History adopted: No household members: spouse, children and other details: Patient's cousin housing: house number of children: 1 current occupational status: employed current occupation: [employer] pets and animals: Yes pets and animals: dog(s) history of recent travel: No sexually active: Yes Smoking Status: Former smoker quit date: 05/14/24 Smokeless tobacco user: other Electronic Cigarette Use: with nicotine second hand exposure: Yes alcohol intake: former details: not while substance use type: former substance user Date of last use: 07/22/2015 caffeine: Yes Type: coffee what type of physical activity do you participate in: walking frequency: 3-4 times per week nabil/episcopal: [employer] seatbelt use: always do you feel safe at home: Yes additional social history: - 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 Date Name GA/Weeks Outcome Route Bth Weight Gen Labor Lgth Anesthesia Del Locatn Provider FOB 06/05/16 Gulshan 40 live - full term Male [facility] Dr. Suárez HPI 30 wk ob Details: PIETER GUILLERMO is a 34 year old who presents for routine OB visit. OB Visit MYLES Calculator Estimated Delivery Date Method Current WG Current Estimate 01/13/25 LMP (Certain) 30w 5d Other Estimates 01/08/25 Ultrasound #1 31w 3d 01/07/25 Ultrasound #2 31w 4d Expected Delivery Route/Plan Labor Preferences- CB/BF classes: no labor support person: Ham labor intervention preferences: [] pain management options preferred: [] cut cord/dad catch: yes : yes PP control planned: discussed discussed possible routes of delivery and associated risks: [] special requests: [] Specific Issue/Plans Covid status: [] Flu vaccine: [] Tdap vaccine: [] Rhogam: na LARC form signed: yes movement and labor precautions reviewed. Problem list reviewed and updated with the most current plan of care details and appropriate orders placed. Relevant counseling for the gestational age provided. Continue routine care and follow up unless otherwise noted in visit notes/problem list details Initial Weight: 230 lb Date -?-?-?-?-?-?-?-?-?-?-?-?- EGA Weight BP Urine Prot -?-?-?-?-?-?-?-?-?-?-?-?- Glucose FHR FuHt Pres Dilation -?-?-?-?-?-?-?-?-?-?-?-?- Effaced St Visit Note 06/12/24 -?-?-?-?-?-?-?-?-?-?-?-?- 9w 2d 230 lb 4 oz (+4 oz) 135/82 -?-?-?-?-?-?-?-?-?-?-?-?- 180 -?-?-?-?-?-?-?-?-?-?-?-?- LC- CRL con with lmp (36mm).declines nipt. 07/13/24 -?-?-?-?-?-?-?-?-?-?-?-?- 13w 5d 231 lb 4 oz (+1 lb 4 oz) 120/63 Negative -?-?-?-?-?-?-?-?-?-?-?-?- Negative 158 -?-?-?-?-?-?-?-?-?-?-?--?- JV- no complaint s today. but does report that on had some bright red blood when she used the restroom. nothing since and did not require a pad. CRL measures 14 weeks 4 days today. 08/10/24 -?-?-?-?-?-?-?-?-?-?-?-?- 17w 5d 230 lb 4 oz (+4 oz) 124/80 Negative -?-?-?-?-?-?-?-?-?-?-?-?- Negative 148 -?-?-?-?-?-?-?-?-?-?-?-?- MH-No VB. Feelin g flutters. Some off & on back pain. Varies at sight. Reviewed back exercises. Consider chiro. 09/07/24 -?-?-?-?--?-?-?-?-?-?-?-?- 21w 5d 233 lb 8 oz (+3 lb 8 oz) 122/81 Negative -?-?-?-?-?-?-?-?-?-?-?-?- Negative 145 -?-?-?-?-?-?-?-?-?-?-?-?- KW- no vb/crampi ng. good fm. discussed glucose test. KW- no vb/cramping. good fm. discussed glucose test. rash under breasts-rx sent 10/05/24 -?-?-?-?-?-?-?-?-?-?-?-?- 25w 5d 235 lb 2 oz (+5 lb 2 oz) 126/82 Negative -?-?-?-?-?-?-?-?-?-?-?-?- Negative 159 27 -?-?-?-?-?-?-?-?-?-?-?-?- MH-NO VB, LOF. G ood FM. Larc 10/26/24 -?-?-?-?-?-?-?-?-?-?-?-?- 28w 5d 237 lb 1 oz (+7 lb 1 oz) 130/85 Negative -?-?-?-?-?-?-?-?-?-?-?-?- Negative 140 30 -?-?-?-?-?-?-?-?-?-?-?-?- SM- no vb lof go od fm no reuglar ctx some rash itchy on left side reviewed conservative mangameent if pupps 11/09/24 -?-?-?-?-?-?-?-?-?-?-?-?- 30w 5d 238 lb 7 oz (+8 lb 7 oz) 121/77 Negative -?-?-?-?-?-?-?-?-?-?-?-?- Negative 145 31 -?-?-?-?-?-?-?-?-?-?-?-?- SM- itchiness im proved with supportive care ACOG First Trimester First Trimester: Discussed Second Trimester Second Trimester: Signs and Symptoms of Labor, Selecting a care provider, Reproductive Life Planning & Contreception, Care Planning, Depression/Anxiety and Intimate Partner Violence; Discussed Tobacco Cessation Third Trimester Third Trimester: Pain Management Plans, Labor support person(s), Immediate Larc, Circumcision preference, Movement Monitoring, Signs and Symptoms of Preeclampsia, Feeding No , Education, Family Medical Leave or Disability Forms and Depression ROS Const Denies fever(s) GI Reports as per HPI and Denies abdominal pain Reports as per HPI, Denies abnormal vaginal bleeding, Denies dysuria and Denies vaginal discharge Exam Const General: healthy appearing, comfortable and no acute distress GI Inspection: normal to inspection Palpation: soft and nontender Results POC Urinalysis 2 Dip (Clinic) Office Urine Glucose Negative Last Edit by Rebecca Mcmahon on 11/09/24 10:27 Office Urine Protein Negative Last Edit by Rebecca Mcmahon on 11/09/24 10:27 Coding Level of Care Code Off vis,est,level 3 Diagnoses Yeast dermatitis B37.2 Obesity affecting in second trimester, unspecified obesity type O99.212 Obesity type affecting : unspecified obesity Trimester: second trimester Current vaping on some days Z72.89 Supervision of high risk in second trimester O09.92 Trimester: second trimester 30 weeks gestation of Z3A.30 Weeks of gestation: 30 weeks Hyperlipidemia E78.5 BMI 39.0-39.9,adult Z68.39 Elevated liver enzymes R74.8 Elevated cholesterol with high triglycerides E78.2 ASCUS of cervix with negative high risk HPV R87.610 H/O cardiac radiofrequency ablation Z98.890 Ectopic atrial tachycardia I47.1 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 Anxiety and depression F41.9; F32.9 Assessment and Plan Assessment and Plan (1) Yeast dermatitis: Status: Acute (2) Obesity affecting : Status: Acute Qualifiers: Obesity type affecting : unspecified obesity Trimester: second trimester Qualified Code(s): O99.212 - Obesity complicating , second trimester (3) Current vaping on some days: Status: Acute Comment: quit 2 weeks ago (4) Supervision of high-risk : Status: Acute Qualifiers: Trimester: second trimester Qualified Code(s): O09.92 - Supervision of high risk , unspecified, second trimester Comment: PRR , MYLES 01/13 boy Rajeev PC: Gulshan, : Ham (5) : Status: Acute Qualifiers: Weeks of gestation: 30 weeks Qualified Code(s): Z3A.30 - 30 weeks gestation of Comment: NIPT w gender & carrier - undecided, anatomy incomplete rpt in 2 wks, rpt growth (6) Hyperlipidemia: Status: Chronic (7) BMI 39.0-39.9,adult: Status: Acute Comment: reviewed weight management, considering weight watchers. discussed possible use of contrave in future if desired. (8) Elevated liver enzymes: Status: Acute (9) Elevated cholesterol with high triglycerides: Status: Acute Comment: pcp follow up, recommend weight loss and heart healthy diet (10) ASCUS of cervix with negative high risk HPV: Status: Acute Comment: Rpt pap in 3 yrs/2025 (11) H/O cardiac radiofrequency ablation: Status: Chronic Comment: Atrial tachycardia ablation per Dr. Shaji Garza, [facility]: unsuccessful, second procedure 11/13/[address] Shaji Garza, [facility]: sucessful. (12) Ectopic atrial tachycardia: Status: Acute (13) History of drug abuse in remission: Status: Chronic (14) Anxiety and depression: Status: Chronic Comment: sertraline Orders: Orders POC Urinalysis 2 Dip (Clinic) Today 11/09/24 1057 <Electronically signed by Promise aiken MD> Date _ Promise Castañeda MD Cosigner Signature: Date (if applicable) CC: ~ [facility] Work Phone: Progress note Author Rebecca Butts [facility] Services Note Date/Time November 23, 2024 1:09pm [facility] [address] [place] [address], [address] [place] [address] OFFICE VISIT Date of Service: 11/23/24 MR#: [id number] Acct: [id number] Name: PIETER GUILLERMO Rep #: [id number] : 1990 Provider: KORINA Butts Age/Sex: 34/F [place] [facility] [place]: Signed Intake Vital Signs 10/26/24 13:10 11/16/24 10:38 11/23/24 12:57 Height 5 ft 4 in 5 ft 4 in 5 ft 4 in Weight: 240 lb 8 oz BMI 41.3 BP 123/81 H Intake Visit Reasons: 34 WK 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 Is patient in pain?: No Allergies Environmental Allergies: Uncoded Allergy (Verified 11/23/24 12:59) PT UNABLE TO RESPOND-NEEDS F/U mold Allergy (Verified 11/23/24 12:59) Hives codeine Adverse Reaction (Verified 11/23/24 12:59) Other Medications ?Medication ?Instructions ?Recorded ?Confirmed ?Type nystatin 100,000 unit/gram topical 1 applic topical QD AY PRN 11/16/24 11/23/24 History powder sertraline 50 mg tablet 50 mg PO QDAY #90 tabs 11/1611/23/24 Rx Last Menstrual Period: 04/08/24 Zika: Zika virus screening: Negative : No Have you fallen in the past year?: No PFSH PFSH Medical History Multiple skin tags Hirsutism Abnormal uterine bleeding Depression Anxiety Other obesity Hyperlipidemia Ectopic atrial tachycardia History of drug abuse in remission Chronic headaches Seasonal allergies Tachycardia Surgical History Hx of cholecystectomy History of tonsillectomy and adenoidectomy Hx of tympanostomy tubes H/O cardiac radiofrequency ablation (11/13/13) Family History Grandfather Myocardial infarction Mother Anxiety Depression Grandmother COPD (chronic obstructive pulmonary disease) Myocardial infarction Social History adopted: No household members: spouse, children and other details: Patient's cousin housing: house number of children: 1 current occupational status: employed current occupation: [employer] pets and animals: Yes pets and animals: dog(s) history of recent travel: No sexually active: Yes Smoking Status: Former smoker quit date: 05/14/24 Smokeless tobacco user: other Electronic Cigarette Use: with nicotine second hand exposure: Yes alcohol intake: former details: not while substance use type: former substance user Date of last use: 07/22/2015 caffeine: Yes Type: coffee what type of physical activity do you participate in: walking frequency: 3-4 times per week nabil/episcopal: [employer] seatbelt use: always do you feel safe at home: Yes 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 Date Name GA/Weeks Outcome Route Bth Weight Gen Labor Lgth Anesthesia Del Locatn Provider FOB 06/05/16 Gulshan 40 live - full term Male [facility] Dr. Suárez HPI 32 WK OB Details: PIETER GUILLERMO is a 34 year old who presents for routine OB visit. OB Visit MYLES Calculator Estimated Delivery Date Method Current WG Current Estimate 01/13/25 LMP (Certain) 32w 5d Other Estimates 01/08/25 Ultrasound #1 33w 3d 01/07/25 Ultrasound #2 33w 4d Expected Delivery Route/Plan Labor Preferences- CB/BF classes: no labor support person: Ham labor intervention preferences: [] pain management options preferred: [] cut cord/dad catch: yes : yes PP control planned: discussed discussed possible routes of delivery and associated risks: [] special requests: [] Specific Issue/Plans Covid status: [] Flu vaccine: [] Tdap vaccine: [] Rhogam: na LARC form signed: yes movement and labor precautions reviewed. Problem list reviewed and updated with the most current plan of care details and appropriate orders placed. Relevant counseling for the gestational age provided. Continue routine care and follow up unless otherwise noted in visit notes/problem list details Initial Weight: 230 lb Date -?-?-?-?-?-?-?-?-?-?-?-?- EGA Weight BP Urine Prot -?-?-?-?-?-?-?-?-?-?-?-?- Glucose FHR FuHt Pres Dilation -?-?-?-?-?-?-?-?-?-?-?-?- Effaced St Visit Note 06/12/24 -?-?-?-?-?-?-?-?-?-?-?-?- 9w 2d 230 lb 4 oz (+4 oz) 135/82 -?-?-?-?-?-?-?-?-?-?-?-?- 180 -?-?-?-?-?-?-?-?-?-?-?-?- LC- CRL con with lmp (36mm).declines nipt. 07/13/24 -?-?--?-?-?-?-?-?-?-?-?-?- 13w 5d 231 lb 4 oz (+1 lb 4 oz) 120/63 Negative -?-?-?-?-?-?-?-?-?-?-?-?- Negative 158 -?-?-?-?-?-?-?-?-?-?-?-?- JV- no complaint s today. but does report that on had some bright red blood when she used the restroom. nothing since and did not require a pad. CRL measures 14 weeks 4 days today. 08/10/24 -?-?-?-?-?-?-?-?-?-?-?-?- 17w 5d 230 lb 4 oz (+4 oz) 124/80 Negative -?-?-?-?-?-?-?-?-?-?-?-?- Negative 148 -?-?-?-?-?-?-?-?-?-?-?-?- MH-No VB. Thomas dillard. Some off & on back pain. Varies at sight. Reviewed back exercises. Consider chiro. 09/07/24 -?-?-?-?-?-?-?-?--?-?-?-?- 21w 5d 233 lb 8 oz (+3 lb 8 oz) 122/81 Negative -?-?-?-?-?-?-?-?-?-?-?-?- Negative 145 -?-?-?-?-?-?-?-?-?-?-?-?- KW- no vb/crampi ng. good fm. discussed glucose test. KW- no vb/cramping. good fm. discussed glucose test. rash under breasts-rx sent 10/05/24 -?-?-?-?-?-?-?-?-?-?-?-?- 25w 5d 235 lb 2 oz (+5 lb 2 oz) 126/82 Negative -?-?-?-?-?-?-?-?-?-?-?-?- Negative 159 27 -?-?-?-?-?-?-?-?-?-?-?-?- MH-NO VB, LOF. G ood FM. Larc 10/26/24 -?-?-?-?-?-?-?-?-?-?-?-?- 28w 5d 237 lb 1 oz (+7 lb 1 oz) 130/85 Negative -?-?-?-?-?-?-?-?-?-?-?-?- Negative 140 30 -?-?-?-?-?-?-?-?-?-?-?-?- SM- no vb lof go od fm no reuglar ctx some rash itchy on left side reviewed conservative mangameent if pupps 11/09/24 -?-?-?-?-?-?-?-?-?-?-?-?- 30w 5d 238 lb 7 oz (+8 lb 7 oz) 121/77 Negative -?-?-?-?-?-?-?-?-?-?-?-?- Negative 145 31 -?-?-?-?-?-?-?-?-?-?-?-?- SM- itchiness im proved with supportive care 11/23/24 -?-?-?-?-?-?-?-?-?-?-?-?- 32w 5d 240 lb 8 oz (+10 lb 8 oz) 123/81 Negative -?-?-?-?-?-?-?-?-?-?-?-?- Negative 155 34 -?-?-?-?-?-?-?-?-?-?-?-?- MH-No VB, LOF. G ood FM. tdap. ACOG First Trimester First Trimester: Discussed Second Trimester Second Trimester: Signs and Symptoms of Labor, Selecting a care provider, Reproductive Life Planning & Contreception, Care Planning, Depression/Anxiety and Intimate Partner Violence; Discussed Tobacco Cessation Third Trimester Third Trimester: Pain Management Plans, Labor support person(s), Immediate Larc, Circumcision preference, Movement Monitoring, Signs and Symptoms of Preeclampsia, Infant Feeding No , Education, Family Medical Leave or Disability Forms and Depression ROS Const Reports system reviewed and no additional complaints, except as documented GI Denies abdominal pain, Denies nausea and Denies vomiting Exam Const General: cooperative Nutritional Appearance: well nourished GI Palpation: soft, nontender and other (gravid) Results POC Urinalysis 2 Dip (Clinic) Office Urine Glucose Negative Last Edit by Macey Reyes on 11/23/24 13:37 Office Urine Protein Negative Last Edit by Macey Reyes on 11/23/24 13:37 Immunizations Adacel(Tdap Adolesn/Adult)(PF) 2 Lf-(2.5-5-3-5)-5 Lf/0.5 mL IM syringe Performing Provider: Rebecca Butts PROFESSOR OF ENGINEERING, PROFESSOR OF ENGINEERING-C Performing Location: [facility] Administered by: Macey Reyes on 11/23/24 13:09 Dose Route Admin Location Dispensed Lot Number Expiration Date Pack age NDC NDC Roofer Vinyl Coating 0.5 mL IM Left Arm (SQ) 0.5 mL [id number] 10/02/26 23894-835-17 [id number] SANOFI- PASTEUR VIS Given Date VIS Provided VIS Publication Date 11/23/24 Single Vaccine 24 Eligibility Eligibility Date Funding Source Not Applicable Coding Level of Care Code Off vis,est,level 3 Diagnoses Supervision of high risk in second trimester O09.92 Trimester: second trimester Obesity affecting in second trimester, unspecified obesity type O99.212 Obesity type affecting : unspecified obesity Trimester: second trimester Current vaping on some days Z72.89 32 weeks gestation of Z3A.32 Weeks of gestation: 32 weeks H/O cardiac radiofrequency ablation Z98.890 Ectopic atrial tachycardia I47.1 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 Anxiety and depression F41.9; F32.9 Assessment and Plan Assessment and Plan (1) Supervision of high-risk : Status: Acute Qualifiers: Trimester: second trimester Qualified Code(s): O09.92 - Supervision of high risk , unspecified, second trimester Comment: PRR , MYLES 01/13 boy Rajeev PC: Gulshan, : Ham (2) Obesity affecting : Status: Acute Qualifiers: Obesity type affecting : unspecified obesity Trimester: second trimester Qualified Code(s): O99.212 - Obesity complicating , second trimester (3) Current vaping on some days: Status: Acute Comment: quit 2 weeks ago (4) : Status: Acute Qualifiers: Weeks of gestation: 32 weeks Qualified Code(s): Z3A.32 - 32 weeks gestation of (5) H/O cardiac radiofrequency ablation: Status: Chronic Comment: Atrial tachycardia ablation per Dr. Shaji Garza, [facility]: unsuccessful, second procedure 11/13/[address] Shaji Garza, [facility]: sucessful. 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 Relevant counseling for the gestational age appropriate provided and ACOG education checklist updated. Continue routine care and follow up. Clinical Quality Measures Falls Risk Screening/Assistive Devices Have you fallen in the past year?: No 11/23/24 1337 <Electronically signed by Rebecca appiah PROFESSOR OF ENGINEERING PROFESSOR OF ENGINEERING-C> Date _ Rebecca Butts NP PROFESSOR OF ENGINEERING-C Cosigner Signature: Date (if applicable) CC: ~ [facility] Work Phone: Reason for referral (narrative)No reason for referral information available[facility]Gal[facility] Work Phone: Summary Purpose Family History No Family History Records Found Relationship Condition Age at Onset Recorded Date/T michelle grandfather Myocardial infarction Unknown mother Anxiety Unknown Depression Unknown Relationship Condition Age at Onset Recorded Date/T michelle grandfather Myocardial infarction Unknown mother Anxiety Unknown Depression Unknown grandmother Chronic obstructive pulmonary disease Unk nown Relationship Condition Age at Onset Recorded Date/T michelle grandfather Myocardial infarction Unknown mother Anxiety Unknown Depression Unknown grandmother Chronic obstructive pulmonary disease Unk nown Myocardial infarction Unknown Advance Directives No Advanced Directives Records Found Advance Directive Response Recorded Date/ Time Advance Directives No September 16 3:00pm Living Will No September 16, 2017 3:00pm Power of Mine Exploration Engineer No September 16 8 3:00pm Advance Directive Response Recorded Date/ Time Advance Directives No September 16 2:00pm Living Will No September 16, 2017 2:00pm Power of Mine Exploration Engineer No September 16 8 2:00pm Advance Directive Response Recorded Date/ Time Advance Directives No September 16 3:00pm Advance Directive Response Recorded Date/ Time Living Will No September 16, 2017 3:00pm Do you have a [facility] Power of Mine Exploration Engineer? 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 EST CARE - RE EST W/ O Reason for Visit Abnormal uterine ble eding BMI 39.0-39.9,adult Elevated cholesterol with high triglycerides Elevated liver enzymes Hirsutism Other obesity Elevated liver enzymes Anxiety and depression Hyperlipidemia Chief Complaint Admit Date NOB: LMP 2/, MYLES 01/13June 12, 2024 9:28am Reason for Visit Admit Date Abnormal uterine bleeding June 12 9:28am ASCUS of cervix with negative high risk HPV June 12, 2024 9:28am BMI 39.0-39.9,adult June 12, 2024 9:2 8am Current vaping on some days June 12, 2024 9:28am Ectopic atrial tachycardia June 12, 025 9:28am Elevated cholesterol with high triglycer ides June 12, 2024 9:28am Elevated liver enzymes June 12, 2024 9:28am Hirsutism June 12, 2024 9:2 8am Obesity affecting June 12, 2024 9:28am June 12, 2024 9:2 8am Supervision of high-risk June 12, 2024 9:28am Anxiety and depression June 12, 2024 9:28am H/O cardiac radiofrequency ablation Apri l 2024 9:28am History of drug abuse in remission June 12, 2024 9:28am Hyperlipidemia June 12, 2024 9:2 8am Chief Complaint Admit Date NOB: LMP 2/5, MYLES 01/13June 12, 2024 9:28am 13WK OB July 13, 2024 8:57a m 17 WK OB August 10, 2024 9:44a m Reason for Visit Admit Date Abnormal uterine bleeding June 12 9:28am ASCUS of cervix with negative high risk HPV June 12, 2024 9:28am BMI 39.0-39.9,adult June 12, 2024 9:2 8am Current vaping on some days June 12, 2024 9:28am Ectopic atrial tachycardia June 12 9:28am Elevated cholesterol with high triglycer ides June 12, 2024 9:28am Elevated liver enzymes June 12, 2024 9:28am Hirsutism June 12, 2024 9:2 8am Obesity affecting June 12, 2024 9:28am June 12, 2024 9:2 8am Supervision of high-risk June 12, 2024 9:28am Anxiety and depression June 12, 2024 9:28am H/O cardiac radiofrequency ablation Apri l 2024 9:28am History of drug abuse in remission June 12, 2024 9:28am Hyperlipidemia June 12, 2024 9:2 8am Abnormal uterine bleeding July 13, 2024 8:57am ASCUS of cervix with negative high risk HPV July 13, 2024 8:57am BMI 39.0-39.9,adult July 13, 2024 8:57a m Current vaping on some days July 13 8:57am Ectopic atrial tachycardia July 13 8:57am Elevated cholesterol with high triglycer ides July 13, 2024 8:57am Elevated liver enzymes July 13, 2024 8: 57am Hirsutism July 13, 2024 8:57a m Obesity affecting July 13 8:57am July 13, 2024 8:57a m Supervision of high-risk July 022024 8:57am Anxiety and depression July 13, 2024 8: 57am H/O cardiac radiofrequency ablation July 13, 2024 8:57am History of drug abuse in remission July 022024 8:57am Hyperlipidemia July 13, 2024 8:57a m Abnormal uterine bleeding August 10, 2024 9:44am ASCUS of cervix with negative high risk HPV August 10, 2024 9:44am BMI 39.0-39.9,adult August 10, 2024 9:44a m Current vaping on some days August 10 9:44am Ectopic atrial tachycardia August 10 9:44am Elevated cholesterol with high triglycer ides August 10, 2024 9:44am Elevated liver enzymes August 10, 2024 9: 44am Hirsutism August 10, 2024 9:44a m Obesity affecting August 10 9:44am August 10, 2024 9:44a m Supervision of high-risk August 10, 2024 9:44am Anxiety and depression August 10, 2024 9: 44am H/O cardiac radiofrequency ablation August 10, 2024 9:44am History of drug abuse in remission August 10, 2024 9:44am Hyperlipidemia August 10, 2024 9:44a m Chief Complaint Admit Date NOB: LMP 2/, MYLES 01/13June 12, 2024 9:28am 13WK OB July 13, 2024 8:57a m 17 WK OB August 10, 2024 9:44a m 6 M FU August 10, 2024 1:18p m Reason for Visit Admit Date Abnormal uterine bleeding June 12 9:28am ASCUS of cervix with negative high risk HPV June 12, 2024 9:28am BMI 39.0-39.9,adult June 12, 2024 9:2 8am Current vaping on some days June 12, 2024 9:28am Ectopic atrial tachycardia June 12, 025 9:28am Elevated cholesterol with high triglycer ides June 12, 2024 9:28am Elevated liver enzymes June 12, 2024 9:28am Hirsutism June 12, 2024 9:2 8am Obesity affecting June 12, 2024 9:28am June 12, 2024 9:2 8am Supervision of high-risk June 12, 2024 9:28am Anxiety and depression June 12, 2024 9:28am H/O cardiac radiofrequency ablation Apri l 2024 9:28am History of drug abuse in remission June 12, 2024 9:28am Hyperlipidemia June 12, 2024 9:2 8am Abnormal uterine bleeding July 13, 2024 8:57am ASCUS of cervix with negative high risk HPV July 13, 2024 8:57am BMI 39.0-39.9,adult July 13, 2024 8:57a m Current vaping on some days July 13 8:57am Ectopic atrial tachycardia July 13 8:57am Elevated cholesterol with high triglycer ides July 13, 2024 8:57am Elevated liver enzymes July 13, 2024 8: 57am Hirsutism July 13, 2024 8:57a m Obesity affecting July 13 8:57am July 13, 2024 8:57a m Supervision of high-risk July 022024 8:57am Anxiety and depression July 13, 2024 8: 57am H/O cardiac radiofrequency ablation July 13, 2024 8:57am History of drug abuse in remission July 022024 8:57am Hyperlipidemia July 13, 2024 8:57a m Current vaping on some days August 10 9:44am Obesity affecting August 10 9:44am August 10, 2024 9:44a m Supervision of high-risk August 10, 2024 9:44am Anxiety and depression August 10, 2024 9: 44am History of drug abuse in remission August 10, 2024 9:44am Chief Complaint Admit Date NOB: LMP 2/5, MYLES 01/13June 12, 2024 9:28am 13WK OB July 13, 2024 8:57a m 17 WK OB August 10, 2024 9:44a m 6 M FU August 10, 2024 1:18p m 21 WK OB September 07, 2024 9:14a m Reason for Visit Admit Date Abnormal uterine bleeding June 12 9:28am ASCUS of cervix with negative high risk HPV June 12, 2024 9:28am BMI 39.0-39.9,adult June 12, 2024 9:2 8am Current vaping on some days June 12, 2024 9:28am Ectopic atrial tachycardia June 12 025 9:28am Elevated cholesterol with high triglycer ides June 12, 2024 9:28am Elevated liver enzymes June 12, 2024 9:28am Hirsutism June 12, 2024 9:2 8am Obesity affecting June 12, 2024 9:28am June 12, 2024 9:2 8am Supervision of high-risk June 12, 2024 9:28am Anxiety and depression June 12, 2024 9:28am H/O cardiac radiofrequency ablation [facility] 2024 9:28am History of drug abuse in remission June 12, 2024 9:28am Hyperlipidemia June 12, 2024 9:2 8am Abnormal uterine bleeding July 13, 2024 8:57am ASCUS of cervix with negative high risk HPV July 13, 2024 8:57am BMI 39.0-39.9,adult July 13, 2024 8:57a m Current vaping on some days July 13 8:57am Ectopic atrial tachycardia July 13 8:57am Elevated cholesterol with high triglycer ides July 13, 2024 8:57am Elevated liver enzymes July 13, 2024 8: 57am Hirsutism July 13, 2024 8:57a m Obesity affecting July 13 8:57am July 13, 2024 8:57a m Supervision of high-risk July 022024 8:57am Anxiety and depression July 13, 2024 8: 57am H/O cardiac radiofrequency ablation July 13, 2024 8:57am History of drug abuse in remission July 022024 8:57am Hyperlipidemia July 13, 2024 8:57a m Current vaping on some days August 10 9:44am Obesity affecting August 10 9:44am August 10, 2024 9:44a m Supervision of high-risk August 10, 2024 9:44am Anxiety and depression August 10, 2024 9: 44am History of drug abuse in remission August 10, 2024 9:44am Anxiety and depression August 10, 2024 1: 18pm Hyperlipidemia August 10, 2024 1:18p m Abnormal uterine bleeding September 07, 2024 9:14am ASCUS of cervix with negative high risk HPV September 07, 2024 9:14am BMI 39.0-39.9,adult September 07, 2024 9:14a m Current vaping on some days September 07 9:14am Ectopic atrial tachycardia September 07 9:14am Elevated cholesterol with high triglycer ides September 07, 2024 9:14am Elevated liver enzymes September 07, 2024 9: 14am Hirsutism September 07, 2024 9:14a m Obesity affecting September 07 9:14am September 07, 2024 9:14a m Supervision of high-risk September 07, 2024 9:14am Anxiety and depression September 07, 2024 9: 14am H/O cardiac radiofrequency ablation September 07, 2024 9:14am History of drug abuse in remission September 07, 2024 9:14am Hyperlipidemia September 07, 2024 9:14a m Chief Complaint Admit Date NOB: LMP 2/, MYLES 01/13June 12, 2024 9:28am 13WK OB July 13, 2024 8:57a m 17 WK OB August 10, 2024 9:44a m 6 M FU August 10, 2024 1:18p m 21 WK OB September 07, 2024 9:14a m 25 wk ob October 05, 2024 10: 09am Reason for Visit Admit Date ASCUS of cervix with negative high risk HPV June 12, 2024 9:28am BMI 39.0-39.9,adult June 12, 2024 9:2 8am Current vaping on some days June 12, 2024 9:28am Ectopic atrial tachycardia June 12, 025 9:28am Elevated cholesterol with high triglycer ides June 12, 2024 9:28am Elevated liver enzymes June 12, 2024 9:28am Obesity affecting June 12, 2024 9:28am June 12, 2024 9:2 8am Supervision of high-risk June 12, 2024 9:28am Anxiety and depression June 12, 2024 9:28am H/O cardiac radiofrequency ablation [facility] 2024 9:28am History of drug abuse in remission June 12, 2024 9:28am Hyperlipidemia June 12, 2024 9:2 8am Abnormal uterine bleeding June 12 9:28am Hirsutism June 12, 2024 9:2 8am ASCUS of cervix with negative high risk HPV July 13, 2024 8:57am BMI 39.0-39.9,adult July 13, 2024 8:57a m Current vaping on some days July 13 8:57am Ectopic atrial tachycardia July 13 8:57am Elevated cholesterol with high triglycer ides July 13, 2024 8:57am Elevated liver enzymes July 13, 2024 8: 57am Obesity affecting July 13 8:57am July 13, 2024 8:57a m Supervision of high-risk July 022024 8:57am Anxiety and depression July 13, 2024 8: 57am H/O cardiac radiofrequency ablation July 13, 2024 8:57am History of drug abuse in remission July 022024 8:57am Hyperlipidemia July 13, 2024 8:57a m Abnormal uterine bleeding July 13, 2024 8:57am Hirsutism July 13, 2024 8:57a m Current vaping on some days August 10 9:44am Obesity affecting August 10 9:44am August 10, 2024 9:44a m Supervision of high-risk August 10, 2024 9:44am Anxiety and depression August 10, 2024 9: 44am History of drug abuse in remission August 10, 2024 9:44am Anxiety and depression August 10, 2024 1: 18pm Hyperlipidemia August 10, 2024 1:18p m ASCUS of cervix with negative high risk HPV September 07, 2024 9:14am BMI 39.0-39.9,adult September 07, 2024 9:14a m Current vaping on some days September 07 9:14am Ectopic atrial tachycardia September 07 9:14am Elevated cholesterol with high triglycer ides September 07, 2024 9:14am Elevated liver enzymes September 07, 2024 9: 14am Obesity affecting September 07 9:14am September 07, 2024 9:14a m Supervision of high-risk September 07, 2024 9:14am Anxiety and depression September 07, 2024 9: 14am H/O cardiac radiofrequency ablation September 07, 2024 9:14am History of drug abuse in remission September 07, 2024 9:14am Hyperlipidemia September 07, 2024 9:14a m Abnormal uterine bleeding September 07, 2024 9:14am Hirsutism September 07, 2024 9:14a m ASCUS of cervix with negative high risk HPV October 05, 2024 10:09am BMI 39.0-39.9,adult October 05, 2024 10: 09am Current vaping on some days October 05, 2024 10:09am Ectopic atrial tachycardia October 05, 2 025 10:09am Elevated cholesterol with high triglycer ides October 05, 2024 10:09am Elevated liver enzymes October 05, 2024 10:09am Obesity affecting October 05, 2024 10:09am October 05, 2024 10: 09am Supervision of high-risk [facility] 2024 10:09am Anxiety and depression October 05, 2024 10:09am H/O cardiac radiofrequency ablation [facility] 2024 10:09am History of drug abuse in remission [facility] 2024 10:09am Hyperlipidemia October 05, 2024 10: 09am Chief Complaint Admit Date 13WK OB July 13, 2024 8:57a m 17 WK OB August 10, 2024 9:44a m 6 M FU August 10, 2024 1:18p m 21 WK OB September 07, 2024 9:14a m 25 wk ob October 05, 2024 10: 09am 28 wk ob/glucose October 26, 2024 12 :53pm Reason for Visit Admit Date ASCUS of cervix with negative high risk HPV July 13, 2024 8:57am BMI 39.0-39.9,adult July 13, 2024 8:57a m Current vaping on some days July 13 8:57am Ectopic atrial tachycardia July 13 8:57am Elevated cholesterol with high triglycer ides July 13, 2024 8:57am Elevated liver enzymes July 13, 2024 8: 57am Obesity affecting July 13 8:57am July 13, 2024 8:57a m Supervision of high-risk July 022024 8:57am Anxiety and depression July 13, 2024 8: 57am H/O cardiac radiofrequency ablation July 13, 2024 8:57am History of drug abuse in remission July 022024 8:57am Hyperlipidemia July 13, 2024 8:57a m Abnormal uterine bleeding July 13, 2024 8:57am Hirsutism July 13, 2024 8:57a m Current vaping on some days August 10 9:44am Obesity affecting August 10 9:44am August 10, 2024 9:44a m Supervision of high-risk August 10, 2024 9:44am Anxiety and depression August 10, 2024 9: 44am History of drug abuse in remission August 10, 2024 9:44am Anxiety and depression August 10, 2024 1: 18pm Hyperlipidemia August 10, 2024 1:18p m ASCUS of cervix with negative high risk HPV September 07, 2024 9:14am BMI 39.0-39.9,adult September 07, 2024 9:14a m Current vaping on some days September 07 9:14am Ectopic atrial tachycardia September 07 9:14am Elevated cholesterol with high triglycer ides September 07, 2024 9:14am Elevated liver enzymes September 07, 2024 9: 14am Obesity affecting September 07 9:14am September 07, 2024 9:14a m Supervision of high-risk September 07, 2024 9:14am Anxiety and depression September 07, 2024 9: 14am H/O cardiac radiofrequency ablation September 07, 2024 9:14am History of drug abuse in remission September 07, 2024 9:14am Hyperlipidemia September 07, 2024 9:14a m Abnormal uterine bleeding September 07, 2024 9:14am Hirsutism September 07, 2024 9:14a m Current vaping on some days October 05, 2024 10:09am Elevated liver enzymes October 05, 2024 10:09am Obesity affecting October 05, 2024 10:09am October 05, 2024 10: 09am Supervision of high-risk [facility] t 2024 10:09am Anxiety and depression October 05, 2024 10:09am H/O cardiac radiofrequency ablation Aug[facility] 2024 10:09am History of drug abuse in remission [facility] 2024 10:09am ASCUS of cervix with negative high risk HPV October 26, 2024 12:53pm BMI 39.0-39.9,adult October 26, 2024 12 :53pm Current vaping on some days October 26, 2024 12:53pm Ectopic atrial tachycardia October 26, 2024 12:53pm Elevated cholesterol with high triglycer ides October 26, 2024 12:53pm Elevated liver enzymes October 26, 2024 12:53pm Obesity affecting October 26, 2024 12:53pm October 26, 2024 12 :53pm Supervision of high-risk [facility] 2024 12:53pm Yeast dermatitis October 26, 2024 12 :53pm Anxiety and depression October 26, 2024 12:53pm H/O cardiac radiofrequency ablation Aug[facility] 2024 12:53pm History of drug abuse in remission Oct[facility] t 2024 12:53pm Hyperlipidemia October 26, 2024 12 :53pm Chief Complaint Admit Date 13WK OB July 13, 2024 8:57a m 17 WK OB August 10, 2024 9:44a m 6 M FU August 10, 2024 1:18p m 21 WK OB September 07, 2024 9:14a m 25 wk ob October 05, 2024 10: 09am 28 wk ob/glucose October 26, 2024 12 :53pm 30 wk ob November 09, 2024 9:56am Reason for Visit Admit Date ASCUS of cervix with negative high risk HPV July 13, 2024 8:57am BMI 39.0-39.9,adult July 13, 2024 8:57a m Current vaping on some days July 13 8:57am Ectopic atrial tachycardia July 13 8:57am Elevated cholesterol with high triglycer ides July 13, 2024 8:57am Elevated liver enzymes July 13, 2024 8: 57am Obesity affecting July 13 8:57am July 13, 2024 8:57a m Supervision of high-risk July 022024 8:57am Anxiety and depression July 13, 2024 8: 57am H/O cardiac radiofrequency ablation July 13, 2024 8:57am History of drug abuse in remission July 022024 8:57am Hyperlipidemia July 13, 2024 8:57a m Abnormal uterine bleeding July 13, 2024 8:57am Hirsutism July 13, 2024 8:57a m Current vaping on some days August 10 9:44am Obesity affecting August 10 9:44am August 10, 2024 9:44a m Supervision of high-risk August 10, 2024 9:44am Anxiety and depression August 10, 2024 9: 44am History of drug abuse in remission August 10, 2024 9:44am Anxiety and depression August 10, 2024 1: 18pm Hyperlipidemia August 10, 2024 1:18p m ASCUS of cervix with negative high risk HPV September 07, 2024 9:14am BMI 39.0-39.9,adult September 07, 2024 9:14a m Current vaping on some days September 07 9:14am Ectopic atrial tachycardia September 07 9:14am Elevated cholesterol with high triglycer ides September 07, 2024 9:14am Elevated liver enzymes September 07, 2024 9: 14am Obesity affecting September 07 9:14am September 07, 2024 9:14a m Supervision of high-risk September 07, 2024 9:14am Anxiety and depression September 07, 2024 9: 14am H/O cardiac radiofrequency ablation September 07, 2024 9:14am History of drug abuse in remission September 07, 2024 9:14am Hyperlipidemia September 07, 2024 9:14a m Abnormal uterine bleeding September 07, 2024 9:14am Hirsutism September 07, 2024 9:14a m Current vaping on some days October 05, 2024 10:09am Elevated liver enzymes October 05, 2024 10:09am Obesity affecting October 05, 2024 10:09am October 05, 2024 10: 09am Supervision of high-risk Augus t 2024 10:09am Anxiety and depression October 05, 2024 10:09am H/O cardiac radiofrequency ablation [facility] 2024 10:09am History of drug abuse in remission Octus t 2024 10:09am ASCUS of cervix with negative high risk HPV October 26, 2024 12:53pm BMI 39.0-39.9,adult October 26, 2024 12 :53pm Current vaping on some days October 26, 2024 12:53pm Ectopic atrial tachycardia October 26, 2024 12:53pm Elevated cholesterol with high triglycer ides October 26, 2024 12:53pm Elevated liver enzymes October 26, 2024 12:53pm Obesity affecting October 26, 2024 12:53pm October 26, 2024 12 :53pm Supervision of high-risk Aug[facility] t 2024 12:53pm Yeast dermatitis October 26, 2024 12 :53pm Anxiety and depression October 26, 2024 12:53pm H/O cardiac radiofrequency ablation [facility] 2024 12:53pm History of drug abuse in remission Aug[facility] t 2024 12:53pm Hyperlipidemia October 26, 2024 12 :53pm ASCUS of cervix with negative high risk HPV November 09, 2024 9:56am BMI 39.0-39.9,adult November 09, 2024 9:56am Current vaping on some days November 9:56am Ectopic atrial tachycardia November 9:56am Elevated cholesterol with high triglycer ides November 09, 2024 9:56am Elevated liver enzymes November 09 9:56am Obesity affecting November 9:56am November 09, 2024 9:56am Supervision of high-risk [facility] 2024 9:56am Yeast dermatitis November 09, 2024 9:56am Anxiety and depression November 09 9:56am H/O cardiac radiofrequency ablation [facility]2024 9:56am History of drug abuse in remission [facility] 2024 9:56am Hyperlipidemia November 09, 2024 9:56am Chief Complaint Admit Date 17 WK OB August 10, 2024 9:44a m 6 M FU August 10, 2024 1:18p m 21 WK OB September 07, 2024 9:14a m 25 wk ob October 05, 2024 10: 09am 28 wk ob/glucose October 26, 2024 12 :53pm 30 wk ob November 09, 2024 9:56am 3 M FU November 16, 2024 10:28am Reason for Visit Admit Date Current vaping on some days August 10 9:44am Obesity affecting August 10 9:44am August 10, 2024 9:44a m Supervision of high-risk Becca 9th, 2025 9:44am Anxiety and depression August 10, 2024 9: 44am History of drug abuse in remission August 10, 2024 9:44am Anxiety and depression August 10, 2024 1: 18pm Hyperlipidemia August 10, 2024 1:18p m ASCUS of cervix with negative high risk HPV September 07, 2024 9:14am BMI 39.0-39.9,adult September 07, 2024 9:14a m Current vaping on some days September 07 9:14am Ectopic atrial tachycardia September 07 9:14am Elevated cholesterol with high triglycer ides September 07, 2024 9:14am Elevated liver enzymes September 07, 2024 9: 14am Obesity affecting September 07 9:14am September 07, 2024 9:14a m Supervision of high-risk September 07, 2024 9:14am Anxiety and depression September 07, 2024 9: 14am H/O cardiac radiofrequency ablation September 07, 2024 9:14am History of drug abuse in remission September 07, 2024 9:14am Hyperlipidemia September 07, 2024 9:14a m Abnormal uterine bleeding September 07, 2024 9:14am Hirsutism September 07, 2024 9:14a m Current vaping on some days October 05, 2024 10:09am Elevated liver enzymes October 05, 2024 10:09am Obesity affecting October 05, 2024 10:09am October 05, 2024 10: 09am Supervision of high-risk [facility] 2024 10:09am Anxiety and depression October 05, 2024 10:09am H/O cardiac radiofrequency ablation [facility] 2024 10:09am History of drug abuse in remission [facility] 2024 10:09am ASCUS of cervix with negative high risk HPV October 26, 2024 12:53pm BMI 39.0-39.9,adult October 26, 2024 12 :53pm Current vaping on some days October 26, 2024 12:53pm Ectopic atrial tachycardia October 26, 2024 12:53pm Elevated cholesterol with high triglycer ides October 26, 2024 12:53pm Elevated liver enzymes October 26, 2024 12:53pm Obesity affecting October 26, 2024 12:53pm October 26, 2024 12 :53pm Supervision of high-risk Aug[facility] t 2024 12:53pm Yeast dermatitis October 26, 2024 12 :53pm Anxiety and depression October 26, 2024 12:53pm H/O cardiac radiofrequency ablation Augu 2024 12:53pm History of drug abuse in remission [facility] t 2024 12:53pm Hyperlipidemia October 26, 2024 12 :53pm ASCUS of cervix with negative high risk HPV November 09, 2024 9:56am BMI 39.0-39.9,adult November 09, 2024 9:56am Current vaping on some days November 9:56am Ectopic atrial tachycardia November 9:56am Elevated cholesterol with high triglycer ides November 09, 2024 9:56am Elevated liver enzymes November 09 9:56am Obesity affecting November 9:56am November 09, 2024 9:56am Supervision of high-risk [facility] 2024 9:56am Yeast dermatitis November 09, 2024 9:56am Anxiety and depression November 09 9:56am H/O cardiac radiofrequency ablation [facility]2024 9:56am History of drug abuse in remission [facility] 2024 9:56am Hyperlipidemia November 09, 2024 9:56am Chief Complaint Admit Date 17 WK OB August 10, 2024 9:44a m 6 M FU August 10, 2024 1:18p m 21 WK OB September 07, 2024 9:14a m 25 wk ob October 05, 2024 10: 09am 28 wk ob/glucose October 26, 2024 12 :53pm 30 wk ob November 09, 2024 9:56am 3 M FU November 16, 2024 10:28am 32 WK OB November 23, 2024 12:48pm Reason for Visit Admit Date Current vaping on some days August 10 9:44am Obesity affecting August 10 9:44am August 10, 2024 9:44a m Supervision of high-risk August 10, 2024 9:44am Anxiety and depression August 10, 2024 9: 44am History of drug abuse in remission August 10, 2024 9:44am Anxiety and depression August 10, 2024 1: 18pm Hyperlipidemia August 10, 2024 1:18p m ASCUS of cervix with negative high risk HPV September 07, 2024 9:14am BMI 39.0-39.9,adult September 07, 2024 9:14a m Current vaping on some days September 07 9:14am Ectopic atrial tachycardia September 07 9:14am Elevated cholesterol with high triglycer ides September 07, 2024 9:14am Elevated liver enzymes September 07, 2024 9: 14am Obesity affecting September 07 9:14am September 07, 2024 9:14a m Supervision of high-risk September 07, 2024 9:14am Anxiety and depression September 07, 2024 9: 14am H/O cardiac radiofrequency ablation September 07, 2024 9:14am History of drug abuse in remission September 07, 2024 9:14am Hyperlipidemia September 07, 2024 9:14a m Abnormal uterine bleeding September 07, 2024 9:14am Hirsutism September 07, 2024 9:14a m Current vaping on some days October 05, 2024 10:09am Elevated liver enzymes October 05, 2024 10:09am Obesity affecting October 05, 2024 10:09am October 05, 2024 10: 09am Supervision of high-risk [facility] 2024 10:09am Anxiety and depression October 05, 2024 10:09am H/O cardiac radiofrequency ablation [facility] 2024 10:09am History of drug abuse in remission [facility] 2024 10:09am ASCUS of cervix with negative high risk HPV October 26, 2024 12:53pm BMI 39.0-39.9,adult October 26, 2024 12 :53pm Current vaping on some days October 26, 2024 12:53pm Ectopic atrial tachycardia October 26, 2024 12:53pm Elevated cholesterol with high triglycer ides October 26, 2024 12:53pm Elevated liver enzymes October 26, 2024 12:53pm Obesity affecting October 26, 2024 12:53pm October 26, 2024 12 :53pm Supervision of high-risk [facility] t 2024 12:53pm Yeast dermatitis October 26, 2024 12 :53pm Anxiety and depression October 26, 2024 12:53pm H/O cardiac radiofrequency ablation [facility] 2024 12:53pm History of drug abuse in remission [facility] 2024 12:53pm Hyperlipidemia October 26, 2024 12 :53pm ASCUS of cervix with negative high risk HPV November 09, 2024 9:56am BMI 39.0-39.9,adult November 09, 2024 9:56am Current vaping on some days November 9:56am Ectopic atrial tachycardia November 9:56am Elevated cholesterol with high triglycer ides November 09, 2024 9:56am Elevated liver enzymes November 09 9:56am Obesity affecting November 9:56am November 09, 2024 9:56am Supervision of high-risk [facility] 2024 9:56am Yeast dermatitis November 09, 2024 9:56am Anxiety and depression November 09 9:56am H/O cardiac radiofrequency ablation [facility]2024 9:56am History of drug abuse in remission [facility] 2024 9:56am Hyperlipidemia November 09, 2024 9:56am Multiple skin tags November 16, 2024 10:28am November 16, 2024 10:28am Anxiety and depression November 16, 025 10:28am Current vaping on some days November 232024 12:48pm Ectopic atrial tachycardia November 12:48pm Obesity affecting November 232024 12:48pm November 23, 2024 12:48pm Supervision of high-risk [facility] 2024 12:48pm Anxiety and depression November 23, 025 12:48pm H/O cardiac radiofrequency ablation [facility] 2024 12:48pm History of drug abuse in remission [facility] 2024 12:48pm Chief Complaint Admit Date 17 WK OB August 10, 2024 9:44a m 6 M FU August 10, 2024 1:18p m 21 WK OB September 07, 2024 9:14a m 25 wk ob October 05, 2024 10: 09am 28 wk ob/glucose October 26, 2024 12 :53pm 30 wk ob November 09, 2024 9:56am 3 M FU November 16, 2024 10:28am 32 WK OB November 23, 2024 12:48pm 34w 6d OB December 08, 2024 2: 27pm Reason for Visit Admit Date Current vaping on some days August 10 9:44am Obesity affecting August 10 9:44am August 10, 2024 9:44a m Supervision of high-risk August 10, 2024 9:44am Anxiety and depression August 10, 2024 9: 44am History of drug abuse in remission August 10, 2024 9:44am Anxiety and depression August 10, 2024 1: 18pm Hyperlipidemia August 10, 2024 1:18p m ASCUS of cervix with negative high risk HPV September 07, 2024 9:14am BMI 39.0-39.9,adult September 07, 2024 9:14a m Current vaping on some days September 07 9:14am Ectopic atrial tachycardia September 07 9:14am Elevated cholesterol with high triglycer ides September 07, 2024 9:14am Elevated liver enzymes September 07, 2024 9: 14am Obesity affecting September 07 9:14am September 07, 2024 9:14a m Supervision of high-risk September 07, 2024 9:14am Anxiety and depression September 07, 2024 9: 14am H/O cardiac radiofrequency ablation September 07, 2024 9:14am History of drug abuse in remission September 07, 2024 9:14am Hyperlipidemia September 07, 2024 9:14a m Abnormal uterine bleeding September 07, 2024 9:14am Hirsutism September 07, 2024 9:14a m Current vaping on some days October 05, 2024 10:09am Elevated liver enzymes October 05, 2024 10:09am Obesity affecting October 05, 2024 10:09am October 05, 2024 10: 09am Supervision of high-risk [facility] 2024 10:09am Anxiety and depression October 05, 2024 10:09am H/O cardiac radiofrequency ablation [facility] 2024 10:09am History of drug abuse in remission [facility] 2024 10:09am ASCUS of cervix with negative high risk HPV October 26, 2024 12:53pm BMI 39.0-39.9,adult October 26, 2024 12 :53pm Current vaping on some days October 26, 2024 12:53pm Ectopic atrial tachycardia October 26, 2024 12:53pm Elevated cholesterol with high triglycer ides October 26, 2024 12:53pm Elevated liver enzymes October 26, 2024 12:53pm Obesity affecting October 26, 2024 12:53pm October 26, 2024 12 :53pm Supervision of high-risk [facility] 2024 12:53pm Yeast dermatitis October 26, 2024 12 :53pm Anxiety and depression October 26, 2024 12:53pm H/O cardiac radiofrequency ablation [facility] 2024 12:53pm History of drug abuse in remission [facility] 2024 12:53pm Hyperlipidemia October 26, 2024 12 :53pm ASCUS of cervix with negative high risk HPV November 09, 2024 9:56am BMI 39.0-39.9,adult November 09, 2024 9:56am Current vaping on some days November 9:56am Ectopic atrial tachycardia November 9:56am Elevated cholesterol with high triglycer ides November 09, 2024 9:56am Elevated liver enzymes November 09 9:56am Obesity affecting November 9:56am November 09, 2024 9:56am Supervision of high-risk [facility] 2024 9:56am Yeast dermatitis November 09, 2024 9:56am Anxiety and depression November 09 9:56am H/O cardiac radiofrequency ablation [facility]2024 9:56am History of drug abuse in remission [facility] 2024 9:56am Hyperlipidemia November 09, 2024 9:56am Multiple skin tags November 16, 2024 10:28am November 16, 2024 10:28am Anxiety and depression November 16 025 10:28am Current vaping on some days November 232024 12:48pm Ectopic atrial tachycardia November 12:48pm Obesity affecting November 232024 12:48pm November 23, 2024 12:48pm Supervision of high-risk [facility] 2024 12:48pm Anxiety and depression November 23, 025 12:48pm H/O cardiac radiofrequency ablation [facility] 2024 12:48pm History of drug abuse in remission [facility] 2024 12:48pm ASCUS of cervix with negative high risk HPV December 08, 2024 2:27pm BMI 39.0-39.9,adult December 08, 2024 2: 27pm Current vaping on some days December 08, 2024 2:27pm Ectopic atrial tachycardia December 08, 2024 2:27pm Elevated cholesterol with high triglycer ides December 08, 2024 2:27pm Elevated liver enzymes December 08, 2024 2:27pm Multiple skin tags December 08, 2024 2: 27pm Obesity affecting December 08, 2024 2:27pm December 08, 2024 2: 27pm Supervision of high-risk Octob er 2024 2:27pm Yeast dermatitis December 08, 2024 2: 27pm Anxiety and depression December 08, 2024 2:27pm H/O cardiac radiofrequency ablation Octo yessi 2024 2:27pm History of drug abuse in remission Octob er 2024 2:27pm Hyperlipidemia December 08, 2024 2: 27pm Additional Source Comments INFORMATION SOURCE (unrecogn ized section and content) DATE CREATED AUTHOR 01/31/2021 [facility] ([place]) DATE CREATED AUTHOR AUTHOR'S ORGANIZ ATION 08/04/2023 [facility] DATE CREATED AUTHOR AUTHOR'S ORGANIZ ATION 01/24/2024 [facility] DATE CREATED AUTHOR AUTHOR'S ORGANIZ ATION 09/17/2024 [facility] [place] DATE CREATED AUTHOR AUTHOR'S ORGANIZ ATION 12/27/2024 [facility] Care Teams (unrecognized sec tion and content) Team Status: Active Member Role Status Dates No Primary Care Physician Family Provider Active Dr. Laith Harman MD Primary Care Provider Active Team Status: Inactive Member Role Status Dates Dr. Laith Harman MD Primary Care Provider, Refer ring Provider Active Dr. Promise Castañeda MD Attending Provider Active Team Status: Inactive Member Role Status Dates Dr. Laith Harman MD Primary Care Provider Active Dr. Promise Castañeda MD Attending Provider, Referr ing Provider Active Team Status: Inactive Member Role Status Dates Dr. Laith Harman MD Primary Care Jerardo carson, Attending Provider, Referring Provider Active Team Status: Inactive Member Role Status Dates Dr. Laith Harman MD Primary Care Provider, Atten ding Provider Active Team Status: Inactive Member Role Status Dates Dr. Laith Harman MD Primary Care Provider Active Start: June 12, 2024 End: June 12, 2024 Dr. Laith Harman MD Referring Provider Active Start: June 12, 2024 End: June 12, 2024 Anna Kim CNM Attending Provider Active Start: June 12, 2024 End: June 12, 2024 Team Status: Inactive Member Role Status Dates Dr. Laith Harman MD Primary Care Provider Active Start: June 12, 2024 End: June 12, 2024 Anna Kim CNM Attending Provider Active Start: June 12, 2024 End: June 12, 2024 Anna Kim CNM Referring Provider Active Start: June 12, 2024 End: June 12, 2024 Team Status: Inactive Member Role Status Dates Dr. Laith Harman MD Primary Care Provider Active Start: July 13, 2024 End: July 13, 2024 Dr. Laith Harman MD Referring Provider Active Start: July 13, 2024 End: July 13, 2024 Dr. Christel Sheets DO Attending Provider Activ e Start: July 13, 2024 End: July 13, 2024 Team Status: Inactive Member Role Status Dates Dr. Laith Harman MD Primary Care Provider Active Start: August 10, 2024 End: August 10, 2024 Dr. Laith Harman MD Referring Provider Active Start: August 10, 2024 End: August 10, 2024 Rebecca Butts NP, PROFESSOR OF ENGINEERING-C Attending Provider Active Start: August 10, 2024 End: August 10, 2024 Team Status: Inactive Member Role Status Dates Dr. Laith Harman MD Primary Care Provider Active Start: August 10, 2024 End: August 10, 2024 Dr. Laith Harman MD Attending Provider Active Start: August 10, 2024 End: August 10, 2024 Dr. Laith Harman MD Referring Provider Active Start: August 10, 2024 End: August 10, 2024 Team Status: Active Member Role/Relationship Status Dates No Primary Care Physician Family Provider Active Dr. Laith Harman MD Primary Care Provider Active Team Status: Inactive Member Role/Relationship Status Dates Dr. Laith Harman MD Primary Care Provider Active Start: June 12, 2024 End: June 12, 2024 Dr. Laith Harman MD Referring Provider Active Start: June 12, 2024 End: June 12, 2024 Anna Kim CNM Attending Provider Active Start: June 12, 2024 End: June 12, 2024 Team Status: Inactive Member Role/Relationship Status Dates Dr. Laith Harman MD Primary Care Provider Active Start: June 12, 2024 End: June 12, 2024 Anna Kim CNM Attending Provider Active Start: June 12, 2024 End: June 12, 2024 Anna Kim CNM Referring Provider Active Start: June 12, 2024 End: June 12, 2024 Team Status: Inactive Member Role/Relationship Status Dates Dr. Laith Harman MD Primary Care Provider Active Start: July 13, 2024 End: July 13, 2024 Dr. Laith Harman MD Referring Provider Active Start: July 13, 2024 End: July 13, 2024 Dr. Christel Sheets DO Attending Provider Activ e Start: July 13, 2024 End: July 13, 2024 Team Status: Inactive Member Role/Relationship Status Dates Dr. Laith Harman MD Primary Care Provider Active Start: August 10, 2024 End: August 10, 2024 Dr. Laith Harman MD Referring Provider Active Start: August 10, 2024 End: August 10, 2024 Rebecca Butts NP, PROFESSOR OF ENGINEERING-C Attending Provider Active Start: August 10, 2024 End: August 10, 2024 Team Status: Inactive Member Role/Relationship Status Dates Dr. Laith Harman MD Primary Care Provider Active Start: August 10, 2024 End: August 10, 2024 Dr. Laith Harman MD Attending Provider Active Start: August 10, 2024 End: August 10, 2024 Dr. Laith Harman MD Referring Provider Active Start: August 10, 2024 End: August 10, 2024 Team Status: Inactive Member Role/Relationship Status Dates Dr. Laith Harman MD Primary Care Provider Active Start: September 07, 2024 End: September 07, 2024 Dr. Laith Harman MD Referring Provider Active Start: September 07, 2024 End: September 07, 2024 Erlinda Suggs CNM Attending Provider Active S tart: September 07, 2024 End: September 07, 2024 Team Status: Inactive Member Role/Relationship Status Dates Dr. Laith Harman MD Primary Care Provider Active Start: October 05, 2024 End: October 05, 2024 Dr. Laith Harman MD Referring Provider Active Start: October 05, 2024 End: October 05, 2024 Rebecca Butts PROFESSOR OF ENGINEERING, PROFESSOR OF ENGINEERING-C Attending Provider Active Start: October 05, 2024 End: October 05, 2024 Team Status: Inactive Member Role/Relationship Status Dates Dr. Laith Harman MD Primary Care Provider Active Start: July 13, 2024 End: July 13, 2024 Dr. Laith Harman MD Referring Provider Active Start: July 13, 2024 End: July 13, 2024 Dr. Christel Sheets DO Attending Provider Activ e Start: July 13, 2024 End: July 13, 2024 Team Status: Inactive Member Role/Relationship Status Dates Dr. Laith Harman MD Primary Care Provider Active Start: August 10, 2024 End: August 10, 2024 Dr. Laith Harman MD Referring Provider Active Start: August 10, 2024 End: August 10, 2024 Rebecca Butts NP, PROFESSOR OF ENGINEERING-C Attending Provider Active Start: August 10, 2024 End: August 10, 2024 Team Status: Inactive Member Role/Relationship Status Dates Dr. Laith Harman MD Primary Care Provider Active Start: August 10, 2024 End: August 10, 2024 Dr. Laith Harman MD Attending Provider Active Start: August 10, 2024 End: August 10, 2024 Dr. Laith Harman MD Referring Provider Active Start: August 10, 2024 End: August 10, 2024 Team Status: Inactive Member Role/Relationship Status Dates Dr. Laith Harman MD Primary Care Provider Active Start: September 07, 2024 End: September 07, 2024 Dr. Laith Harman MD Referring Provider Active Start: September 07, 2024 End: September 07, 2024 Erlinda Suggs CNM Attending Provider Active S tart: September 07, 2024 End: September 07, 2024 Team Status: Inactive Member Role/Relationship Status Dates Dr. Laith Harmna MD Primary Care Provider Active Start: October 05, 2024 End: October 05, 2024 Dr. Laith Harman MD Referring Provider Active Start: October 05, 2024 End: October 05, 2024 Rebecca Butts PROFESSOR OF ENGINEERING, PROFESSOR OF ENGINEERING-C Attending Provider Active Start: October 05, 2024 End: October 05, 2024 Team Status: Inactive Member Role/Relationship Status Dates Dr. Laith Harman MD Primary Care Provider Active Start: October 26, 2024 End: October 26, 2024 Dr. Laith Harman MD Referring Provider Active Start: October 26, 2024 End: October 26, 2024 Dr. Promise Castañeda MD Attending Provider Active Start: October 26, 2024 End: October 26, 2024 Team Status: Active Member Role/Relationship Status Dates Dr. Laith Harman MD Primary Care Provider Active Start: October 26, 2024 Rebecca Butts PROFESSOR OF ENGINEERING, PROFESSOR OF ENGINEERING-C Attending Provider Active Start: October 26, 2024 Rebecca Beckie PROFESSOR OF ENGINEERING, PROFESSOR OF ENGINEERING-C Referring Provider Active Start: October 26, 2024 Team Status: Inactive Member Role/Relationship Status Dates Dr. Laith Harman MD Primary Care Provider Active Start: October 26, 2024 End: October 26, 2024 Rebecca Coeymans PROFESSOR OF ENGINEERING, PROFESSOR OF ENGINEERING-C Attending Provider Active Start: October 26, 2024 End: October 26, 2024 Rebecca Coeymans PROFESSOR OF ENGINEERING, PROFESSOR OF ENGINEERING-C Referring Provider Active Start: October 26, 2024 End: October 26, 2024 Team Status: Inactive Member Role/Relationship Status Dates Dr. Laith Harman MD Primary Care Provider Active Start: November 09, 2024 End: November 09, 2024 Dr. Laith Harman MD Referring Provider Active Start: November 09, 2024 End: November 09, 2024 Dr. Promise Castañeda MD Attending Provider Active Start: November 09, 2024 End: November 09, 2024 Team Status: Inactive Member Role/Relationship Status Dates Dr. Laith Harman MD Primary Care Provider Active Start: August 10, 2024 End: August 10, 2024 Dr. Laith Harman MD Referring Provider Active Start: August 10, 2024 End: August 10, 2024 Rebecca Butts PROFESSOR OF ENGINEERING, PROFESSOR OF ENGINEERING-C Attending Provider Active Start: August 10, 2024 End: August 10, 2024 Team Status: Inactive Member Role/Relationship Status Dates Dr. Laith Harman MD Primary Care Provider Active Start: August 10, 2024 End: August 10, 2024 Dr. Laith Harman MD Attending Provider Active Start: August 10, 2024 End: August 10, 2024 Dr. Laith Harman MD Referring Provider Active Start: August 10, 2024 End: August 10, 2024 Team Status: Inactive Member Role/Relationship Status Dates Dr. Laith Harman MD Primary Care Provider Active Start: September 07, 2024 End: September 07, 2024 Dr. Laith Harman MD Referring Provider Active Start: September 07, 2024 End: September 07, 2024 Erlinda Suggs CNM Attending Provider Active S tart: September 07, 2024 End: September 07, 2024 Team Status: Inactive Member Role/Relationship Status Dates Dr. Laith Harman MD Primary Care Provider Active Start: October 05, 2024 End: October 05, 2024 Dr. Laith Harman MD Referring Provider Active Start: October 05, 2024 End: October 05, 2024 Rebecca Butts PROFESSOR OF ENGINEERING, PROFESSOR OF ENGINEERING-C Attending Provider Active Start: October 05, 2024 End: October 05, 2024 Team Status: Inactive Member Role/Relationship Status Dates Dr. Laith Harman MD Primary Care Provider Active Start: October 26, 2024 End: October 26, 2024 Dr. Laith Harman MD Referring Provider Active Start: October 26, 2024 End: October 26, 2024 Dr. Promise Castañeda MD Attending Provider Active Start: October 26, 2024 End: October 26, 2024 Team Status: Inactive Member Role/Relationship Status Dates Dr. Laith Harman MD Primary Care Provider Active Start: October 26, 2024 End: October 26, 2024 Rebecca Butts PROFESSOR OF ENGINEERING, PROFESSOR OF ENGINEERING-C Attending Provider Active Start: October 26, 2024 End: October 26, 2024 Rebecca Butts PROFESSOR OF ENGINEERING, PROFESSOR OF ENGINEERING-C Referring Provider Active Start: October 26, 2024 End: October 26, 2024 Team Status: Inactive Member Role/Relationship Status Dates Dr. Laith Harman MD Primary Care Provider Active Start: November 09, 2024 End: November 09, 2024 Dr. Laith Harman MD Referring Provider Active Start: November 09, 2024 End: November 09, 2024 Dr. Promise Castañeda MD Attending Provider Active Start: November 09, 2024 End: November 09, 2024 Team Status: Inactive Member Role/Relationship Status Dates Dr. Laith Harman MD Primary Care Provider Active Start: November 16, 2024 End: November 16, 2024 Dr. Laith Harman MD Attending Provider Active Start: November 16, 2024 End: November 16, 2024 Dr. Laith Harman MD Referring Provider Active Start: November 16, 2024 End: November 16, 2024 Team Status: Active Member Role/Relationship Status Dates No Primary Care Physician Primary care physician Activ e Dr. Laith Harman MD Primary care physician Activ e Team Status: Inactive Member Role/Relationship Status Dates Dr. Laith Harman MD Primary care physician Activ e Start: August 10, 2024 End: August 10, 2024 Dr. Laith Harman MD Referring Provider Active Start: August 10, 2024 End: August 10, 2024 Rebecca Butts PROFESSOR OF ENGINEERING, PROFESSOR OF ENGINEERING-C Attending physician Active Start: August 10, 2024 End: August 10, 2024 Team Status: Inactive Member Role/Relationship Status Dates Dr. Laith Harman MD Primary care physician Activ e Start: August 10, 2024 End: August 10, 2024 Dr. aLith Harman MD Attending physician Active Start: August 10, 2024 End: August 10, 2024 Dr. Laith Harman MD Referring Provider Active Start: August 10, 2024 End: August 10, 2024 Team Status: Inactive Member Role/Relationship Status Dates Dr. Laith Harman MD Primary care physician Activ e Start: September 07, 2024 End: September 07, 2024 Dr. Laith Harman MD Referring Provider Active Start: September 07, 2024 End: September 07, 2024 Erlinda Suggs CNM Attending physician Active Start: September 07, 2024 End: September 07, 2024 Team Status: Inactive Member Role/Relationship Status Dates Dr. Laith Harman MD Primary care physician Activ e Start: October 05, 2024 End: October 05, 2024 Dr. Laith Harman MD Referring Provider Active Start: October 05, 2024 End: October 05, 2024 Rebecca Butts PROFESSOR OF ENGINEERING, PROFESSOR OF ENGINEERING-C Attending physician Active Start: October 05, 2024 End: October 05, 2024 Team Status: Inactive Member Role/Relationship Status Dates Dr. Laith Harman MD Primary care physician Activ e Start: October 26, 2024 End: October 26, 2024 Dr. Laith Harman MD Referring Provider Active Start: October 26, 2024 End: October 26, 2024 Dr. Promise Castañeda MD Attending physician Active Start: October 26, 2024 End: October 26, 2024 Team Status: Inactive Member Role/Relationship Status Dates Dr. Laith Harman MD Primary care physician Activ e Start: October 26, 2024 End: October 26, 2024 Rebecca Butts PROFESSOR OF ENGINEERING, PROFESSOR OF ENGINEERING-C Attending physician Active Start: October 26, 2024 End: October 26, 2024 Rebecca Butts PROFESSOR OF ENGINEERING, PROFESSOR OF ENGINEERING-C Referring Provider Active Start: October 26, 2024 End: October 26, 2024 Team Status: Inactive Member Role/Relationship Status Dates Dr. Laith Harman MD Primary care physician Activ e Start: November 09, 2024 End: November 09, 2024 Dr. Laith Harman MD Referring Provider Active Start: November 09, 2024 End: November 09, 2024 Dr. Promise Castañeda MD Attending physician Active Start: November 09, 2024 End: November 09, 2024 Team Status: Inactive Member Role/Relationship Status Dates Dr. Laith Harman MD Primary care physician Activ e Start: November 16, 2024 End: November 16, 2024 Dr. Laith Harman MD Attending physician Active Start: November 16, 2024 End: November 16, 2024 Dr. Laith Harman MD Referring Provider Active Start: November 16, 2024 End: November 16, 2024 Team Status: Inactive Member Role/Relationship Status Dates Dr. Laith Harman MD Primary care physician Activ e Start: November 23, 2024 End: November 23, 2024 Dr. Laith Harman MD Referring Provider Active Start: November 23, 2024 End: November 23, 2024 Rebecca Butts NP, PROFESSOR OF ENGINEERING-C Attending physician Active Start: November 23, 2024 End: November 23, 2024 Team Status: Inactive Member Role/Relationship Status Dates Dr. Laith Harman MD Primary care physician Activ e Start: December 08, 2024 End: December 08, 2024 Dr. Laith Harman MD Referring Provider Active Start: December 08, 2024 End: December 08, 2024 Dr. Christel Sheets DO Attending physician Acti ve Start: December 08, 2024 End: December 08, 2024 Goals (unrecognized section and content) Type Care Experience Labor Preferences-CB /BF classes: nolabor support person: Adamlabor intervention preferences: []pain management options preferred: []cut cord/dad catch: yesbreastfeeding: yesPP control planned: discusseddiscussed possible routes of delivery and associated risks: []special requests: [] Goals may be documented in an alternate section FOR RECORDS PERTAINING TO PATIENTS WHO ARE [...] BE BASED ON THE PRIMARY CLINICAL RECORDS. [facility] [employer] [facility]. provides no warranty or guarantee of the accuracy or completeness of information in this document.
[2024-12-28 07:30] LABS: Glucose GTT-Gestation. Fasting 94 mg/dL (<105)
[2024-12-28 10:23] LABS: Glucose GTT-Gestational 1 Hr 162 mg/dL (<190)
[2024-12-28 10:27] LABS: Glucose GTT-Gestational 2 Hr 163 mg/dL (<165)
[2024-12-28 11:19] LABS: Glucose GTT-Gestational 3 Hr 70 L (<145)
== END | disposition home or self-care (01) ==
LOC: LAB 06:51
PROVIDERS: PCP Internal Medicine; Referring Provider Nurse Practitioner Women's Health; Visit Provider Nurse Practitioner Women's Health
DX: Z13.1 Encounter for screening for diabetes mellitus (principal)
CPT/HCPCS: 36415; 82951; 82952

== ENCOUNTER 2025-01-06 07:10 | Inpatient (IN) | payer MEDICAID, SELFPAY ==
[2025-01-06] VITALS (56 sets, daily range): BP systolic 111–147; BP diastolic 56–98; PULSE 71–111; RESP 16; TEMP 36.3–36.9; O2SAT 95–100; BMI 40.1; BMI 20251105.0; BMI 750.0
--- NOTE | 2025-01-06 08:06 | PCM.HP.OB ---
HPI - General General Date of Admission: 01/06/25 HPI Narrative PIETER GUILLERMO, is a 34 F who presents IOL secondary to LGA, favorable cervix. patient counseled regarding options an decision was made for IOL. no vb lof admits good fm. Maternal Data Information MYLES Calculator Estimated Delivery Date Method Current WG Current Estimate 01/13/25 LMP (Certain) 39w 0d Other Estimates 01/08/25 Ultrasound #1 39w 5d 01/07/25 Ultrasound #2 39w 6d PFSH PFSH Medical History Multiple skin tags Hirsutism Abnormal uterine bleeding Depression Anxiety Other obesity Hyperlipidemia Ectopic atrial tachycardia History of drug abuse in remission Chronic headaches Seasonal allergies Tachycardia Home Medications ?Medication ?Instructions ?Recorded ?Last Taken ?Type nystatin 100,000 unit/gram topical 1 applic topical QDAY PRN yeast 11/16/24 Unknown History powder sertraline 50 mg tablet 50 mg PO QDAY depression #90 tabs 11/16/24 01/06/25 07:55 Rx Allergy/AdvReac Type Severity Reaction Status Date / Time Environmental Allergies: Allergy PT UNABLE Verified 01/06/25 07:50 Uncoded TO RESPOND-NEEDS F/U mold Allergy Hives Verified 01/06/25 07:50 codeine AdvReac Other Verified 01/06/25 07:50 Family History Grandfather Myocardial infarction Mother Anxiety Depression Grandmother COPD (chronic obstructive pulmonary disease) Myocardial infarction Surgical History Hx of cholecystectomy History of tonsillectomy and adenoidectomy Hx of tympanostomy tubes H/O cardiac radiofrequency ablation (11/13/13) Social History adopted: No household members: spouse, children and other details: Patient's cousin housing: house number of children: 1 current occupational status: employed current occupation: [employer] pets and animals: Yes pets and animals: dog(s) history of recent travel: No sexually active: Yes Smoking Status: Former smoker quit date: 05/14/24 Smokeless tobacco user: other Electronic Cigarette Use: with nicotine second hand exposure: Yes alcohol intake: former details: not while substance use type: former substance user Date of last use: 07/22/2015 caffeine: Yes Type: coffee what type of physical activity do you participate in: walking frequency: 3-4 times per week nabil/methodist: Jewish seatbelt use: always do you feel safe at home: Yes additional social history: - Ham 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 Date Name GA/Weeks Outcome Route Bth Weight Gen Labor Lgth Anesthesia Del Locatn Provider FOB 06/05/16 Gulshan 40 live - full term Male [facility] Dr. Suárez Visit Details Expected Delivery Route/Plan Labor Preferences- CB/BF classes: no labor support person: Ham labor intervention preferences: [] pain management options preferred: [] cut cord/dad catch: yes : yes PP control planned: discussed discussed possible routes of delivery and associated risks: [] special requests: [] Plans Covid status: [] Flu vaccine: [] Tdap vaccine: [] Rhogam: na LARC form signed: yes movement and labor precautions reviewed. Problem list reviewed and updated with the most current plan of care details and appropriate orders placed. Relevant counseling for the gestational age provided. Continue routine care and follow up unless otherwise noted in visit notes/problem list details OB Flowsheet Initial Weight: 230 lb Date <del>?</del> EGA Weight BP Urine Prot <del>?</del> Glucose FHR FuHt Pres Dilation <del>?</del> Effaced St Visit Note 06/12/24 <del>?</del> 9w 2d 230 lb 4 oz (+4 oz) 135/82 <del>?</del> 180 <del>?</del> LC- CRL con with lmp (36mm).declines nipt. 07/13/24 <del>?</del> 13w 5d 231 lb 4 oz (+1 lb 4 oz) 120/63 Negative <del>?</del> Negative 158 <del>?</del> JV- no complaints today. but does report that on had some bright red blood when she used the restroom. nothing since and did not require a pad. CRL measures 14 weeks 4 days today. 08/10/24 <del>?</del> 17w 5d 230 lb 4 oz (+4 oz) 124/80 Negative <del>?</del> Negative 148 <del>?</del> MH-No VB. Feeling flutters. Some off & on back pain. Varies at sight. Reviewed back exercises. Consider chiro. 09/07/24 <del>?</del> 21w 5d 233 lb 8 oz (+3 lb 8 oz) 122/81 Negative <del>?</del> Negative 145 <del>?</del> KW- no vb/cramping. good fm. discussed glucose test. KW- no vb/cramping. good fm. discussed glucose test. rash under breasts-rx sent 10/05/24 <del>?</del> 25w 5d 235 lb 2 oz (+5 lb 2 oz) 126/82 Negative <del>?</del> Negative 159 27 <del>?</del> MH-NO VB, LOF. Good FM. Larc 10/26/24 <del>?</del> 28w 5d 237 lb 1 oz (+7 lb 1 oz) 130/85 Negative <del>?</del> Negative 140 30 <del>?</del> SM- no vb lof good fm no reuglar ctx some rash itchy on left side reviewed conservative mangameent if pupps 11/09/24 <del>?</del> 30w 5d 238 lb 7 oz (+8 lb 7 oz) 121/77 Negative <del>?</del> Negative 145 31 <del>?</del> SM- itchiness improved with supportive care 11/23/24 <del>?</del> 32w 5d 240 lb 8 oz (+10 lb 8 oz) 123/81 Negative <del>?</del> Negative 155 34 <del>?</del> MH-No VB, LOF. Good FM. tdap. 12/08/24 <del>?</del> 34w 6d 245 lb 5 oz (+15 lb 5 oz) 127/82 Negative <del>?</del> Negative 141 37 <del>?</del> JV- no lof, vaginal bleeding, or dec fm. measuring LGA today, ordering growth scan. 12/21/24 <del>?</del> 36w 5d 247 lb 7 oz (+17 lb 7 oz) 125/72 Negative <del>?</del> Negative 140 42 Cephalic 1 <del>?</del> 50 -2 KW- no vb/lof/ctx. good fm. did one hour gct today for LGA on US. 12/28/24 <del>?</del> 37w 5d 247 lb 3 oz (+17 lb 3 oz) 122/77 Negative <del>?</del> Negative 135 42 Cephalic 3 <del>?</del> 60 -2 KW- no vb/lof/ctx. good fm. passed 3 hour gct. EFW at 39 weeks is 4025 grams-almost 9 pounds. discussed 39 week IOL. 01/04/25 <del>?</del> 38w 5d 247 lb 9 oz (+17 lb 9 oz) 132/80 Negative <del>?</del> Negative 135 40 3 <del>?</del> 70 -1 SM- no vb lof good fm n oreugalr ctx NST FHR Rate Baby A Baseline: 130 Variability:: Moderate Accelerations:: 15 x 15 Decelerations:: None NST Reactive:: Yes FHR Category:: Category I Uterine Activity:: irregular ROS Constitutional Constitutional: Reports systems reviewed and no addt'l complaints, except as documented Eyes Eyes: Denies change in vision ENT HEENT: Reports systems reviewed and no addt'l complaints, except as documented; Denies headache(s) Cardiovascular Cardiovascular: Reports systems reviewed and no addt'l complaints, except as documented; Denies chest pain or dyspnea Respiratory/Chest Respiratory/Chest: Reports systems reviewed and no addt'l complaints, except as documented Gastrointestinal Gastrointestinal: Reports systems reviewed and no addt'l complaints, except as documented; Denies abdominal pain Genitourinary Genitourinary: Reports systems reviewed and no addt'l complaints, except as documented, contractions Details: present (irregular) and movement Details: present; Denies dysuria or genital lesions Musculoskeletal Musculoskeletal: Reports systems reviewed and no addt'l complaints, except as documented Neurologic Neurologic: Reports systems reviewed and no addt'l complaints, except as documented Endocrine Endocrinology: Reports systems reviewed and no addt'l complaints, except as documented Vital Signs Vital Signs Vital Signs: Weight Weight: 249 lb 1.957 oz Body Mass Index (BMI) 40.1 Physical Exam Const alert, oriented x3, no apparent distress and healthy appearing HEENT normocephalic and moist oral mucous membranes Head and Scalp: atraumatic Neck full ROM, no lymphadenopathy, supple and thyroid normal General: trachea midline Lymph Lymphatic: no lymphadenopathy noted Chest inspection of chest normal Resp normal respiratory effort Cardio regular rate GI soft to palpation and non-tender GI Narrative: gravid Inspection: gravid external exam normal Manual OB Exam: estimated gestational size appropriate, presentation cephalic, dilated, effaced and station Extremity normal to inspection General Extremity: Negative for edema Skin no rashes or lesions noted Neuro no focal motor deficits and deep tendon reflexes 2+ bilaterally Motor Exam: strength 5/5 throughout and clonus absent Psych mental status grossly normal Labs Labs Labs: Blood Type O POSITIVE Antibody Screen NEGATIVE Hct, (37-47) 34.7 % L Hgb, (12.0-15.0) 11.4 g/dL L Pap Smear Negative Obstetrics Ultrasound Syphilis Total Ab, (Nonreactive) Nonreactive Rubella IgG Antibody, (Nonreactive) REAC Hep Bs Antigen, (Nonreactive) Nonreactive Hepatitis C Antibody, (Nonreactive) Nonreactive Hepatitis C Ab (EIA), (Non Reactive) Non Reactive Chlamydia DNA (CARTER), (Negative) Negative N.gonorrhoeae DNA (CARTER), (Negative) Negative HIV 1&2 Antibody, (Nonreactive) Nonreactive Glucose 1 Hr 50 gm, (70-140) 144 mg/dL H Gest Glucose Tolerance mg/dL Rhogam given: No Assessment & Plan (1) Positive GBS test: COMMENT: treat in labor (2) LGA (large for gestational age) fetus affecting management of mother: COMMENT: repeat gct; normal 3 hr GTT (3) Supervision of high-risk : QUALIFIERS: Trimester: second trimester Qualified Code(s): O09.92 - Supervision of high risk , unspecified, second trimester COMMENT: PRR , MYLES 01/13 boy Rajeev PC: Gulshan, : Ham (4) : QUALIFIERS: Weeks of gestation: 38 weeks Qualified Code(s): Z3A.38 - 38 weeks gestation of PLAN: Plan Patient presents IOL, plan management for with pitocin/AROM. Pain management: plans epidural. GBS pos plan pcn. Management of any complications: lga EFW 4000g I have reviewed the [facility] and made any clinically relevant updates.
[2025-01-06] MEDS: Lactated Ringers 1,000 ML 50 ML IV (08:15)
[2025-01-06] MEDS: Penicillin G Pot 5,000,000 UNITS in 0.9% Normal Saline (100mL MB+) 100 ML 150 UNITS IV (08:20)
[2025-01-06 08:37] LABS: Hematocrit 35.3 % (37-47); Hemoglobin 11.4 g/dL (12.0-15.0); Immature Granulocytes Count 0.080 X10^3/uL (0.0-0.0); Mean Corp Hgb Conc 32.3 g/dL (32-36); Mean Corpuscular Volume 83.6 fL (81-99); Mean Platelet Vol. 11.2 fl (6.2-12.0); NRBC Flagged by Analyzer 0 % (0-5); Platelet Count 262 K/mm3 (150-450); RBC Distribution Width CV 14.9 % (11.6-14.6); RBC Distribution Width SD 45.2 fl (35.1-43.9); Red Blood Count 4.22 M/mm3 (4.2-5.4); White Blood Count 12.6 K/mm3 (4.4-11.0)
[2025-01-06] MEDS: Oxytocin 15 Units/NS 250ml 15 UNITS/250 ML IV.SOLN 2 UNITS IV (08:47)
[2025-01-06 09:11] LABS: Syphilis Antibodies Nonreactive (Nonreactive)
[2025-01-06 12:53] LABS: Barbiturate Urine NEGATIVE (< 200 ng/mL); Benzodiazepine Urine NEGATIVE (< 200 ng/mL); PCP Urine NEGATIVE (< 25 ng/mL); THC Urine NEGATIVE (< 50 ng/mL)
--- NOTE | 2025-01-06 13:40 | PCM.PN.BLA ---
Progress Note arom clear fluid cat I tracing pit per protocol
[2025-01-06] MEDS: fentaNYL-bupivacaine (epidural) 100 ML BAG EPIDURAL (13:55)
[2025-01-06] MEDS: Penicillin G 3,000,000 Units 50 ML 100 UNITS IV (14:09)
[2025-01-06] MEDS: Lactated Ringers 1,000 ML 200 ML IV (14:20)
[2025-01-06] MEDS: 0.9% Saline Lock 10 ML Syringe IV (17:50)
--- NOTE | 2025-01-06 18:50 | EX.PCM.OBVAG ---
Assessment & Plan (1) Positive GBS test: COMMENT: treat in labor (2) LGA (large for gestational age) fetus affecting management of mother: COMMENT: repeat gct; normal 3 hr GTT (3) Supervision of high-risk : QUALIFIERS: Trimester: second trimester Qualified Code(s): O09.92 - Supervision of high risk , unspecified, second trimester COMMENT: PRR , MYLES 01/13 boy Rajeev PC: Gulshan, : Ham (4) : QUALIFIERS: Weeks of gestation: 38 weeks Qualified Code(s): Z3A.38 - 38 weeks gestation of (5) Vaginal delivery: COMMENT: SM IOL LGA boy Rajeev Maternal Data Information MYLES Calculator Estimated Delivery Date Method Current WG Current Estimate 01/13/25 LMP (Certain) 39w 0d Other Estimates 01/08/25 Ultrasound #1 39w 5d 01/07/25 Ultrasound #2 39w 6d Vaginal Delivery Maternal Presentation Maternal Presentation: see assessment and plan Vaginal Delivery Information Procedure Performed: Spontaneous Vaginal Delivery Surgeon/Practitioner: Promise Castañeda Date of Procedure: 01/06/25 Type of anesthesia: Epidural Estimated Blood Loss: 100 Findings Description of procedure: Patient began pushing and delivered the head in the FABIANO presentation. The head was delivered atraumatically and a loose nuchal cord ?1 was identified and easily reduced over the 's head. The anterior and posterior shoulders delivered without complication followed by the rest of the and the infant was placed on the maternal abdomen. Delayed cord clamping was employed for approximately 60 seconds. Cord was clamped and cut and gentle traction was applied to the cord and the placenta delivered spontaneously immediately following it was noted to be intact with three-vessel cord. The perineum and vagina were inspected and was noted to have a second -degree laceration that was repaired in the usual fashion with 3-0 vicryl rapide . EBL was 100 cc. Patient and tolerated delivery well. Presentation: Vertex Placental Delivery Description: Spontaneous Specimen collected: Yes Description of specimen(s) removed: placenta Solar [employer] Specialist head pumper: No Post Vaginal Deli Medications given after delivery: Other (pitocin) Complication Complications: No Multi Select Codes Urinary/Genital Urinary/Genital CPT Codes: 33455 Vaginal Delivery+ PP Care([facility])
--- NOTE | 2025-01-06 18:54 | DCINST_ITS ---
Discharge Instructions
--- NOTE | 2025-01-06 18:54 | PCM.DC ---
Discharge Instructions DC O2, CPAP, BIPAP needs Home O2 Discharge instructions: No Dressing / Incision Discharge Activity: Return to Normal Activity, May Not Drive (while taking narcotic pain medications.) and May Shower May resume sexual activity in: 4-6 weeks Dressing / Incision Call your doctor if your incision/area has: Continuous Slow Oozing, Sudden Increased Bleeding, Increased Pain/ Swelling, Increased Redness and Foul Smelling Discharge Follow Up Care Please Follow Up With: Promise Castañeda MD When: Call [phone] to make an appointment with your doctor in 6 weeks. If you had elevated blood pressure or 4th degree laceration, you will need to be seen in 2 weeks. Test Results: Test results from this visit will be discussed in further detail at your follow-up appointment, if applicable. Discharge Plan Admission Admit Date/Time: 01/06/25 07:10 Attending Provider: Promise Castañeda Primary Care Provider: Rohith Harman Discharge Orders/Prescriptions Prescriptions: No Action nystatin 100,000 unit/gram powder 1 applic topical QDAY PRN (Reason: yeast) sertraline 50 mg tablet 50 mg PO QDAY Qty: 90 1RF Referrals / Follow Up: Rohith Harman MD [Primary Care Provider, Internal Medicine]
[2025-01-06] MEDS: Oxytocin 15 Units/NS 250ml 15 UNITS/250 ML IV.SOLN 83 UNITS IV (19:05)
[2025-01-06] MEDS: GLYCERIN/WITCH HAZEL (TUCKS) MED..PAD 1 EACH TOPICAL (22:07)
[2025-01-07] VITALS (7 sets, daily range): BP systolic 130–140; BP diastolic 69–78; PULSE 72–87; RESP 16–18; TEMP 35.9–36.4; O2SAT 98–99
--- NOTE | 2025-01-07 07:31 | NURSING ---
Patient self administered tucks pads overnight to pad at approx 2300, 0115, 0300 and 0550, using 3 pads each administration.
[2025-01-07] MEDS: Senna/Docusate Sodium 1 Tablet PO (09:58)
--- NOTE | 2025-01-07 14:27 | PCM.PN.OB ---
Subjective Subjective Patient doing well without complaints. Tolerating PO. Ambulating and voiding without difficulty. feeding well. Denies chest pain, shortness of breath, calf pain/swelling, fevers, chills, lightheadedness. Objective Data Objective Data Vital Signs: Vital Signs Temp Pulse Resp BP Pulse Ox O2 Del Method 96.7 F L 86 16 140/71 H 98 Room Air 01/07/25 08:00 01/07/25 12:35 01/07/25 12:35 01/07/25 12:35 01/07/25 08:00 01/07/25 08:00 Oxygen Delivery Method Room Air Weight: 249 lb 1.957 oz Body Mass Index (BMI) 40.1 Intake & Output: Intake and Output for Last 24 Hours 01/05/25 01/06/25 01/07/25 23:59 23:59 23:59 Intake Total 2476.67 / 2476.67 Output Total 1500 / 1500 Balance 976.67 / 976.67 Lab / Micro Data 01/06/25 08:15 ROS Constitutional Constitutional: Reports systems reviewed and no addt'l complaints, except as documented Cardiovascular Cardiovascular: Reports systems reviewed and no addt'l complaints, except as documented Respiratory/Chest Respiratory/Chest: Reports systems reviewed and no addt'l complaints, except as documented Gastrointestinal Gastrointestinal: Reports systems reviewed and no addt'l complaints, except as documented Physical Exam Const alert, oriented x3 and no apparent distress HEENT Head and Scalp: atraumatic Resp normal respiratory effort GI soft to palpation and non-tender Bimanual Exam - Vag & Uterus: uterus non-tender Uterus Palpation: uterus fundus firm (below Umbilicus) Assessment & Plan (1) Vaginal delivery: COMMENT: SM IOL LGA boy Rajeev PLAN: Plan s/p PPD # 1 1. routine post delivery care 2. breast feeding- support given 3. rh positive 4. rubella immune
--- NOTE | 2025-01-08 11:02 | CASEMGMT ---
Social Work Assessment Labor and Delivery Unit Patient Address: [address] [place] [address] [place] [address] Phone number: [phone] Date of Referral: 01/06/25 Time of Referral:? [phone] Referred By: Dr. Castañeda Date of Intervention: ?01/07/25? Time of Intervention:? 1430 Reason for Referral:? substance abuse 19 years ago, depression- on zoloft Sw completed chart review and acknowledges social work consult. Sw presented to bedside and introduced self to mother of baby, DAPHNE- Anup, and father of baby, EDENILSON- Ham. Sw explained reason for sw involvement and completed psychosocial assessment. History obtained from: medical records, MOB and FOB Household composition: Currently residing in the home is EDENILSON SERNA, their 8 year old son- Gulshan and maternal grandmother (great grandmother to ). [place] baby to be included in hospital when ready for discharge. Parents deny any housing concerns, stating that their home is safe and secure. - EDENILSON states that their home is Maternal grandma's home. She asked them to move in with her when her a couple of years ago. Their plan is to keep saving money and buy their own home in a couple of years from now. Patient's parent/guardian status:? DAPHNE and EDENILSON state that they have been together for 11.5 years after meeting when they worked together at [employer]. baby is second baby together. EDENILSON has a 16 year old daughter from a prior relationship. Parents report that their relationship has definitely had it's ups and downs, but for the past 8 years they have been on the right track and they are each other's strongest supports. - Mita met with DPAHNE privately when EDENILSON left to go get his dad to come in and meet baby. At that time DAPHNE completed SDOH and she denied any forms of abuse, stating that FOB and herself do have history of substance abuse and mental health history, but denied domestic violence or intimate partner violence. ? Medical History: ?DAPHNE is 34 year old is 2, para 1- now 2 following labor and delivery of . DAPHNE received routine care during with [facility]. DAPHNE presented to hospital for an induction of labor and delivered baby on 01/06/25 at 39 weeks gestation via vaginal delivery. Baby boy, named Rajeev Matta, was born weighing 8lbs 7o and had apgars of 8 and 9 at one and five minutes of life, respectfully. DAPHNE states that she is working on breast feeding and baby will be followed by Dr. Rojas for pediatric follow up. Educational Status:? Both parents graduated from high school and EDENILSON obtained a college degree. No problems with reading, learning or comprehension. Financial Status: Both parents are gainfully employed outside of the home. 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 Supplies:?? All necessary baby supplies obtained, including: car seat, safe sleep space, clothes, diapers and wipes. Childcare/Caregiver(s):?DAPHNE and EDENILSON will both be the primary caregivers to baby Transportation:?DAPHNE and EDENILSON both have their drivers license and transportation, ? DAPHNE states that both vehicles have some problems right now, but they have the means to get them fixed. In the mean time they are able to use her grandmothers vehicle to get to where they need to go. Programs/Agencies Involved: ?DAPHNE is connected to [employer] for insurance and food benefits. In the past DAPHNE was connected to [facility] for counseling but is not any more. ?? Children Services/Legal Issues:??? No history of children services involvement, no issues or concerns warranting referral to be made at this time. Behavioral Health Issues: ??Mental Health History:??EDENILSON states that he has been diagnosed with anxiety and is prescribed Celexa. He denies being connected to any community mental health resources. DAPHNE states that she has also been diagnosed with anxiety and depression. DAPHNE states that she struggled with depression, however she did not realize that she was struggling with it until her mom recognized it any brought it to her attention. DAPHNE states that she was worried about how having another baby was going to change what their life looked like, so she did have some anxiety throughout her . When DAPHNE talked to her OBGYN about this she prescribed Zoloft. DAPHNE reports that she feels that the Zoloft has helped her manage her symptoms. DAPHNE is not connected to any mental health resources at this time. ? Substance Use History:?BOth parents have history of substance use. 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 EDENILSON also has history of substance abuse. Parents report that they have both addressed these issues and have dealt with all these issues and have gone through necessary treatment. Both parents deny substance use prior to and during . ? Family History:?Parents deny family history of significant mental health history or substance use. ? Drug Screens: Maternal drug screen was negative at time of delivery. ?? Family/Social Stressors:? Parents deny any issues, stressors or concerns at this time. Support Systems: DAPHNE states that EDENILSON is her biggest support at this time, along with her mom and her grandma. Depression/Shaken Baby/Safe Sleeping:?Sw educated parents on signs and symptoms of baby blues and mood and anxiety symptoms to be on the lookout for during this period. MOB states that she is more aware of what to be on the lookout for at this time. MOB states that after being informed of what depression looks like, she knows that is what she experienced after her first son was born. MOB states that she is thankful that she was recommended to start Zoloft prior to delivery, and hopes that the medication will help her manage her symptoms during this period. FOB states that if MOB were to struggle he would also have a better understanding of what that looks like this time. Both parents recognize that this journey they are older and in a better place in life. They are more stable, their mental health is more managed, and their relationship is better. Sw educated parents on shaken baby prevention and ABCs of safe sleep, parents express understanding. ASSESSMENT:? MOB and baby admitted following labor and delivery. MOB with history of substance use as well as mental health history. MOB and FOB both open to talk about their mental health and substance use history. Parents were welcoming to talk to sw. They were talkative and engaging throughout conversation. MOB and FOB both on medication to help them manage their mental health symptoms. MOB was observed sitting comfortably in chair holding baby with appropriate hands on care. MOB reports that since delivery she has felt like herself, denies feeling down, anxious, tearful or sad. FOB was observed to be attentive to MOB. Parents were conversational and conversation flowed naturally. Parents report to having all supplies for baby and supports in place. PLAN:? No other services requested or indicated. MOB and baby to be discharged when medically ready. Parents were provided literature regarding: signs and symptoms of baby blues and mood and anxiety disorders, Help Me Grow, shaken baby prevention, ABCs of safe sleep and a list of county resources that are available for them should any needs present themselves. Winnie Gonzalez, PLASTERER JOURNEYMAN, SHAPER MACHINE HAND
--- NOTE | 2025-01-11 13:59 | NURSING ---
f/up call attempted, I'm sorry, the person you are calling has a voice mail box that is not set up message received.
== END 2025-01-07 19:35 | disposition home or self-care (01) | DRG 560 ==
PROVIDERS: Admitting Provider Obstetrics & Gynecology; PCP Internal Medicine; Referring Provider Obstetrics & Gynecology; Visit Provider Obstetrics & Gynecology
DX: O36.63X0 Maternal care for excessive fetal growth, third trimester, not applicable or unspecified (principal); Z37.0 Single live birth; B95.1 Streptococcus, group B, as the cause of diseases classified elsewhere; O69.81X0 Labor and delivery complicated by cord around neck, without compression, not applicable or unspecified; Z87.891 Personal history of nicotine dependence; Z3A.38 38 weeks gestation of pregnancy; O99.824 Streptococcus B carrier state complicating childbirth; O70.1 Second degree perineal laceration during delivery
CPT/HCPCS: 59025; 59050; 80307; 85025; 86780; 86850; 86900; 86901; 99221; A4216; G0378; J2405